=== PATIENT | female | born 1965 | race Caucasian/White ===

== ENCOUNTER 2020-05-18 07:40 | Outpatient (REF) | payer OTHER, SELFPAY ==
--- NOTE | 2020-05-18 | XR_ITS ---
EXAMINATION: XR LUMBOSACRAL SPINE CLINICAL INFORMATION: Dorsal spine pain COMPARISON: None TECHNIQUE: Three views of the lumbosacral spine. FINDINGS: There is normal lumbar lordosis. The vertebral heights, alignment and disc heights are normal. There is no visible acute fracture, dislocation or subluxation seen. The soft tissues are normal. XR/XR lumbar spine 2-3V IMPRESSION: Unremarkable lumbar spine exam.
== END 2020-05-18 07:41 | disposition home or self-care (01) ==
LOC: HO.XRAY 07:40
PROVIDERS: PCP Internal Medicine; Visit Provider Internal Medicine
DX: M54.9 Dorsalgia, unspecified (principal)
CPT/HCPCS: 72100

== ENCOUNTER 2020-06-23 08:00 | Outpatient (RCR) | payer OTHER, SELFPAY | END 2020-06-23 09:22 | disposition other institution (70) | LOC: HO.PT 08:00 | PROVIDERS: PCP Internal Medicine; Visit Provider Internal Medicine | DX: M54.9 Dorsalgia, unspecified (principal) | CPT/HCPCS: 97110; 97162; 97530 ==

== ENCOUNTER 2020-08-10 08:00 | Outpatient (RCR) | payer OTHER, SELFPAY ==
[2020-06-29 08:11] VITALS: BP 122/56; PULSE 91
== END 2020-08-10 11:21 | disposition other institution (70) ==
LOC: HO.PT 08:00
PROVIDERS: PCP Internal Medicine; Visit Provider Internal Medicine
DX: M54.2 Cervicalgia (principal)
CPT/HCPCS: 97110; 97140; 97161

== ENCOUNTER → 2021-04-19 16:28 | Outpatient (BNVA) | payer OTHER, SELFPAY | PROVIDERS: PCP Internal Medicine; Visit Provider Anesthesiology | DX: M50.30 Other cervical disc degeneration, unspecified cervical region (principal); M48.00 Spinal stenosis, site unspecified; M48.02 Spinal stenosis, cervical region | CPT/HCPCS: Q3014 ==

== ENCOUNTER → 2021-07-12 16:14 | Outpatient (BNVA) | payer OTHER, SELFPAY | PROVIDERS: PCP Internal Medicine; Visit Provider Anesthesiology ==

== ENCOUNTER 2022-01-16 03:51 | Emergency (ER) | payer OTHER, SELFPAY ==
--- NOTE | ~2022-01-16 | CT_ITS ---
EXAMINATION: CT ABDOMEN AND PELVIS WITHOUT CONTRAST CLINICAL INFORMATION: Diffuse abdominal pain and lower back pain COMPARISON: Renal ultrasound 10/08/2019 TECHNIQUE: Multidetector volumetric imaging was performed from the superior aspect of the liver through the pubic symphysis. Sagittal and coronal reformatted images were obtained on the technologist's workstation. This CT examination was performed using dose optimization techniques as appropriate, variously including the following: *Automated exposure control *Adjustment of mA and/or kV according to patient size (this includes techniques or standardized protocols for targeted exams where dose is matched to indication/reason for exam; i.e. extremities or head) *Use of iterative reconstruction technique DLP: 827 mGy-cm FINDINGS: LUNG BASES: There is dependent bibasilar atelectasis or atelectasis. There is a 6 mm pleural-based nodule left lower lobe. Previously it measured 5 mm The heart size is normal LIVER, GALLBLADDER, AND BILIARY TREE: The liver is normal in size, shape, and attenuation. No focal hepatic lesion or biliary ductal dilatation is present. The gallbladder is unremarkable with no evidence of radiopaque gallstones, gallbladder wall thickening, or obvious pericholecystic inflammatory changes. PANCREAS: Unremarkable. SPLEEN: Unremarkable. ADRENAL GLANDS: Unremarkable. KIDNEYS AND URETERS: The kidneys are normal in size, shape, and attenuation. There is a lobulated appearance of lower pole right kidney measuring up to 3.4 x 2.8 cm on axial image 41/3. It appears new since the previous exam of 2012 mass is suspected. No radiopaque renal calculi or hydronephrosis seen. No perinephric stranding. BLADDER: Unremarkable. GASTROINTESTINAL TRACT: Scattered stool and gas is seen throughout the colon without distention. The small bowel loops are normal caliber. ABDOMINAL WALL: No significant hernia is appreciated. LYMPH NODES: Normal. VASCULAR: Unremarkable. PELVIC VISCERA: The uterus is anteverted and appears unremarkable. There is no adnexal mass seen. OSSEOUS STRUCTURES: Unremarkable. CT/CT abdomen pelvis wo con IMPRESSION: No acute intra-abdominal process seen. Lobulated mass lobe pole right kidney new since 2015. Recommend further evaluation with MRI kidneys with and without contrast. 6 mm subpleural-based nodule left lower lobe, stable. Fleischner guidelines were followed.
[2022-01-16 04:29] VITALS: BP 168/100; PULSE 72; O2SAT 98
[2022-01-16 04:33] VITALS: BP 98/36; PULSE 68; RESP 18; TEMP 36.6; O2SAT 96; BMI 32.5
[2022-01-16 04:40] LABS: MANUAL DIFF FLAG NO
[2022-01-16 04:42] LABS: Basophils Absolute Auto 0.1 X10*3/uL (0.0-0.2); Basophils Percent Auto 0.4 % (0-2); Eosinophils Absolute Auto 0.3 X10*3/uL (0.0-0.4); Eosinophils Percent Auto 2.2 % (0-4); Hematocrit 42.6 % (37.0-47.0); Hemoglobin 14.3 g/dl (12.0-16.0); Imm Gran Abs Auto 0.08 X10*3/uL (0.00-0.03); Imm Gran Pct Auto 0.6 % (0.0-0.4); Lymphocytes Absolute Auto 3.8 X10*3/uL (1.2-4.9); Lymphocytes Percent Auto 27.8 % (20-40); Mean Corpuscular HGB Conc 33.6 g/dl (31.0-35.0); Mean Corpuscular Hemoglobin 28.9 pg (27.0-33.0); Mean Corpuscular Volume 86.1 fL (80.0-98.0); Mean Platelet Volume 10.4 fL (9.4-12.3); Monocytes Absolute Auto 1.1 X10*3/uL (0.1-1.2); Monocytes Percent Auto 7.7 % (2-11); Neutrophils Absolute Auto 8.3 x10*3/uL (2.0-8.3); Neutrophils Percent Auto 61.3 % (45-73); Platelet Count 349 X10*3/uL (160-400); Red Blood Count 4.95 X10*6/uL (4.20-5.50); Red Cell Distribution Width 12.6 % (11.0-16.0); White Blood Count 13.6 X10*3/uL (4.8-10.8)
[2022-01-16 04:57] LABS: Alanine Aminotransferase 18 U/L (0-31); Albumin Level 4.3 g/dL (3.5-5.0); Alkaline Phosphatase 98 U/L (39-117); Anion Gap 16 (12-20); Aspartate Amino Transferase 19 U/L (5-31); Bilirubin Direct < 0.2 mg/dL (0.0-0.5); Bilirubin Total 0.2 mg/dL (0.0-1.0); Blood Urea Nitrogen 12 mg/dL (9-16); Calcium 9.2 mg/dL (8.4-10.2); Carbon Dioxide 23 mmol/L (22-29); Chloride 104 mmol/L (96-108); Creatinine Clr Calc Pharmacy 106.5; Estimated Glomerular Filt Rate > 60; Glucose Random 147 mg/dL (60-115); Lipase 104 U/L (8-78); Potassium 4.4 mmol/L (3.3-5.1); Sodium 139 mmol/L (135-145); Total Protein 7.8 g/dL (6.5-8.0)
[2022-01-16 08:32] VITALS: BP 104/33; PULSE 57; RESP 16; TEMP 36.6; O2SAT 95
[2022-01-16 09:30] VITALS: BP 110/46; PULSE 58; RESP 17; TEMP 36.7; O2SAT 98
[2022-01-16] MEDS: 0.9 % Sodium Chloride 1,000 ML 999 ML IVCONT (09:40)
[2022-01-16] MEDS: Ketorolac Tromethamine 30 MG/ML VIAL IVPUSH (09:40)
[2022-01-16] MEDS: ondansetron HCL 4 MG/2 ML VIAL IVPUSH (09:40)
--- NOTE | 2022-01-16 10:22 | ED_ITS ---
HPI - Abdominal Pain General Chief Complaint: Abdominal Pain Stated Complaint: LOWER BACK & ABD PAIN Time Seen by Provider: 01/16/22 08:13 Source: patient Mode of arrival: ambulatory Limitations: no limitations History of Present Illness HPI narrative: 56-year-old female with a past medical history of hypertension, hypercholesterolemia, diabetes, kidney stones, endometriosis, herpes zoster, pancreatitis, asthma, degenerative disc disease of cervical spine, spinal stenosis and depression presenting to the ED with complaints of diffuse abdominal pain that radiates to her back/tailbone for the past few days worse today. Reports that she was given a stool softener and now she is having more loose stools although she does not feel like she has had a full bowel movement. She reports that she only dribbles when she urinates. She reports she is unsure if it is GERD or back pain that is giving her actual pain. She reports that she went to her primary care recently and she had an ultrasound of her kidneys and they were negative for any acute processes. She denies any fevers, chills, dizziness, headaches, neck pain/stiffness, trouble swallowing or breathing, chest pain or shortness of breath, dyspnea on exertion, orthopnea, rashes, recent falls or trauma, recent travel, recent bad food exposure, any antibiotic usage, black or bloody stools, diarrhea, constipation, dysuria, hematuria, abnormal vaginal discharge or any other symptoms complaints or concerns at this time. MD elicited complaint: abdominal pain and flank pain Pertinent past history: other (See above) Onset (ago): day(s) (The past few days worse today) Pain Consistency: constant Location: diffuse Severity: mild Quality: cramping, aching and fullness Radiation: bilateral flank and back Exacerbating factors: nothing Relieving factors: nothing Associated symptoms: denies other symptoms Related Data Home Medications Medication Instructions Recorded Confirmed lisinopril 5 mg tablet 5 mg PO DAILY 04/19/21 04/19/21 lorazepam 1 mg tablet 1 mg PO DAILY PRN panic attack 04/19/21 04/19/21 metformin 500 mg tablet,extended 500 mg PO QPM 04/19/21 04/19/21 release 24 hr simvastatin 20 mg tablet 20 mg PO BEDTIME 04/19/21 04/19/21 Previous Rx's Medication Instructions Recorded tizanidine 2 mg tablet 2 mg PO TID PRN muscle spasticity 04/24/21 30 days #90 tabs cyclobenzaprine 10 mg tablet 10 mg PO Q8H PRN Muscle spasm #14 01/16/22 tabs naproxen 500 mg tablet 500 mg PO BID PRN pain #14 tabs 01/16/22 Allergies Allergy/AdvReac Type Severity Reaction Status Date / Time ampicillin [AMPICILLIN] Allergy Unknown RASH Unverified 07/12/21 16:26 Ampicillin Allergy Unknown rash Uncoded 07/12/21 16:26 Review of Systems Review of Systems Constitutional : No trauma, No Weight loss, No Fever, No Chills, ENT/Mouth : No Hearing loss, No Ear Pain, No Nasal Congestion, No Sinus Pain, No Hoarseness, No sore throat, No Rhinorrhea, No Swallowing Difficulty Cardiovascular : No Chest Pain, No SOB Respiratory : No Cough, No Dyspnea Gastrointestinal : No Nausea, No Vomiting, No Diarrhea, + abdominal Pain, No Hematochezia, No Melena Genitourinary : + Flank pain, No Dysuria, No Urinary Frequency, No Hematuria, No Urinary or Bowel Incontinence/retention Musculoskeletal : + Back pain, No neck pain, No joint stiffness, No joint swelling Skin : No Skin Lesions, No rash or signs of infection Neuro : No Weakness, No radiation, No Numbness, No Paresthesias, No headache, no loss of bowel or bladder incontinence, no saddle anesthesia, Focal weakness, No radiation Denies history of IV drug usage. Yes all other systems are reviewed and are negative [facility] Past Medical History Attestation statement: The following information was validated with the patient. Source: old records reviewed and nursing notes reviewed Medical History Asthma Degeneration, intervertebral disc, cervical Depression Diabetes Dysuria Generalized anxiety disorder History of kidney stones HTN (hypertension) Hx of endometriosis Hx of herpes zoster Hx of pancreatitis Hypercholesterolemia Leukocytosis Spinal stenosis Spinal stenosis in cervical region Surgical History H/O dilation and curettage Hx of section Family History Family History Mother Diabetes Depression Father Suicide Social History Social History Alcohol intake: never Patient Tobacco Use Status: Current everyday Tobacco user Smoked in Last 30 Days: Yes Use of substances other than those prescribed or required for medical reasons: No Advance Directives: No Advance Directives Information Provided: Yes Physical Exam ED Vital Signs: Vital Signs - 24 hr 01/16/22 04:33 01/16/22 08:32 01/16/22 09:30 Temperature 97.9 F 97.8 F 98.0 F Pulse Rate 68 57 58 Respiratory Rate 18 16 17 Blood Pressure 98/36 L 104/33 L 110/46 L Pulse Oximetry 96 95 98 Oxygen Delivery Method Room Air Room Air Room Air BMI result Body Mass Index 32.5 vital signs have been reviewed as normal and appeared to be correct. Blood pressure 98/63. Heart rate normal. Respiration rate normal. Temperature normal. Oxygen saturation normal. Appearance: Alert. Oriented X3. No acute distress. Head: Normal external exam. Normocephalic. Atraumatic. Eyes: PERRLA. EOMI. Conjunctiva and sclera normal. Eyelids normal. ENT: Pharynx normal. Uvula midline. Moist mucous membranes. No lesions/ulcerations or masses noted on the tongue. Normal voice. No trismus noted. No drooling noted. No muffled voice noted. Neck: Normal inspection. Neck supple. FROM. No adenopathy. Thyroid Normal. No tracheal deviation noted. No crepitus is noted. No meningeal signs. No neck mass noted. CVS: Normal heart rate and rhythm. Heart sound normal. Pulses normal throughout. No murmurs/rales/gallops. Respiratory: No respiratory distress. Painless inspiration. Breath sounds normal. No wheezes/rales/rhonchi noted. Chest nontender. No accessory muscle usage noted or decreased air movement noted. Abdomen: Soft and mild tenderness diffusely although no point tenderness noted. Bowel sounds normal in all 4 quadrants. No distention noted. No organomegaly noted. No visible injury noted. Back: No CVA tenderness. Full range of motion noted. Mild tenderness palpation to bilateral para lumbar musculature. No mid lumbar tenderness step- offs or deformities noted. No signs of trauma. Patient neuro intact bilaterally and distally on all 4 extremities. Patient's reflexes intact bilaterally and distally on all 4 extremities. No rashes/lesion/induration/fluctuance or signs of infection noted. Skin: Skin warm and dry. Normal skin color. Normal skin turgor. No rashes/les ions/lacerations noted. Extremities: No lower extremity edema. No calf tenderness is noted. Extrem ities exhibit normal range of motion and nontender. Neuro: Oriented X 3. No motor deficit. No sensory deficit. Reflexes normal. Normal steady gait. No focal neuro deficits noted. CN's II-XII intact bilaterally? Vascular: + radial pulses/+ 2 distal pedal pulses/+2 dorsalis pedis b/l. Normal cap refill. No cyanosis noted to upper extremity nails and lower extremity toes nails. Course Course Course Narrative: 56-year-old female with a past medical history of hypertension, hypercholesterolemia, diabetes, kidney stones, endometriosis, herpes zoster, pancreatitis, asthma, degenerative disc disease of cervical spine, spinal stenosis and depression presenting to the ED with complaints of diffuse abdominal pain that radiates to her back/tailbone for the past few days worse today. Reports that she was given a stool softener and now she is having more loose stools although she does not feel like she has had a full bowel movement. She reports that she only dribbles when she urinates. She reports she is unsure if it is GERD or back pain that is giving her actual pain. Labs return patient with an elevated white blood cell count 88730. Random glucose 147. Lipase 104. Otherwise all other labs are within normal limits. UA revealed a trace of blood otherwise no evidence of UTI. CT scan abdomen pelvis without IV contrast revealed lobulated mass lobe pole right kidney new since 2014 recommend further evaluation with MRI kidneys with and without contrast. Along with a 6 mm subpleural based nodule left lower lobe that is stable. Otherwise no other intra abdominal processes. Therefore printed out the results and handed to the patient explained her that she will need to fol low-up with Dr. Syed for outpatient further evaluation treatment for her mass on the pole the right kidney. Due to Dr. Syed I consulted with him and he reported he can see are as an outpatient basis. Will DC home with symptomatic treatment instructions return if any new or worsening symptoms. Patient understands agrees with this plan. MDM - Abdominal Pain Medical Records Attestation: I reviewed the patient's medical records. Lab Data Attestation: I reviewed the patient's lab results. Result diagrams: 01/16/22 04:29 01/16/22 04:29 Labs: Lab Results 01/16/22 01/16/22 Range/Units 04:29 04:29 WBC 13.6 H (4.8-10.8) X10*3/uL RBC 4.95 (4.20-5.50) X10*6/uL Hgb 14.3 (12.0-16.0) g/dl Hct 42.6 (37.0-47.0) % MCV 86.1 (80.0-98.0) fL MCH 28.9 (27.0-33.0) pg MCHC 33.6 (31.0-35.0) g/dl RDW 12.6 (11.0-16.0) % Plt Count 349 (160-400) X10*3/uL MPV 10.4 (9.4-12.3) fL Immature Gran % (Auto) 0.6 H (0.0-0.4) % Neut % (Auto) 61.3 (45-73) % Lymph % (Auto) 27.8 (20-40) % [place] % (Auto) 7.7 (2-11) % Eos % (Auto) 2.2 (0-4) % Baso % (Auto) 0.4 (0-2) % Lymph # (Auto) 3.8 (1.2-4.9) X10*3/uL [place] # (Auto) 1.1 (0.1-1.2) X10*3/uL Eos # (Auto) 0.3 (0.0-0.4) X10*3/uL Baso # (Auto) 0.1 (0.0-0.2) X10*3/uL Abs Immat Gran (auto) 0.08 H (0.00-0.03) X10*3/uL Absolute Neuts (auto) 8.3 (2.0-8.3) x10*3/uL Absolute Nucleated RBC 0.000 (0.0-0.012) X10*3/uL Nucleated RBC % (auto) 0.0 (0.0-0.2) /100WBC Sodium 139 (135-145) mmol/L Potassium 4.4 (3.3-5.1) mmol/L Chloride 104 (96-108) mmol/L Carbon Dioxide 23 (22-29) mmol/L Anion Gap 16 (12-20) BUN 12 (9-16) mg/dL Creatinine 0.75 (0.5-1.4) mg/dL Estim Creat Clear Calc 106.5 Estimated GFR > 60 Random Glucose 147 H (60-115) mg/dL Calcium 9.2 (8.4-10.2) mg/dL Total Bilirubin 0.2 (0.0-1.0) mg/dL Direct Bilirubin < 0.2 (0.0-0.5) mg/dL AST 19 (5-31) U/L ALT 18 (0-31) U/L Alkaline Phosphatase 98 (39-117) U/L Total Protein 7.8 (6.5-8.0) g/dL Albumin 4.3 (3.5-5.0) g/dL Lipase 104 H (8-78) U/L Imaging Data CT scan abdomen pelvis without IV contrast: Attestation: I personally reviewed and interpreted this imaging study as follows: Radiologist's impression: FINDINGS: LUNG BASES: There is dependent bibasilar atelectasis or atelectasis. There is a 6 mm pleural-based nodule left lower lobe. Previously it measured 5 mm The heart size is normal? LIVER, GALLBLADDER, AND BILIARY TREE: The liver is normal in size, shape, and attenuation. No focal hepatic lesion or biliary ductal dilatation is present. The gallbladder is unremarkable with no evidence of radiopaque gallstones, gallbladder wall thickening, or obvious pericholecystic inflammatory changes.? PANCREAS: Unremarkable.? SPLEEN: Unremarkable.? ADRENAL GLANDS: Unremarkable.? KIDNEYS AND URETERS: The kidneys are normal in size, shape, and attenuation. There is a lobulated appearance of lower pole right kidney measuring up to 3.4 x 2.8 cm on axial image 41/3. It appears new since the previous exam of 2013 mass is suspected. No radiopaque renal calculi or hydronephrosis seen. No perinephric stranding.? BLADDER: Unremarkable.? GASTROINTESTINAL TRACT: Scattered stool and gas is seen throughout the colon without distention. The small bowel loops are normal caliber.? ABDOMINAL WALL: No significant hernia is appreciated.? LYMPH NODES: Normal. VASCULAR: Unremarkable. PELVIC VISCERA: The uterus is anteverted and appears unremarkable. There is no adnexal mass seen.? OSSEOUS STRUCTURES: Unremarkable.? CT/CT abdomen pelvis wo con IMPRESSION: No acute intra-abdominal process seen. ? Lobulated mass lobe pole right kidney new since 2015. Recommend further evaluation with MRI kidneys with and without contrast. ? 6 mm subpleural-based nodule left lower lobe, stable. ? Fleischner guidelines were followed. Discharge Plan Discharge Clinical Impression: Mass of right kidney, Left lower lobe pulmonary nodule, Back strain Patient Disposition: Home, Self-Care Instructions: Pulmonary Nodules (ED) Prescriptions: New naproxen 500 mg tablet 500 mg PO BID PRN (Reason: pain) Qty: 14 0RF cyclobenzaprine 10 mg tablet 10 mg PO Q8H PRN (Reason: Muscle spasm) Qty: 14 0RF No Action tizanidine 2 mg tablet 2 mg PO TID PRN (Reason: muscle spasticity) 30 Days Qty: 90 8RF simvastatin 20 mg tablet 20 mg PO BEDTIME lisinopril 5 mg tablet 5 mg PO DAILY metformin 500 mg tablet extended release 24 hr 500 mg PO QPM lorazepam 1 mg tablet 1 mg PO DAILY PRN (Reason: panic attack) Referrals: Eliel Stoddard MD [Primary Care Provider] - 1 week Miguel Syed MD [Physician] - 1 week Stand Alone Forms: Work/School Release
[2022-01-16 11:05] LABS: Appearance Urine CLEAR; Color Urine YELLOW; Glucose Urine UA NEG (NEG); Leukocyte Esterase Urine NEG (NEG); Nitrite Urine NEG (NEG); PH 5.5 (5.0-8.0); Specific Gravity - Urine 1.025 (1.005-1.025); UACC Culture Trigger NO; Urine Blood TRACE (NEG); Urine Ketones NEG (NEG); Urine Protein NEG (NEG-TRACE)
[2022-01-16 11:29] LABS: RBC Urine 0-2 /HPF (0); Squamous Epithelial Cell Urine 2+ /LPF; WBC Urine 0 /HPF (0-4)
== END 2022-01-16 11:27 | disposition home or self-care (01) ==
PROVIDERS: Physician Assistant Medical; Emergency Provider Emergency Medicine Emergency Medical Services; PCP Internal Medicine
DX: N28.89 Other specified disorders of kidney and ureter (principal); R91.1 Solitary pulmonary nodule; S39.012A Strain of muscle, fascia and tendon of lower back, initial encounter; X58.XXXA Exposure to other specified factors, initial encounter; E11.9 Type 2 diabetes mellitus without complications; I10 Essential (primary) hypertension; E78.00 Pure hypercholesterolemia, unspecified; F17.200 Nicotine dependence, unspecified, uncomplicated; Z87.442 Personal history of urinary calculi; Z79.899 Other long term (current) drug therapy; Z79.84 Long term (current) use of oral hypoglycemic drugs; Z79.02 Long term (current) use of antithrombotics/antiplatelets; Y93.9 Activity, unspecified; Y92.9 Unspecified place or not applicable; Y99.9 Unspecified external cause status
CPT/HCPCS: 36415; 74176; 80053; 81001; 82248; 83690; 85025; 96361; 96374; 96375; 99284; J1885; J2405

== ENCOUNTER → 2022-03-15 09:07 | Outpatient (BNVA) | payer OTHER, SELFPAY | PROVIDERS: PCP Internal Medicine; Visit Provider Anesthesiology | DX: M50.30 Other cervical disc degeneration, unspecified cervical region (principal); M48.02 Spinal stenosis, cervical region | CPT/HCPCS: 99212 ==

== ENCOUNTER 2023-01-04 19:08 | Outpatient (REF) | payer OTHER, SELFPAY ==
[2023-01-05 07:19] LABS: CT PCR NOT DETECTED (Not Detect.); NG PCR NOT DETECTED (Not Detect.)
[2023-01-05 11:50] LABS: BV Int Neg Control Negative (Negative); BV Int Pos Control Positive (Positive)
== END 2023-01-04 19:09 | disposition home or self-care (01) ==
LOC: HO.HHCLNP 19:08
PROVIDERS: Visit Provider Family Medicine
DX: R10.2 Pelvic and perineal pain (principal)
CPT/HCPCS: 0353U; 87480; 87510; 87660

== ENCOUNTER 2023-02-06 08:22 | Emergency (ER) | payer OTHER, SELFPAY ==
--- NOTE | ~2023-02-06 | CT_ITS ---
EXAMINATION: CT ABDOMEN AND PELVIS WITHOUT CONTRAST CLINICAL INFORMATION: Bilateral flank pain, kidney mass. COMPARISON: CT scan of the abdomen and pelvis dated 01/16/2022. Renal ultrasound dated 10/08/2019 TECHNIQUE: Multidetector volumetric imaging was performed from the superior aspect of the liver through the pubic symphysis. Sagittal and coronal reformatted images were obtained on the technologist's workstation. Lack of intravenous and oral contrast limits visceral evaluation. This CT examination was performed using dose optimization techniques as appropriate, variously including the following: *Automated exposure control *Adjustment of mA and/or kV according to patient size (this includes techniques or standardized protocols for targeted exams where dose is matched to indication/reason for exam; i.e. extremities or head) *Use of iterative reconstruction technique DLP: 710 mGy-cm FINDINGS: LUNG BASES: The visualized lung bases are unremarkable. LIVER, GALLBLADDER, AND BILIARY TREE: Hepatic right lobe dominant without significant change. No focal abnormality or change. No gallbladder/biliary abnormality. PANCREAS: Unremarkable. SPLEEN: Unremarkable. ADRENAL GLANDS: Unremarkable. KIDNEYS AND URETERS: Renal cortical lobulation bilaterally, right greater than left without significant change. Small fluid attenuation cyst medially in the left upper pole measuring 1.0 cm (image 70, series 6). No nephrolithiasis or hydroureteronephrosis. BLADDER: Unremarkable. GASTROINTESTINAL TRACT: The stomach, small bowel and appendix are unremarkable. The colon shows mild diverticulosis in the sigmoid colon without surrounding abnormality. The rectum is unremarkable. ABDOMINAL WALL: Small fat-containing umbilical hernia without associated abnormality. LYMPH NODES: No lymphadenopathy. VASCULAR: Unremarkable. PELVIC VISCERA: Unremarkable. OSSEOUS STRUCTURES: Unremarkable. CT/CT abdomen pelvis wo IV con IMPRESSION: 1. No acute intra-abdominal/pelvic abnormality. 2. Renal cortical lobulation, right greater than left without significant interval change. Small right renal cyst demonstrates benign features without cement change, not requiring follow-up. 3. Small fat-containing umbilical hernia without definite change or associated abnormality.
--- NOTE | 2023-02-06 08:34 | ED_ITS ---
HPI - Abdominal Pain General Chief Complaint: General Medical Stated Complaint: ?kidney stone, flank pain Time Seen by Provider: 02/06/23 08:30 Source: patient Mode of arrival: ambulatory Limitations: no limitations History of Present Illness HPI narrative: bilateral flank pain for weeks with abdominal pain. Patient states that she is having dysuria and thinks she has kidney stones. Denies fever or blood. Ana ent states that she saw her doctor and her urologist. MD elicited complaint: abdominal pain and flank pain Related Data Home Medications Medication Instructions Recorded Confirmed lisinopril 5 mg tablet 5 mg PO DAILY 04/19/21 04/19/21 lorazepam 1 mg tablet 1 mg PO DAILY PRN panic attack 04/19/21 04/19/21 metformin 500 mg tablet,extended 500 mg PO QPM 04/19/21 04/19/21 release 24 hr simvastatin 20 mg tablet 20 mg PO BEDTIME 04/19/21 04/19/21 Previous Rx's Medication Instructions Recorded tizanidine 2 mg tablet 2 mg PO TID PRN muscle spasticity 04/24/21 30 days #90 tabs cyclobenzaprine 10 mg tablet 10 mg PO Q8H PRN Muscle spasm #14 01/16/22 tabs naproxen 500 mg tablet 500 mg PO BID PRN pain #14 tabs 01/16/22 Allergies Allergy/AdvReac Type Severity Reaction Status Date / Time ampicillin [AMPICILLIN] Allergy Unknown RASH Unverified 02/06/23 08:44 Ampicillin Allergy Unknown rash Uncoded 02/06/23 08:44 Review of Systems Review of Systems Yes all other systems are reviewed and are negative PMFSH Past Medical History Medical History Asthma Degeneration, intervertebral disc, cervical Depression Diabetes Dysuria Generalized anxiety disorder History of kidney stones HTN (hypertension) Hx of endometriosis Hx of herpes zoster Hx of pancreatitis Hypercholesterolemia Leukocytosis Spinal stenosis Spinal stenosis in cervical region Surgical History H/O dilation and curettage Hx of section Family History Family History Mother Diabetes Depression Father Suicide Social History Social History Alcohol intake: never Patient Tobacco Use Status: Current everyday Tobacco user Smoked in Last 30 Days: Yes Use of substances other than those prescribed or required for medical reasons: No Advance Directives: No Advance Directives Information Provided: Yes Patient : No Physical Exam ED Vital Signs: Vital Signs - 24 hr 02/06/23 08:54 Temperature 97.4 F Pulse Rate 62 Respiratory Rate 16 Blood Pressure 116/56 L Pulse Oximetry 100 Oxygen Delivery Method Room Air BMI result Body Mass Index 32.2 Const Other: slightly anxious Nutritional Appearance: obese Orientation/consciousness: oriented to person and patient oriented x3 Limitations: no limitations HENMT Head: Yes normal to inspection Ears: external ears normal General nose exam: Normal external nose present Mouth: Normal oral and palatal mucosa present and oropharynx normal Throat: Yes posterior oropharynx normal Eyes General: appearance normal, both eyes and all related structures Neck Neck: Yes normal visual inspection Chest Chest palpation & inspection: normal inspection of the chest Resp Auscultation: clear to auscultation bilaterally Cardio Jugular venous distension: no JVD Rate: regular rate Rhythm: regular rhythm Heart sounds: S1 normal heart sound present and S2 normal heart sound present GI Other: slight diffuse tenderness no guarding or rebound Auscultation: normal bowel sounds General: Yes no CVA tenderness Back/Spine/Pelvis Back: no CVA tenderness Skin General skin exam: no rashes or lesions noted Neuro General: oriented to person and patient oriented x3 Cranial nerves: Yes CN's II-XII intact bilaterally Motor exam (neuro): 5/5 motor strength present throughout Extrem General: Yes normal to inspection Psych Appearance: grossly normal Medical Decision Making Differential Diagnosis Differential Diagnoses: The differential diagnosis associated with the presentation includes (pyelonephritis, renal colic, UTI, renal mass were all included) Admission/Observation Consideration of admission/observation: Escalation of care including admission/observation considered (upon arrival patient was considered for admission) Lab Data MDM Lab Attestation statement: I reviewed the patient's lab results. (WBC sligh tly elevated but UA negative for infection) 02/06/23 08:54 02/06/23 08:53 Labs: Lab Results 02/06/23 02/06/23 02/06/23 Range/Units 08:53 08:54 09:45 WBC 12.9 H (4.8-10.8) X10*3/uL RBC 4.98 (4.20-5.50) X10*6/uL Hgb 14.5 (12.0-16.0) g/dl Hct 43.4 (37.0-47.0) % MCV 87.1 (80.0-98.0) fL MCH 29.1 (27.0-33.0) pg MCHC 33.4 (31.0-35.0) g/dl RDW 12.7 (11.0-16.0) % Plt Count 350 (160-400) X10*3/uL MPV 10.2 (9.4-12.3) fL Immature Gran % (Auto) 0.7 H (0.0-0.4) % Neut % (Auto) 60.5 (45-73) % Lymph % (Auto) 27.3 (20-40) % [place] % (Auto) 9.2 (2-11) % Eos % (Auto) 1.8 (0-4) % Baso % (Auto) 0.5 (0-2) % Lymph # (Auto) 3.5 (1.2-4.9) X10*3/uL [place] # (Auto) 1.2 (0.1-1.2) X10*3/uL Eos # (Auto) 0.2 (0.0-0.4) X10*3/uL Baso # (Auto) 0.1 (0.0-0.2) X10*3/uL Abs Immat Gran (auto) 0.09 H (0.00-0.03) X10*3/uL Absolute Neuts (auto) 7.8 (2.0-8.3) x10*3/uL Absolute Nucleated RBC 0.000 (0.0-0.012) X10*3/uL Nucleated RBC % (auto) 0.0 (0.0-0.2) /100WBC Sodium 139 (135-145) mmol/L Potassium 4.4 (3.3-5.1) mmol/L Chloride 106 (96-108) mmol/L Carbon Dioxide 24 (22-29) mmol/L Anion Gap 13 (12-20) BUN 10 (9-16) mg/dL Creatinine 0.72 (0.5-1.4) mg/dL Estim Creat Clear Calc 112.6 Estimated GFR > 60 Random Glucose 138 H (60-115) mg/dL Calcium 9.6 (8.4-10.2) mg/dL Urine Color Yellow Urine Appearance Clear Urine pH 5.5 (5.0-9.0) Ur Specific [place] 1.015 (1.005-1.025) Urine Protein Negative (Neg-Trace) mg/dL Urine Glucose (UA) Negative (Negative) mg/dL Urine Ketones Negative (Negative) mg/dL Urine Blood Negative (Negative) Urine Nitrite Negative (Negative) Ur Leukocyte Esterase Negative (Negative) Independent Interpretation I performed an independent interpretation of an: CT Scan (no stones or hydro seen by me) Radiology Impression Discussion of test interpretation with radiology: I have reviewed the radiologist's reading. (no stones or mass) External Record Review External record reviewed: Outpatient record Prescription Management I considered prescription management with: Antibiotic (no evidence of infection) Chronic Conditions Patient?s care impacted by: Diabetes Discharge Plan Discharge Clinical Impression: Abdominal pain Patient Disposition: Home, Self-Care Instructions: Abdominal Pain (ED) Prescriptions: No Action tizanidine 2 mg tablet 2 mg PO TID PRN (Reason: muscle spasticity) 30 Days Qty: 90 8RF naproxen 500 mg tablet 500 mg PO BID PRN (Reason: pain) Qty: 14 0RF cyclobenzaprine 10 mg tablet 10 mg PO Q8H PRN (Reason: Muscle spasm) Qty: 14 0RF simvastatin 20 mg tablet 20 mg PO BEDTIME lisinopril 5 mg tablet 5 mg PO DAILY metformin 500 mg tablet extended release 24 hr 500 mg PO QPM lorazepam 1 mg tablet 1 mg PO DAILY PRN (Reason: panic attack) Referrals: Physician,Unknown J [Primary Care Provider] - 5 days
--- NOTE | 2023-02-06 08:46 | PC.NURSE ---
pt transferred to CT.
[2023-02-06 08:51] VITALS: BMI 32.2
[2023-02-06 08:54] VITALS: BP 116/56; PULSE 62; RESP 16; TEMP 36.3; O2SAT 100
--- NOTE | 2023-02-06 08:56 | PC.NURSE ---
pt a&ox3, vss, pt verbalizing 9/10 bilateral flank pain. pain has accompanying nausea but denies v/d. pt states that she has a hx of kidney stones and this pain feels similar to past episodes. call hopkins placed within reach.
[2023-02-06 08:58] LABS: MANUAL DIFF FLAG NO
[2023-02-06 09:09] LABS: Basophils Absolute Auto 0.1 X10*3/uL (0.0-0.2); Basophils Percent Auto 0.5 % (0-2); Eosinophils Absolute Auto 0.2 X10*3/uL (0.0-0.4); Eosinophils Percent Auto 1.8 % (0-4); Hematocrit 43.4 % (37.0-47.0); Hemoglobin 14.5 g/dl (12.0-16.0); Imm Gran Abs Auto 0.09 X10*3/uL (0.00-0.03); Imm Gran Pct Auto 0.7 % (0.0-0.4); Lymphocytes Absolute Auto 3.5 X10*3/uL (1.2-4.9); Lymphocytes Percent Auto 27.3 % (20-40); Mean Corpuscular HGB Conc 33.4 g/dl (31.0-35.0); Mean Corpuscular Hemoglobin 29.1 pg (27.0-33.0); Mean Corpuscular Volume 87.1 fL (80.0-98.0); Mean Platelet Volume 10.2 fL (9.4-12.3); Monocytes Absolute Auto 1.2 X10*3/uL (0.1-1.2); Monocytes Percent Auto 9.2 % (2-11); Neutrophils Absolute Auto 7.8 x10*3/uL (2.0-8.3); Neutrophils Percent Auto 60.5 % (45-73); Platelet Count 350 X10*3/uL (160-400); Red Blood Count 4.98 X10*6/uL (4.20-5.50); Red Cell Distribution Width 12.7 % (11.0-16.0); White Blood Count 12.9 X10*3/uL (4.8-10.8)
[2023-02-06 09:17] LABS: Anion Gap 13 (12-20); Blood Urea Nitrogen 10 mg/dL (9-16); Carbon Dioxide 24 mmol/L (22-29); Chloride 106 mmol/L (96-108); Creatinine Clr Calc Pharmacy 112.6; Estimated Glomerular Filt Rate > 60; Potassium 4.4 mmol/L (3.3-5.1); Sodium 139 mmol/L (135-145)
[2023-02-06 09:18] LABS: Calcium 9.6 mg/dL (8.4-10.2); Glucose Random 138 mg/dL (60-115)
[2023-02-06 09:58] LABS: Appearance Urine Clear; Color Urine Yellow; Glucose Urine UA Negative (Negative); Leukocyte Esterase Urine Negative (Negative); Nitrite Urine Negative (Negative); PH 5.5 (5.0-9.0); Specific Gravity - Urine 1.015 (1.005-1.025); Urine Blood Negative (Negative); Urine Ketones Negative (Negative); Urine Protein Negative (Neg-Trace)
[2023-02-06 10:30] VITALS: BP 106/55; PULSE 62; RESP 18; TEMP 36.7; O2SAT 97
--- NOTE | 2023-02-06 10:32 | PC.NURSE ---
vss. pt verbalizing pain increased to a 9/10 and that the pain is now radiating from bilateral flank area towards lower abdomen.
--- NOTE | 2023-02-06 10:36 | PC.NURSE ---
pt provided w/ discharge instructions.
== END 2023-02-06 10:38 | disposition home or self-care (01) ==
PROVIDERS: Emergency Provider Emergency Medicine
DX: R10.9 Unspecified abdominal pain (principal); R30.0 Dysuria; I10 Essential (primary) hypertension; E11.8 Type 2 diabetes mellitus with unspecified complications; Z79.84 Long term (current) use of oral hypoglycemic drugs; F17.210 Nicotine dependence, cigarettes, uncomplicated; Z79.899 Other long term (current) drug therapy
CPT/HCPCS: 36415; 74176; 80048; 81003; 85025; 99284

== ENCOUNTER 2023-07-08 09:06 | Outpatient (REF) | payer OTHER, SELFPAY ==
[2023-07-08 15:45] LABS: Vitamin D 25-OH Total 28.9 ng/mL (>30)
== END 2023-07-08 09:07 | disposition home or self-care (01) ==
LOC: HO.CHCLDS 09:06
PROVIDERS: Visit Provider Internal Medicine
DX: E55.9 Vitamin D deficiency, unspecified (principal)
CPT/HCPCS: 36415; 82306

== ENCOUNTER 2023-07-29 15:25 | Outpatient (REF) | payer OTHER, SELFPAY | END 2023-07-29 15:26 | disposition home or self-care (01) | LOC: HO.CHCLNP 15:25 | PROVIDERS: Visit Provider Family Medicine | DX: N30.00 Acute cystitis without hematuria (principal) | CPT/HCPCS: 87086 ==

== ENCOUNTER 2023-08-01 12:37 | Outpatient (AMB) | payer OTHER, SELFPAY ==
--- NOTE | 2023-08-01 13:29 | MHC.OFFVIS ---
Intake Intake Visit Reasons: cervical myelopathy Assessment & Plan Assessment & Plan (1) Neck pain: Code(s): M54.2 - Cervicalgia Plan Mrs Rodriguez her went an anterior cervical diskectomy and fusion at C5-[address] Eller about 2-3 years ago. She did very well with improvement in her arm pain after surgery. For the last year so, she has had progressive increase in neck pain with numbness on the back of her neck as well as pain going down her arms again. She came back to see us for evaluation. She has been using baclofen and ibuprofen without much help. 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 She will occasionally get numbness in her left hand and has been diagnosed with carpal tunnel. She has using a brace at night and that seems to help. On my exam she has full strength of bilateral upper and lower extremities, reflexes are normal, positive Tinel sign in the left hand. I reviewed her MRI done at [facility] and it shows postsurgical changes at C5-6 with good decompression, no evidence of residual nerve root impingement. Above the fusion at C4-5 there is a slight right-sided disc bulge with some foraminal stenosis but nothing severe. Other than that I do not see any significant findings other than some mild spondylosis. I am not sure what the source of her neck pain could be. I would like her to see Dr. Greco to see if there is anything he can offer in terms of injections to help her neck pain. This could just be an overuse syndrome from her job. I will defer to him if he thinks there is anything worthwhile to treat with intervention. Total amount of time spent in this visit was 20 minutes in discussion of symptoms, cervical MRI imaging results and subsequent plan of care Filippo Eller MD,PhD [facility] Orders: Referrals Physiatry Referral M54.2 - Cervicalgia Coding Level of Care Code Est Pt Level 3 (89533) Diagnoses Neck pain M54.2
== END 2023-08-01 14:22 | disposition home or self-care (01) ==
PROVIDERS: PCP Internal Medicine; Referring Provider Nurse Practitioner Family; Visit Provider Physician Assistant
DX: M54.2 Cervicalgia (principal)
CPT/HCPCS: 99213

== ENCOUNTER → 2023-08-01 12:37 | Outpatient (BNVA) | payer OTHER, SELFPAY | PROVIDERS: Visit Provider Physician Assistant | DX: M54.2 Cervicalgia (principal) | CPT/HCPCS: 99212 ==

== ENCOUNTER 2023-08-02 08:53 | Outpatient (REF) | payer OTHER, SELFPAY ==
--- NOTE | 2023-08-02 08:59 | EMG_ITS ---
Chief complaint: History of cervical fusion 2 years ago. Started having left arm tingling, around the elbow/forearm, affecting fingertips 4th and 5th digits, 1 month ago. Reason for referral: Evaluate for Carpal Tunnel Syndrome, ulnar neuropathy or cervical radiculopathy Referred by: Eva Garcia Procedure done: Left upper extremity NCS/EMG Precautions and/or limitations: History of cervical fusion, paraspinals deferred The limb temperature was monitored continuously and remained between 32-36 degrees C during the performance of the NCS. Nerve Conduction Studies Anti Sensory Summary Table ?Stim Site NR Onset (ms) Norm Onset (ms) Peak (ms) Norm Peak (ms) O-P Amp (?V) Norm O-P Amp Site1 Site2 Delta-0 (ms) Dist (cm) Jace (m/s) Norm Jace (m/s) Left Median Anti Sensory (2nd Digit) Wrist ? 2.4 3.4 <3.6 44.7 >10 Wrist 2nd Digit 2.4 14.0 58 Left Ulnar Anti Sensory (5th Digit) Wrist ? 2.6 3.2 <3.7 27.3 >15.0 Wrist 5th Digit 2.6 14.0 54 Motor Summary Table ?Stim Site NR Onset (ms) Norm Onset (ms) O-P Amp (mV) Norm O-P Amp iAmp (mV) Amp (1st) (%) Site1 Site2 Delta-0 (ms) Dist (cm) Jace (m/s) Norm Jace (m/s) Left Median Motor (Abd Poll Brev) Wrist ? 3.8 <3.9 8.3 >4.5 11.0 100.0 Elbow Wrist 4.2 23.5 56 >45 Elbow ? 8.0 7.7 10.0 92.8 Left Ulnar Motor (Abd Dig Minimi) Wrist ? 2.8 <3.0 11.5 >5 14.7 100.0 B Elbow Wrist 4.4 22.0 50 >45 B Elbow ? 7.2 9.9 13.1 86.1 A Elbow B Elbow 1.3 10.0 77 >45 A Elbow ? 8.5 10.2 14.0 88.7 Comparison Summary Table ?Stim Site NR Peak (ms) Norm Peak (ms) P-T Amp (?V) Site1 Site2 Delta-P (ms) Norm Delta (ms) Left Median/Radial Dig I Comparison (Digit 1 - 10cm) Median ? 2.6 <2.9 73.4 Median Radial -0.2 Radial ? 2.8 <2.8 85.0 EMG ?Side Muscle Nerve Root Ins Act Fibs Psw Amp Dur Poly Recrt Int Pat Comment Left 1stDorInt Ulnar C8-T1 Nml Nml Nml Nml Nml 0 Nml Complete Left FlexCarRad Median C6-7 Nml Nml Nml Nml Nml 0 Nml Complete Left Biceps Musculocut C5-6 Nml Nml Nml Nml Nml 0 Nml Complete Left Triceps Radial C6-7-8 Incr 1+ 1+ Nml Nml 0 Nml Complete Left Deltoid Axillary C5-6 Nml Nml Nml Nml Nml 0 Nml Complete Left BrachioRad Radial C5-6 Nml Nml Nml Nml Nml 0 Nml Complete Left ExtIndicis Radial (Post Int) C7-8 Nml Nml Nml Nml Nml 0 Nml Complete FINDINGS: All motor and sensory nerves tested showed normal latencies, amplitudes and conduction velocities. Concentric needle EMG was performed in selected muscles of the left upper extremity. Study revealed signs of electric abnormalities as shown in the table below. Left triceps showed increased insertional activity, PSWs and fibrillations. IMPRESSION: 1. This is an abnormal study. 2. There is no electrodiagnostic evidence for median neuropathy, ulnar neuropathy, or brachial plexopathy. 3. There are electrodiagnostic findings suggestive for a left C7 acute radiculopathy. CLINICAL COMMENT: Acute denervation seen on left triceps only, without any other denervation seen on other muscles innervated by C6/7/8. Correlate with cervical imaging. May consider repeat EMG in 3 months Thank you for your kind referral. Maddie Bryant MD, YAKELIN Board Certified, [place] Board [employer] Physical [employer] and Rehabilitation (ABPMR) Board Certified, [place] Board of Electrodiagnostic Medicine (ABEM) CODIN [id number] [facility]
== END 2023-08-02 08:54 | disposition home or self-care (01) ==
LOC: HO.NEURO 08:53
PROVIDERS: PCP Internal Medicine; Visit Provider Nurse Practitioner Family
DX: M79.642 Pain in left hand (principal); G56.02 Carpal tunnel syndrome, left upper limb; G56.22 Lesion of ulnar nerve, left upper limb; G95.9 Disease of spinal cord, unspecified
CPT/HCPCS: 95886; 95909

== ENCOUNTER → 2023-08-02 08:59 | Outpatient (BNV) | payer OTHER, SELFPAY | PROVIDERS: PCP Internal Medicine; Visit Provider Physical Medicine & Rehabilitation | DX: M79.602 Pain in left arm (principal); R20.2 Paresthesia of skin; M54.12 Radiculopathy, cervical region | CPT/HCPCS: 95886; 95909 ==

== ENCOUNTER 2023-11-01 08:54 | Outpatient (REF) | payer OTHER, SELFPAY ==
--- NOTE | ~2023-11-01 | XR_ITS ---
EXAMINATION: XR ABDOMEN KUB CLINICAL INDICATION: Abdominal pain, bloating, constipation COMPARISON: None available. TECHNIQUE: AP view of the abdomen. FINDINGS: The bowel gas pattern is normal with no evidence of ileus or obstruction. No unusual soft tissue calcifications are noted. The bones are unremarkable. XR/XR abdomen 1V IMPRESSION: Unremarkable examination.
== END 2023-11-01 08:55 | disposition home or self-care (01) ==
LOC: HO.HHCX 08:54
PROVIDERS: Visit Provider Internal Medicine
DX: R14.0 Abdominal distension (gaseous) (principal)
CPT/HCPCS: 74018

== ENCOUNTER 2023-12-02 11:27 | Outpatient (REF) | payer OTHER, SELFPAY ==
[2023-12-02 13:27] LABS: MANUAL DIFF FLAG NO
[2023-12-02 13:40] LABS: Basophils Absolute Auto 0.1 X10*3/uL (0.0-0.2); Basophils Percent Auto 0.6 % (0-2); Eosinophils Absolute Auto 0.1 X10*3/uL (0.0-0.4); Eosinophils Percent Auto 0.9 % (0-4); Hematocrit 42.3 % (37.0-47.0); Hemoglobin 13.9 g/dl (12.0-16.0); Imm Gran Abs Auto 0.06 X10*3/uL (0.00-0.03); Imm Gran Pct Auto 0.5 % (0.0-0.4); Lymphocytes Absolute Auto 3.2 X10*3/uL (1.2-4.9); Lymphocytes Percent Auto 24.1 % (20-40); Mean Corpuscular HGB Conc 32.9 g/dl (31.0-35.0); Mean Corpuscular Hemoglobin 28.9 pg (27.0-33.0); Mean Corpuscular Volume 87.9 fL (80.0-98.0); Mean Platelet Volume 11.8 fL (9.4-12.3); Monocytes Absolute Auto 1.1 X10*3/uL (0.1-1.2); Monocytes Percent Auto 8.4 % (2-11); Neutrophils Absolute Auto 8.6 x10*3/uL (2.0-8.3); Neutrophils Percent Auto 65.5 % (45-73); Platelet Count 292 X10*3/uL (160-400); Red Blood Count 4.81 X10*6/uL (4.20-5.50); Red Cell Distribution Width 12.8 % (11.0-16.0); White Blood Count 13.1 X10*3/uL (4.8-10.8)
[2023-12-02 14:15] LABS: Alanine Aminotransferase 18 U/L (0-31); Albumin Level 4.5 g/dL (3.5-5.0); Alkaline Phosphatase 61 U/L (39-117); Anion Gap 12 (12-20); Aspartate Amino Transferase 16 U/L (5-31); Bilirubin Direct 0.1 mg/dL (0.0-0.5); Bilirubin Total 0.3 mg/dL (0.0-1.0); Blood Urea Nitrogen 10 mg/dL (9-16); Calcium 9.9 mg/dL (8.4-10.2); Carbon Dioxide 30 mmol/L (22-29); Chloride 105 mmol/L (96-108); Cholesterol 124 mg/dL (<200); Estimated Glomerular Filt Rate > 60; Glucose Random 79 mg/dL (60-115); HDL Cholesterol 33 mg/dL (>40); LDL Cholesterol Calculated 61 mg/dL (<100); Potassium 4.1 mmol/L (3.3-5.1); Sodium 143 mmol/L (135-145); Total Protein 8.1 g/dL (6.5-8.0); Triglycerides 154 mg/dL (<150)
== END 2023-12-02 11:28 | disposition home or self-care (01) ==
LOC: HO.HHCL 11:27
PROVIDERS: Visit Provider Internal Medicine
DX: Z00.00 Encounter for general adult medical examination without abnormal findings (principal)
CPT/HCPCS: 36415; 80048; 80061; 80076; 85025

== ENCOUNTER 2023-12-02 11:29 | Outpatient (REF) | payer OTHER, SELFPAY ==
[2023-12-05 01:53] LABS: TS Negative Control Passed; TS Panel A 0; TS Panel B 2; TS Positive Control Passed; TSpotTB Negative (Negative)
== END 2023-12-02 11:30 | disposition home or self-care (01) ==
LOC: HO.HHCL 11:29
PROVIDERS: Visit Provider Internal Medicine
DX: Z11.1 Encounter for screening for respiratory tuberculosis (principal)
CPT/HCPCS: 36415; 86481

== ENCOUNTER 2023-12-09 09:07 | Outpatient (REF) | payer OTHER, SELFPAY | END 2023-12-09 09:08 | disposition home or self-care (01) | LOC: HO.CHCLDS 09:07 | PROVIDERS: Visit Provider Family Medicine | DX: N30.00 Acute cystitis without hematuria (principal) | CPT/HCPCS: 87086 ==

== ENCOUNTER 2023-12-16 08:37 | Outpatient (REF) | payer OTHER, SELFPAY | END 2023-12-16 08:38 | disposition home or self-care (01) | LOC: HO.MAMMO 08:37 | PROVIDERS: PCP Internal Medicine; Visit Provider Internal Medicine | DX: Z12.31 Encounter for screening mammogram for malignant neoplasm of breast (principal) | CPT/HCPCS: 77063; 77067 ==

== ENCOUNTER → 2023-12-16 09:00 | Outpatient (BNV) | payer OTHER, SELFPAY | PROVIDERS: PCP Internal Medicine; Visit Provider Radiology Diagnostic Radiology | DX: Z12.31 Encounter for screening mammogram for malignant neoplasm of breast (principal) | CPT/HCPCS: 77063; 77067 ==

== ENCOUNTER 2024-01-25 15:51 | Emergency (ER) | payer OTHER, SELFPAY ==
[2024-01-25 16:02] VITALS: BP 112/40; BP 142/90; PULSE 67; PULSE 78; RESP 14; TEMP 36.6; O2SAT 98; O2SAT 99; BMI 28.4
--- OUTSIDE RECORDS SUMMARY | 2024-01-25 16:12 | XMS_ITS | Continuity of Care Document ---
Author Organization [facility] ter Address [address] [place] [address]- Care Team Providers Care Block And Case Maker Name Role Phone Eliel Stoddard MD Primary Care Physician Encounter [facility] ACCT R [id number] Date(s): 03/08/21 - 03/08/[address] [address] Discharge Disposition: A-D/C Home Attending Physician: Emil Perdomo MD Admitting Physician: Emil Perdomo MD Referring Physician: Emil Perdomo MD Allergies, Adverse Reactions, Alerts Substance Reaction Severity Status ampicillin Rash Active Medications aspirin 81 mg oral tablet 1 tablet = 81 mg, By Mouth, Daily, 0 Refills, Maintenance, 10/04/17 9:17:15 EDT Start Date: 10/04/17 Status: Ordered Compression Stockings See Instructions, # 1 pair, Maintenance, rubber band surgical, thigh high length 20-30 mm Hg, 08/23/15 16:18:07, Compound Start Date: 08/23/15 Status: Ordered Compression Stockings See Instructions, # 1 pair, Refills 1, Tot. Refills 1, Maintenance, open toes rubber band surgical,thigh high length 20-30 mm Hg, 09/06/17 15:38:08, Compound Start Date: 09/06/17 Status: Ordered cyclobenzaprine 5 mg oral tablet 1 tablet = 5 mg, By Mouth, 3 times a day, 0 Refills, Maintenance, 10/04/17 9:20:35 EDT Start Date: 10/04/17 Status: Ordered Lisinopril = 5 mg, By Mouth, Daily in AM, 0 Refills, Maintenance, 02/28/21 9:01:00 EDT, Partial fill upon patient request if the prescription is for a schedule II opioid drug. Start Date: 02/28/21 Status: Ordered Lorazepam = 1 mg, By Mouth, Daily, PRN as needed for anxiety, 0 Refills, Maintenance, 02/28/21 9:04:00 EDT, Partial fill upon patient request if the prescription is for a schedule II opioid drug. Start Date: 02/28/21 Status: Ordered metformin 500 mg oral tablet 1 tablet = 500 mg, By Mouth, Daily, 0 Refills, Maintenance, 04/18/11 14:55:39 EDT Start Date: 04/18/11 Status: Ordered mirtazapine 7.5 mg oral tablet 1 tablet = 7.5 mg, By Mouth, Daily at bedtime, # 180 tablet, 0 Refills, Maintenance, 02/28/21 9:23:00 EDT, Tablet, Partial fill upon patient request if the prescription is for a schedule II opioid drug. Start Date: 02/28/21 Status: Ordered simvastatin 20 mg oral tablet 1 tablet = 20 mg, By Mouth, Daily in AM, 0 Refills, Maintenance, 08/23/15 15:48:25 EST Start Date: 08/23/15 Status: Ordered Vitamin B12 By Mouth, Daily, 0 Refills, Maintenance, 02/28/21 9:06:00 EDT, Partial fill upon patient request ifthe prescription is for a schedule II opioid drug. Start Date: 02/28/21 Status: Ordered Vittamin D3 Vittamin D3, 1000 ux, By Mouth, Daily in AM, Refills 0, Maintenance, 08/19/13 12:45:08 EST, Compound Start Date: 08/19/13 Status: Ordered Problem List Condition Effective Dates Status Health Status Inform ant Chronic hepatitis C(Confirmed) Active Type 2 diabetes mellitus(Confirmed) Active Vital Signs Most recent to oldest [Reference Range]: 1 2 3 Height 177.8 cm (03/08/21 3:27 PM) 177.8 cm (02/28/21 9:42 AM) Weight 116.3 kg (03/08/21 3:27 PM) 116.3 kg (02/28/21 9:42 AM) Oxygen Saturation [94-100 %] 96 % (03/08/21 6:30 PM) 95 % (03/08/21 6:15 PM) 94 % (03/08/21 6:00 PM) Pulse Rate [55-90 bpm] 82 bpm (03/08/21 3:27 PM) Body Mass Index [18.5-24.99] 36.79 *>HHI* (03/08/21 3:27 PM) 36.79 *>HHI* (02/28/21 9:42 AM) Blood Pressure [90-138/55-84 mm Hg] 151/60mm Hg *H* (03/08/21 6:30 PM) 137/66mm Hg (03/08/21 6:15 PM) 129/65mm Hg (03/08/21 6:00 PM) Respiratory Rate [16-30 br/min] 13 br/min *L* (03/08/21 6:30 PM) 21 br/min (03/08/21 6:15 PM) 20 br/min (03/08/21 6:00 PM) Temperature [96.8-100.4 DegF] 98.4 DegF (03/08/21 5:00 PM) 98.0 DegF (03/08/21 3:27 PM) Liters per Minute 6 L/min (03/08/21 5:00 PM) Mode of Delivery (Oxygen) Room air (03/08/21 5:45 PM) Simple face mask (03/08/21 5:00 PM) Room air (03/08/21 3:27 PM) Blood pressure sites Arm, right (03/08/21 5:00 PM) Arm, right (03/08/21 3:27 PM) Temperature Route Temporal (03/08/21 5:00 PM) Temporal (03/08/21 3:27 PM) Dry Weight 101 kg (03/08/21 3:27 PM) 116.3 kg (02/28/21 9:42 AM) Weight Obtained Via Patient/family state d (02/28/21 9:42 AM) Dry Weight Obtained Via Standing scale (03/08/21 3:27 PM) Patient/family stated (02/28/21 9:42 AM) Social History Social History Type Response Smoking Status Current every day sada auguste; Type: Cigarettes; Other: 1 pack q. 3-4 days; Number of years: 20; entered on: 02/03/15 Sex
--- OUTSIDE RECORDS SUMMARY | 2024-01-25 16:12 | XMS_ITS | Continuity of Care Document ---
Author Organization [facility] Address [address] [place] [address]- Care Team Providers Care Vp Patient Name Role Phone Eliel Stoddard MD Primary Care Physician [place] [facility] [place] [id number] Date(s): 06/08/21 - 07/08/21 [facility] [address] [place] [address] Attending Physician: AdmElly flores Admitting Physician: AdmtrElly Referring Physician: Admtr, Ar8 Allergies, Adverse Reactions, Alerts Substance Reaction Severity [...] C(Confirmed) Active Type 2 diabetes mellitus(Confirmed) Active Social History Social History Type Response Smoking Status Current every day sada auguste; Type: Cigarettes; Other: 1 pack q. 3-4 days; Number of years: 20; entered on: 02/03/15 Sex
--- OUTSIDE RECORDS SUMMARY | 2024-01-25 16:12 | XMS_ITS | Continuity of Care Document ---
Author Organization [facility] Address [address] [facility], [address]r d Floor, [address] [place] [address]- Care Team Providers Care Public Information Relations Manager Name Role Phone Richi KERR, Eliel Primary Care Phys[id number] Date(s): 07/17/19 - 07/27/19 [facility] [address], [address], [address] [place] [address]- [facility] Attending Physician: Elly Moyer Admitting Physician: Elly Moyer Referring Physician: Elly Moyer Allergies, Adverse Reactions, Alerts Substance Reaction Severity [...] 9:20:35 EDT Start Date: 10/04/17 Status: Ordered ibuprofen 800 mg oral tablet 800 mg, 1, tablet, By Mouth, 3 times a day, # 90 tablet, Refills 0, Maintenance, 10/04/17 9:17:00 EDT Start Date: 10/04/17 Status: Ordered lisinopril 30 mg oral tablet 1 tablet = 30 mg, By Mouth, Daily, 0 Refills, Maintenance, 04/13/14 10:34:53 Start Date: 04/13/14 Status: Ordered metformin 500 mg oral tablet 1 tablet = 500 mg, By Mouth, Every 24 hours, 0 Refills, Maintenance Start Date: 04/18/11 Status: Ordered simvastatin 20 mg oral tablet 1 tablet = 20 mg, By Mouth, Daily at bedtime, 0 Refills, Maintenance, 08/23/15 15:48:25 Start Date: 08/23/15 Status: Ordered Vittamin D3 Vittamin D3, 1000 ux, By Mouth, Daily, Refills 0, Maintenance, 08/19/13 12:45:08, Compound Start Date: 08/19/13 Status: Ordered Problem List Condition Effective Dates Status Health Status Inform ant Chronic hepatitis C(Confirmed) Active Type 2 diabetes mellitus(Confirmed) Active Social History Social History Type Response Smoking Status Current every day sada auguste; Type: Cigarettes; Other: 1 pack q. 3-4 days; Number of years: 20; entered on: 02/03/15 Sex
--- OUTSIDE RECORDS SUMMARY | 2024-01-25 16:12 | XMS_ITS | Continuity of Care Document ---
Author Organization [facility] Address [address] [place] [address]- Care Team Providers Care School Counsellor Name Role Phone Richi KERR, Eliel Primary Care Physician Encounter [facility] [place] Date(s): 01/08/22 - 03/07/22 [facility] [address] [place], [place] [address] Attending Physician: Christos Urias MD Admitting Physician: Christos Urias MD Referring Physician: Margarette Ghosh MD Allergies, Adverse Reactions, Alerts Substance Reaction Severity Status ampicillin Rash Active Medications aspirin 81 mg oral tablet, chewable 81 mg, 1, tablet, By Mouth, Daily, # 30 tablet, Refills 0, Tot. Refills 0, Maintenance, 11/22/21 15:35:00 EDT, Route to Pharmacy Electronically, [facility], Partial fill upon patient request if the prescription is for a schedule II opioi... Start Date: 11/22/21 Stop Date: 12/22/21 Status: Ordered Lisinopril = 5 mg, By [...] opioid drug. Start Date: 02/28/21 Status: Ordered Neurontin 300 mg oral capsule 300 mg, 1, capsule, By Mouth, 3 times a day, # 90 capsule, Refills 0, Tot. Refills 0, Maintenance, 11/22/21 15:35:00 EDT, Route to Pharmacy Electronically, [facility], Partial fill uponpatient request if the prescription is for a schedu... Start Date: 11/22/21 Stop Date: 12/22/21 Status: Ordered simvastatin 20 mg oral tablet [...] Type Response Smoking Status Current every day sm oker; Type: Cigarettes; Other: 1 pack q. 3-4 days; Number of years: 20; entered on: 02/03/15 Sex Care Team Personnel Name: Eliel Stoddard MD Address: [address] [place] [address]-
--- OUTSIDE RECORDS SUMMARY | 2024-01-25 16:12 | XMS_ITS | Continuity of Care Document ---
Author Organization [facility] Address [address] [place] [address]- Care Team Providers Care Portrait Studio Photographer Name Role Phone Richi KERR, Eliel Primary Care Physician [place] [facility] [place] [id number] Date(s): 02/05/22 - 03/07/22 [facility] [address] [place], [place] [address] Attending Physician: Elly Moyer Admitting Physician: AdmtrElly Referring Physician: AdmtrElly Allergies, Adverse Reactions, Alerts Substance Reaction Severity Status ampicillin Rash Active Medications aspirin 81 mg oral tablet, chewable 81 mg, 1, tablet, By Mouth, Daily, # 30 tablet, Refills 0, Tot. Refills 0, Maintenance, 11/22/21 15:35:00 EDT, Route to Pharmacy Electronically, [facility], Partial fill upon patient request [...] 11/22/21 15:35:00 EDT, Route to Pharmacy Electronically, [facility], Partial fill uponpatient request if [...] Team Personnel Name: Eliel Stoddard MD Address: [address] [place] [id number]
--- OUTSIDE RECORDS SUMMARY | 2024-01-25 16:12 | XMS_ITS | Continuity of Care Document ---
Author Organization [facility] Address [address] [facility], [address]r d Floor, [address] [place] [address]- Care Team Providers Care Sink Maker Name Role Phone Richi KERR, Eliel Primary Care Physician [phone] [place] [facility] [place] Date(s): 04/18/19 - 08/16/19 [facility] [address], [address], [address] [place] [address] [facility] Attending Physician: Haydee ROBERTS, Stephen Painter Referring Physician: Sherwin Armenta MD Allergies, Adverse Reactions, Alerts Substance Reaction [...]
--- OUTSIDE RECORDS SUMMARY | 2024-01-25 16:12 | XMS_ITS | Continuity of Care Document ---
Author Organization [facility] Address [address] [place] [address]- Care Team Providers Care Shear Operator Automatic Name Role Phone Richi KERR, Eliel Primary Care Physician [place] [facility] [place] [id number] Date(s): 12/01/21 - 02/07/22 [facility] [address] [place], [place] [address] Attending Physician: Christos Urias MD Admitting Physician: Christos Urias MD Referring Physician: Margarette Ghosh MD Allergies, Adverse Reactions, Alerts Substance Reaction Severity Status ampicillin Rash Active Medications aspirin 81 mg oral tablet, chewable 81 mg, 1, tablet, By Mouth, Daily, # 30 tablet, Refills 0, Tot. Refills 0, Maintenance, 11/22/21 15:35:00 EDT, Route to Pharmacy Electronically, [facility], Partial fill upon patient [...] 11/22/21 15:35:00 EDT, Route to Pharmacy Electronically, [facility], Partial fill uponpatient request [...]
--- OUTSIDE RECORDS SUMMARY | 2024-01-25 16:12 | XMS_ITS | Continuity of Care Document ---
Author Organization [facility] ter Address [address] [place] [address]- Care Team Providers Care Center Aisle Cashier Name Role Phone Eliel Stoddard MD Primary Care Physician En[place] [facility] [place] [id number] Date(s): 01/18/23 - 01/19/[address] [address]- Discharge Disposition: A-D/C Walkout Attending Physician: Not on Staff, Attending MD Admitting Physician: Not on Staff, Admitting MD Referring Physician: Not on Staff, Referring MD Allergies, Adverse Reactions, Alerts Substance Reaction Severity Status ampicillin Rash Active Medications aspirin 81 mg oral tablet, chewable 81 mg, 1, tablet, By Mouth, Daily, # 30 tablet, Refills 0, Tot. Refills 0, Maintenance, 11/22/21 15:35:00 EDT, Route to Pharmacy Electronically, [facility], Partial fill upon patient [...] 11/22/21 15:35:00 EDT, Route to Pharmacy Electronically, [facility], Partial fill uponpatient request [...] Date: 08/19/13 Status: Ordered Problem List Condition Confirmation Course Effective Dates Status Health St atus Informant Chronic hepatitis C Confirmed Active Type 2 diabetes mellitus Confirmed Active Vital Signs Most recent to oldest [Reference Range]: 1 Height 175 cm (01/18/23 10:10 PM) Oxygen Saturation [94-100 %] 98 % (01/18/23 10:10 PM) Pulse Rate [55-90 bpm] 62 bpm (01/18/23 10:10 PM) Blood Pressure [90-138/55-84 mm Hg] 146/ 66mm Hg *H* (01/18/23 10:10 PM) Respiratory Rate [16-30 br/min] 18 br/mi n (01/18/23 10:10 PM) Temperature [96.8-100.4 DegF] 98.2 DegF (01/18/23 10:10 PM) Mode of Delivery (Oxygen) Room air (01/18/23 10:10 PM) Blood pressure sites Arm, right (01/18/23 10:10 PM) Temperature Route Oral (01/18/23 10:10 PM) Dry Weight 114 kg (01/18/23 10:10 PM) Dry Weight Obtained Via Patient/family s tated (01/18/23 10:10 PM) Social History Social History Type Response Smoking Status Current every day sm oker; Type: Cigarettes; Other: 1 pack q. 3-4 days; Number of years: 20; entered on: 02/03/15 Sex Patient Care team information Care Team Personnel Name: Eliel Stoddard MD Position: [facility] Outreach Member Role: PCP Address: Address: [address] [place] [address]- Name: Ed Stephenson RN Position: S RN Member Role: Primary Care Nurse Name: Lee Ann Dhaliwal RN Position: [facility] RN Member Role: Primary Care Nurse Care Team Related Persons Name: RANDALL VALDES Address: home [address] [place] [address] [address] [place] [address] Name: GRACY KRISHNA Address: home [place], [place] Name: SITA OMALLEY Address: home [address] [place] [address] Name: SANDEEP OMALLEY Name: WAYLON RUSSELL
--- OUTSIDE RECORDS SUMMARY | 2024-01-25 16:12 | XMS_ITS | Continuity of Care Document ---
Author Organization [facility] ancer Care Address [address] [place] [address]- Care Team Providers Care Auto Parts Clerk Name Role Phone Eliel Stoddard MD Primary Care Physician [phone] [id number] Date(s): 06/08/21 - 02/28/22 [facility] [address] [place] [address]- Discharge Disposition: A-D/C Home Attending Physician: Isela Baca MD Admitting Physician: Isela Baca MD Referring Physician: Eliel Stoddard MD Allergies, Adverse Reactions, Alerts Substance Reaction Severity Status ampicillin Rash Active Medications aspirin 81 mg oral tablet, chewable 81 mg, 1, tablet, By Mouth, Daily, # 30 tablet, Refills 0, Tot. Refills 0, Maintenance, 11/22/21 15:35:00 EDT, Route to Pharmacy Electronically, [facility], Partial fill upon patient request if [...] mg, By Mouth, Daily, 0 Refills, Maintenance, 11/02/11 14:55:39 EDT Start Date: 04/18/11 Status: Ordered [...] 11/22/21 15:35:00 EDT, Route to Pharmacy Electronically, [facility], Partial fill uponpatient request if the [...] Team Personnel Name: Eliel Stoddard MD Address: [address] [place] [address]
--- OUTSIDE RECORDS SUMMARY | 2024-01-25 16:12 | XMS_ITS | Continuity of Care Document ---
Author Organization [facility] ter Address [address] [place] [id number]- Care Team Providers Care Plastics Scientist Name Role Phone Richi KERR, Eliel Primary Care Physician [phone] [place] [facility] [place]21 - 11/22/[address] [address]- Encounter Diagnosis Chest pain(Final) - 11/20/21 Discharge Disposition: A-D/C Home Attending Physician: Emerald KERR, Valeria Palacio Admitting Physician: Rommel Rueda MD Referring Physician: Not on Staff, Referring MD Allergies, Adverse Reactions, Alerts Substance Reaction Severity Status ampicillin Rash Active Medications aspirin 81 mg oral tablet, chewable 81 mg, 1, tablet, By Mouth, Daily, # 30 tablet, Refills 0, Tot. Refills 0, Maintenance, 11/22/21 15:35:00 EDT, Route to Pharmacy Electronically, [facility], Partial fill upon patient request if the prescription is for a schedule II opioi... Start Date: 11/22/21 Stop Date: 12/22/21 Status: Ordered Lisinopril = 5 mg, By Mouth, Daily in AM, 0 Refills, Maintenance, 02/28/21 9:01:00 EDT, Partial fill upon patient request if the prescription is for a schedule II opioid drug. Start Date: 02/28/21 Status: Ordered lisinopril 5 mg oral tablet 5 mg, Tablet, By Mouth, 11/22/21 9:00:00 EDT Start Date: 11/22/21 Stop Date: 11/22/21 Status: Completed Lorazepam = 1 mg, By Mouth, Daily, [...] 11/22/21 15:35:00 EDT, Route to Pharmacy Electronically, [facility], Partial fill uponpatient request if the prescription is for a schedu... Start Date: 11/22/21 Stop Date: 12/22/21 Status: Ordered Neurontin 300 mg oral capsule 300 mg, Capsule, By Mouth, 11/22/21 9:00:00 EDT Start Date: 11/22/21 Stop Date: 11/22/21 Status: Completed Neurontin 300 mg oral capsule 300 mg, Capsule, By Mouth, 11/22/21 15:00:00 EDT Start Date: 11/22/21 Stop Date: 11/22/21 Status: Completed nicotine 14 mg/24 hr transdermal film, extended release 1 patch, Topically, Daily, for 30 days, # 30 patch, 0 Refills, Acute 12/22/21 15:37:00 EDT, 11/22/21 15:37:00 EDT, Patch, [facility], Partial fill upon patient request if the prescription is for a schedule II opioid drug., 1 patch Topica... Start Date: 11/22/21 Stop Date: 12/22/21 Status: [...] C(Confirmed) Active Type 2 diabetes mellitus(Confirmed) Active Results Radiology Reports * Exam Date Time Procedure Performing Provider Status 11/20/21 10:36 PM Chest 2 Views Frontal and Lat Katina Staton; Auth (Verified) Notes: (Chest 2 Views Frontal and Lat) Reason For Exam: Chest Pain;Other: RESULT: Chest 2 Views Frontal and Lat Chest 2 Views Frontal and Lat INDICATION: Sudden onset chest pressure COMPARISON: 09/25/2015 FINDINGS: LINES AND TUBES: None. LUNGS AND PLEURA: Clear lungs. Normal pulmonary vascularity. No pleural effusion. No pneumothorax. HEART, MEDIASTINUM AND QUIQUE: Heart is normal in size. Normal upper mediastinal and hilar contour. BONES AND SOFT TISSUES: No acute abnormality. IMPRESSION: No acute abnormality. I have personally reviewed the images and I agree with this report. WSN: [id number] Ordering Physician: Tatyana Mai Dictated By: Jaime Dumont DO Dictated Date/Time: 11/20/21 10:43 p Reviewed By: Juan Pablo Erazo MD Signed By: Juan Pablo Erazo MD Signed Date/Time: 11/20/21 10:48 pm Transcribed By: DANYEL Transcribed Date/Time: 11/20/21 10:39 pm Vital Signs Most recent to oldest [Reference Range]: 1 2 3 Weight 93.1 kg (11/21/21 7:44 AM) Oxygen Saturation [94-100 %] 97 % (11/22/21 3:35 PM) 99 % (11/22/21 11:09 AM) 99 % (11/22/21 7:42 AM) Pulse Rate [55-90 bpm] 73 bpm (11/22/21 3:35 PM) 98 bpm *H* (11/22/21 11:09 AM) 56 bpm (11/22/21 7:42 AM) Blood Pressure [90-138/55-84 mm Hg] 123/53mm Hg (11/22/21 3:35 PM) 121/64mm Hg (11/22/21 12:24 PM) 121/64mm Hg (11/22/21 11:09 AM) Respiratory Rate [16-30 br/min] 18 br/min (11/22/21 4:39 PM) 18 br/min (11/22/21 3:35 PM) 18 br/min (11/22/21 1:25 PM) Temperature [96.8-100.4 DegF] 98.4 DegF (11/22/21 3:35 PM) 98.7 DegF (11/22/21 11:09 AM) 97.9 DegF (11/22/21 7:42 AM) Mode of Delivery (Oxygen) Room air (11/22/21 3:35 PM) Room air (11/22/21 11:09 AM) Room air (11/22/21 7:42 AM) Blood pressure sites Arm, left (11/22/21 11:09 AM) Arm, left (11/22/21 7:42 AM) Arm, right (11/22/21 5:23 AM) Temperature Route Oral (11/22/21 3:35 PM) Oral (11/22/21 11:09 AM) Oral (11/22/21 7:42 AM) Dry Weight 93.1 kg (11/21/21 7:44 AM) Social History Social History Type Response Smoking Status Current every day sada auguste; Type: Cigarettes; Other: 1 pack q. 3-4 days; Number of years: 20; entered on: 02/03/15 Sex
--- NOTE | 2024-01-25 16:24 | ECG_ITS ---
Test Reason : chest tightness Blood Pressure : / mmHG Vent. Rate : 064 BPM Atrial Rate : 064 BPM P-R Int : 150 ms QRS Dur : 074 ms QT Int : 404 ms P-R-T Axes : 036 -26 033 degrees QTc Int : 416 ms Normal sinus rhythm Minimal voltage criteria for LVH, may be normal variant ( R in aVL ) Septal infarct , age undetermined Abnormal ECG When compared to the previous EKG of No significant changes seen Referred By: Christina Jean-Baptiste Electronically Signed By:MONE JASSO MD
--- NOTE | 2024-01-25 16:29 | ED.GENADULT ---
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 Reports history of panic attacks in the past which have presented similarly. Admits to increasing stressors. Denies headache at present, SOB, focal weakness, nausea/vomiting, abdominal pain. States does not take anything for anxiety at present Related Data Home Medications ?Medication ?Instructions ?Recorded ?Confirmed lisinopril 5 mg tablet 5 mg PO DAILY 04/19/21 04/19/21 lorazepam 1 mg tablet 1 mg PO DAILY PRN panic attack 04/19/21 04/19/21 metformin 500 mg tablet,extended 500 mg PO QPM 04/19/21 04/19/21 release 24 hr simvastatin 20 mg tablet 20 mg PO BEDTIME 04/19/21 04/19/21 Previous Rx's ?Medication ?Instructions ?Recorded tizanidine 2 mg tablet 2 mg PO TID PRN muscle spasticity 04/24/21 30 days #90 tabs cyclobenzaprine 10 mg tablet 10 mg PO Q8H PRN Muscle spasm #14 01/16/22 tabs naproxen 500 mg tablet 500 mg PO BID PRN pain #14 tabs 01/16/22 Allergies Allergy/AdvReac Type Severity Reaction Status Date / Time ampicillin [AMPICILLIN] Allergy Unknown RASH Verified 01/25/24 16:08 Ampicillin Allergy Unknown rash Uncoded 01/25/24 16:08 Review of Systems Review of Systems: Constitutional: No Fever, No Chills ENT/Mouth: No Ear Pain, No Nasal Congestion, No sore throat, No Rhinorrhea, No Swallowing Difficulty Cardiovascular: + Chest tightness, No SOB Respiratory: No Cough, No Wheezing Gastrointestinal: No Nausea, No Vomiting, No Diarrhea, No Constipation, No Abdominal pain Genitourinary: No Dysuria, No Urinary Frequency, No Hematuria, No Urinary Incontinence/retention, No Flank Pain Musculoskeletal: No joint pain, No Myalgias, No Joint Swelling Skin: No Skin Lesions, No rash Neuro: No Weakness, + Numbness, + Paresthesias Psych: + anxiety, no SI/HI Yes all other systems are reviewed and are negative Constitutional: Constitutional: Reports as per HPI Neurologic: Denies Abnormal speech present [facility] Past Medical History Attestation statement: The following information was validated with the patient. Source: old records reviewed Medical History Spinal stenosis in cervical region Spinal stenosis Degeneration, intervertebral disc, cervical Leukocytosis History of kidney stones Hx of herpes zoster Hx of pancreatitis Hx of endometriosis Depression Generalized anxiety disorder Dysuria Hypercholesterolemia HTN (hypertension) Asthma Diabetes Surgical History Hx of section H/O dilation and curettage Family History Family History Mother Diabetes Depression Father Suicide Social History Social History Alcohol intake: never Patient Tobacco Use Status: Current everyday Tobacco user Smoked in Last 30 Days: Yes Use of substances other than those prescribed or required for medical reasons: No Advance Directives: No Advance Directives Information Provided: No Physical Exam ED Vital Signs: Vital Signs - 24 hr 01/25/24 16:02 01/25/24 19:07 Temperature 97.8 F 98.7 F Pulse Rate 67 66 Respiratory Rate 14 13 Blood Pressure 112/40 L 115/51 L Pulse Oximetry 99 96 Oxygen Delivery Method Room Air Room Air BMI result Body Mass Index 28.4 Const General: cooperative, healthy appearing and no acute distress Orientation/consciousness: patient oriented x3 Limitations: no limitations HENMT Head: Yes normal to inspection and Yes atraumatic Ears: hearing grossly normal bilaterally General nose exam: Normal external nose present Face and sinus: Yes normal facial exam Eyes General: appearance normal, both eyes and all related structures EOM: EOMs intact bilaterally Neck Neck: Yes normal visual inspection and Yes no meningeal signs Resp Effort & Inspection: normal respiratory effort and no respiratory distress Auscultation: clear to auscultation bilaterally Cardio Rate: regular rate Heart sounds: S1 normal heart sound present and S2 normal heart sound present GI Inspection: Yes normal to inspection Palpation (GI): Soft to palpation, nontender, no guarding and not rigid General: Yes no CVA tenderness Back/Spine/Pelvis Back: no CVA tenderness Skin Rashes: no rashes Wounds: no wounds Neuro General: patient oriented x3, tone normal, moves all extremities, no meningeal signs, no focal motor deficits and CN's II-XI intact bilaterally Cranial nerves: Yes CN's II-XII intact bilaterally Cognition (Neuro): normal cognition Speech: No Abnormal speech present Motor exam (neuro): 5/5 motor strength present throughout and no tremor noted Extrem General: Yes normal to inspection Psych Other: Anxious Course Course Course Narrative: -1934--mild leukocytosis 14.8. Troponin x2 negative Patient reports symptomatic improvement after medications given in the ED Results discussed with patient including worrisome signs and symptoms and strict return precautions, and when to return to the emergency department. They verbalized understanding and feel safe for discharge at this time. Medications Administered Discontinued Medications Generic Name Dose Route Start Last Admin Trade Name Mook PRN Reason Stop Dose Admin Acetaminophen 975 mg 01/25/24 16:24 01/25/24 17:11 Acetaminophen 325 Mg Tablet PO 01/25/24 16:25 975 mg ONCE ONE Administration Lorazepam 1 mg 01/25/24 16:24 01/25/24 17:12 Lorazepam 1 Mg Tablet PO 01/25/24 16:25 1 mg ONCE ONE Administration Medical Decision Making Medical Decision Making 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 On exam vital signs stable, NAD, nontoxic appearing, reports symptomatic improvement at present, anxious, no focal neuro deficits. Concern for anxiety/panic attack vs atypical. Rule out metabolic. Low suspicion for CVA/TIA or dissection. Unlikely CVT Plan: EKG, labs, anxiolytic, re-evaluate Please refer to course for remaining clinical decision making, interpretation of labs/imaging results, and discussions with consultants and/or family members. Differential Diagnosis Differential Diagnoses: The differential diagnosis associated with the presentation includes As above Admission/Observation Consideration of admission/observation: Escalation of care including admission/observation considered Lab Data MDM Lab Attestation statement: I reviewed the patient's lab results. 01/25/24 17:07 01/25/24 17:07 Labs: Lab Results 01/25/24 01/25/24 Range/Units 17:07 18:26 WBC 14.8 H (4.8-10.8) X10*3/uL RBC 4.37 (4.20-5.50) X10*6/uL Hgb 13.1 (12.0-16.0) g/dl Hct 38.5 (37.0-47.0) % MCV 88.1 (80.0-98.0) fL MCH 30.0 (27.0-33.0) pg MCHC 34.0 (31.0-35.0) g/dl RDW 13.2 (11.0-16.0) % Plt Count 319 (160-400) X10*3/uL MPV 10.1 (9.4-12.3) fL Immature Gran % (Auto) 0.5 H (0.0-0.4) % Neut % (Auto) 60.8 (45-73) % Lymph % (Auto) 28.9 (20-40) % [place] % (Auto) 7.7 (2-11) % Eos % (Auto) 1.6 (0-4) % Baso % (Auto) 0.5 (0-2) % Lymph # (Auto) 4.3 (1.2-4.9) X10*3/uL [place] # (Auto) 1.1 (0.1-1.2) X10*3/uL Eos # (Auto) 0.2 (0.0-0.4) X10*3/uL Baso # (Auto) 0.1 (0.0-0.2) X10*3/uL Abs Immat Gran (auto) 0.08 H (0.00-0.03) X10*3/uL Absolute Neuts (auto) 9.0 H (2.0-8.3) x10*3/uL Absolute Nucleated RBC 0.000 (0.0-0.012) X10*3/uL Nucleated RBC % (auto) 0.0 (0.0-0.2) /100WBC Smear Tech's Comments VERIFIED Sodium 141 (135-145) mmol/L Potassium 4.1 (3.3-5.1) mmol/L Chloride 107 (96-108) mmol/L Carbon Dioxide 25 (22-29) mmol/L Anion Gap 13 (12-20) BUN 11 (9-16) mg/dL Creatinine 0.67 (0.5-1.4) mg/dL Estim Creat Clear Calc 112.6 Estimated GFR > 60 Random Glucose 91 (60-115) mg/dL Calcium 9.5 (8.4-10.2) mg/dL Magnesium 1.9 (1.6-2.6) mg/dL Total Bilirubin 0.2 (0.0-1.0) mg/dL Direct Bilirubin < 0.2 (0.0-0.5) mg/dL AST 13 (5-31) U/L ALT 12 (0-31) U/L Alkaline Phosphatase 69 (39-117) U/L Troponin I High Sens < 2.7 < 2.7 (<3.5-17.0) ng/L Total Protein 7.8 (6.5-8.0) g/dL Albumin 4.3 (3.5-5.0) g/dL TSH 0.87 (0.32-4.0) uIU/mL Independent Interpretation I performed an independent interpretation of an: EKG (My interpretation EKG normal sinus rhythm rate of 62. AR interval 142. Inverted T-wave in V1. No STEMI.) Radiology Impression Discussion of test interpretation with radiology: I have reviewed the radiologist's reading. External Record Review External record reviewed: Inpatient record, Office record, Outpatient record, Prior outpatient labs, Prior outpatient radiology, Primary care record and Outside ED record Tests considered The following testing was considered but not selected: As above Prescription Management I considered prescription management with: Other Chronic Conditions Patient?s care impacted by: Hypertension Discharge Plan Discharge Clinical Impression: Anxiety, Chest tightness Patient Disposition: Home, Self-Care Instructions: Anxiety (ED) Additional Instructions: Your blood work is reassuring Please follow-up with her doctor You should also follow-up with psychiatry/therapist If her symptoms persist or worsening of constant worsening chest pain/shortness of breath or weakness return to the ED Prescriptions: No Action tizanidine 2 mg tablet 2 mg PO TID PRN (Reason: muscle spasticity) 30 Days Qty: 90 8RF naproxen 500 mg tablet 500 mg PO BID PRN (Reason: pain) Qty: 14 0RF cyclobenzaprine 10 mg tablet 10 mg PO Q8H PRN (Reason: Muscle spasm) Qty: 14 0RF simvastatin 20 mg tablet 20 mg PO BEDTIME lisinopril 5 mg tablet 5 mg PO DAILY metformin 500 mg tablet extended release 24 hr 500 mg PO QPM lorazepam 1 mg tablet 1 mg PO DAILY PRN (Reason: panic attack) Referrals: [facility] [Provider Group] Eliel Stoddard MD [Primary Care Provider] - Print Language: Tongan
[2024-01-25] MEDS: Acetaminophen 325 MG TABLET 975 MG PO (17:11)
[2024-01-25] MEDS: LORazepam 1 MG TABLET PO (17:12)
[2024-01-25 17:17] LABS: Basophils Absolute Auto 0.1 X10*3/uL (0.0-0.2); Basophils Percent Auto 0.5 % (0-2); Eosinophils Absolute Auto 0.2 X10*3/uL (0.0-0.4); Eosinophils Percent Auto 1.6 % (0-4); Hematocrit 38.5 % (37.0-47.0); Hemoglobin 13.1 g/dl (12.0-16.0); Imm Gran Abs Auto 0.08 X10*3/uL (0.00-0.03); Imm Gran Pct Auto 0.5 % (0.0-0.4); Lymphocytes Absolute Auto 4.3 X10*3/uL (1.2-4.9); Lymphocytes Percent Auto 28.9 % (20-40); MANUAL DIFF FLAG SCAN; Mean Corpuscular Volume 88.1 fL (80.0-98.0); Mean Platelet Volume 10.1 fL (9.4-12.3); Monocytes Absolute Auto 1.1 X10*3/uL (0.1-1.2); Monocytes Percent Auto 7.7 % (2-11); Neutrophils Percent Auto 60.8 % (45-73); Platelet Count 319 X10*3/uL (160-400); Red Blood Count 4.37 X10*6/uL (4.20-5.50); Red Cell Distribution Width 13.2 % (11.0-16.0); SCAN SMEAR FLAG 1; White Blood Count 14.8 X10*3/uL (4.8-10.8)
[2024-01-25 17:52] LABS: Troponin-I High Sensitivity < 2.7 ng/L (<3.5-17.0)
[2024-01-25 17:57] LABS: Alanine Aminotransferase 12 U/L (0-31); Albumin Level 4.3 g/dL (3.5-5.0); Alkaline Phosphatase 69 U/L (39-117); Anion Gap 13 (12-20); Aspartate Amino Transferase 13 U/L (5-31); Bilirubin Direct < 0.2 mg/dL (0.0-0.5); Bilirubin Total 0.2 mg/dL (0.0-1.0); Blood Urea Nitrogen 11 mg/dL (9-16); Calcium 9.5 mg/dL (8.4-10.2); Carbon Dioxide 25 mmol/L (22-29); Chloride 107 mmol/L (96-108); Creatinine Clr Calc Pharmacy 112.6; Estimated Glomerular Filt Rate > 60; Glucose Random 91 mg/dL (60-115); Magnesium 1.9 mg/dL (1.6-2.6); Potassium 4.1 mmol/L (3.3-5.1); Sodium 141 mmol/L (135-145); Total Protein 7.8 g/dL (6.5-8.0)
[2024-01-25 18:11] LABS: TSH reflex Free T4 0.87 uIU/mL (0.32-4.0)
[2024-01-25 18:45] LABS: SLIDE REVIEW VERIFIED
[2024-01-25 18:57] LABS: Troponin-I High Sensitivity < 2.7 ng/L (<3.5-17.0)
[2024-01-25 19:07] VITALS: BP 115/51; PULSE 66; RESP 13; TEMP 37.1; O2SAT 96
[2024-01-25 20:00] VITALS: BP 114/48; PULSE 62; RESP 16; TEMP 36.6; O2SAT 97
--- NOTE | 2024-01-25 20:07 | MHC.EDTECH ---
This tech took over care of patient at 1900,hourly rounds and vitals completed at this time,patient is waiting to be discharged at this time.
[2024-01-25 21:00] VITALS: BP 114/48; PULSE 62; RESP 16; TEMP 36.6; O2SAT 97
== END 2024-01-25 20:35 | disposition home or self-care (01) ==
PROVIDERS: Physician Assistant; Emergency Provider Emergency Medicine Emergency Medical Services; PCP Internal Medicine
DX: F41.9 Anxiety disorder, unspecified (principal); R07.89 Other chest pain; E11.9 Type 2 diabetes mellitus without complications; I10 Essential (primary) hypertension; E78.00 Pure hypercholesterolemia, unspecified; J45.909 Unspecified asthma, uncomplicated; F17.210 Nicotine dependence, cigarettes, uncomplicated; Z79.84 Long term (current) use of oral hypoglycemic drugs; Z79.02 Long term (current) use of antithrombotics/antiplatelets; Z79.899 Other long term (current) drug therapy
CPT/HCPCS: 36415; 80048; 80076; 83735; 84443; 84484; 85025; 93005; 99283; 99285

== ENCOUNTER → 2024-01-25 16:24 | Outpatient (BNV) | payer OTHER, SELFPAY | PROVIDERS: Emergency Provider Emergency Medicine Emergency Medical Services; PCP Internal Medicine; Visit Provider Internal Medicine Cardiovascular Disease | DX: R07.89 Other chest pain (principal); R94.31 Abnormal electrocardiogram [ECG] [EKG] | CPT/HCPCS: 93010 ==

== ENCOUNTER 2024-09-02 11:13 | Outpatient (AMB) | payer OTHER, SELFPAY ==
--- NOTE | 2024-09-02 11:16 | A.OFFVIS_ITS ---
Vital Signs 09/02/24 11:23 Height 5 ft 10 in Weight 202 lb 13.204 oz BMI 29.1 BP 104/69 Blood Pressure Location Lt brachial Position Sitting Pulse 78 Intake Visit Reasons: abdominal pain/possible gastroparesis Intake Note: Alma presents in the office as a new patient for abdominal pains. CC: She states that she has lots of diarrhea and pressure on her pelvis. She states that she may have gas paralysis Distention in her abdomen. States that she has up to 4 BM in a day. 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 Nausea, but no vomiting. With this has been having diarrhea almost 3-4 BMs per day. Watery stools without blood. Pain is intermittent. Comes and goes. Used to be severe initially when the pt was referred last year but since starting pantprazole now more of a dull soreness. Mainly in RUQ. Reports remote hx of pancreatitis episode - shes unsure what the cause was. 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 Reports last colo was 5-7 years ago and was given a 10 year recall. No fam hx of liver disease, colon ca, stomach ca. Smokes 0.5 PPD. No etOH. Prev IVDU, clean since 2002. PFSH Medical History Hepatitis C Spinal stenosis in cervical region Spinal stenosis Degeneration, intervertebral disc, cervical Leukocytosis History of kidney stones Hx of herpes zoster Hx of pancreatitis Hx of endometriosis Depression Generalized anxiety disorder Dysuria Hypercholesterolemia HTN (hypertension) Asthma Diabetes Surgical History H/O colonoscopy Hx of section H/O dilation and curettage Family History Mother Diabetes Depression Father Suicide Social History Alcohol intake: never Patient Tobacco Use Status: Current everyday Tobacco user Review of Systems Const All systems reviewed & are unremarkable except as noted in HPI and below Physical Exam Vital Signs: Last Vital Signs Pulse 78 09/02/24 11:23 BP 104/69 09/02/24 11:23 BMI result Body Mass Index 29.1 No apparent distress Nonicteric Abdomen soft, nondistended Alert and oriented x3, normal gait Assessment & Plan Assessment & Plan (1) Chronic diarrhea: Code(s): K52.9 - Noninfective gastroenteritis and colitis, unspecified Category: Medical (2) Chronic RUQ pain: Code(s): R10.11 - Right upper quadrant pain; G89.29 - Other chronic pain Category: Medical Plan 1. abd pain: DDx include symptomatic gallstones, PUD, celiac, malabsorption, SIBO - linda as also has diarrhea with this. Plan: - US RUQ - POC H Pylori testing - labs as below - Cont pantoprazole - EGD guided by results 2. Chronic diarrhea Ddx include IBD, SIBO, IBS, microscopic colitis, chronic panc Plan: - Labs and stool studies as below - Will likely need colo, to be reviewed at next visit once results available Follow up 4 weeks Orders: Orders US abdomen complete Today G89.29 - Other chronic pain, R10.11 - Right upper quadrant pain Immunoglobulin A Today K52.9 - Noninfective gastroenteritis and colitis, unspecified TSH reflex Free T4 Today K52.9 - Noninfective gastroenteritis and colitis, unspecified Transglutaminase IgA Today K52.9 - Noninfective gastroenteritis and colitis, unspecified Liver Panel Today G89.29 - Other chronic pain, R10.11 - Right upper quadrant pain Calprotectin, Fecal Today K52.9 - Noninfective gastroenteritis and colitis, unspecified Fecal Fat Qualitative Today K52.9 - Noninfective gastroenteritis and colitis, unspecified Pancreatic Elastase-1 Today K52.9 - Noninfective gastroenteritis and colitis, unspecified Coding Level of Care Code New Pt Level 4 (89284) Diagnoses Chronic diarrhea K52.9 Chronic RUQ pain R10.11; G89.29
[2024-09-02 11:23] VITALS: BP 104/69; PULSE 78; BMI 29.1
--- OUTSIDE RECORDS SUMMARY | 2024-09-02 13:40 | XMS_ITS | Encounter Summary ---
Author Organization [employer] Address [address] [place] [address] [address] [place] [address] Care Team Providers Care Calculus Tutor Name Role Phone lEiel Stoddard MD Primary Care Provider [phone] Encounter Details Date Type Department Care Team (Latest Contact Info) Description 08/14/2024 Travel Social History Tobacco Use Types Packs/Day Years Used Date Smoking Tobacco: Every Day Cigarettes Passive Smoke Exposure: Never Smokeless Tobacco: Never Alcohol Use Standard Drinks/Week Comments Never 0 (1 standard drink = 0.6 oz pur e alcohol) Depression Answer Date Recorded Patient Health Questionnaire-9 Score 9 12/02/2023 Patient Health Questionnaire-9 Score 9 12/02/2023 Last PHQ-9: Questionnaire Data Not on file 0 12/02/2023 Housing Stability Answer Date Recorded What is your housing situation today? I have xena martin 12/24/[address] you li ve. Do you have problems with any of the following? None of the above 12/24/2023 Food Insecurity Answer Date Recorded Within the past 12 months, y ou worried that your food would run out before you got money to buy more: Never True 12/24/2023 Within the past 12 months,th e food you bought just didn't last and you didn't have enough money to get more: Never True 02/2024 Transportation Answer Date Recorded In the past 12 months, has l ack of transportation kept you from medical appts, meetings, work or from getting things needed for daily living? No 12/24/2023 Utilities Answer Date Recorded In the past 12 months, has t he electric, gas, oil or water company threatened to shut off services in your home? No 12/24/2023 Depression Answer Date Recorded Patient Health Questionnaire-2 Score 3 12/02/2023 Internet Access Answer Date Recorded Internet Access Q1 Yes 02/16/2024 Internet Access Q2 Not on file 02/16/2024 Comments Unknown Sex and Gender Information Value Date Recorded Sex Assigned at Female 04/16/2022 10:16 AM EDT Legal Sex Female 10:16 AM EDT Gender Identity Female 04/16/2022 10:16 AM EDT Sexual Orientation Straight 04/16/2022 10 :16 AM EDT documented as of this encounter Plan of Treatment Upcoming Encounters Date Type Department Care Team (Late st Contact Info) Description 11/23/2024 9:00 AM EDT Office Visit [facility] [address] [place] [address] Eliel Stoddard MD [address] [place] [address] documented as of this encounter Visit Diagnoses Not on filedocumented in this encounter Additional Health Concerns Assessment Noted Time PHQ-9 Depression Total Score: 9 12/02/19 24 10:48 AM EDT documented as of this encounter Care Teams Calculus Tutor Relationship Specialty Start Date End Date Eliel Stoddard MD [address] [place] [address] PCP - General Internal Medicine 06/17/18 documented as of this encounter
--- OUTSIDE RECORDS SUMMARY | 2024-09-02 13:40 | XMS_ITS | Data Portability ---
Author Organization [employer] Address [address] [place] [phone] Care Team Providers Care Hammerer Name Role Phone [facility] Referring Provider HIM CCA OTHER Assessment Encounter Date Assessment Date Assessment LastModified by Organization Details LastModified Time 09/03/2022 09/03/2022 I have reviewed and agree with the assessment and plan as documented by the industrial retrofit designer. I provided real time medical direction for this encounter and was immediately available to provide additional phone based assistance as needed. History as noted by industrial retrofit designer. Pt with history of DM. She no longer menstruates, x5 years. Pt reports that for several months she has had intermittent lower abdominal cramping pain and occasional vaginal pain without abnormal vaginal rash, bleeding or discharge. Recently she has noted urinary frequency, particularly at nighttime, but she denies any dysuria, hematuria, flank pain, fevers or vomiting. Pt checks her blood sugars, recently in the 140's. Pt appears well, vitals normal. Abdomen soft, non tender. Urine dip: negative for glucose, hematuria or UTI Impression: Pt with recent urinary frequency at night but no other UTI symptoms. She also notes intermittent lower abdominal cramping pain and vaginal pain for several months. No vaginal bleeding, rash or discharge. Urine dip today is negative for glucose, blood or UTI. I suspect pt's symptoms may be related to atrophic vaginitis and this is discussed with her. Pt's primary care team should follow up with the pt to discuss her symptoms as well as possible treatment for atrophic vaginitis to see if this helps her symptoms. Pt instructed to seek medical attention right away with any worsening or new symptoms, which are reviewed with her. [email or web address] Not available 09/03/2022 17:04:08 01/19/2024 01/19/2024 As noted, we juana e called to see this patient regarding concerns of headache. Evaluation in the field was performed by my industrial retrofit designer colleague, as noted above, I provided real-time direction and supervision for this visit. Pt is a 58 F w hx of migraines, cervical spinal stenosis s/p cervical fusion, reporting headache and neck pain. Pt reports symptoms started last week after PT for her R shoulder. She saw her PCP after, got accupuncture which did not help. took 650 mg of tylenol which also did not help. Tightness in the neck reported with flexion. Pt reported intermittent photophobia to medic though none at present. Pt is hemodynamically stable, no fever or infectious symptoms to suggest meningitis. No acute neurologic change to suggest a pathology of the vertebral circulation. Seems most consistent with cervical radiculopathy (worse with movements of the neck and arm) vs cervicogenic migraine headache. Plan for migraine cocktail with toradol, reglan, benadryl and IVF but otherwise family service counselor on PCP follow up. Impression: migraine Plan: Migraine cocktail, pcp follow up Primary care, consider neurology referral vs migraine maintenance medication as needed Disposition: We discussed the diagnostic uncertainty of home visits and the risk associated with this. In this case, the patient and I felt this to be an acceptable and reasonable amount of risk given the benefit of avoiding an ED visit. We discussed the need to seek care urgently/emergentl y in the setting of any new or worsening serious symptoms, particularly new neurologic change, fever, or worsening headache. [email or web address] Not available 01/19/2024 19:27:55 Plan of Treatment Reminders Order Date Submit Date Provider Last Modified By Organization Details Last Modified Time Details Appointments None recorded. Lab culture, urine 2022 023 [facility] (Centralized Electronic Ordering - All Locations), Patient Can Go To The Location Of Their Choice, [id number] 12:54:26 urinalysis, dipstick 2022 023 [facility] Main - [facility], [address] [place] [address], [place], [phone], 16:56:33 Referral None recorded. Procedures None recorded. Surgeries None recorded. Imaging None recorded. Medication Orders metoclopram saturnino 5 mg/mL injection solution 2023 024 [email or web address] [facility] #45825, [address], [place], [id number], 4 19:26:55 ketorolac 30 mg/mL injection solution 2023 024 [email or web address] [facility] #65735, [address] [place] [address], [id number], 4 19:26:55 diphenhydra mine 50 mg/mL injection solution 2023 024 [email or web address] [facility] #60766, [address] [place] [address], [id number], 4 19:26:55 sodium chloride 0.9 % intravenous solution 2023 024 [email or web address] [facility] #08279, [address] [place] [address], [id number], 4 19:26:55 magnesium sulfate 2 gram/50 mL in 0.9 % sodium chloride IV piggyback 2023 024 [email or web address] [facility] #84361, [address] [place] [address], [id number], 4 19:26:55 tamsulosin 0.4 mg capsule [address] [facility] #57627, [address] [place] [address], [id number], 3 21:22:44 doxycycline hyclate 100 mg tablet [address] [facility] #30237, [address] [place] [address], [id number], 3 12:49:47 doxycycline hyclate 100 mg tablet 2022 023 [email or web address] Not available 12:49:39 Patient TargetsNo targets recorded. Patient InstructionsNo instructions recorded. Reason for Referral None Reported. Results Created Date Observation Date Name Description Value Unit Range Abnormal Flag Note LastModifiedBy Organization Detail LastModifiedTime 09/04/1909/03/2022 urina lysis , dipst ick Leukocytes negati ve Not Available Main - [facility] ed [address] [place] [address], [phone], 09/03/2022 16:55:11 09/04/19 23 09/03/2022 urina lysis , dipst ick Nitrite negati ve Not Available [facility] ed [address] [place] [address], [phone], 09/03/2022 16:55:11 09/04/19 23 09/03/2022 urina lysis , dipst ick Blood negati ve Not Available [facility] ed [address] [place] [address], [phone], 09/03/2022 16:55:11 09/04/19 23 09/03/2022 urina lysis , dipst ick Glucose negati ve Not Available [facility] ed [address] [place] [address], [phone], 09/03/2022 16:55:11 12/23/19 23 12/22/2022 URINE CULTU RE specimen description URINE Not Available [facility] (Centralized Electronic Ordering - All Locations) Patient Can Go To The Location Of Their Choice, 12/24/2022 12:54:25 12/23/1912/22/2022 URINE CULTU RE special requests NONE Not Available [facility] (Centralized Electronic Ordering - All Locations) Patient Can Go To The Location Of Their Choice, 12/24/2022 12:54:25 12/23/1912/24/2022 URINE CULTU RE culture NO GROWTH Not Available [facility] (Centralized Electronic Ordering - All Locations) Patient Can Go To The Location Of Their Choice, 12/24/2022 12:54:25 12/23/1912/24/2022 URINE CULTU RE report status FINAL 2022 Not Available [facility] (Centralized Electronic Ordering - All Locations) Patient Can Go To The Location Of Their Choice, [id number] 12/24/2022 12:54:25 Result Notes None recorded. Medical Equipment None Reported. Medications Name Sig Start Date Stop Date Status Note LastModified by Organization Details LastModified Time cyclobenzapr ine 10 mg tablet TAKE 1 TABLET BY MOUTH EVERY 8 HOURS NEEDED FOR MUSCLE SPASM active Not Available Not Available No t Available betamethason e valerate 0.1 % topical ointment APPLY TOPICALLY TO THE AFFECTED AREA IN THE MORNING AND AT BEDTIME NEEDED FOR DRYNESS active Not Available Not Available Not Available metocloprami de 5 mg/mL injection solution Take 10 mg by injection route. 2023 active Not Available Not Available Not Avai lable nicotine 14 mg/24 hr daily transdermal patch APPLY 1 PATCH TO THE SKIN ONCE DAILY. REMOVE OLD PATCH BEFORE APPLYING NEW ONE. active Not Available Not Available No t Available tizanidine 2 mg tablet TAKE 1 TABLET BY MOUTH THREE TIMES DAILY NEEDED FOR MUSCLE SPASMS active Not Available Not Available No t Available polyethylene glycol 3350 17 gram oral powder packet active Not Available Not Available Not Available azithromycin 250 mg tablet TAKE 2 TABLETS BY MOUTH FOR 1 DAY THEN TAKE 1 TABLET BY MOUTH DAILY active Not Available Not Available Not Available fluconazole 150 mg tablet TAKE 1 TABLET BY MOUTH 1 TIME A WEEK FOR 2 WEEKS active Not Available Not Available Not Available minocycline 100 mg capsule active Not Available Not Available Not Available meloxicam 15 mg tablet TAKE 1 TABLET BY MOUTH EVERY DAY active Not Available Not Available No t Available gabapentin 400 mg capsule TAKE 1 CAPSULE BY MOUTH THREE TIMES DAILY active Not Available Not Available Not Available amlodipine 5 mg tablet TAKE 1 TABLET BY MOUTH EVERY DAY active Not Available Not Available No t Available sulfamethoxa zole 800 mg-trimethop rim 160 mg tablet TAKE 1 TABLET TWICE DAILY active Not Available Not Available Not Available aspirin 81 mg tablet,delay ed release TAKE 1 TABLET BY MOUTH EVERY DAY active Not Available Not Available No t Available doxycycline monohydrate 100 mg tablet active Not Available Not Available Not Available acetaminophe n 500 mg tablet TAKE 1 TABLET BY MOUTH EVERY 6 HOURS NEEDED FOR MILD FOR PAIN FOR UP TO 10 DAYS active Not Available Not Available N ot Available ofloxacin 0.3 % ear drops active Not Available Not Available Not Available diphenhydram ine 50 mg/mL injection solution Take 25 mg by injection route. 2023 active Not Available Not Available Not Avai lable tamsulosin 0.4 mg capsule TAKE 1 CAPSULE BY MOUTH EVERY DAY active Not Available Not Available No t Available OneTouch Ultra Test strips USE ONE STRIP TO CHECK BLOOD SUGAR TWICE DAILY active Not Available Not Available No t Available simvastatin 20 mg tablet TAKE 1 TABLET BY MOUTH EVERY DAY active Not Available Not Available No t Available Banophen 25 mg tablet TAKE 2 TABLETS BY MOUTH AT BEDTIME NEEDED active Not Available Not Available No t Available lisinopril 10 mg tablet TAKE 1 TABLET BY MOUTH EVERY DAY active Not Available Not Available No t Available glucose 4 gram chewable tablet TAKE 1 TABLET BY MOUTH IF FS IS LESS THAN 70MG active Not Available Not Available No t Available docusate sodium 100 mg capsule TAKE 1 CAPSULE BY MOUTH TWICE DAILY active Not Available Not Available No t Available oxybutynin chloride ER 5 mg tablet,exten ded release 24 hr TAKE 1 TABLET BY MOUTH EVERY DAY active Not Available Not Available No t Available gabapentin 300 mg capsule TAKE 1 CAPSULE BY MOUTH THREE TIMES A DAY active Not Available Not Available Not Available aspirin 81 mg chewable tablet CHEW AND SWALLOW 1 TABLET BY MOUTH DAILY active Not Available Not Available Not Available codeine 10 mg-guaifenes in 100 mg/5 mL oral liquid TAKE 5 ML BY MOUTH EVERY 6 HOURS FOR UP TO 5 DAYS NEEDED FOR COUGH active Not Available Not Available No t Available lisinopril 5 mg tablet TAKE 1 TABLET BY MOUTH EVERY DAY active Not Available Not Available No t Available mirtazapine 15 mg tablet TAKE 1/2 TABLET BY MOUTH AT BEDTIME active Not Available Not Available No t Available sodium chloride 0.9 % intravenous solution Inject 1000 mL by intravenous route. 2023 active Not Available Not Available Not Avai lable lorazepam 1 mg tablet TAKE 1 TABLET BY MOUTH DAILY NEEDED FOR PANIC ATTACKS active Not Available Not Available No t Available ibuprofen 600 mg tablet TAKE 1 TABLET BY MOUTH THREE TIMES DAILY WITH FOOD active Not Available Not Available No t Available estradiol 0.01% (0.1 mg/gram) vaginal cream APPLY ONCE DAILY FOR 2 WEEKS THEN TWICE DAILY AT BEDTIME active Not Available Not Available N ot Available betamethason e dipropionate 0.05 % topical ointment APPLY TO THE AFFECTED AREA ON THE GROIN AND BREAST TWICE A DAY NEEDED . DO NOT USE FOR MORE THAN TWO WEEKS AT A TIME. active Not Available Not Available No t Available ondansetron 4 mg disintegrati ng tablet TAKE 1 TABLET BY MOUTH EVERY 6 HOURS NEEDED FOR NAUSEA active Not Available Not Available No t Available metformin ER 500 mg tablet,exten ded release 24 hr TAKE 2 TABLETS BY MOUTH TWICE DAILY WITH MEALS active Not Available Not Available No t Available doxycycline hyclate 100 mg tablet TAKE 1 TABLET BY MOUTH TWICE DAILY FOR 6 DAYS active Not Available Not Available No t Available naproxen 500 mg tablet TAKE 1 TABLET BY MOUTH TWICE DAILY NEEDED FOR PAIN active Not Available Not Available No t Available vitamin B complex capsule TAKE 1 CAPSULE BY MOUTH EVERY MORNING active Not Available Not Available No t Available nicotine 7 mg/24 hr daily transdermal patch APPLY 1 PATCH TOPICALLY TO THE SKIN EVERY DAY active Not Available Not Available No t Available Ventolin HFA 90 mcg/actuatio n aerosol inhaler INHALE 2 PUFFS BY MOUTH EVERY 4 HOURS NEEDED FOR WHEEZING active Not Available Not Available No t Available oxycodone 5 mg tablet active Not Available Not Available No t Available Vitamin D3 25 mcg (1,000 unit) capsule TAKE 1 CAPSULE BY MOUTH EVERY MORNING active Not Available Not Available No t Available magnesium sulfate 2 gram/50 mL in 0.9 % sodium chloride IV piggyback Infuse 25 mL every day by intravenous route. 2023 active Not Available Not Available Not Avai lable ketorolac 30 mg/mL injection solution Inject 0.5 mL by intravenous route. 2023 active Not Available Not Available Not Avai lable Vitals Date Recorded Body temperature Oxygen saturation Oxygen saturation in Arterial blood by Pulse oximetry Heart rate Respiratory rate Systolic blood pressure Diastolic blood pressure Provider Name and Address Organization Details Last Updated DateTime 3 97.8 [degF] 98 % 98 % 67 /min 16 /min 139 mm[Hg] 80 mm[Hg] Not Available [employer] 3 21:07:31 Date Recorded Respiratory rate Heart rate Oxygen saturation Oxygen saturation in Arterial blood by Pulse oximetry Body temperature Body height Body weight Systolic blood pressure Diastolic blood pressure Provider Name and Address Organization Details Last Updated DateTime 4 16 /min 69 /min 100 % 100 % 97.8 [degF] 175.26 cm 53146.9 52 g 119 mm[Hg] 70 mm[Hg] Not Available [facility] 4 11:59:12 Date Recorded Body weight Oxygen saturation Oxygen saturation in Arterial blood by Pulse oximetry Body height Body temperature Respiratory rate Heart rate Systolic blood pressure Diastolic blood pressure Provider Name and Address Organization Details Last Updated DateTime 4 65180.4 g 100 % 100 % 177.8 cm 98.8 [degF] 16 /min 76 /min 154 mm[Hg] 72 mm[Hg] Not Available [facility] 4 17:08:33 Date Recorded Oxygen saturation Oxygen saturation in Arterial blood by Pulse oximetry Respiratory rate Body weight Heart rate Body temperature Oxygen saturation Oxygen saturation in Arterial blood by Pulse oximetry Respiratory rate Body temperature Heart rate Body weight Systolic blood pressure Diastolic blood pressure Systolic blood pressure Diastolic blood pressure Provider Name and Address Organization Details Last Updated DateTime 3 99 % 99 % 18 /min 650427. 608 g 66 /min 97.5 [degF] 99 % 99 % 18 /min 97.5 [degF] 66 /min 674045. 608 g 110 mm[Hg] 54 mm[Hg] 110 mm[Hg] 54 mm[Hg] Not Available [facility] 3 17:07:05 Date Recorded Heart rate Body temperature Body weight Oxygen saturation Oxygen saturation in Arterial blood by Pulse oximetry Systolic blood pressure Diastolic blood pressure Provider Name and Address Organization Details Last Updated DateTime 3 80 /min 97.7 [degF] 290148. 976 g 97 % 97 % 145 mm[Hg] 81 mm[Hg] Not Available [facility] 3 12:45:38 Social History None recorded. Functional Status None recorded. Mental Status None recorded. Family History Nothing Reported. Medical History No medical history recorded. Gynecological HistoryNo gynecological history recorded. Obstetrics History GPAL:G 0 P 0 0 0 0 Past Encounters Encounter ID Performer Location Encounter Start Date Encounter Closed Date Diagnosis/Indication Diagnosis SNOMED-CT Code Diagnosis ICD10 Code Diagnosis Note [id number] Halima Orta MD Main - [facility] [address] [place] [address] 12/15/2021 12:34:04 02/14/2022 11:31:08 Acute pelvic pain 106590778 R10.2 several days of R>L pelvic pain w/ associated flank pain and white vaginal discharge. UA clean. H/o kidney stones s/p ultrasound ablation. No nausea/singh sis/fevers /rigors. Last had sexual intercours e with fiance in [place] ~1mo ago (her only sexual partner). vaginal pruritis earlier this week resolved. no associated diarrhea/m carolyn/shobha tochezia. ddx broad: vaginal yeast infection (pelvic/fl ank pain not common), obstructin g renal calculus (no blood on UA), PID (possible, including theoretica ly monkeypox but no systemic symptoms), ovarian torsion (less likely given mild-moder ate pain on exam), apendiciti s (also less likely) discussed options with patient: trial ~2d monistat for yeast infection and if sx don't improve, present to urgent care or ED vs go to PCP office for pelvic exam and basic testing vs ED now. All of the above seem reasonable given she is overall non-toxic appearing. Pt electing to go to PCP office given upcoming holiday weekend. [id number] James Platt MD Main - [facility] [address] [place] [phone] 09/03/2022 16:51:04 09/05/2022 09:22:46 Increased frequency of urination 647698000 R35.0 [id number] Du Mcneil MD Main - [facility] [address] [place] [phone] 10/12/2022 12:45:32 10/15/2022 09:47:49 Boils of multiple sites 427552356 L02.92 57yo woman with history of multiple skin soft tissue infections presents with a focal skin infection of the stomach similar to prior episosdes. Previously this has responded to doxy. The lesion is draining on industrial retrofit designer exam and my review of images.- Doxycyclin e [id number] Macey Corrales MD Main - [facility] [address] [place] [phone] 12/22/2022 20:58:54 12/24/2022 12:19:53 Flank pain 348857606 R10.9 Evaluation in the field was performed by my industrial retrofit designer colleague, as noted above, I provided real-time direction and supervisio n for this visit. 57yo F hx nephrolith iasis, recently treated UTI p/w ongoing b/l flank pain but no dysuria. UA notable for very high SG and microscopi c blood w/o leuks or nitrites. VS wnl. Presentati on most c/w nephrolith iasis. Pt instructed to increase fluid intake and start tamsulosin to facilitate stone passage. Will send urine for culture as NOE. Rec reach out to PCP Saturday to discuss ongoing mgmt nephrolith aisis including possible imaging. We discussed the diagnostic uncertaint y of home visits and the risk associated with this. In this case, the patient and I felt this to be an acceptable and reasonable amount of risk given the benefit of avoiding an ED visit. We discussed the need to seek care urgently/e mergently in the setting of any new or worsening serious symptoms, shortness of breath, cough, chest pain, fever. [id number] Tristin Segura MD Main - [facility] [address] [place] [phone] 11/13/2023 11:59:04 11/13/2023 15:12:52 Gastroparesis syndrome [id number] K31.84 This 58-year-ol d female was recently diagnosed with gastropare sis but the medication ordered hasn't been effective. I suggested that she contact her PCP to make arrangemen ts for a GI referral. The patient agreed with this plan. [id number] Anthony Santiago MD Main - [facility] [address] [place] [phone] 01/19/2024 17:08:29 01/19/2024 22:27:44 Migraine 08957003 G43.909 no alarm features or neurologic change. recommend symptomati c management w tylenol as needed, pcp follow up. Health Concerns Section Related Observation LastModified by Organization Detai ls LastModified Time None Recorded Concern Status LastModified by Organization Details LastModified Time None Recorded Advance Directives Directive None Recorded Payers Encounter Date Sequence Insurance Name Policy Number Policy Mondragon Covered Member ID Mondragon Member ID Guarantor Name 09/03/2022 1 [facility] - DOS PRIOR TO 2022 - DUAL ELIGIBLE (MEDICARE REPLACEMENT/AD VANTAGE - HMO) Alma Diego [id number] Alma Diego 10/12/2022 1 [facility] - DOS PRIOR TO 2022 - DUAL ELIGIBLE (MEDICARE REPLACEMENT/AD VANTAGE - HMO) Alma Diego [id number] Alma Painter Johnathon 12/22/2022 1 [facility] - DOS ON OR AFTER 2022 - DUAL ELIGIBLE - LONG-TERM OPTIONS AND ONE CARE (MEDICARE REPLACEMENT/AD VANTAGE - HMO) Alma Johnathon [id number] Alma Painter Johnathon 11/13/2023 1 [facility] - DOS ON OR AFTER 2022 - DUAL ELIGIBLE - LONG-TERM OPTIONS AND ONE CARE (MEDICARE REPLACEMENT/AD VANTAGE - HMO) Alma Johnathon [id number] Alma Painter Johnathon 01/19/2024 1 [facility] - DOS ON OR AFTER 2022 - DUAL ELIGIBLE - LONG-TERM OPTIONS AND ONE CARE (MEDICARE REPLACEMENT/AD VANTAGE - HMO) Alma Diego [id number] Alma Inocencio Johnathon Notes Date Note Type Note Provider Name and Address Organization Details Recorded Time 09/03/2022 text/html This was a super vised home visit with industrial retrofit designer Jet Grier. HPI: I? v e been urinating a lot, I? m a diabetic for the pass 3 weeks been urinating 3 times at night I checked my urine twice and it says positive for uti. It bothers me when my bladder full ..................... ..................... ..................... ..................... ..................... ..................... ............... CRC Nursing Assessment: Reason For Request: UTI Patient Reports: Painful urination Chief Complaints: UTI/Pyelonephritis PMH: Diabetes, Hypertension Allergies: Unknown Comments: Patient with HTN and Chronic Hep C per record. Patient reports painful urination and frequency over several days. Did home dipstick with positive findings. Patient at work at present. ..................... ..................... ..................... ..................... ..................... ..................... ............... Coffee Shop Aide Note From Jte Grier: Pt presents A@Ox4 pink warm and dry. Pt C/O abdominal cramping monthly, with mood swings and hot flashes for past 4 - 5 months and urinating more at night. Pt denies CP SOB F/N/V/D, urinary pain, lower back pain or flank pain, also denies foul smelling or cloudy urine. Baseline vitals assessed and recorded vitals stable. Urine dip unremarkable in all areas . Non febrile. [facility] contacted and pt advised to follow up with her PCP which she has APPT september 19 2022. Pt educated on signs that would indicate the ED ..................... ..................... ..................... ..................... ..................... ..................... ............... Disposition: Fulfilled James Platt MD [address] [facility],[address], [place], [phone], [email or web address] 09/03/2022 17:18:02 10/12/2022 text/html HPI: ALLERGIC TO : AMPICILLIN HX: Chronic Hep C, Hidradenitis. DM, HTN Patient with reported boil on stomach. Now large painful and intact. No fever. ..................... ..................... ..................... ..................... ..................... ..................... ............... CRC Nursing Assessment: Comments: CRC RN DID NOT NEED FURTHER INFO Du Mcneil MD [address] [place] [address],[address], [place], [phone], [email or web address] 10/12/2022 12:49:54 12/22/2022 text/html HPI: I? m having pain on both side of my lower back urinating more. No fever stabbing in my lower pelvis. I did a home urine test it came out pink and other on one purple. ..................... ..................... ..................... ..................... ..................... ..................... ............... CRC Nursing Assessment: Reason For Request: UTI Chief Complaints: UTI/Pyelonephritis PMH: Diabetes, Hypertension Comments: Member requested visit via portal, member was called back by this nurse. Member with symptoms greater than 1 week. Member with bilateral flank pain, pelvic discomfort and frequency and urgency. Denies pain or burning with urination, occasionally urine is dark and malodorous. Denies fever/chill. Member would like to be evaluated. ..................... ..................... ..................... ..................... ..................... ..................... ............... Coffee Shop Aide Note From Jorgito Schwartz: PER CCA: Member requested visit via portal, member was called back by this nurse. Member with symptoms greater than 1 week. Member with bilateral flank pain, pelvic discomfort and frequency and urgency. Denies pain or burning with urination, occasionally urine is dark and malodorous. Denies fever/chill. Member would like to be evaluated. S: Pt c/c of burning with urination x 1 week and bilat. flank pain. Denies CP, fever/chills, dizziness/lightheaded , headache O: Pt sitting in chair in NAD, Pt CAOx4, VSS Skin is WD non febrile LS clear in all [place] Heart tones normal, pulse strong and regular. SpO2 96% RA abd soft/non-tender, no grimace on palpation Moves all extremities, no edema A: Vitals and assessment preformed urine dip, pt has appointment with urology on December 31 for flank pain and reacess pts kidney stones, pt takes Tylenol for flank pain, member requesting to have urine tested for UTI. P: Initial VS and urine culture and dip preformed called to discuss reselts, Dr. Corrales to call prescription for flomax to help with kidney stones and sending urine culture to lab. Discussed red flags with pt, Pt to call back if symptoms persist. Patient/son agrees and understands. MIH Clear. ..................... ..................... ..................... ..................... ..................... ..................... ............... Disposition: Fulfilled Macey Corrales MD [address] [facility],[address] [facility], [place], [phone], [email or web address] 12/22/2022 21:50:36 11/13/2023 text/html HPI: I? v e been having abdominal pain. My urine stream has changed. Somethings pressing on my bladder constantly. I? m nauseous every day. I have pain in my stomach even if I? m drinking water I? m bloated always Gastroparesis. I don? t know if gallbladder ..................... ..................... ..................... ..................... ..................... ..................... ............... [facility] Nurse Triage Notes (Sanjana Alfaro): Chief Complaints: Pain PMH: Diabetes, Hypertension Comments: Patient reports feeling bloated for months and nausea for months. Member states last time she was this nausea she had a kidney stone. Slight dysuria x3 months. Urine clear. Reports urinary urgency and pressure with urination. Pain to upper abdomen sometimes radiating to left shoulder. PCP prescribed medication for gas with no relief. Saw PCP last week. Urine was not tested at PCP appt last week. Tristin Segura MD [address] [place] [address],[address], [place], [phone], [email or web address] 11/13/2023 12:02:46 01/19/2024 text/html [facility] Nurse Triage Notes (Delfin Villagran): Reason For Request: neck pain/headaches Chief Complaints: Headache, Pain PMH: Diabetes, Hypertension Allergies: Unknown Comments: Gi Technician verified the member's name//address and phone number. Mbr reports headache, facial pain, and neck pain. Mbr reports hx of cervical spinal stenosis. Mbr reports neck feels stiff and states she is having difficulty moving R shoulder. Mbr reports she has been undergoing treatment by PT. Mbr reports intermittent photophobia and blurred vision. Mbr is unsure if she may be having a migraine. Education provided on the response time and the member was advised to monitor reported s/s and seek emergency treatment if needed -Nicole Villagran RN ..................... ..................... ..................... ..................... ..................... ..................... ............... Coffee Shop Aide Note From Aguila Baez: Pt reports hx of migraine INTERIANO, spinal stenosis, fusion of C3-C4, currently using PT and acupuncture. Pt saw PT last Saturday and acupuncture last , developed neck stiffness, migraine INTERIANO, photophobia and nausea w/o vomting soon thereafter. Pt took acetaminophen 650 mg today with no relief. Pt denies bowel or bladder incontinence, paresthesia, blurred vision, f/c/v/d. Pt is alert, NAD. VSS. Afebrile. Non focal neuro exam. Normal gait. Pupils 4 mm +PERRLA. Lungs CTA. Benign ABD exam. No LE edema. Equal strength in all extremities. Pt treated with lactated ringers 1 L IV, ketorolac 15 mg IVP, diphenhydramine 25 mg IVP, metoclopramide 10 mg IVP and magnesium 1 g IV. Pt instructed to f/u with PCP tomorrow and to seek emergent medical care for new or worsening sx, which are reviewed with her. ..................... ..................... ..................... ..................... ..................... ..................... ............... Disposition: Fulfilled Anthony Santiago MD [address] [place] [address],[address] [facility], [place], [phone], [email or web address] 01/19/2024 19:28:08 OBGyn Episode No OBEpisode recorded.
--- OUTSIDE RECORDS SUMMARY | 2024-09-02 13:40 | XMS_ITS | Data Portability ---
Author Organization [place] - [facility], Allergy Address [address] [place] [address] Care Team Providers Care Fur Cutter Name Role Phone HOME MELENDEZ Primary Care Provider Assessment Encounter Date Assessment Date Assessment LastModified by Organization Details LastModified Time 07/22/2024 07/22/2024 Patient presents for evaluation of the ears, reporting several episodes of otorrhea since last examined. Physical exam reveals pinpoint perforation in the right tympanic membrane, clean and dry. On the left ear, there is cerumen spread across part of the tympanic membrane obscuring a full view. This could not be comfortably removed. There is a serous effusion in the middle ear space. Reviewed pathophysiolog y of Eustachian tube dysfunction on diagram and patient/parent understands. Recommend trial of intranasal steroid spray; risks, rationale, and crossed-hand application technique reviewed and all questions were answered. Recommend follow up in 8 weeks, sooner with concerns. Reviewed that ultimately it may be necessary to place a ventilation tube in the tympanic membrane. We discussed the need and rationale for avoiding water and Q-tips in the ears. [email or web address] Not available 07/22/2024 10:49:44 Plan of Treatment Reminders Order Date Submit Date Provider Last Modified By Organization Details Last Modified Time Details Appointments Establish ed 15 2024 09:30A M CARROLL MCCORD MD Not available Not available Not available Lab None recorded. Referral None recorded. Procedures None recorded. Surgeries None recorded. Imaging None recorded. Medication Orders fluticaso ne propionat e 50 mcg/actua tion nasal spray,ketan pension 2024 025 [email or web address] [id number], [address] [place], [place], [id number], 07/22/2024 10:46:49 Patient TargetsNo targets recorded. Patient InstructionsNo instructions recorded. Reason for Referral None Reported. Results Created Date Observation Date Name Description Value Unit Range Abnormal Flag Note LastModifiedBy Organization Detail LastModifiedTime 07/22/19 audio gram No observ ation record ed. BARCODE Not Available 2024 14:05:39 Result Notes None recorded. Problems Name Problem SNOMED Code Status Onset Date Resolution Date Notes Provider Name and Address Organization Details Recorded Time Sensorine ural hearing loss in right ear 29742660894 100 Active 2017 Sensorine ural hearing loss, unilatera l, right ear, with restricte d hearing on the contralat eral side; Note: Date Diagnosed : 02/13/2018 3:14 PM (H90.A21) Not Available [facility] 4 02:51:55 Disorder of right Eustachia n tube 57382316985 53409 Active 2015 Other specified disorders of Eustachia n tube, right ear; Note: Date Diagnosed : 05/17/2016 5:16 PM (H69.81) Not Available [facility] 4 02:51:59 Otalgia of left ear 5108959418 Active 2018 Otalgia, left ear; Note: Date Diagnosed : 07/22/2018 10:28 AM (H92.02) Not Available [facility] 4 02:51:59 Conductiv e hearing loss of right ear 0114103789 Active 2019 Conductiv e hearing loss, unilatera l, right ear with restricte d hearing on the contralat eral side; Note: Date Diagnosed : 09/30/2019 11:22 AM (H90.A11) Not Available [facility] 4 02:51:57 Bilateral tympanic membrane central perforati on 16322360468 32344 Active 2021 Central perforati on of tympanic membrane, bilateral ; Note: Date Diagnosed : 02/08/2022 5:24 PM (H72.03) Not Available [facility] 4 02:51:55 Benign paroxysma l positiona l vertigo 536470986 Active 2022 Benign paroxysma l vertigo, left ear; Note: Date Diagnosed : 3 3:25 PM (H81.12) Not Available [facility] 4 02:51:57 Snoring 12172020 Active 2013 Snoring; CMS Risk: low risk CMS Treatment : new problem (to examiner) : additiona l workup planned C ondition: controlle d Note: Date Diagnosed : 4 4:13 PM (786.09) Not Available [facility] 4 02:51:56 Otalgia of right ear 5017134906 Active 2016 Otalgia, right ear; Note: Date Diagnosed : 01/09/2017 5:09 PM (H92.01) Not Available [facility] 4 02:51:54 Chronic serous otitis media of right ear 609998815 Active 2016 Chronic serous otitis media, right ear; Note: Date Diagnosed : 03/14/2017 12:14 PM (H65.21) Not Available [facility] 4 02:51:58 Sensorine ural hearing loss in left ear 92747701043 109 Active 2019 Sensorine ural hearing loss, unilatera l, left ear, with restricte d hearing on the contralat eral side; Note: Date Diagnosed : 09/30/2019 11:22 AM (H90.A22) Not Available [facility] 4 02:51:57 Conductiv e hearing loss 01129305 Active 2018 Conductiv e hearing loss, unilatera l, right ear, with unrestric prasanna hearing on the contralat eral side; Note: Date Diagnosed : 03/14/2017 11:55 AM (H90.11) ; Start Date : 7 Conduct obed hearing loss, unilatera l, left ear, with unrestric prasanna hearing on the contralat eral side; Note: Date Diagnosed : 07/22/2018 10:33 AM (H90.12) Not Available [facility] 4 02:51:53 Otorrhea of right ear 35867151321 53452 Active 2017 Otorrhea, right ear; Note: Date Diagnosed : 8 9:44 AM (H92.11) Not Available [facility] 4 02:51:53 Follow-up visit Active 2016 Medical surveilla nce following completed treatment ; Note: Date Diagnosed : 7 10:46 AM (Z09) Not Available [facility] 4 02:51:57 Mixed conductiv e and 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 81328562655 107 Active 2020 Mixed conductiv e and sensorine ural hearing loss, unilatera l, left ear with restricte d hearing on the contralat eral side; Note: Date Diagnosed : 02/28/2021 2:24 PM (H90.A32) Not Available [facility] 4 02:51:55 Dizziness and giddiness 954045524 Active 2019 Dizziness and giddiness ; Note: Date Diagnosed : 09/28/2019 11:17 AM (R42) Not Available [facility] 4 02:51:58 Left conductiv e hearing loss 46503651114 07 Active 2017 Conductiv e hearing loss, unilatera l, left ear with restricte d hearing on the contralat eral side; Note: Date Diagnosed : 02/13/2018 3:14 PM (H90.A12) Not Available [facility] 4 02:51:59 Headache 89794849 Active 2018 Headache, unspecifi ed; Note: Changed from R51 to R51.9 ( 1 10:24 AM) , Date Diagnosed : 9 10:03 AM (R51) Not Available [facility] 4 02:51:54 Dysfuncti on of eustachia n tube 64482496 Active 2013 Eustachia n tube dysfuncti on; CMS Risk: low risk CMS Treatment : establish ed problem (to examiner) : stable or improved Condition : controlle d Note: Date Diagnosed : 4 3:42 PM (381.81) Not Available [facility] 4 02:51:53 Migraine without aura, not refractor y 379667413 Active 2018 Migraine without aura, not intractab le, without status migrainos us; Note: Date Diagnosed : 9 10:03 AM (G43.009) Not Available [facility] 4 02:51:56 Mixed conductiv e and sensorine ural hearing loss, bilateral 408136324 Active 2021 Mixed conductiv e and sensorine ural hearing loss, bilateral ; Note: Date Diagnosed : 02/08/2022 5:07 PM (H90.6) Not Available [facility] 4 02:51:56 Otorrhea of left ear 22778690766 10828 Active 2020 Otorrhea, left ear; Note: Date Diagnosed : 08/01/2020 1:32 PM (H92.12) Not Available [facility] 4 02:51:52 Acute serous otitis media of left ear 55657758807 04599 Active 2018 Acute serous otitis media, left ear; Note: Date Diagnosed : 07/22/2018 10:29 AM (H65.02) Acute serous otitis media, left ear; Note: Date Diagnosed : 03/18/2018 11:16 AM (H65.02) ; Start Date : 8 Not Available [facility] 4 02:51:55 Sensorine ural hearing loss of bilateral ears 381290234 Active 2013 [facility] Bilateral ly; Note: Date Diagnosed : 4 3:42 PM (389.18) Not Available [facility] 4 02:51:52 Bilateral tinnitus 39428034527 02 Active 2016 Tinnitus, bilateral ; Note: Date Diagnosed : 03/14/2017 12:12 PM (H93.13) Not Available [facility] 4 02:51:52 Acute serous otitis media of right ear 63497173359 88794 Active 2017 Acute serous otitis media, right ear; Note: Date Diagnosed : 8 9:44 AM (H65.01) Not Available [facility] 4 02:51:58 Bilateral disorder of Eustachia n tubes 03040648962 24518 Active 2016 Other specified disorders of Eustachia n tube, bilateral ; Note: Date Diagnosed : 01/09/2017 5:09 PM (H69.83) Not Available [facility] 4 02:51:54 Perforati on of right tympanic membrane 90052618025 55927 Active 2024 EVERETTE JUARES PA-C [address] [facility],[place] [address], [place], [address] , [facility] 5 10:45:00 Problem Notes None recorded. Procedures Surgical History Date Name Laterality Status Provider Name and Address Organization Details Recorded Time 07/22/2024 Comp Audio with Tymps (33842 & 22804) completed CLAYTON GABRIEL [address] [facility],[place] [address], [place], [address], [facility] 07/22/2024 10:25:50 Imaging Results Imaging Date Name Status LastModified by Organiz ation Details LastModified Time 07/22/2024 audiogram completed BARCODE Information no t available 07/22/2024 14:05:39 Procedure Notes None recorded. Medical Equipment None Reported. Allergies Allergen ID Allergen Name Allergen Category Reaction Reaction Severity Criticality Documentation Date Start Date Code Code System Note Provider Name and Address Organization Details Recorded Time 70377 amoxicill in medicatio n other Not available Not available 10/29/2023 723 RxNorm React ion: unkno wn, unspe cifie d;; Not Available [facility] 4 00:48:32 Medications Name Sig Start Date Stop Date Status Note LastModified by Organization Details LastModified Time cyclobenz aprine 10 mg tablet active Not Available Not Available No t Available estazolam 2 mg tablet 05/17 completed Medicati on ID: [id number] Dur ation Value: 30 Reason: () Brand Name: estazola m Send Method: E-Prescr ibed Sub s Allowed: subs OK Medic ationGen ericName : estazola m Not Available Not Available Not Available doxycycli ne hyclate 100 mg capsule 09/29 completed Medicati on ID: [id number] P rescribe d By Name: Sherwin manjarrez MD Brand Name: doxycycl ine hyclate Send Method: E-Prescr ibed Sub s Allowed: subs OK Speci al Instruct ion: Take 1 PO bid X 2 weeks Me dication GenericN soumya: doxycycl ine hyclate Not Available Not Available Not Available nicotine 14 mg/24 hr daily transderm al patch PLACE 1 PATCH ON THE SKIN ONE TIME A DAY AT THE SAME TIME active Not Available Not Available No t Available tizanidin e 2 mg tablet active Medicati on ID: [id number] B rand Name: tizanidi ne Send Method: E-Prescr ibed Sub s Allowed: subs OK Medic ationGen ericName : tizanidi ne Not Available Not Available Not Available clindamyc in HCl 300 mg capsule TAKE 1 CAPSULE BY MOUTH EVERY 6 HOURS active Not Available Not Available No t Available ofloxacin 0.3 % eye drops 3 drop 06/03 completed Medicati on ID: [id number] D uration Value: 7 Brand Name: ofloxaci n Send Method: E-Prescr ibed Sub s Allowed: subs OK Speci al Instruct ion: use until bottle gone Med icationG enericNa me: ofloxaci n Not Available Not Available Not Available fluconazo le 150 mg tablet active Not Available Not Available Not Available ondansetr on HCl 4 mg tablet active Not Available Not Available No t Available clonazepa m 0.5 mg tablet 05/17 completed Medicati on ID: [id number] Dur ation Value: 30 Reason: () Brand Name: clonazep am Send Method: E-Prescr ibed Sub s Allowed: subs OK Speci al Instruct ion: take 1 tablet by mouth every morning Medicati onGeneri cName: clonazep am Not Available Not Available Not Available gabapenti n 400 mg capsule active Not Available Not Available Not Available sumatript an 50 mg tablet 02/08 completed Medicati on ID: [id number] D uration Value: 30 Brand Name: sumatrip macedo succinat e Send Method: E-Prescr ibed Sub s Allowed: subs OK Medic ationGen ericName : sumatrip macedo succinat e Not Available Not Available Not Available topiramat e 25 mg tablet 02/08 completed Medicati on ID: [id number] D uration Value: 30 Brand Name: topirama te Send Method: E-Prescr ibed Sub s Allowed: subs OK Medic ationGen ericName : topirama te Not Available Not Available Not Available amlodipin e 5 mg tablet active Medicati on ID: [id number] B rand Name: amlodipi ne Send Method: E-Prescr ibed Sub s Allowed: subs OK Medic ationGen ericName : amlodipi ne Not Available Not Available Not Available aspirin 81 mg tablet,de layed release active Medicati on ID: [id number] B rand Name: aspirin Send Method: E-Prescr ibed Sub s Allowed: subs OK Medic ationGen ericName : aspirin Not Available Not Available Not Available acetamino phen 500 mg tablet TAKE 1 TABLET BY MOUTH EVERY 6 HOURS NEEDED FOR MILD PAIN active Not Available Not Available No t Available pantopraz ole 20 mg tablet,de layed release active Not Available Not Available Not Available ofloxacin 0.3 % ear drops 5 drop into both ears twice a day 2022 active Medicati on ID: [id number] D uration Value: 7 Brand Name: ofloxaci n Send Method: E-Prescr ibed Sub s Allowed: subs OK Speci al Instruct ion: use until bottle gone Med [facility] me: ofloxaci n Not Available Not Available Not Available amitripty line 25 mg tablet 05/17 completed Medicati on ID: [id number] Dur ation Value: 30 Reason: () Brand Name: amitript yline Se nd Method: E-Prescr ibed Sub s Allowed: subs OK Speci al Instruct ion: take 1 tablet by mouth at bedtime Medicati onGeneri cName: amitript yline Not Available Not Available Not Available OneTouch Ultra Test strips USE ONE STRIP TO CHECK BLOOD SUGAR TWICE DAILY active Not Available Not Available No t Available baclofen 10 mg tablet TAKE 1 TABLET BY MOUTH THREE TIMES DAILY NEEDED active Not Available Not Available No t Available gemfibroz il 600 mg tablet 05/17 completed Medicati on ID: [id number] Dur ation Value: 30 Reason: () Brand Name: gemfibro zil Send Method: E-Prescr ibed Sub s Allowed: subs OK Medic ationGen ericName : gemfibro zil Not Available Not Available Not Available simvastat in 20 mg tablet TAKE 1 TABLET BY MOUTH EVERY DAY active Not Available Not Available No t Available Banophen 25 mg tablet TAKE 2 TABLETS BY MOUTH AT BEDTIME NEEDED FOR ITCHING OR SLEEP OR INSOMNIA active Not Available Not Available No t Available lisinopri l 10 mg tablet TAKE 1 TABLET BY MOUTH EVERY DAY active Not Available Not Available No t Available gabapenti n 300 mg capsule 05/17 completed Medicati on ID: [id number] Dur ation Value: 30 Reason: () Brand Name: gabapent in Send Method: E-Prescr ibed Sub s Allowed: subs OK Speci al Instruct ion: take 1 capsule by mouth three times a day Medi cationGe nericNam e: gabapent in Not Available Not Available Not Available aspirin 81 mg chewable tablet active Not Available Not Available Not Available lisinopri l 5 mg tablet active Medicati on ID: [id number] B rand Name: lisinopr il Send Method: E-Prescr ibed Sub s Allowed: subs OK Medic ationGen ericName : lisinopr il Not Available Not Available Not Available lorazepam 1 mg tablet active Medicati on ID: [id number] B rand Name: lorazepa m Send Method: E-Prescr ibed Sub s Allowed: subs OK Medic ationGen ericName : lorazepa m Not Available Not Available Not Available ibuprofen 600 mg tablet active Medicati on ID: [id number] B rand Name: ibuprofe n Send Method: E-Prescr ibed Sub s Allowed: subs OK Medic ationGen ericName : ibuprofe n Not Available Not Available Not Available estradiol 0.01% (0.1 mg/gram) vaginal cream APPLY VAGINALL Y DAILY FOR 2 WEEKS THEN USE VAGINALL Y TWICE DAILY AT BEDTIME active Not Available Not Available No t Available albuterol sulfate HFA 90 mcg/actua tion aerosol inhaler INHALE 2 PUFFS BY MOUTH EVERY 4 HOURS NEEDED FOR WHEEZING active Not Available Not Available No t Available betametha sone dipropion ate 0.05 % topical ointment active Not Available Not Available Not Available fluticaso ne propionat e 50 mcg/actua tion nasal spray,ketan pension SHAKE LIQUID AND USE 2 SPRAYS IN EACH NOSTRIL EVERY DAY IN THE MORNING active Not Available Not Available No t Available metformin ER 500 mg tablet,ex tended release 24 hr TAKE 2 TABLETS BY MOUTH TWICE DAILY WITH MEALS active Not Available Not Available No t Available doxycycli ne hyclate 100 mg tablet TAKE 1 TABLET BY MOUTH DAILY WITH FOOD active Not Available Not Available No t Available naproxen 500 mg tablet active Medicati on ID: [id number] B rand Name: naproxen Send Method: E-Prescr ibed Sub s Allowed: subs OK Medic ationGen ericName : naproxen Not Available Not Available Not Available vitamin B complex capsule TAKE ONE CAPSULE BY MOUTH DAILY active Not Available Not Available No t Available simethico ne 80 mg chewable tablet CHEW AND SWALLOW 1 TABLET BY MOUTH EVERY 6 HOURS NEEDED FOR FLATULEN CE active Not Available Not Available No t Available hydroxyzi ne pamoate 25 mg capsule TAKE 1 CAPSULE BY MOUTH THREE TIMES DAILY NEEDED FOR ANXIETY active Not Available Not Available No t Available TobraDex 0.3 %-0.1 % eye drops,ketan pension 5 as directed 2017 active Medicati on ID: [id number] D uration Value: 30 Prescri bed By Name: Sherwin manjarrez MD Brand Name: TobraDex Send Method: E-Prescr ibed Sub s Allowed: subs OK Speci al Instruct ion: Instill 5 drops in the affected ear BID for 30 days Med icationG enericNa me: TobraDex Not Available Not Available Not Available mirtazapi ne 7.5 mg tablet TAKE 1 TABLET BY MOUTH EVERY NIGHT AT BEDTIME FOR SLEEP active Not Available Not Available No t Available nitrofura ntoin monohydra te/macroc rystals 100 mg capsule active Not Available Not Available Not Available cholecalc iferol (vitamin D3) 25 mcg (1,000 unit) tablet TAKE 1 TABLET BY MOUTH DAILY active Not Available Not Available No t Available diclofena c 1 % topical gel APPLY TOPICALL Y DIRECTED TWICE DAILY active Not Available Not Available No t Available Vitals Date Recorded Body height Body mass index (BMI) Body weight Provider Name and Address Organization Details Last Updated DateTime 07/22/2024 177.8 cm 30.1 kg/m2 78603.4 g Reshma Fry [place] - [facility] 07/22/2024 10:37:16 Social History None recorded. Functional Status None recorded. Mental Status None recorded. Family History Nothing Reported. Medical History Condition Response Hearing Loss Y Gynecological HistoryNo gynecological history recorded. Obstetrics History GPAL:G 0 P 0 0 0 0 Past Encounters Encounter ID Performer Location Encounter Start Date Encounter Closed Date Diagnosis/Indication Diagnosis SNOMED-CT Code Diagnosis ICD10 Code Diagnosis Note [id number] CARROLL MCCORD MD [facility] [place] [address] [place] [address] 07/22/2024 09:47:01 07/22/2024 10:50:07 Mixed conductive and sensorineural hearing loss, bilateral 693150654 H90.6 Audiologic al evaluation results: Right ear: {{Normal* Normal through 2 kHz Mild M oderate Mo derately-s evere [place] re Profoun d}} {{hearing hearing. s loping to a mild slopi ng to a moderate s loping to moderately severe* sl oping to severe slo ping to profound f lat high frequency low frequency mid frequency cookie bite hopkins curve}} {{with sen sorineural hearing loss with condu ctive hearing loss with mixed hearing loss with*}} {{excellen t* good fa ir poor no measurable }} word recognitio n. Left ear: {{Normal N ormal through 2 kHz Mild* Moderate M oderately- severe Sev ere Profou nd}} {{hearing hearing. s loping to a mild slopi ng to a moderate s loping to moderately severe slo ping to severe* sl oping to profound f lat high frequency low frequency mid frequency cookie bite hopkins curve}} {{with sen sorineural hearing loss with condu ctive hearing loss with mixed hearing loss with*}} {{excellen t* good fa ir poor no measurable }} word recognitio n. Tympanomet ry: Right Ear:{{Type A Type As Type Ad Type C Type C, shallow & rounded Ty pe B Type B with large volume* Co uld not maintain a hermetic seal}} Left Ear:{{Type A Type As Type Ad Type C Type C, shallow & rounded Ty pe B Type B with large volume* Co uld not maintain a hermetic seal}} Acute sero us otitis media of left ear 6210363243 870306 H65.02 Bilateral disorder of Eustachian tubes 8419797928 347971 H69.83 Bilateral tinnitus 81785 14644 102 H93.13 Perforatio n of right tympanic membrane 2449371929 906630 H72.91 Health Concerns Section Related Observation LastModified by Organization Detai ls LastModified Time None Recorded Concern Status LastModified by Organization Details LastModified Time None Recorded Advance Directives Directive None Recorded Payers Encounter Date Sequence Insurance Name Policy Number Policy Mondragon Covered Member ID Mondragon Member ID Guarantor Name 07/22/2024 1 [facility] - DOS ON OR AFTER 2022 - MEDICARE ADVANTAGE [place] (MEDICARE REPLACEMENT/AD VANTAGE - PPO) Alma Rodriguez [id number] Alma Rodriguez 07/22/2024 2 [facility] - DOS ON OR AFTER 2024 - [employer] () Alma Rodriguez [id number] Alma Rodriguez Notes Date Note Type Note Provider Name and Address Organization Details Recorded Time 07/22/2024 text/html 58 year old femaimee cruz presents for evaluation of the ears and the hearing. Feels like the hearing on the left is a little diminished in the past few months. Reports she had ringing in the left ear and humming in the right. States she has had several ear infections since last evaluated, one in each ear and then one bilateral. This presents with drainage from the ears. She has been given doxycycline for this. Most recently over the fall. CARROLL MCCORD MD [address] [place] [address], [place], [address], [place] - [facility] 07/22/2024 17:35:06 OBGyn Episode No OBEpisode recorded.
--- OUTSIDE RECORDS SUMMARY | 2024-09-02 13:40 | XMS_ITS | Encounter Summary ---
Author Organization [employer] Address [address] [place] [address] [address] [place] [address] Care Team Providers Care Student Union Consultant Name Role Phone Eliel Stoddard MD Primary Care Provider [phone] Encounter Details Date Type Department Care Team (Latest Contact Info) Description 08/20/2024 Travel Social History Tobacco Use Types Packs/Day Years Used Date Smoking Tobacco: Every Day Cigarettes Passive Smoke Exposure: Never Smokeless Tobacco: Never Alcohol Use Standard Drinks/Week Comments Never 0 (1 standard drink = 0.6 oz pur e alcohol) Depression Answer Date Recorded Patient Health Questionnaire-9 Score 18 08/20/2024 Patient Health Questionnaire-9 Score 18 08/20/2024 Last PHQ-9: Questionnaire Data Not on file 0 08/20/2024 Housing Stability Answer Date Recorded What is your housing situation today? I have xenalaly martin 08/20/[address] you li ve. Do you have problems with any of the following? Pests such as bugs, ants, or mice;Mold 08/20/2024 Food Insecurity Answer Date Recorded Within the past 12 months, y ou worried that your food would run out before you got money to buy more: Often true 2024 Within the past 12 months,th e food you bought just didn't last and you didn't have enough money to get more: Sometimes True 08/20/2024 Transportation Answer Date Recorded In the past [...] Answer Date Recorded Patient Health Questionnaire-2 Score 2 08/20/2024 Internet Access Answer Date Recorded Internet Access [...] Description 11/23/2024 9:00 AM EDT Office Visit [facility] [address] [place] [address] Eliel Stoddard MD [address] [place] [address] documented as of this encounter Visit Diagnoses Not on filedocumented in this encounter Additional Health Concerns Assessment Noted Time PHQ-9 Depression Total Score: 18 025 10:41 AM EST documented as of this encounter Care Teams Student Union Consultant Relationship Specialty Start Date End Date Eliel Stoddard MD [address] [place] [address] PCP - General Internal Medicine 06/17/18 documented as of this encounter
--- OUTSIDE RECORDS SUMMARY | 2024-09-02 13:40 | XMS_ITS | Encounter Summary ---
Author Organization [employer] Address [address] [place] [address] 7 [place] [address] Care Team Providers Care Nursing Program Coordinator Name Role Phone Eliel Stoddard MD Primary Care Provider [phone] Reason for Visit * Reason Onset Date Comments Med Refill 10/19/2022 Encounter Details Date Type Department Care Team ([facility] st Contact Info) Description 10/19/[address] [facility] MED & PEDS [address] [place], [place] [id number] Eliel Stoddard MD [address] [place] [address] Social History Tobacco Use Types Packs/Day Years Used Date Smoking Tobacco: Every Day Cigarettes Passive Smoke Exposure: Never Smokeless Tobacco: Never Alcohol Use Standard Drinks/Week Comments Never 0 (1 standard drink = 0.6 oz pur e alcohol) Comments Unknown Sex and Gender Information Value Date Recorded Sex Assigned at Female 04/16/2022 10:16 AM EDT Legal Sex Female 10:16 AM EDT Gender Identity Female 04/16/2022 10:16 AM EDT Sexual Orientation Straight 04/16/2022 10 :16 AM EDT COVID-19 Exposure Response Date Recorded In the last 10 days, have yo u been in contact with someone who was confirmed or suspected to have Coronavirus/COVID-19? Yes 10/04/2022 11:00 AM EDT documented as of this encounter Miscellaneous Notes * Telephone Encounter - Deepti Stover - 10/19/2022 10:58 AM EDT Tc from pt requesting med refill for medication metFORMIN XR (Glucophage-XR) 500 MG 24 hr tablet simvastatin (Zocor) 20 MG tablet lisinopril 10 MG tablet documented in this encounter Plan of Treatment Upcoming Encounters Date Type Department Care Team (Late st Contact Info) Description 11/23/2024 9:00 AM EDT Office Visit [facility] MED & PEDS [address] [place] [address] Eliel Stoddard MD [address] [place] [address] documented as of this encounter Visit Diagnoses Not on filedocumented in this encounter Care Teams Nursing Program Coordinator Relationship Specialty Start Date End Date Eliel Stoddard MD [address] [place] [address] PCP - General Internal Medicine 06/17/18 documented as of this encounter
--- OUTSIDE RECORDS SUMMARY | 2024-09-02 13:40 | XMS_ITS | Clinical Summary ---
Author Organization Patient Business [facility] Address [address] [place] [address] Care Team Providers Care Manager Spanish Name Role Phone Eliel Stoddard MD Primary Care Provider [phone] Surgical History Surgery Date Site/Laterality Comments OTHER SURGICAL HISTORY PROCEDURE: NM DILATION & CURETTAGE DX&/THER NONOBSTETRIC SECTION PROCEDURE: HISTORICAL DELIVERY Medical History Medical History Date Comments Mild intermittent asthma, uncomplicated DX:Mild intermittent asthma, uncomplicated Degeneration of cervical int ervertebral disc DX:Degeneration of cervical intervertebral disc Depression DX:Depression Mixed hyperlipidemia DX:Mixed hy perlipidemia Dysuria DX:Dysuria Generalized anxiety disorder DX: Generalized anxiety disorder History of kidney stones DX:Hist ory of kidney stones HTN (hypertension) DX:HTN (hyper tension) Endometriosis DX:Endometriosis History of herpes zoster DX:Hist ory of herpes zoster H/O acute pancreatitis DX:H/O ac stillaguamish pancreatitis Hypercholesterolemia DX:Hypercho lesterolemia Leukocytosis DX:Leukocytosis Spinal stenosis DX:Spinal stenos is Spinal stenosis in cervical region DX:Spinal stenosis in cervical region Type 2 diabetes mellitus wit hout complications (CMS/HCC) DX:Type 2 diabetes mellitus without complications (HCC) Family History Medical History Relation Name Comments Other: Other Father Depression Mother Diabetes Mother Relation Name Status Comments Father Mother Social History Tobacco Use Types Packs/Day Years Used Date Smoking Tobacco: Former Cigarettes Smokeless Tobacco: Never Alcohol Use Standard Drinks/Week Comments Never 0 (1 standard drink = 0.6 oz pur e alcohol) Comments Unknown Sex and Gender Information Value Date Recorded Sex Assigned at Not on file Legal Sex Female 4:55 AM EST Gender Identity Not on file Sexual Orientation Not on file Obstetrics History Last Filed Vital Signs Vital Sign Reading Time Taken Comments Blood Pressure 110/70 12/03/2022 8:07 AM EDT Pulse 67 12/03/2022 8:07 AM EDT Temperature - - Respiratory Rate - - Oxygen Saturation - - Inhaled Oxygen Concentration - - Weight 100 kg (221 lb) 08/09/2023 9:47 AM EST Height 177.8 cm (5' 10 ) 08/09/2023 9:47 AM EST Body Mass Index 31.71 08/09/2023 9:47 AM EST Plan of Treatment Health Maintenance Due Date Last Done Comments Breast Cancer Screening 1966 DTaP,Tdap,and Td Vaccines (1 - Tdap) 1985 Hepatitis B Vaccines (1 of 3 - 19+ 3-dose series) 1985 Cervical Cancer Screening: P ap Smear 09/22/1987 Pneumococcal Vaccine: 50+ Ye ars (1 of 1 - PCV) 2016 Zoster Vaccines (1 of 2) 2016 Colorectal Cancer Screening: Colonoscopy 05/20/2022 Depression Screening 05/20/2022 HIV Screening 05/20/2022 Hepatitis C Screening 05/20/2022 Social Influencers of Health Screening 05/20/2022 COVID-19 Vaccine (2023-2 5 season) 2024 Influenza Vaccine (#1) 2024 HIB Vaccines Aged Out No longer eligi ble based on patient's age to complete this topic HPV Vaccines Aged Out No longer eligi ble based on patient's age to complete this topic Hepatitis A Vaccines Aged Out No long er eligible based on patient's age to complete this topic IPV Vaccines Aged Out No longer eligi ble based on patient's age to complete this topic MMR Vaccines Aged Out No longer eligi ble based on patient's age to complete this topic Meningococcal ACWY Vaccine Aged Out N o longer eligible based on patient's age to complete this topic Meningococcal B Vacine Aged Out No lo nger eligible based on patient's age to complete this topic Pneumococcal Vaccine: Pediat rics (0 to 5 Years) and At-Risk Patients (6 to 64 Years) Aged Out No longer eligible b ased on patient's age to complete this topic RSV Immunization Patients Un pili 20 months Aged Out No longer eligible b ased on patient's age to complete this topic Varicella Vaccines Aged Out No longer eligible based on patient's age to complete this topic Advance Directives Documents on File Type Date Recorded Patient [employer] Service Technician Expl anation Health Care Decision (hx) 10/21/2018 AD LUI DIRECTIVE Health Care Decision (hx) 10/21/2018 AD LUI DIRECTIVE Health Care Decision (hx) 10/21/2018 AD LUI DIRECTIVE Health Care Decision (hx) 10/21/2018 AD LUI DIRECTIVE Health Care Decision (hx) 10/21/2018 AD LUI DIRECTIVE Health Care Decision (hx) 10/21/2018 AD LUI DIRECTIVE Health Care Decision (hx) 10/21/2018 AD LUI DIRECTIVE Health Care Decision (hx) 10/21/2018 AD LUI DIRECTIVE Health Care Decision (hx) 10/21/2018 AD LUI DIRECTIVE Health Care Decision (hx) 10/21/2018 AD LUI DIRECTIVE Health Care Decision (hx) 10/21/2018 AD LUI DIRECTIVE Health Care Decision (hx) 10/21/2018 AD LUI DIRECTIVE Health Care Decision (hx) 10/21/2018 AD LUI DIRECTIVE Health Care Decision (hx) 10/21/2018 AD LUI DIRECTIVE Health Care Decision (hx) 10/21/2018 AD LUI DIRECTIVE Health Care Decision (hx) 10/21/2018 AD LUI DIRECTIVE Health Care Decision (hx) 10/21/2018 AD LUI DIRECTIVE Health Care Decision (hx) 10/21/2018 AD LUI DIRECTIVE Health Care Decision (hx) 10/21/2018 AD LUI DIRECTIVE Health Care Decision (hx) 10/21/2018 AD LUI DIRECTIVE Health Care Decision (hx) 10/21/2018 AD LUI DIRECTIVE Health Care Decision (hx) 10/21/2018 AD LUI DIRECTIVE Health Care Decision (hx) 10/21/2018 AD LUI DIRECTIVE Health Care Decision (hx) 10/21/2018 AD ULI DIRECTIVE Health Care Decision (hx) 10/21/2018 AD LUI DIRECTIVE Health Care Decision (hx) 10/21/2018 AD LUI DIRECTIVE Health Care Decision (hx) 10/21/2018 AD LUI DIRECTIVE Health Care Decision (hx) 10/21/2018 AD LUI DIRECTIVE Health Care Decision (hx) 10/21/2018 AD LUI DIRECTIVE Health Care Decision (hx) 10/21/2018 AD LUI DIRECTIVE Health Care Decision (hx) 10/21/2018 AD LUI DIRECTIVE Health Care Decision (hx) 10/21/2018 AD LUI DIRECTIVE Health Care Decision (hx) 10/21/2018 AD LUI DIRECTIVE Health Care Decision (hx) 10/21/2018 AD LUI DIRECTIVE Health Care Decision (hx) 10/21/2018 AD LUI DIRECTIVE Care Teams Manager Spanish Relationship Specialty Start Date End Date Eliel Stoddard MD [address] [place] [address] PCP - General 01/04/13
--- OUTSIDE RECORDS SUMMARY | 2024-09-02 13:40 | XMS_ITS | Encounter Summary ---
Author Organization [employer] Address [address] [address] 7 [place] [address] Care Team Providers Care Staffing Coordinator Name Role Phone Eliel Stoddard MD Primary Care Provider [phone] Reason for Visit * Reason Comments Med Refill Encounter Details Date Type Department Care Team ([facility] Contact Info) Description 12/25/2023 Refill [facility] MED & PEDS [address] [place], [place] [id number] Eliel Stoddard MD [address] [place] [address] Social History Tobacco Use Types Packs/Day Years [...] Recorded Patient Health Questionnaire-2 Score 3 12/02/2023 Comments Unknown Sex and Gender Information Value Date Recorded Sex Assigned at Female 04/16/2022 10:16 AM EDT Legal Sex Female 10:16 AM EDT Gender Identity Female 04/16/2022 10:16 AM EDT Sexual Orientation Straight 04/16/2022 10 :16 AM EDT documented as of this encounter Plan of Treatment Upcoming Encounters Date Type Department Care Team ([facility] st Contact Info) Description 11/23/2024 9:00 AM EDT Office Visit [facility] MED & PEDS [address] [place] [address] Eliel Stoddard MD [address] [place] [address] documented as of this encounter Visit Diagnoses Not on filedocumented in this encounter Additional Health Concerns Assessment Noted Time PHQ-9 Depression Total Score: 9 12/02/19 24 10:48 AM EDT documented as of this encounter Care Teams Staffing Coordinator Relationship Specialty Start Date End Date Eliel Stoddard MD [address] [place] [address] PCP - General Internal Medicine 06/17/18 documented as of this encounter
--- OUTSIDE RECORDS SUMMARY | 2024-09-02 13:40 | XMS_ITS | Encounter Summary ---
Author Organization [employer] Address [address] [place] [address] 7 [place] [address] Care Team Providers Care Recovery Room Nurse Name Role Phone Eliel Stoddard MD Primary Care Provider [phone] Reason for Referral * Consultation (Routine) - Authorized Specialty Diagnoses / Procedures Referred By [employer]ist vega Referred To Contact Optometry Diagnoses Type 2 diabetes mellitus with hypoglycemia without coma, without long-term current use of insulin (CMS/HCC) Eliel Stoddard MD [address] [place] [address] Phone: tel: fax: [facility] [address] [place] [address] Phone: tel: fax: Referral ID Status Reason Start Date Expiration Date Visits Requested Visits Authorized [id number] Authorized Consult and Treat 08/20/2024 08/20/2025 1 1 Reason for Visit * Reason Comments Extended office visit Encounter Details Date Type Department Care Team ([facility] st Contact Info) Description 08/20/2024 10:45 AM EST Office Visit [facility] MED & PEDS [address] [place] [address] Eliel Stoddard MD [address] [place] [address] Primary hypertension (Primary Dx); Type 2 diabetes mellitus with hypoglycemia without coma, without long-term current use of insulin (CMS/HCC); Hot flashes due to menopause; Diabetic peripheral neuropathy associated with type 2 diabetes mellitus (CMS/HCC); Livedo reticularis; Dietary counseling; Exercise counseling; Overweight Social History Tobacco Use Types Packs/Day Years [...] housing situation today? I have xena martin 08/20/[address] you [...] AM EDT documented as of this encounter Last Filed Vital Signs Vital Sign Reading Time Taken Comments Blood Pressure 120/56 08/20/2024 10:34 AM EST Pulse 75 08/20/2024 10:34 AM EST Temperature 36.5 ??C (97.7 ??F) 08/20/2024 10:[address] Respiratory Rate 20 08/20/2024 10:34 AM EST Oxygen Saturation 98% 08/20/2024 10:34 AM EST Inhaled Oxygen Concentration - - Weight 93 kg (205 lb) 08/20/2024 10:34 AM EST Height 177.8 cm (5' 10 ) 08/20/2024 10:34 AM EST Body Mass Index 29.41 08/20/2024 10:34 AM EST documented in this encounter Progress Notes * Eliel Stoddard MD - 08/20/2024 10:45 AM EST Subjective Patient ID: Alma Rodriguez is a 58 y.o. female who presents for Extended office visit. HPI 1) history of diabetes. No reported episode of hypoglycemia since the last visit. Patient claims compliance to her medication but admits dietary indiscretions. She needs an eye exam. 2) sensation of ear fullness. Patient has her ENT. She is scheduled for an appointment in September forfollow-up 3) history of peripheral neuropathy. Patient is off medication. Described burning sensation of the feet bilaterally. Of gabapentin. 4) skin rash noted a few months back. Also has history of hidradenitis. Follows up with dermatology. 5) recently started on clindamycin because she needed treatment prior to her root canal. Patient reports abdominal pain since started on the clindamycin and has stopped taking the medication. Patient Active Problem List Diagnosis Cellulitis and abscess of trunk Chronic hepatitis C virus infection (CMS/HCC) Contact dermatitis Depressive disorder Hypertensive disorder Menopausal flushing Tobacco dependence syndrome Type 2 diabetes mellitus (CMS/HCC) Varicose veins of lower extremity Hidradenitis suppurativa Cellulitis Encounter for screening mammogram for malignant neoplasm of breast Chronic pain of both feet Encounter for preventive care Generalized abdominal pain Acute otitis media Cervical paraspinal muscle spasm Diabetic peripheral neuropathy associated with type 2 diabetes mellitus (CMS/HCC) Current Outpatient Medications on File Prior to Visit Medication Sig Dispense Refill albuterol 108 (90 Base) MCG/ACT inhaler INHALE 2 PUFFS BY MOUTH EVERY 4 HOURS NEEDED FOR WHEEZING 8.5 g 3 amLODIPine (Norvasc) 5 MG tablet Take 5 mg by mouth in the morning. aspirin 81 MG chewable tablet Chew 1 tablet (81 mg) Once per day. 30 tablet 11 B Complex Vitamins (Vitamin B Complex) capsule TAKE 1 CAPSULE BY MOUTH EVERY MORNING 90 each 3 Banophen 25 MG tablet TAKE 2 TABLETS BY MOUTH AT BEDTIME NEEDED FOR ITCHING OR SLEEP. TAKE 2 TABLETS AT BEDTIME FOR INSOMNIA 60 tablet 0 betamethasone dipropionate (Diprolene) 0.05 % ointment APPLY TO THE AFFECTED AREA ON THE GROIN AND BREAST TWICE A DAY NEEDED . DO NOT USE FOR MORE THAN TWO WEEKS AT A TIME. betamethasone valerate (Valisone) 0.1 % ointment Apply topically if needed in the morning and at bedtime (dryness). 45 g 2 cholecalciferol (Vitamin D-3) 25 MCG (1000 UT) tablet Take 1 tablet (25 mcg) by mouth Once per day.60 tablet 1 cyclobenzaprine (Flexeril) 10 MG tablet Take 1 tablet (10 mg) by mouth 3 times daily for 10 days. 30 tablet 0 Diclofenac Sodium (Voltaren) 1 % gel Use topical BID 100 g 3 estradiol (Estrace) 0.1 MG/GM vaginal cream APPLY ONCE DAILY FOR 2 WEEKS THEN TWICE DAILY AT BEDTIME 42.5 g 3 gabapentin (Neurontin) 400 MG capsule Take 1 capsule (400 mg) by mouth 3 times daily. 90 capsule 2 glucose blood (Switchcam Ultra) test strip USE ONE STRIP TO CHECK BLOOD SUGAR TWICE DAILY 100 strip 11 glucose-vitamin C 4-6 GM-MG oral gel 1 tab if FS< 70 mg/dl 50 tablet 2 ibuprofen 600 MG tablet TAKE 1 TABLET BY MOUTH THREE TIMES DAILY WITH FOOD 30 tablet 0 lisinopril 10 MG tablet TAKE 1 TABLET BY MOUTH EVERY DAY 90 tablet 1 LORazepam (Ativan) 1 MG tablet TAKE 1 TABLET BY MOUTH EVERY DAY NEEDED FOR PANIC ATTACKS LORazepam (Ativan) 1 MG tablet 1 mg to take 30 minutes prior to the procedure. Make an additional 1mg 30 minutes later if no effect. 30 tablet 0 metFORMIN XR (Glucophage-XR) 500 MG 24 hr tablet TAKE 2 TABLETS BY MOUTH TWICE DAILY WITH MEALS 360tablet 1 metoclopramide (Reglan) 5 MG tablet Take 1 tablet (5 mg) by mouth 4 times daily for 10 days. 40 tablet 0 nicotine (Nicoderm CQ) 14 MG/24HR patch Place 1 patch on the skin 1 (one) time each day at the sametime. 30 patch 0 OneTouch Ultra test strip USE ONE STRIP TO CHECK BLOOD SUGAR TWICE DAILY 100 strip 11 pantoprazole (Protonix) 20 MG EC tablet Take 1 tablet (20 mg) by mouth before breakfast. Do not crush, chew, or split. 30 tablet 11 polyethylene glycol, PEG, 3350 (Miralax) 17 g packet simethicone (Mylicon) 80 MG chewable tablet CHEW 1 TABLET EVERY 6 HOURS NEEDED FOR FLATULENCE 90tablet 0 simvastatin (Zocor) 20 MG tablet TAKE 1 TABLET BY MOUTH EVERY DAY 90 tablet 1 venlafaxine (Effexor) 37.5 MG tablet Take 1 tablet (37.5 mg) by mouth 2 times daily. 60 tablet 2 No current facility-administered medications on file prior to visit. Allergies Allergen Reactions Ampicillin Rash Review of Systems Constitutional: Negative for appetite change, chills, diaphoresis and fatigue. HENT: Negative. Negative for ear pain, facial swelling, sinus pressure and sneezing. Bilateral ear fullness Respiratory: Negative for cough, choking and chest tightness. Cardiovascular: Negative for leg swelling. Gastrointestinal: Negative for abdominal pain and anal bleeding. Endocrine: Hot flashes Musculoskeletal: Negative for back pain and gait problem. Neurological: Paresthesias of the lower limbs Objective BP 120/56 (BP Location: Left arm, Patient Position: Sitting, BP Cuff Size: Adult) Pulse 75 Temp97.7 ??F (36.5 ??C) (Oral) Resp 20 Ht 5' 10 (1.778 m) Wt 205 lb (93 kg) SpO2 98% BMI 29.41 kg/m?? Physical Exam Constitutional: General: She is not in acute distress. Appearance: Normal appearance. She is not ill-appearing, toxic-appearing or diaphoretic. Cardiovascular: Rate and Rhythm: Normal rate. Pulmonary: Effort: Pulmonary effort is normal. Skin: Comments: Upper and lower limbs with reticular (net-like) pattern of reddish- purple or bluish-purple discoloration. Neurological: Mental Status: She is alert. Assessment/Plan Diagnoses and all orders for this visit: Primary hypertension Comments: Stable No change in management. DASH diet Type 2 diabetes mellitus with hypoglycemia without coma, without long-term current use of insulin ([facility]) Comments: A1c is at goal. Patient advised to resume her low-carb diet and to start exercising regularly. Orders: - POCT Glucose - POCT HGB A1C - Blood Glucose Monitoring Suppl (Fibroblast Lite) w/Device kit; Use to test blood sugar 1 times daily - Referral to [facility]; Future Hot flashes due to menopause Comments: Risk and benefit of hormone replacement therapy discussed. Patient agrees for trial of gabapentin which will help with her peripheral neuropathy Diabetic peripheral neuropathy associated with type 2 diabetes mellitus ([facility]) Comments: Resume gabapentin To titrate the medication progressively Follow-up in 3 months Orders: - gabapentin (Neurontin) 100 MG capsule; Take 2 capsules (200 mg) by mouth every 8 (eight) hours. Livedo reticularis Comments: Dermatology evaluation recommended. Dietary counseling Exercise counseling Overweight Dietary Recommendations: Fruits, vegetables, whole grains, protein foods, and fat-free or low-fat dairy products are healthychoices. Eat different types of protein foods in your diet. This can include seafood, lean meats, poultry, beans, peas, lentils, nuts, seeds, soy products, and eggs. Limit foods and beverages higher in added sugars, saturated fat, and sodium. Exercise Recommendations: At least 150 minutes of moderate-intensity physical activity per week, or an equivalent combinationof moderate- and vigorous-intensity activity documented in this encounter Plan of Treatment Upcoming Encounters Date Type Department Care Team (Late st Contact Info) Description 11/23/2024 9:00 AM EDT Office Visit [facility] [address] [place] [address] Eliel Stoddard MD [address] [place] [address] Scheduled Referrals Name Type Priority Associated Diagnoses Orde r Schedule Referral to [facility] Outpatient Referral Routine Type 2 diabetes mellitus with hypoglycemia without coma, without long-term current use of insulin ([facility]) Expected: 08/20/2024 (Approximate), Expires: 08/20/2025 documented as of this encounter Procedures Procedure Name Priority Date/Time Associated Diagnosis Comments POCT GLYCATED HEMOGLOBIN, TOTAL Routine 08/20/2024 11:23 AM EST Type 2 diabetes mellitus with hypoglycemia without coma, without long-term current use of insulin ([facility]) POCT GLUCOSE Routine 08/20/2024 11:23 AM EST Type 2 diabetes mellitus with hypoglycemia without coma, without long-term current use of insulin ([facility]) documented in this encounter Results * (ABNORMAL) POCT HGB A1C (08/20/2024 11:23 AM EST) Hemoglobin A1C 6.3(A) 4.0 - 6.0 % QC Media Lot # [id number] Lot# Expiration Date , Blood 08/20/2024 11:2 3 AM EST Eliel Stoddard MD POINT OF CARE TEST ENTER/ED IT ORDERABLES Final Result * (ABNORMAL) POCT Glucose (08/20/2024 11:23 AM EST) Glucose Blood, POC 208(A) 60 - 200 mg/dL QC Media Lot # [id number] Lot# Expiration Date 732,025 Comment:RANDOM Blood Capillary blood specimen / Unknown 08/20/2024 11:23 AM EST Eliel Stoddard MD POINT OF CARE TEST ENTER/ED IT ORDERABLES Final Result documented in this encounter Visit Diagnoses Diagnosis Primary hypertension- Primary Unspecified essential hypertension Type 2 diabetes mellitus with hypoglycemia without coma, without long-term current use of insulin ([facility]) Hot flashes due to menopause Diabetic peripheral neuropathy associated with type 2 diabetes mellitus ([facility]) Livedo reticularis Pallor Dietary counseling Dietary surveillance and counseling Exercise counseling Overweight documented in this encounter Additional Health Concerns Assessment Noted Time PHQ-9 Depression Total Score: 18 025 10:41 AM EST documented as of this encounter Care Teams Recovery Room Nurse Relationship Specialty Start Date End Date Eliel Stoddard MD [address] [place] [address] PCP - General Internal Medicine 06/17/18 documented as of this encounter
--- OUTSIDE RECORDS SUMMARY | 2024-09-02 13:40 | XMS_ITS | Encounter Summary ---
Author Organization [employer] Address [address] [place] [address] [address] [place] [address] Care Team Providers Care Sheriffs Detective Name Role Phone Eliel Stoddard MD Primary Care Provider [phone] Encounter Details Date Type Department Care Team ([facility] st Contact Info) Description 04/12/2023 Orders Only [facility] [address], [place] [id number] Eliel Stoddard MD [address] [place] [address] Primary insomnia Social History Tobacco Use Types Packs/Day Years Used Date Smoking Tobacco: Every Day Cigarettes Passive Smoke Exposure: Never Smokeless Tobacco: Never Alcohol Use Standard Drinks/Week Comments Never 0 (1 standard drink = 0.6 oz pur e alcohol) Housing Stability Answer Date Recorded What is your housing situation today? I have xena martin 04/01/[address] you li ve. Do you have problems with any of the following? None of the above 04/01/2023 Food Insecurity Answer Date Recorded Within the past 12 months, y ou worried that your food would run out before you got money to buy more: Never True 04/01/2023 Within the past 12 months,th e food you bought just didn't last and you didn't have enough money to get more: Never True Transportation Answer Date Recorded In the past 12 months, has l ack of transportation kept you from medical appts, meetings, work or from getting things needed for daily living? No 04/01/2023 Utilities Answer Date Recorded In the past 12 months, has t he [employer] [place] oil or water company threatened to shut off services in your home? No 04/01/2023 Comments Unknown Sex and Gender Information Value [...] [facility] [address] [place] [address] Eliel Stoddard MD [address] [place] [address] documented as of this encounter Visit Diagnoses Diagnosis Primary insomnia Persistent disorder of initiating or maintaining sleep documented in this encounter Care Teams Sheriffs Detective Relationship Specialty Start Date End Date Eliel Stoddard MD [address] [place] [address] PCP - General Internal Medicine 06/17/18 documented as of this encounter
--- OUTSIDE RECORDS SUMMARY | 2024-09-02 13:40 | XMS_ITS | Clinical Summary ---
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 03/16/20 22 Active LORazepam (Ativan) 1 MG tablet TAKE 1 TABLET BY MOUTH EVERY DAY NEEDED FOR PANIC ATTACKS 05/17/20 22 Active polyethylene glycol, PEG, 3350 (Miralax) 17 g packet 01/13/20 22 Active glucose-vitamin C 4-6 GM-MG oral gelIndications:T ype 2 diabetes mellitus with hyperglycemia, without long-term current use of insulin ([facility]) 1 tab if FS< 70 mg/dl 50 tablet 2 06/21/19 23 Active betamethasone dipropionate (Diprolene) 0.05 % ointment APPLY TO THE AFFECTED AREA ON THE GROIN AND BREAST TWICE A DAY NEEDED . DO NOT USE FOR MORE THAN TWO WEEKS AT A TIME. Active betamethasone valerate (Valisone) 0.1 % ointmentIndicati ons:Venous stasis dermatitis of right lower extremity Apply topically if needed in the morning and at bedtime (dryness). 45 g 2 12/18/19 23 Active ibuprofen 600 MG tablet TAKE 1 TABLET BY MOUTH THREE TIMES DAILY WITH FOOD 30 tablet 01/05/20 23 Active metoclopramide (Reglan) 5 MG tablet Take 1 tablet (5 mg) by mouth 4 times daily for 10 days. 40 tablet 04/04/20 23 Active glucose blood (OneTouch Ultra) test stripIndications :Type 2 diabetes mellitus without complication, unspecified whether skilled nursing insulin use ([facility]) USE ONE STRIP TO CHECK BLOOD SUGAR TWICE DAILY 100 strip 11 07/03/19 24 Active venlafaxine (Effexor) 37.5 MG tabletIndication s:Menopausal symptoms Take 1 tablet (37.5 mg) by mouth 2 times daily. 60 tablet 2 07/08/19 24 Active LORazepam (Ativan) 1 MG tabletIndication s:Claustrophobia 1 mg to take 30 minutes prior to the procedure. Make an additional 1 mg 30 minutes later if no effect. 30 tablet 07/22/19 24 Active pantoprazole (Protonix) 20 MG EC tabletIndication s:Dyspepsia Take 1 tablet (20 mg) by mouth before breakfast. Do not crush, chew, or split. 30 tablet 11 11/14/19 24 025 Active cholecalciferol (Vitamin D-3) 25 MCG (1000 UT) tabletIndication s:Encounter for screening mammogram for malignant neoplasm of breast Take 1 tablet (25 mcg) by mouth Once per day. 60 tablet 1 12/02/19 24 Active aspirin 81 MG chewable tabletIndication s:Encounter for screening mammogram for malignant neoplasm of breast Chew 1 tablet (81 mg) Once per day. 30 tablet 11 12/02/19 24 025 Active nicotine (Nicoderm CQ) 14 MG/24HR patchIndications :Tobacco dependence syndrome Place 1 patch on the skin 1 (one) time each day at the same time. 30 patch 12/30/19 24 Active gabapentin (Neurontin) 400 MG capsuleIndicatio ns:History of night sweats,Tingling in extremities Take 1 capsule (400 mg) by mouth 3 times daily. 90 capsule 2 12/30/19 24 Active lisinopril 10 MG tabletIndication s:Primary hypertension TAKE 1 TABLET BY MOUTH EVERY DAY 90 tablet 1 12/30/19 24 Active albuterol 108 (90 Base) MCG/ACT inhalerIndicatio ns:Acute cough INHALE 2 PUFFS BY MOUTH EVERY 4 HOURS NEEDED FOR WHEEZING 8.5 g 3 01/20/20 24 Active Banophen 25 MG tabletIndication s:Primary insomnia TAKE 2 TABLETS BY MOUTH AT BEDTIME NEEDED FOR ITCHING OR SLEEP. TAKE 2 TABLETS AT BEDTIME FOR INSOMNIA 60 tablet 01/20/20 24 Active estradiol (Estrace) 0.1 MG/GM vaginal creamIndications :Menopause APPLY ONCE DAILY FOR 2 WEEKS THEN TWICE DAILY AT BEDTIME 42.5 g 3 01/22/20 24 Active simvastatin (Zocor) 20 MG tabletIndication s:Type 2 diabetes mellitus with hypoglycemia without coma, without long-term current use of insulin ([facility]) TAKE 1 TABLET BY MOUTH EVERY DAY 90 tablet 1 01/20/20 24 Active simethicone (Mylicon) 80 MG chewable tabletIndication s:Bloating symptom CHEW 1 TABLET EVERY 6 HOURS NEEDED FOR FLATULENCE 90 tablet 01/20/20 24 Active B Complex Vitamins (Vitamin B Complex) capsuleIndicatio ns:Encounter for screening mammogram for malignant neoplasm of breast,Tingling in extremities TAKE 1 CAPSULE BY MOUTH EVERY MORNING 90 each 3 01/20/20 24 Active cyclobenzaprine (Flexeril) 10 MG tablet Take 1 tablet (10 mg) by mouth 3 times daily for 10 days. 30 tablet 06/22/19 25 Active Diclofenac Sodium (Voltaren) 1 % gel Use topical BID 100 g 3 06/22/19 25 Active OneTouch Ultra test stripIndications :Type 2 diabetes mellitus without complication, unspecified whether skilled nursing insulin use ([facility]) USE ONE STRIP TO CHECK BLOOD SUGAR TWICE DAILY 100 strip 11 08/07/19 25 Active gabapentin (Neurontin) 100 MG capsuleIndicatio ns:Diabetic peripheral neuropathy associated with type 2 diabetes mellitus ([facility]) Take 2 capsules (200 mg) by mouth every 8 (eight) hours. 180 capsule 11 08/21/19 25 026 Active Blood Glucose Monitoring Suppl (FreeStyle [place] Lite) w/Device kitIndications:T ype 2 diabetes mellitus with hypoglycemia without coma, without long-term current use of insulin ([facility]) Use to test blood sugar 1 times daily 1 kit 08/21/19 25 Active Acetaminophen Extra Strength 500 MG tablet TAKE 1 TABLET BY MOUTH EVERY 6 HOURS NEEDED FOR MILD PAIN 120 tablet 09/01/19 25 Active metFORMIN XR (Glucophage-XR) 500 MG 24 hr tabletIndication s:Type 2 diabetes mellitus with hypoglycemia without coma, without long-term current use of insulin ([facility]) TAKE 2 TABLETS BY MOUTH TWICE DAILY WITH MEALS 360 tablet 1 09/02/19 25 Active glucose blood (OneTouch Ultra) test stripIndications :Type 2 diabetes mellitus without complication, unspecified whether skilled nursing insulin use ([facility]) USE ONE STRIP TO CHECK BLOOD SUGAR TWICE DAILY 100 strip 11 07/03/19 24 025 Discontinued acetaminophen (Tylenol Extra Strength) 500 MG tablet Take 1 tablet (500 mg) by mouth every 6 (six) hours if needed for mild pain. 120 tablet 06/22/19 25 025 Discontinued metFORMIN XR (Glucophage-XR) 500 MG 24 hr tabletIndication s:Type 2 diabetes mellitus with hypoglycemia without coma, without long-term current use of insulin ([facility]) TAKE 2 TABLETS BY MOUTH TWICE DAILY WITH MEALS 360 tablet 1 07/29/19 25 025 Discontinued Active Problems Problem Noted Date Diagnosed Date Diabetic peripheral neuropat hy associated with type 2 diabetes mellitus 08/20/2024 Cervical paraspinal muscle spasm 06/22/2024 Assessment & Plan (06/22/2024 12:18 PM EST): It may have been triggered by direct trauma 3d ago. Advised to apply dry heat to affected area and do some stretching exercises bid prn pain Use diclofenac gel bid prn pain Rx Tylenol tid prn mild pain + Flexeril at bedtime x 1w then prn, caution with somnolence, constipation, double vision. 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 Encounter for screening mamm ogram for malignant neoplasm of breast 12/02/2023 Chronic pain of both feet 12/02/2023 Encounter for preventive care 12/02/2023 Assessment & Plan (12/02/2023 3:20 PM EDT): See HPI Generalized abdominal pain 12/02/2023 Acute otitis media 12/02/2023 Chronic hepatitis C virus infection 06/21/2022 Menopausal flushing 06/21/2022 Type 2 diabetes mellitus 06/21/2022 Assessment & Plan (12/02/2023 3:19 PM EDT): Diabetes is: controlled - Lab Results Component Value Date HGBA1C 6.2 (A) 10/31/2023 HGBA1C 6.4 (A) 07/08/2023 HGBA1C 6.5 (A) 04/04/2023 - Lab Results Component Value Date MICROALBUR 0.7 04/13/2022 CREATININE 0.72 12/02/2023 -Changes: none - Diabetic eye exam:patient reports is up to date - Diabetic foot exam:referral today - Continue lifestyle modifications - Continue current medications Hidradenitis suppurativa 06/21/2022 Cellulitis 06/21/2022 Assessment & Plan (06/21/2022 5:15 PM EST): Likely due to hidradenitis suppurativa flare, will schedule with PCP. She may need prolonged use of antibiotics (12 weeks of doxycyline). At this moment will treat acutely. Hypertensive disorder 01/07/2020 Cellulitis and abscess of trunk 05/09/2011 Depressive disorder 05/09/2011 Tobacco dependence syndrome 04/09/2011 Varicose veins of lower extremity 12/11/2010 Contact dermatitis 07/25/2010 Encounters Date Type Department Care Team Description 09/01/2024 Refill [facility] [address] [place] [address] Lizbet Mares MD Type 2 diabetes mellitus with hypoglycemia without coma, without long-term current use of insulin (CMS/HCC) 08/31/2024 Refill [facility] [address] [place] [address] Kristin Nunez MD 08/20/2024 10:45 AM EST Office Visit [facility] [address] [place] [address] Eliel Stoddard MD Primary hypertension (Primary Dx); Type 2 diabetes mellitus with hypoglycemia without coma, without long-term current use of insulin (CMS/HCC); Hot flashes due to menopause; Diabetic peripheral neuropathy associated with type 2 diabetes mellitus (CMS/HCC); Livedo reticularis; Dietary counseling; Exercise counseling; Overweight 08/20/2024 Travel 08/14/2024 Travel 08/13/2024 Patient Outreach [facility] [address] [place] [address] Eliel Stoddard MD Pre-visit Planning (SDOH negative, Tobacco screening negative. ) 08/07/2024 Refill [facility] [address] [place] [address] Eliel Stoddard MD Type 2 diabetes mellitus without complication, unspecified whether skilled nursing insulin use ([facility]) 07/28/2024 Refill [facility] [address] [place] [address] Eliel Stoddard MD Type 2 diabetes mellitus with hypoglycemia without coma, without long-term current use of insulin ([facility]) 06/22/2024 9:40 AM EST Office Visit [facility] [address] [place] [address] Kristin Nunez MD Cervical paraspinal muscle spasm (Primary Dx) from Last 3 Months Immunizations Name Administration Dates Next Due Hep B, adult 07/10/2021,01/28/2020,05/26/2019 IPV 06/23/2019 Influenza Injectable Quadriv alant Preservative Free IIV4 MDCK 02/27/2023,04/03/2018 Influenza injectable quadriv alent preservative free 02/23/2022,03/23/2021,03/30/2020,03/20,03/01/2016 Influenza, IIV3, injectable 05/11/2014, 3 Influenza, Split (incl. lorna fied surface antigen) 03/03/2012 Influenza, seasonal, injecta ble, preservative free 04/01/2024,02/27/2017,04/24/2015 MMR 01/28/2020,05/26/2019 Meningococcal MCV4P ACYW-135 05/26/2019 Moderna Covid-19 Vaccine 12+ 05/04/2021,08/25/19 21 Moderna Covid-19 Vaccine 6+ Bivalent 05/03/2022 Pfizer Covid-19 Vaccine 12+ 04/01/2024 Pneumococcal Conjugate PCV 20 12/02/2023 Pneumococcal Polysaccharide PPSV23 07/19/2017 Tdap 03/01/2016 Zoster, Recombinant 01/28/2020,05/26/2019 Social History Tobacco Use Types Packs/Day Years Used Date Smoking Tobacco: Every Day Cigarettes Passive Smoke Exposure: Never Smokeless Tobacco: Never Tobacco Cessation:Ready to Q uit: Not Asked; Counseling Given: Not Answered Alcohol Use Standard Drinks/Week Comments Never 0 [...] Orientation Straight 04/16/2022 10 :16 AM EDT Last Filed Vital Signs Vital Sign Reading [...] Mass Index 29.41 08/20/2024 10:34 AM EST Plan of Treatment Upcoming Encounters Date Type Department Care Team (Late st Contact Info) Description 11/23/2024 9:00 AM EDT Office Visit [facility] [address] [place] [address] Eliel Stoddard MD [address] [place] [address] Health Maintenance Due Date Last Done Comments CT Colonography 1966 FIT DNA/Cologuard 1966 FIT 1966 FOBT 1966 Sigmoidoscopy 1966 Diabetes: Foot Exam 1976 Eye Exam 1976 Hepatitis A Vaccines (1 of 2 - Risk 2-dose series) 1985 IPV Vaccines (2 of 3 - Adult catch-up series) 07/21/2019 06/23/2019 Diabetes: Urine Protein Screening 08/02/2023 08/02/2022, 04/13/2022 Pap Smear 09/12/2024 09/12/2021 Lipid Panel 12/01/2024 12/02/2023, 03/23/2021 Mammogram 12/15/2024 12/16/2023, 12/25/2017 Depression Monitoring (PHQ-9) 02/20/2025 08/20/2024, 08/20/2024 Diabetes: Hemoglobin A1C 02/20/2025 025, 02/04/2024, 10/31/2023, Additional history exists Alcohol/Substance Use Screening 08/20/2025 08/20/2024 Depression Screening 08/20/2025 08/20/2024, 08/21/19 25 SDOH Screening 08/20/2025 08/20/2024 Tobacco Screening 08/20/2025 08/20/2024 DTaP/Tdap/Td Vaccines (2 - Td or Tdap) 03/01/2026 03/01/2016 Cervical Cancer Screening 09/12/2026 HPV/Cotest 09/12/2026 09/12/2021, 08/12/2018 Colonoscopy 02/06/2028 02/05/2018 Colorectal Cancer Screening 02/06/2028 RSV Patients and Patients Aged 60 years or older (1 - 1-dose 75+ series) 2041 Meningococcal Vaccine Aged Out 05/26/2019 No reji clement eligible based on patient's age to complete this topic Zoster Vaccines Completed 01/28/2020, 05/26/2019 Hepatitis B Vaccines Completed 07/10/2021, 01/28/2020, 05/26/2019 HIV Screening Completed 12/21/2021 Pneumococcal Vaccine: 50+ Years Completed 12/02/2023, 07/19/2017 COVID-19 Vaccine Completed 04/01/2024, , 05/04/2021, Additional history exists Influenza Vaccine Completed 04/01/2024, , 02/23/2022, Additional history exists HIB Vaccines Aged Out No longer eligi ble based on patient's age to complete this topic HPV Vaccines Aged Out No longer eligi ble based on patient's age to complete this topic RSV under 20 months Aged Out No longe r eligible based on patient's age to complete this topic Rotavirus Vaccines Aged Out No longer eligible based on patient's age to complete this topic Procedures Procedure Name Priority Date/Time Associated Diagnosis Comments POCT GLYCATED HEMOGLOBIN, TOTAL Routine 08/20/2024 11:23 AM EST Type 2 diabetes mellitus with hypoglycemia without coma, without long-term current use of insulin ([facility]) POCT GLUCOSE Routine 08/20/2024 11:23 AM EST Type 2 diabetes mellitus with hypoglycemia without coma, without long-term current use of insulin ([facility]) BI MAMMOGRAM SCREENING TOMOSYNTHESIS BILATERAL Routine 12/16/2023 9:17 AM EDT LIPID PANEL, STANDARD Routine 12/02/2023 11:30 AM EDT Encounter for preventive care ALBUMIN, RANDOM URINE W/CREATININE Routine 08/02/2022 8:41 AM EST HIV 1/2 ANTIGEN/ANTIBODY, FOURTH GENERATION W/RFL Routine 12/21/2021 12:00 AM EDT THINPREP IMAGING PAP AND HPV MRNA E6/E7, WITH CT/NG, TRICHOMONAS Routine 09/12/2021 8:57 AM EDT HM COLONOSCOPY Routine 02/05/2018 from Last 3 Months or Most Recently Relevant to Health Maintenance Results * (ABNORMAL) POCT HGB A1C (08/20/2024 11:23 AM EST) Hemoglobin A1C 6.3(A) 4.0 - 6.0 % QC Media Lot # [id number] Lot# Expiration Date Blood 08/20/2024 11:2 3 AM EST Eliel Stoddard MD POINT OF CARE TEST ENTER/ED IT ORDERABLES Final Result * (ABNORMAL) POCT Glucose (08/20/2024 11:23 AM EST) Glucose Blood, POC 208(A) 60 - 200 mg/dL QC Media Lot # [id number] Lot# Expiration Date [id number] Comment:RANDOM Blood Capillary blood specimen / Unknown 08/20/2024 11:23 AM EST Eliel Stoddard MD POINT OF CARE TEST ENTER/ED IT ORDERABLES Final Result * BI Mammogram Screening Tomosynthesis Bilateral (12/16/2023 9:17 AM EDT) Anatomical Region Laterality Modality Breast Bilateral Mammography 12/16/2023 9:17 AM EDT Narrative 01/15/2024 5:58 AM EDT ? [facility] ? [address] ?[place] [address] ? Mammography Report ? Signed ? Patient: Bruno Rodriguez,Alma ?MR#: ?? [id number] ? : 1965 ?Acct:[id number] ? Age/Sex: 58 / F ?ADM Date: 12/16/23 ? Loc: HO.MAMMO ? Attending Dr: Mahsa Valenzuela MD ? Ordering Physician: Mahsa Huffman MD ?Results: ?? 1Negative ? Date of Service: 12/16/23 ?Follow Up: 1 Year From Orig ?? inal Mammogram ? Procedure(s): MM tomosynthesis screening BI ?? Accession Number(s): [id number] ? cc: Mahsa Huffman MD ? EXAMINATION: ?? MM SCREENING DIGITAL BREAST TOMOSYNTHESIS, BILATERAL ? CLINICAL INFORMATION: ? Screening. Asymptomatic. ? COMPARISON: ?? Mammography: This study is compared with prior exams dating back to ?? 2017. ? TECHNIQUE: ?? Digital breast tomosynthesis is performed in both the craniocaudal and ?? mediolateral oblique views along with computer-aided detection (CAD). ?? Synthesized 2D images are generated from the tomosynthesis. ? FINDINGS: ?? There are scattered areas of fibroglandular density (ACR BI-RADS breast ?? composition Category b). ? There are no significant masses, abnormal calcifications, or other ?? abnormalities. ? MM/MM tomosynthesis screening BI ?? IMPRESSION: ?? No mammographic evidence of malignancy. ? ASSESSMENT: ? BI-RADS BI-RADS 1 - Negative ? RECOMMENDATION: ?? Routine annual mammography screening. ? 1 year F/U ? This examination should not preclude the clinical evaluation of a ?? suspicious palpable abnormality. ? This patient's information was entered into a reminder system with a ?? target due date for their next mammogram. ? Dictated By: ?Michelle De La Fuente MD ? Signed By: ?<Electronically signed by Michelle De La Fuente MD in OV> ? 01/15/24 0555 ? DD/ 0917 ? TD/TT: ? Fiscal Specialist: ? Procedure Note Donotuseinterpreter, Image - [facility]/15/[facility] [address] [place] [address] Mammography Report Signed Patient: Vikas Corley#: [id number] : 1965Acct:[id number] Age/Sex: 58 / FADM Date: 12/16/23 Loc: [facility] Attending Dr: Mahsa Valenzuela MD Ordering Physician: Mahsa Huffmna MDResults: 1Negative Date of Service: 12/16/23Follow Up: 1 Year From Orig inal Mammogram Procedure(s): MM tomosynthesis screening BI Accession Number(s): [id number] cc: Mahsa Huffman MD EXAMINATION: MM SCREENING DIGITAL BREAST TOMOSYNTHESIS, BILATERAL CLINICAL INFORMATION: Screening. Asymptomatic. COMPARISON: Mammography: This study is compared with prior exams dating back to 2017. TECHNIQUE: Digital breast tomosynthesis is performed in both the craniocaudal and mediolateral oblique views along with computer-aided detection (CAD). Synthesized 2D images are generated from the tomosynthesis. FINDINGS: There are scattered areas of fibroglandular density (ACR BI-RADS breast composition Category b). There are no significant masses, abnormal calcifications, or other abnormalities. MM/MM tomosynthesis screening BI IMPRESSION: No mammographic evidence of malignancy. ASSESSMENT: BI-RADS BI-RADS 1 - Negative RECOMMENDATION: Routine annual mammography screening. 1 year F/U This examination should not preclude the clinical evaluation of a suspicious palpable abnormality. This patient's information was entered into a reminder system with a target due date for their next mammogram. Dictated By: Michelle De La Fuente MD Signed By: <Electronically signed by Michelle De La Fuente MD in OV> 01/15/24 0555 DD/ 6 TD/TT: Fiscal Specialist: us Mahsa Valenzuela MD IMG BI PROCEDURES Fin al Result * (ABNORMAL) Lipid Panel, Standard (12/02/2023 11:30 AM EDT) Triglycerides 154(H) <150 mg/dL [facility] Comment:Desirable Triglyceri de: less than 150 mg/dLBorderline High Triglyceride 150-199 mg/dLHigh Triglyceride: 200-499 mg/dLVery High Triglyceride: greater than or equal to 5OO mg/dL Cholesterol 124 <200 mg/dL [facility] Comment:Desirable Cholestero l: less than 200 mg/dLBorderline High Cholesterol: 200-239 mg/dLHigh Cholesterol: greater than 239 mg/dL LDL Cholesterol Calculated 61 <100 mg/dL [facility] Comment:Desirable LDL: less than 100 mg/dLNear Optimal/Above Optimal LDL: 110- 129 mg/dLBorderline High LDL: 130-159 mg/dLHigh LDL: 160-189 mg/dLVery High LDL: greater than or equal to 190 mg/dL HDL Cholesterol 33(L) >40 mg/dL [facility] Comment:Desirable HDL: great er than 40 mg/dL Note: This HDL assay may give artificially low results in patients with liver disease. Blood Venous blood specimen / Unknown 12/02/2023 11:30 AM EDT 12/02/2023 1:26 PM EDT us Mahsa Valenzuela MD LAB BLOOD ORDERABLES Final Result [facility] [address] [place] [address] [phone] * Albumin, Random Urine W/Creatinine (08/02/2022 8:41 AM EST) Creatinine, Random Urine 121 20 - 275 mg/dL [facility] [place] [facility] Albumin, Urine 0.8 See Note: mg/dL [facility] [place] [facility] Comment: Reference Range: Reference Range Not established Albumin/Creatinin e Ratio, Random Urine 7 <30 mcg/mg creat [facility] [place] [facility] Comment: The ADA defines abnormalities in albumin excretion as follows: Albuminuria Category ?Result (mcg/mg creatinine) Normal to Mildly increased ?? <30 Moderately increased ? 30-299 Severely increased ? > OR = 300 The ADA recommends that at least two of three specimens collected within a 3-6 month period be abnormal before considering a patient to be within a diagnostic category. 08/02/2022 8:41 AM EST 08/02/2022 8:41 AM EST us Flor Guzman MD LAB URINE ORDERABLES Final Re sult Performing Organization Address [facility] Co de Phone Number [facility] [address], [place] [address] [facility] [place] [employer] [address], ([address]) [place] [address] * HIV 1/2 ANTIGEN/ANTIBODY,FOURTH GENERATION W/RFL (12/21/2021 12:00 AM EDT) HIV-1/2 ANTIGEN AND ANTIBODIES, 4TH GENERATION W/ REFLEX NON-REACT [facility] NON-REACT [facility] Comment: HIV-1 antigen and HIV-1/HIV-2 antibodies were not detected. There is no laboratory evidence of HIV infection. ?? PLEASE NOTE: This information has been disclosed to you from records whose confidentiality may be protected by state law. ??If your state requires such protection, then the state law prohibits you from making any further disclosure of the information without the specific written consent of the person to whom it pertains, or as otherwise permitted by law. A general authorization for the release of medical or other information is NOT sufficient for this purpose. ? For additional information please refer to http://[employer]/faq/AEF753 (This link is being provided for informational/ educational purposes only.) ? The performance of this assay has not been clinically validated in patients less than 2 years old. ?? 12/21/2021 us Eliel Stoddard MD LAB BLOOD ORDERABLES Final Result [facility] [address] [place] [address], * THINPREP TIS PAP AND HPV mRNA E6/E7, CT/NG, TRICH (09/12/2021 8:57 AM EDT) Chlamydia trachomatis RNA, TMA, Urogenital NOT DETECTED NOT DETECTED [facility] Clinical Information: None given [facility] COMMENT SEE COMMENT [facility] Comment: The analytical performance characteristics of this assay, when used to test SurePath(TM) specimens have been determined by [facility]. The modifications have not been cleared or approved by the FDA. This assay has been validated pursuant to the CLIA regulations and is used for clinical purposes. ?? For additional information, please refer to https://[employer]/faq/PRH224 (This link is being provided for information/ educational purposes only.) ?? COMMENT SEE COMMENT [facility] Comment: EXPLANATORY NOTE: ? The Pap is a screening test for cervical cancer. It is ?? not a diagnostic test and is subject to false negative ?? and false positive results. It is most reliable when a ?? satisfactory sample, regularly obtained, is submitted ?? with relevant clinical findings and history, and when ?? the Pap result is evaluated along with historic and ?? current clinical information. ?? COMMENT: This Pap test has been evaluated with computer assisted technology. [facility] [employer]: SEE COMMENT [facility] Comment: CMG, CT(ASCP) CT screening location: [facility] [address] ??[id number] HPV nRNA E6/E7 Not Detected Not Detected [facility] Comment: Methodology: Tow Picker-Mediated Amplification This assay detects E6/E7 viral messenger RNA (mRNA) from 14 high-risk HPV types (16,18,31,33,35,39,45,51,52,56,58,59,66,68). ? The analytical performance characteristics of this assay have been determined by [employer]. The modifications have not been cleared or approved by the FDA. This assay has been validated pursuant to the CLIA regulations and is used for clinical purposes. ?? For additional information, please refer to http://[employer]/faq/XRN798e0 (This link if provided for information/ educational purposes only.) Interpretation/Re sult: Negative for intraepithelial lesion or malignancy. [facility] LMP: NONE GIVEN [facility] Neisseria gonorrhoeae RNA, TMA, Urogenital NOT DETECTED NOT DETECTED [facility] Prev. BX: NONE GIVEN [facility] Prev. PAP: NONE GIVEN [facility] SOURCE: Cervix [facility] Statement Of Adequacy: SEE COMMENT [facility] Comment: Satisfactory for evaluation. Endocervical/transformation zone component absent. Age and/or menstrual status not provided Trichomonas vaginalis, QL, TMA, PAP Vial NOT DETECTED NOT DETECTED [facility] Comment: The analytical performance characteristics of this assay have been determined by [employer]. The modifications have not been cleared or approved by the FDA. This assay has been validated pursuant to the CLIA regulations and is used for clinical purposes. ?? For additional information, please refer to [email or web address]/ faq/Trichomonastma (This link is being provided for information/ educational purposes only.) ?? 09/12/2021 8:57 AM EDT Nini Perry CNM LAB PATHOLOGY ORDERABLES Final Result [facility] [address] [place] [address], * Colonoscopy (02/05/2018) Colonoscopy Normal Normal Narrative Karla Slaughter - 02/05/2018 Recommended 10 year follow up us Historical Provider HEALTH MAINTENANCE Final Result from Last 3 Months or Most Recently Relevant to Health Maintenance Insurance [facility] Care Teams Sanitation Worker Hosing Machinery Relationship Specialty Start Date End Date Eliel Stoddard MD [address] [place] [address] ELIZA Chin [address] PCP - General Internal Medicine 06/17/18
--- OUTSIDE RECORDS SUMMARY | 2024-09-02 13:40 | XMS_ITS | Encounter Summary ---
Author Organization [employer] Address [address] [place] [address] 7 [place] [address] Care Team Providers Care Dial Equipment Engineer Name Role Phone Eliel Stoddard MD Primary Care Provider [phone] Reason for Visit * Reason Comments Pre-visit Planning SDOH negative, Tobac co screening negative. Encounter Details Date Type Department Care Team ([facility] Contact Info) Description 08/13/2024 Patient Outreach [facility] MED & PEDS [address] [place], [place] [phone] Eliel Stoddard MD [address] [place] [address] Pre-visit Planning (SDOH negative, Tobacco screening negative. ) Social History Tobacco Use Types Packs/Day Years [...] AM EDT documented as of this encounter Progress Notes * Clary Lord - 08/13/2024 11:19 AM EST CC Clary Puente placed successful outbound call to patient for pre-visit planning. Patient name and confirmed. Patient confirms appt date and time, and has transportation arrangements. Biggest concern for appointment at this time is no concerns. Appropriate screenings completed in anticipation ofappointment. documented in this encounter Plan of Treatment Upcoming Encounters Date Type Department Care Team ([facility] st Contact Info) Description 11/23/2024 9:00 AM EDT Office Visit [facility] MED [facility] PEDS [address] [place] [address] Eliel Stoddard MD [address] [place] [address] documented as of this encounter Visit Diagnoses Not on filedocumented in this encounter Additional Health Concerns Assessment Noted Time PHQ-9 Depression Total Score: 9 12/02/19 24 10:48 AM EDT documented as of this encounter Care Teams Dial Equipment Engineer Relationship Specialty Start Date End Date Eliel Stoddard MD [address] [place] [address] PCP - General Internal Medicine 06/17/18 documented as of this encounter
--- OUTSIDE RECORDS SUMMARY | 2024-09-02 13:40 | XMS_ITS | Encounter Summary ---
Author Organization [employer] Address [address] [place] [address] 7t [place] [address] Care Team Providers Care Circular Gang Saw Operator Name Role Phone Eliel Stoddard MD Primary Care Provider [phone] Encounter Details Date Type Department Care Team (Late st Contact Info) Description 11/08/2023 Orders Only [facility] [address], [place] [phone] ProviderJahaira MD Social History Tobacco Use Types Packs/Day Years [...] Upcoming Encounters Date Type Department Care Team ([facility] st Contact Info) Description 11/23/2024 9:00 AM EDT Office Visit [facility] MED & PEDS [address] [place] [address] Eliel Stoddard MD [address] [place] [address] documented as of this encounter Procedures Procedure Name Priority Date/Time Associated Diagnosis Comments MR SHOULDER WO CONTRAST RIGHT Routine 11/08/2023 2:16 PM EDT documented in this encounter Results * MR Shoulder w/o Contrast Right (11/08/2023 2:16 PM EDT) Anatomical Region Laterality Modality Upper Extremities, Shoulder Right Magn etic Resonance Historical Provider MD ROD MRI PROCEDURES Final Result documented in this encounter Visit Diagnoses Not on filedocumented in this encounter Care Teams Circular Gang Saw Operator Relationship Specialty Start Date End Date Eliel Stoddard MD [address] [place] [address] PCP - General Internal Medicine 06/17/18 documented as of this encounter
--- OUTSIDE RECORDS SUMMARY | 2024-09-02 13:40 | XMS_ITS | Encounter Summary ---
Author Organization [employer] Address [address] [place] [address] Street 7t [place] [address] Care Team Providers Care Turf Farm Worker Name Role Phone Eliel Stoddard MD Primary Care Provider [phone] Encounter Details Date Type Department Care Team (Late st Contact Info) Description 04/17/2023 Abstract [facility] MEDICINE [address] [place], [place] [phone] Karla Slaughter Social History Tobacco Use Types Packs/Day Years [...] Description 11/23/2024 9:00 AM EDT Office Visit [facility] MED & PEDS [address] [place] [address] Eliel Stoddard MD [address] [place] [address] documented as of this encounter Procedures Procedure Name Priority Date/Time Associated Diagnosis Comments COLONOSCOPY Routine 02/05/2018 documented in this encounter Results * Hm Colonoscopy (02/05/2018) Colonoscopy Normal Normal Narrative Karla Slaughter - 02/05/2018 Recommended 10 year follow up us Historical Provider HEALTH MAINTENANCE Final Result documented in this encounter Visit Diagnoses Not on filedocumented in this encounter Care Teams Turf Farm Worker Relationship Specialty Start Date End Date Eliel Stoddard MD [address] [place] [address] PCP - General Internal Medicine 06/17/18 documented as of this encounter
--- OUTSIDE RECORDS SUMMARY | 2024-09-02 13:40 | XMS_ITS | Encounter Summary ---
Author Organization [employer] Address [address] [place] [address] 7t [place] [address] Care Team Providers Care Diversified Crops Farmer Name Role Phone Eliel Stoddard MD Primary Care Provider [phone] Reason for Visit * Reason Comments Med Refill Encounter Details Date Type Department Care Team ([facility] Contact Info) Description 09/01/2024 Refill [facility] CH[facility] MED & PEDS [address] [place], [place] [phone] Lizbet Mares MD [address] [place] [address] Type 2 diabetes mellitus with hypoglycemia without coma, without long-term current use of insulin ([facility]) Social History Tobacco Use Types Packs/Day Years [...] your housing situation today? I have xena veronica 08/20/[address] you li [...] Description 11/23/2024 9:00 AM EDT Office Visit [facility] MED & PEDS [address] [place] [address] Eliel Stoddard MD [address] [place] [address] documented as of this encounter Visit Diagnoses Diagnosis Type 2 diabetes mellitus with hypoglycemia without coma, without long-term current use of insulin ([facility]) documented in this encounter Additional Health Concerns Assessment Noted Time PHQ-9 Depression Total Score: 18 025 10:41 AM EST documented as of this encounter Care Teams Diversified Crops Farmer Relationship Specialty Start Date End Date Eliel Stoddard MD 505 [facility] [place] [address] PCP - General Internal Medicine 06/17/18 documented as of this encounter
--- OUTSIDE RECORDS SUMMARY | 2024-09-02 13:40 | XMS_ITS | Encounter Summary ---
Author Organization [employer] Address [address] [place] [address] 7 [place] [address] Care Team Providers Care Warp Trucker Name Role Phone Eliel Stoddard MD Primary Care Provider [phone] Reason for Visit * Reason Comments Med Refill Encounter Details Date Type Department Care Team ([facility] Contact Info) Description 06/28/2023 Refill [facility] MED & PEDS [address] [place], [place] [phone] Eliel Stoddard MD [address] [place] [address] Social History Tobacco Use Types Packs/Day Years [...] Description 11/23/2024 9:00 AM EDT Office Visit [facility] MED & PEDS [address] [place] [address] Eliel Stoddard MD [address] [place] [address] documented as of this encounter Visit Diagnoses Not on filedocumented in this encounter Care Teams Warp Trucker Relationship Specialty Start Date End Date Eliel Stoddard MD [address] [place] [address] PCP - General Internal Medicine 06/17/18 documented as of this encounter
--- OUTSIDE RECORDS SUMMARY | 2024-09-02 13:40 | XMS_ITS | Encounter Summary ---
Author Organization [employer] Address [address] [facility] 7t [place] [address] Care Team Providers Care Crop Scout Name Role Phone Eliel Stoddard MD Primary Care Provider [phone] Reason for Visit * Reason Comments Med Refill Encounter Details Date Type Department Care Team ([facility] st Contact Info) Description 08/07/2024 Refill [facility] MEDICINE [address] [place], [place] [phone] Eliel Stoddard MD [address] [facility] [address] Type 2 diabetes mellitus without complication, unspecified whether swaging machine adjuster insulin use ([facility]) Social History Tobacco Use Types Packs/Day [...] Description 11/23/2024 9:00 AM EDT Office Visit [facility] CHC MED & PEDS [address] [place] [address] Eliel Stoddard MD [address] [place] [address] documented as of this encounter Visit Diagnoses Diagnosis Type 2 diabetes mellitus without complication, unspecified whether fpc insulin use ([facility]) documented in this encounter Additional Health Concerns Assessment Noted Time PHQ-9 Depression Total Score: 9 12/02/19 24 10:48 AM EDT documented as of this encounter Care Teams Crop Scout Relationship Specialty Start Date End Date Eliel Stoddard MD [address] [place] [address] PCP - General Internal Medicine 06/17/18 documented as of this encounter
--- OUTSIDE RECORDS SUMMARY | 2024-09-02 13:40 | XMS_ITS | Encounter Summary ---
Author Organization [employer] Address [address] [facility] [address] [place] [address] Care Team Providers Care Surgical Specialist Name Role Phone Eliel Stoddard MD Primary Care Provider [phone] Reason for Visit * Reason Comments Med Refill Encounter Details Date Type Department Care Team ([facility] st Contact Info) Description 08/31/2024 Refill [facility] [address] [place], [place] [phone] Kristin Nunez MD [address] [place] [address] Social History Tobacco Use Types Packs/Day Years [...] Description 11/23/2024 9:00 AM EDT Office Visit [facility] MED & PEDS [address] [place] [address] Eliel Stoddard MD [address] [place] [address] documented as of this encounter Visit Diagnoses Not on filedocumented in this encounter Additional Health Concerns Assessment Noted Time PHQ-9 Depression Total Score: 18 025 10:41 AM EST documented as of this encounter Care Teams Surgical Specialist Relationship Specialty Start Date End Date Eliel Stoddard MD [address] [place] [address] PCP - General Internal Medicine 06/17/18 documented as of this encounter
== END 2024-09-02 12:39 | disposition home or self-care (01) ==
LOC: HO.HGI 11:13
PROVIDERS: PCP Internal Medicine; Visit Provider Internal Medicine
DX: K52.9 Noninfective gastroenteritis and colitis, unspecified (principal); R10.11 Right upper quadrant pain; G89.29 Other chronic pain
CPT/HCPCS: 99204

== ENCOUNTER 2024-09-02 11:13 | Outpatient (REF) | payer OTHER, SELFPAY ==
[2024-09-02 17:24] LABS: Alanine Aminotransferase 27 U/L (0-31); Albumin Level 4.3 g/dL (3.5-5.0); Alkaline Phosphatase 75 U/L (39-117); Aspartate Amino Transferase 17 U/L (5-31); Bilirubin Direct < 0.2 mg/dL (0.0-0.5); Bilirubin Total 0.2 mg/dL (0.0-1.0); Total Protein 8.3 g/dL (6.5-8.0)
[2024-09-02 17:41] LABS: TSH reflex Free T4 1.07 uIU/mL (0.32-4.0)
[2024-09-03 08:14] LABS: Immunoglobulin A 265 mg/dL (47-310)
[2024-09-03 11:45] LABS: H Pylori Breath Test Negative (Negative)
[2024-09-03 21:23] LABS: Transglutaminase IgA <1.0 U/mL
== END 2024-09-02 11:14 | disposition home or self-care (01) ==
LOC: HO.LAB 11:13
PROVIDERS: PCP Internal Medicine; Visit Provider Internal Medicine
DX: K52.9 Noninfective gastroenteritis and colitis, unspecified (principal); R10.11 Right upper quadrant pain; G89.29 Other chronic pain
CPT/HCPCS: 36415; 80076; 82784; 83013; 84443; 86364; 99202

== ENCOUNTER 2024-09-04 10:24 | Outpatient (REF) | payer OTHER, SELFPAY ==
[2024-09-08 11:18] LABS: Fecal Fat Qualitative Normal (Normal)
[2024-09-10 17:14] LABS: Pancreatic Elastase-1 125 mcg/g (>200)
[2024-09-12 21:34] LABS: Calprotectin, Fecal 77 mcg/g
== END 2024-09-04 10:25 | disposition home or self-care (01) ==
LOC: HO.LNP 10:24
PROVIDERS: Visit Provider Internal Medicine
DX: K52.9 Noninfective gastroenteritis and colitis, unspecified (principal)
CPT/HCPCS: 82656; 82705; 83993

== ENCOUNTER 2024-09-29 08:46 | Outpatient (REF) | payer OTHER, SELFPAY ==
--- NOTE | ~2024-09-29 | US_ITS ---
CLINICAL HISTORY: R10.11 - Right upper quadrant pain US abdomen complete Comparison: CT/REG/UT/SR - CT ABDOMEN PELVIS WO IV CON - 02/06/23 08:43 EDT Findings: The visualized pancreas is normal. The aorta and inferior vena cava are normal caliber. The liver is enlarged with increased echogenicity measuring 21.4 cm in length. There is no intrahepatic bile duct dilatation. The common duct is for mm in diameter. The gallbladder is normal. There is no sonographic Phipps sign. The main portal vein is antegrade. The right kidney is 11.9 cm in length. Irregular lower pole contour similar to the prior CT. The left kidney is 11.6 cm in length. The spleen is normal measuring 9 cm in length. No ascites. IMPRESSION: 1. Enlarged liver with mild increased echogenicity which can be seen with steatosis. 2. Unremarkable gallbladder. This document has been electronically signed by: Maryam Ayoub MD on 09/30/2024 09:11:58
--- OUTSIDE RECORDS SUMMARY | 2024-09-29 09:08 | XMS_ITS | Encounter Summary ---
Author Organization [employer] Address [address] [place] [address] 7 [place] [address] Care Team Providers Care Refrigerator Tester Name Role Phone Eliel Stoddard MD Primary Care Provider [phone] Reason for Visit * Reason Onset Date Comments Med Refill 10/19/2022 Encounter Details Date Type Department Care Team ([facility] st Contact Info) Description 10/19/2022 Refill [facility] MED & PEDS [address] [place], [place] [phone] Eliel Stoddard MD [address] [place] [address] Social History Tobacco Use Types Packs/Day Years [...] Description 11/23/2024 9:00 AM EDT Office Visit [facility] MED & PEDS [address] [place] [address] Eliel Stoddard MD [address] [place] [address] documented as of this encounter Visit Diagnoses Not on filedocumented in this encounter Care Teams Refrigerator Tester Relationship Specialty Start Date End Date Eliel Stoddard MD [address] [place] [address] PCP - General Internal Medicine 06/17/18 documented as of this encounter
--- OUTSIDE RECORDS SUMMARY | 2024-09-29 09:09 | XMS_ITS | Encounter Summary ---
Author Organization [employer] Address [address] [place] [address] 7t [place] [address] Care Team Providers Care Test Design Engineer Name Role Phone Eliel Stoddard MD Primary Care Provider [phone] Encounter Details Date Type Department Care Team (Late st Contact Info) Description 11/08/2023 Orders Only [facility] [address] [place], [place] [phone] ProviderJahaira MD Social History Tobacco Use Types [...] Upcoming Encounters Date Type Department Care Team ([facility] st Contact Info) Description 11/23/2024 9:00 AM EDT Office Visit [facility] MED & PEDS [address] [place] [address] Eliel Stoddard MD [address] [place] [address] documented as of this encounter Procedures Procedure [...] on filedocumented in this encounter Care Teams Test Design Engineer Relationship Specialty Start Date End Date Eliel Stoddard MD [address] [place] [address] PCP - General Internal Medicine 06/17/18 documented as of this encounter
--- OUTSIDE RECORDS SUMMARY | 2024-09-29 09:09 | XMS_ITS | Encounter Summary ---
Author Organization [employer] Address [address] [place] [address] 7t [place] [address] Care Team Providers Care Manager Cost Name Role Phone Eliel Stoddard MD Primary Care Provider [phone] Encounter Details Date Type Department Care Team ([facility] st Contact Info) Description 04/12/2023 Orders Only [facility] CHC MED & PEDS [address] [place], [place] [phone] Eliel Stoddard MD [address] [place] [address] Primary insomnia Social History Tobacco Use Types [...] the past 12 months, has t he [employer] 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
--- OUTSIDE RECORDS SUMMARY | 2024-09-29 09:09 | XMS_ITS | Encounter Summary ---
Author Organization [employer] Address [address] [place] [address] 7 [place] [address] Care Team Providers Care Line Mover Name Role Phone Eliel Stoddard MD Primary Care Provider [phone] Reason for Visit * Reason Comments Med Refill Encounter Details Date Type Department Care Team ([facility] Contact Info) Description 12/25/[address] [facility] CH[facility] MED & PEDS [address] [place], [place] [phone] Eliel Stoddard MD [address] [place] [address] Social History Tobacco Use Types Packs/Day Years [...] Upcoming Encounters Date Type Department Care Team ([facility] st Contact Info) Description 11/23/2024 9:00 AM EDT Office Visit [facility] MED & PEDS [address] [place] [address] Eliel Stoddard MD [address] [place] [address] documented as of this encounter Visit Diagnoses Not on filedocumented in this encounter Additional Health Concerns Assessment Noted Time PHQ-9 Depression Total Score: 9 12/02/19 24 10:48 AM EDT documented as of this encounter Care Teams Line Mover Relationship Specialty Start Date End Date Eliel Stoddard MD [address] [place] [address] PCP - General Internal Medicine 06/17/18 documented as of this encounter
--- OUTSIDE RECORDS SUMMARY | 2024-09-29 09:09 | XMS_ITS | Encounter Summary ---
Author Organization [employer] Address [address] [place] [address] 7 [place] [address] Care Team Providers Care Creative Services Producer Name Role Phone Eliel Stoddard MD Primary Care Provider [phone] Reason for Visit * Reason Comments Med Refill Encounter Details Date Type Department Care Team ([facility] Contact Info) Description 06/28/2023 Refill [facility] CHC MED & PEDS [address] [place], [place] [phone] Eliel Stoddard MD [address] [place] [address] Social History Tobacco Use Types Packs/Day Years Used Date Smoking Tobacco: Every Day Cigarettes Passive Smoke Exposure: Never Smokeless Tobacco: Never Alcohol Use Standard Drinks/Week Comments Never 0 (1 standard drink = 0.6 oz pur e alcohol) Housing Stability Answer Date Recorded What is your housing situation today? I have xean martin 04/01/[address] you [...] Description 11/23/2024 9:00 AM EDT Office Visit [facility] MED & PEDS [address] [place] [address] Eliel Stoddard MD [address] [place] [address] documented as of this encounter Visit Diagnoses Not on filedocumented in this encounter Care Teams Creative Services Producer Relationship Specialty Start Date End Date Eliel Stoddard MD [address] [place] [address] PCP - General Internal Medicine 06/17/18 documented as of this encounter
--- OUTSIDE RECORDS SUMMARY | 2024-09-29 09:09 | XMS_ITS | Data Portability ---
Author Organization [place] - [facility], Allergy Address [address] [place] [address] Care Team Providers Care Grinder And Plater Name Role Phone HOME MELENDEZ Primary Care Provider [phone] Assessment Encounter Date Assessment Date Assessment LastModified [...] tion nasal spray,ketan pension 2024 025 [email or web address] [employer] #[id number], [address] [place], [place], [id number], 07/22/2024 10:46:49 Patient TargetsNo targets recorded. Patient [...] Sensorine ural hearing loss in right ear 06642849780 100 Active 2017 Sensorine ural hearing loss, unilatera l, right ear, with restricte d hearing on the contralat eral side; Note: Date Diagnosed : 02/13/2018 3:14 PM (H90.A21) Not Available [facility] 4 02:51:55 Disorder of right Eustachia n tube 88758454344 37683 Active 2015 Other specified disorders of Eustachia n tube, right ear; Note: Date Diagnosed : 05/17/2016 5:16 PM (H69.81) Not Available [facility] 4 02:51:59 Otalgia of left ear 7521668802 Active 2018 Otalgia, left ear; Note: Date Diagnosed : 07/22/2018 10:28 AM (H92.02) Not Available [facility] 4 02:51:59 Conductiv e hearing loss of right ear 6098096401 Active 2019 Conductiv e hearing loss, unilatera l, right ear with restricte d hearing on the contralat eral side; Note: Date Diagnosed : 09/30/2019 11:22 AM (H90.A11) Not Available [facility] 4 02:51:57 Bilateral tympanic membrane central perforati on 82191073419 55855 Active 2021 Central perforati on of tympanic membrane, bilateral ; Note: Date Diagnosed : 02/08/2022 5:24 PM (H72.03) Not Available [facility] 4 02:51:55 Benign paroxysma l positiona l vertigo 115999439 Active 2022 Benign paroxysma l vertigo, left ear; Note: Date Diagnosed : 3 3:25 PM (H81.12) Not Available [facility] 4 02:51:57 Snoring 49293498 Active 2013 Snoring; CMS Risk: low risk CMS Treatment : new problem (to examiner) : additiona l workup planned C ondition: controlle d Note: Date Diagnosed : 4 4:13 PM (786.09) Not Available [facility] 4 02:51:56 Otalgia of right ear 1041629641 Active 2016 Otalgia, right ear; Note: Date Diagnosed : 01/09/2017 5:09 PM (H92.01) Not Available [facility] 4 02:51:54 Chronic serous otitis media of right ear 793498725 Active 2016 Chronic serous otitis media, right ear; Note: Date Diagnosed : 03/14/2017 12:14 PM (H65.21) Not Available [facility] 4 02:51:58 Sensorine ural hearing loss in left ear 30598297816 109 Active 2019 Sensorine ural hearing loss, unilatera l, left ear, with restricte d hearing on the contralat eral side; Note: Date Diagnosed : 09/30/2019 11:22 AM (H90.A22) Not Available [facility] 4 02:51:57 Conductiv e hearing loss 81004515 Active 2018 Conductiv e hearing loss, unilatera l, right ear, with unrestric prasanna hearing on the contralat eral side; Note: Date Diagnosed : 03/14/2017 11:55 AM (H90.11) ; Start Date : 7 Conduct obed hearing loss, unilatera l, left ear, with unrestric prasanna hearing on the contralat eral side; Note: Date Diagnosed : 07/22/2018 10:33 AM (H90.12) Not Available [facility] 4 02:51:53 Otorrhea of right ear 03828883474 93795 Active 2017 Otorrhea, right ear; Note: Date Diagnosed : 8 9:44 AM (H92.11) Not Available [facility] 4 02:51:53 Follow-up visit Active 2016 Medical surveilla nce following completed treatment ; Note: Date Diagnosed : 7 10:46 AM (Z09) Not Available [facility] 4 02:51:57 Mixed conductiv e and 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 11054657944 107 Active 2020 Mixed conductiv e and sensorine ural hearing loss, unilatera l, left ear with restricte d hearing on the contralat eral side; Note: Date Diagnosed : 02/28/2021 2:24 PM (H90.A32) Not Available [facility] 4 02:51:55 Dizziness and giddiness 389622671 Active 2019 Dizziness and giddiness ; Note: Date Diagnosed : 09/28/2019 11:17 AM (R42) Not Available [facility] 4 02:51:58 Left conductiv e hearing loss 46553058859 07 Active 2017 Conductiv e hearing loss, unilatera l, left ear with restricte d hearing on the contralat eral side; Note: Date Diagnosed : 02/13/2018 3:14 PM (H90.A12) Not Available [facility] 4 02:51:59 Headache 22987721 Active 2018 Headache, unspecifi ed; Note: Changed from R51 to R51.9 ( 1 10:24 AM) , Date Diagnosed : 9 10:03 AM (R51) Not Available [facility] 4 02:51:54 Dysfuncti on of eustachia n tube 59135911 Active 2013 Eustachia n tube dysfuncti on; CMS Risk: low risk CMS Treatment : establish ed problem (to examiner) : stable or improved Condition : controlle d Note: Date Diagnosed : 4 3:42 PM (381.81) Not Available [facility] 4 02:51:53 Migraine without aura, not refractor y 023974206 Active 2018 Migraine without aura, not intractab le, without status migrainos us; Note: Date Diagnosed : 9 10:03 AM (G43.009) Not Available [facility] 4 02:51:56 Mixed conductiv e and sensorine ural hearing loss, bilateral 479202078 Active 2021 Mixed conductiv e and sensorine ural hearing loss, bilateral ; Note: Date Diagnosed : 02/08/2022 5:07 PM (H90.6) Not Available [facility] 4 02:51:56 Otorrhea of left ear 23249819541 57887 Active 2020 Otorrhea, left ear; Note: Date Diagnosed : 08/01/2020 1:32 PM (H92.12) Not Available [facility] 4 02:51:52 Acute serous otitis media of left ear 20298843430 18312 Active 2018 Acute serous otitis media, left ear; Note: Date Diagnosed : 07/22/2018 10:29 AM (H65.02) Acute serous otitis media, left ear; Note: Date Diagnosed : 03/18/2018 11:16 AM (H65.02) ; Start Date : 8 Not Available [facility] 4 02:51:55 Sensorine ural hearing loss of bilateral ears 000093102 Active 2013 [facility] Bilateral ly; Note: Date Diagnosed : 4 3:42 PM (389.18) Not Available [facility] 4 02:51:52 Bilateral tinnitus 28221336039 02 Active 2016 Tinnitus, bilateral ; Note: Date Diagnosed : 03/14/2017 12:12 PM (H93.13) Not Available [facility] 4 02:51:52 Acute serous otitis media of right ear 91736283423 99021 Active 2017 Acute serous otitis media, right ear; Note: Date Diagnosed : 8 9:44 AM (H65.01) Not Available [facility] 4 02:51:58 Bilateral disorder of Eustachia n tubes 06350847549 70748 Active 2016 Other specified disorders of Eustachia n tube, bilateral ; Note: Date Diagnosed : 01/09/2017 5:09 PM (H69.83) Not Available [facility] 4 02:51:54 Perforati on of right tympanic membrane 33422974728 62897 Active 2024 EVERETTE JUARES PA-C [address] [facility],[place] [address], [place], [address] , [facility] 5 10:45:00 Problem Notes None recorded. Procedures Surgical History Date Name Laterality Status Provider Name and Address Organization Details Recorded Time 07/22/2024 Comp Audio with Tymps (45319 & 34994) completed CLAYTON GABRIEL [address] [facility],[place] [address], [place], [address], [facility] 07/22/2024 10:25:50 Imaging Results Imaging Date Name Status LastModified by Organiz ation Details LastModified Time 07/22/2024 audiogram completed [facility] Information no t available 07/22/2024 14:05:39 Procedure Notes None recorded. Medical Equipment None Reported. Allergies Allergen ID Allergen Name Allergen Category Reaction Reaction Severity Criticality Documentation Date Start Date Code Code System Note Provider Name and Address Organization Details Recorded Time 51357 amoxicill in medicatio n other Not available Not available 10/29/2023 723 RxNorm React ion: unkno wn, unspe cifie d;; Not Available [facility] 4 00:48:32 Medications Name Sig Start Date [...] mg capsule 09/29 completed Medicati on ID: 078582 P rescribe d By Name: Sherwin manjarrez [...] 2 mg tablet active Medicati on ID: 161772 B rand Name: tizanidi ne Send Method: E-Prescr ibed Sub s Allowed: subs OK Medic ationGen ericName : tizanidi ne Not Available Not Available Not Available clindamyc in HCl 300 mg capsule TAKE 1 CAPSULE BY MOUTH EVERY 6 HOURS active Not Available Not Available No t Available ofloxacin 0.3 % eye drops 3 drop 06/03 completed Medicati on ID: 561841 D uration Value: 7 Brand Name: ofloxaci [...] mg tablet 02/08 completed Medicati on ID: 901396 D uration Value: 30 Brand Name: sumatrip macedo succinat e Send Method: E-Prescr ibed Sub s Allowed: subs OK Medic ationGen ericName : sumatrip macedo succinat e Not Available Not Available Not Available topiramat e 25 mg tablet 02/08 completed Medicati on ID: 134460 D uration Value: 30 Brand Name: topirama te Send Method: E-Prescr ibed Sub s Allowed: subs OK Medic ationGen ericName : topirama te Not Available Not Available Not Available amlodipin e 5 mg tablet active Medicati on ID: 429970 B rand Name: amlodipi ne Send Method: E-Prescr ibed Sub s Allowed: subs OK Medic ationGen ericName : amlodipi ne Not Available Not Available Not Available aspirin 81 mg tablet,de layed release active Medicati on ID: 629936 B rand Name: aspirin Send Method: E-Prescr [...] a day 2022 active Medicati on ID: 716545 D uration Value: 7 Brand Name: ofloxaci n Send Method: E-Prescr ibed Sub s Allowed: subs OK Speci al Instruct ion: use until bottle gone Med [facility]: ofloxaci n Not Available [...] 5 mg tablet active Medicati on ID: 057579 B rand Name: lisinopr il Send Method: E-Prescr ibed Sub s Allowed: subs OK Medic ationGen ericName : lisinopr il Not Available Not Available Not Available lorazepam 1 mg tablet active Medicati on ID: 585035 B rand Name: lorazepa m Send Method: E-Prescr ibed Sub s Allowed: subs OK Medic ationGen ericName : lorazepa m Not Available Not Available Not Available ibuprofen 600 mg tablet active Medicati on ID: 573931 B rand Name: ibuprofe n Send Method: [...] 500 mg tablet active Medicati on ID: 838465 B rand Name: naproxen Send Method: E-Prescr [...] as directed 2017 active Medicati on ID: [id number] D uration Value: 30 Prescri bed By [...] Updated DateTime 07/22/2024 177.8 cm 30.1 kg/m2 13963.4 g Reshma Fry [place] - [facility] 07/22/2024 10:37:16 Social History None recorded. Functional Status None recorded. Mental Status None recorded. Family History Nothing Reported. Medical History Condition Response Hearing Loss Y Gynecological HistoryNo gynecological history recorded. Obstetrics History GPAL:G 0 P 0 0 0 0 Past Encounters Encounter ID Performer Location Encounter Start Date Encounter Closed Date Diagnosis/Indication Diagnosis SNOMED-CT Code Diagnosis ICD10 Code Diagnosis Note [id number] CARROLL MCCORD MD [facility] [address] [place] [address] 07/22/2024 09:47:01 07/22/2024 10:50:07 Mixed conductive and sensorineural hearing loss, bilateral 171788072 H90.6 Audiologic al evaluation results: Right ear: [...] sero us otitis media of left ear 2299724613 609689 H65.02 Bilateral disorder of Eustachian tubes 4285072515 421706 H69.83 Bilateral tinnitus 33516 45606 102 H93.13 Perforatio n of right tympanic membrane 2522699330 018337 H72.91 Health Concerns Section Related Observation LastModified by Organization Detai ls LastModified Time None Recorded Concern Status LastModified by Organization Details LastModified Time None Recorded Advance Directives Directive None Recorded Payers Encounter Date Sequence Insurance Name Policy Number Policy Mondragon Covered Member ID Mondragon Member ID Guarantor Name 07/22/2024 1 [facility] - DOS ON OR AFTER 2022 - MEDICARE [place]VANTAGE [place] (MEDICARE REPLACEMENT/AD VANTAGE - PPO) Alma Rodriguez [id number] Alma Rodriguez 07/22/2024 2 [facility] - DOS ON OR AFTER 24 - [employer] () Alma Rodriguez [id number] Alma Rodriguez Notes Date Note Type Note [...] over the fall. CARROLL MCCORD MD [address] [place] [address], [place], [address], [facility] - [facility] 07/22/2024 17:35:06 OBGyn Episode No OBEpisode recorded.
--- OUTSIDE RECORDS SUMMARY | 2024-09-29 09:09 | XMS_ITS | Data Portability ---
Author Organization [employer] Address [address] [place] [phone] Care Team Providers Care Relays Draftsperson Name Role Phone [facility] Referring Provider HIM [facility] OTHER Assessment Encounter Date Assessment Date Assessment LastModified by Organization Details LastModified Time 09/03/2022 09/03/2022 I have reviewed and agree with the assessment and plan as documented by the whale trainer. I provided real time medical direction for this encounter and was immediately available to provide additional phone based assistance as needed. History as noted by whale trainer. Pt with history of DM. She no [...] in the field was performed by my whale trainer colleague, as noted above, I provided real-time [...] toradol, reglan, benadryl and IVF but otherwise domestic violence counselor on PCP follow up. Impression: migraine [...] new neurologic change, fever, or worsening headache. [email or web address] Not available 01/19/2024 19:27:55 Plan of Treatment Reminders Order Date Submit Date Provider Last Modified By Organization Details Last Modified Time Details Appointments None recorded. Lab culture, urine 2022 023 [place] [facility] (Centralized Electronic Ordering - All Locations), Patient Can Go To The Location Of Their Choice, [id number] 12:54:26 urinalysis, dipstick 2022 023 [email or web address] - [address], [phone] 16:56:33 Referral None recorded. Procedures None recorded. Surgeries None recorded. Imaging None recorded. Medication Orders metoclopram saturnino 5 mg/mL injection solution 2023 024 [email or web address] [facility] #94158, [address] [place] [address], [id number], 4 19:26:55 ketorolac 30 mg/mL injection solution 2023 024 [email or web address] [facility] #70862, [address] [place] [address], [id number], 4 19:26:55 diphenhydra mine 50 mg/mL injection solution 2023 024 [email or web address] [facility] #16802, [address] [place] [address], [id number], 4 19:26:55 sodium chloride 0.9 % intravenous solution 2023 024 [id number] [facility] #20459, [address] [place] [address], [id number], 4 19:26:55 magnesium sulfate 2 gram/50 mL in 0.9 % sodium chloride IV piggyback 2023 024 [email or web address] [facility] #31841, [address] [place] [address], [id number], 4 19:26:55 tamsulosin 0.4 mg capsule 2022 023 [facility] #38415, [address] [place] [address], [id number], 3 21:22:44 doxycycline hyclate 100 mg tablet 2022 023 [facility] #18865, [address] [place] [address], [id number], 3 12:49:47 doxycycline hyclate 100 mg tablet 2022 023 [id number] Not available 12:49:39 Patient TargetsNo targets recorded. Patient InstructionsNo instructions recorded. Reason for Referral None Reported. Results Created Date Observation Date Name Description Value Unit Range Abnormal Flag Note LastModifiedBy Organization Detail LastModifiedTime 09/04/1909/03/2022 urina lysis , dipst ick Leukocytes negati ve Not Available [facility] ed [address] [place] [address], [address] [place] [address] 09/03/2022 16:55:11 09/04/19 23 09/03/2022 urina lysis , dipst ick Nitrite negati ve Not Available [facility] ed [address] [place] [address], [address] [place] [address] 09/03/2022 16:55:11 09/04/19 23 09/03/2022 urina lysis , dipst ick Blood negati ve Not Available [facility] ed [address] [place] [address], [address] [place] [address] 09/03/2022 16:55:11 09/04/19 23 09/03/2022 urina lysis , dipst ick Glucose negati ve Not Available [facility] ed [address] [place] [address], [address] [place] [address] 09/03/2022 16:55:11 12/23/19 23 12/22/2022 URINE CULTU [...] The Location Of Their Choice, 12/24/2022 12:54:25 Result Notes None recorded. Medical [...] /min 139 mm[Hg] 80 mm[Hg] Not Available [facility] 3 21:07:31 Date Recorded Respiratory rate Heart rate Oxygen saturation Oxygen saturation in Arterial blood by Pulse oximetry Body temperature Body height Body weight Systolic blood pressure Diastolic blood pressure Provider Name and Address Organization Details Last Updated DateTime 4 16 /min 69 /min 100 % 100 % 97.8 [degF] 175.26 cm 13887.9 52 g 119 mm[Hg] 70 mm[Hg] Not Available [facility] 4 11:59:12 Date Recorded Body weight Oxygen saturation Oxygen saturation in Arterial blood by Pulse oximetry Body height Body temperature Respiratory rate Heart rate Systolic blood pressure Diastolic blood pressure Provider Name and Address Organization Details Last Updated DateTime 4 58519.4 g 100 % 100 % 177.8 cm 98.8 [degF] 16 /min 76 /min 154 mm[Hg] 72 mm[Hg] Not Available [employer] 4 17:08:33 Date Recorded Oxygen saturation Oxygen [...] 3 99 % 99 % 18 /min 022219. 608 g 66 /min 97.5 [degF] 99 % 99 % 18 /min 97.5 [degF] 66 /min 778979. 608 g 110 mm[Hg] 54 mm[Hg] 110 mm[Hg] 54 mm[Hg] Not Available [employer] 3 17:07:05 Date Recorded Heart rate Body temperature Body weight Oxygen saturation Oxygen saturation in Arterial blood by Pulse oximetry Systolic blood pressure Diastolic blood pressure Provider Name and Address Organization Details Last Updated DateTime 3 80 /min 97.7 [degF] 741672. 976 g 97 % 97 % 145 mm[Hg] 81 mm[Hg] Not Available [employer] 3 12:45:38 Social History None recorded. Functional [...] [id number] Halima Orta MD Main - [facility] [address] [place] [phone] 12/15/2021 12:34:04 02/14/2022 11:31:08 Acute pelvic pain 822741395 R10.2 several days of R>L pelvic pain [...] [id number] James Platt MD Main - [facility] [address] [place] [phone] 09/03/2022 16:51:04 09/05/2022 09:22:46 Increased frequency of urination 800405245 R35.0 [id number] Du Mcneil MD Main - [facility] [address] [place] [phone] 10/12/2022 12:45:32 10/15/2022 09:47:49 Boils of multiple sites 430111773 L02.92 57yo woman with history of multiple skin soft tissue infections presents with a focal skin infection of the stomach similar to prior episosdes. Previously this has responded to doxy. The lesion is draining on whale trainer exam and my review of images.- Doxycyclin e [id number] Macey Corrales MD Main - [facility] [address] [place] [phone] 12/22/2022 20:58:54 12/24/2022 12:19:53 Flank pain 495937051 R10.9 Evaluation in the field was performed by my whale trainer colleague, as noted above, I provided real-time [...] shortness of breath, cough, chest pain, fever. [id number] Tristin Segura MD Main - [facility] [address] [place] [phone] 11/13/2023 11:59:04 11/13/2023 15:12:52 Gastroparesis syndrome 365749286 K31.84 This 58-year-ol d female was recently diagnosed with gastropare sis but the medication ordered hasn't been effective. I suggested that she contact her PCP to make arrangemen ts for a GI referral. The patient agreed with this plan. [id number] Anthony Santiago MD Main - [facility] [address] [place] [phone] 01/19/2024 17:08:29 01/19/2024 22:27:44 Migraine 00955134 G43.909 no alarm features or neurologic change. [...] Mondragon Member ID Guarantor Name 09/03/[address] [facility] - DOS PRIOR TO 2022 - DUAL ELIGIBLE (MEDICARE REPLACEMENT/AD VANTAGE - HMO) Alma Diego [id number] Alma Diego 10/12/[address] [facility] - DOS PRIOR TO 2022 - DUAL ELIGIBLE (MEDICARE REPLACEMENT/AD VANTAGE - HMO) Alma Diego [id number] Alma Diego 12/22/[address] [facility] - DOS ON OR AFTER 2022 - DUAL ELIGIBLE - SENIOR LIVING OPTIONS AND ONE CARE (MEDICARE REPLACEMENT/AD VANTAGE - HMO) Amla Johnathon [id number] Alma Painter Johnathon 11/13/[address] [facility] - DOS ON OR AFTER 2022 - DUAL ELIGIBLE - SENIOR LIVING OPTIONS AND ONE CARE (MEDICARE REPLACEMENT/AD VANTAGE - HMO) Alma Johnathon [id number] Alma Painter Johnathon 01/19/[address] [facility] - DOS ON OR AFTER 2022 - DUAL ELIGIBLE - SENIOR LIVING OPTIONS AND ONE CARE (MEDICARE REPLACEMENT/AD VANTAGE - HMO) Alma Johnathon [id number] Alma Painter Johnathon Notes Date Note Type Note Provider Name and Address Organization Details Recorded Time 09/03/2022 text/html This was a super vised home visit with whale trainer Jet Grier. HPI: I? v e been [...] ..................... ..................... ..................... ..................... ..................... ..................... ............... Courtesy Clerk Note From Jet Grier: Pt presents A@Ox4 pink warm and [...] unremarkable in all areas . Non febrile. C contacted and pt advised to follow up with her PCP which she has APPT september 19 2022. Pt educated on signs that would indicate the ED ..................... ..................... ..................... ..................... ..................... ..................... ............... Disposition: Fulfilled James Platt MD [address] [facility],[address], [place], [phone], [employer] 09/03/2022 17:18:02 10/12/2022 text/html HPI: ALLERGIC TO : AMPICILLIN HX: Chronic Hep C, Hidradenitis. DM, HTN Patient with reported boil on stomach. Now large painful and intact. No fever. ..................... ..................... ..................... ..................... ..................... ..................... ............... CRC Nursing Assessment: Comments: CRC RN DID NOT NEED FURTHER INFO Du Mcneil MD [address] [place] [address],[address], [place], [phone], [employer] 10/12/2022 12:49:54 12/22/2022 text/html HPI: I? m [...] ..................... ..................... ..................... ..................... ..................... ..................... ............... Courtesy Clerk Note From Jorgito Schwartz: PER CCA: Member [...] if symptoms persist. Patient/son agrees and understands. MI Clear. ..................... ..................... ..................... ..................... ..................... ..................... ............... Disposition: Fulfilled Macey Corrales MD [address] [facility],[address], [place], [address], [employer] 12/22/2022 21:50:36 11/13/2023 text/html HPI: I? v [...] not tested at PCP appt last week. Trisitn Segura MD [address] [facility],[address], [place], [address], [employer] 11/13/2023 12:02:46 01/19/2024 text/html CRC Nurse Triage Notes (Delfin Villagran): Reason For Request: neck pain/headaches Chief Complaints: Headache, Pain PMH: Diabetes, Hypertension Allergies: Unknown Comments: Glass Products Inspector verified the member's name//address and phone number. [...] ..................... ..................... ..................... ..................... ..................... ..................... ............... Courtesy Clerk Note From Aguila Baez: Pt reports hx [...] ..................... ............... Disposition: Fulfilled Anthony Santiago MD [address] [place] [address],[address], [place], [phone], [employer] 01/19/2024 19:28:08 OBGyn Episode No OBEpisode recorded.
--- OUTSIDE RECORDS SUMMARY | 2024-09-29 09:09 | XMS_ITS | Clinical Summary ---
Author Organization Patient Business [facility] Address [address] [place] [address] Care Team Providers Care Housekeeper Supervisor Name Role Phone Eliel Stoddard MD Primary Care Provider [phone] Surgical History Surgery Date Site/Laterality Comments OTHER SURGICAL HISTORY PROCEDURE: AR DILATION & CURETTAGE DX&/THER NONOBSTETRIC SECTION PROCEDURE: [...] herpes zoster H/O acute pancreatitis DX:H/O ac qagan tayagungin pancreatitis Hypercholesterolemia DX:Hypercho lesterolemia Leukocytosis DX:Leukocytosis Spinal stenosis DX:Spinal stenos is Spinal stenosis in cervical region DX:Spinal stenosis in cervical region Type 2 diabetes mellitus wit hout complications (CMS/HCC V24, CMS/HCC V28) DX:Type 2 hudson betes mellitus without complications (HCC) Family History Medical [...] Vaccine (2023-2 5 season) 2024 Influenza Vaccine (Season Ended) 2025 HIB Vaccines Aged Out No longer eligi [...] age to complete this topic Meningococcal B Vaccine Aged Out No l onger eligible based on patient's age to complete [...] Documents on File Type Date Recorded Patient Biomedical Equipment Support Specialist Expl anation Health Care Decision (hx) 10/21/2018 [...] (hx) 10/21/2018 AD LUI DIRECTIVE Care Teams Housekeeper Supervisor Relationship Specialty Start Date End Date Eliel Stoddard MD [address] [place] [address] PCP - General 01/04/13
--- OUTSIDE RECORDS SUMMARY | 2024-09-29 09:09 | XMS_ITS | Encounter Summary ---
Author Organization [employer] Address [address] [place] [address] Street [address] [place] [address] Care Team Providers Care Dairy Helper Name Role Phone Eliel Stoddard MD Primary Care Provider [phone] Encounter Details Date Type Department Care Team (Late st Contact Info) Description 04/17/2023 Abstract [facility] MED[facility] [address] [place], [place] [phone] Karla Slaughter Social History Tobacco Use Types [...] 11/23/2024 9:00 AM EDT Office Visit [facility] [address] [place] [address] Eliel Stoddard MD [address] [place] [address] documented as of this encounter Procedures Procedure Name Priority Date/Time Associated Diagnosis Comments COLONOSCOPY Routine 02/05/2018 documented in this encounter Results * Hm Colonoscopy (02/05/2018) Colonoscopy Normal Normal Narrative Karla Slaughter - 02/05/2018 Recommended 10 year follow up us Historical Provider HEALTH MAINTENANCE Final Result documented in this encounter Visit Diagnoses Not on filedocumented in this encounter Care Teams Dairy Helper Relationship Specialty Start Date End Date Eliel Stoddard MD [address] [place] [address] PCP - General Internal Medicine 06/17/18 documented as of this encounter
--- OUTSIDE RECORDS SUMMARY | 2024-09-29 09:09 | XMS_ITS | Clinical Summary ---
Author Organization [email or web address] Address [address] [place] [address] 7[address] [place] [address] Care Team Providers Care Sap Basis Architect Name Role Phone Eliel Stoddard MD Primary Care Provider [phone] Allergies Active Allergy Reactions Criticality Noted Date [...] hyperglycemia, without long-term current use of insulin ([facility]) 1 tab if FS< 70 mg/dl 50 [...] 2 diabetes mellitus without complication, unspecified whether assisted insulin use ([facility]) USE ONE STRIP TO CHECK BLOOD SUGAR [...] daily. 90 capsule 2 12/30/19 24 Active albuterol 108 (90 Base) [...] coma, without long-term current use of insulin ([facility]) TAKE 1 TABLET BY MOUTH EVERY DAY [...] 2 diabetes mellitus without complication, unspecified whether assisted insulin use ([facility]) USE ONE STRIP TO CHECK BLOOD SUGAR TWICE DAILY 100 strip 11 08/07/19 25 Active gabapentin (Neurontin) 100 MG capsuleIndicatio ns:Diabetic peripheral neuropathy associated with type 2 diabetes mellitus ([facility]) Take 2 capsules (200 mg) by mouth every 8 (eight) hours. 180 capsule 11 08/21/19 25 026 Active Blood Glucose Monitoring Suppl ([employer] [place] Lite) w/Device kitIndications:T ype 2 diabetes mellitus with hypoglycemia without coma, without long-term current use of insulin ([facility]) Use to test blood sugar 1 times daily 1 kit 08/21/19 25 Active Acetaminophen Extra Strength 500 MG tablet TAKE 1 TABLET BY MOUTH EVERY 6 HOURS NEEDED FOR MILD PAIN 120 tablet 09/01/19 25 Active metFORMIN XR (Glucophage-XR) 500 MG 24 hr tabletIndication s:Type 2 diabetes mellitus with hypoglycemia without coma, without long-term current use of insulin ([facility]) TAKE 2 TABLETS BY MOUTH TWICE DAILY WITH MEALS 360 tablet 1 09/02/19 25 Active lisinopril 10 MG tabletIndication s:Primary hypertension TAKE 1 TABLET BY MOUTH EVERY DAY 90 tablet 1 09/17/19 25 Active lisinopril 10 MG tabletIndication s:Primary hypertension TAKE 1 TABLET BY MOUTH EVERY DAY 90 tablet 1 12/30/19 24 025 Discontinued acetaminophen (Tylenol Extra Strength) 500 MG tablet Take 1 tablet (500 mg) by mouth every 6 (six) hours if needed for mild pain. 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, may need further evaluation [...] Encounters Date Type Department Care Team Description 09/16/2024 Refill [facility] [address] [place] [address] Eliel Stoddard MD Primary hypertension 09/02/2024 Orders Only GENERIC EXTERNAL DATA DEPARTMENT Provider, Generic External Data 09/01/2024 Refill [facility] [address] [place] [address] Lizbet Mares MD Type 2 diabetes mellitus with hypoglycemia without coma, without long-term current use of insulin ([facility]/HCC) 08/31/2024 Refill [facility] [address] [place] [address] Kristin Nunez MD 08/20/2024 10:45 AM EST Office Visit [facility] [address] [place], [place] [phone] Eliel Stoddard MD Primary hypertension (Primary Dx); Type 2 diabetes mellitus with hypoglycemia without coma, without long-term current use of insulin (CMS/HCC); Hot flashes due to menopause; Diabetic peripheral neuropathy associated with type 2 diabetes mellitus (CMS/HCC); Livedo reticularis; Dietary counseling; Exercise counseling; Overweight 08/20/2024 Travel 08/14/2024 Travel 08/13/2024 Patient Outreach [facility] [address] [place] [address] Eliel Stoddard MD Pre-visit Planning (SDOH negative, Tobacco screening negative. ) 08/07/2024 Refill [facility] [address] [place] [address] Eliel Stoddard MD Type 2 diabetes mellitus without complication, unspecified whether meterman insulin use ([facility]) 07/28/2024 Refill [facility] [address] [place] [address] Eliel Stoddard MD Type 2 diabetes mellitus with hypoglycemia without coma, without long-term current use of insulin ([facility]) from Last 3 Months Immunizations Name Administration [...] Description 11/23/2024 9:00 AM EDT Office Visit [facility] [address] [place] [address] Eliel Stoddard MD [address] [place] [address] Health Maintenance Due Date Last Done Comments [...] 03/23/2021 Mammogram 12/15/2024 12/16/2023, 12/25/2017 Depression Monitoring 02/20/2025 08/20/2024, 025 Diabetes: Hemoglobin A1C 02/20/2025 025, 02/04/2024, 10/31/2023, [...] Procedure Name Priority Date/Time Associated Diagnosis Comments TISSUE TRANSGLUTAMINASE AB, IGA Routine 09/02/2024 1:09 PM EDT IMMUNOGLOBULIN A Routine 09/02/2024 1:09 PM EDT TSH W/REFLEX TO FT4 Routine 09/02/2024 1 :09 PM EDT HEPATIC FUNCTION PANEL Routine 1:09 PM EDT HELICOBACTER PYLORI, UREA BREATH TEST Routine 09/02/2024 12:47 PM EDT POCT GLYCATED HEMOGLOBIN, TOTAL Routine 08/20/2024 11:23 AM EST Type 2 diabetes mellitus with hypoglycemia without coma, without long-term current use of insulin (CMS/HCC) POCT GLUCOSE Routine 08/20/2024 11:23 AM EST Type 2 diabetes mellitus with hypoglycemia without coma, without long-term current use of insulin (CMS/HCC) BI MAMMOGRAM SCREENING TOMOSYNTHESIS BILATERAL Routine 12/16/2023 [...] Recently Relevant to Health Maintenance Results * TSH with Reflex to Free T4 (09/02/2024 1:09 PM EDT) TSH reflex Free T4 1.07 0.32 - 4.0 uIU/mL [facility] 09/02/2024 1:09 PM EDT 09/02/2024 1:09 PM EDT us Generic External Data Provider LAB BLOOD ORDERAB LES Final Result [facility] [address] [place] [phone] * Tissue Transglutaminase Antibody, IgA (09/02/2024 1:09 PM EDT) Transglutaminase IgA <1.0 U/mL [facility] Comment:Value Interpretation ----- <15.0 Antibody not detected> or = 15.0 Antibody detectedTHIS TEST WAS PERFORMED AT:[employer] [place] [id number] ABRAHAM MD 09/02/2024 1:09 PM EDT 09/02/2024 1:09 PM EDT Generic External Data Provider LAB BLOOD ORDERAB LES Final Result Performing Organization Address [facility] Co de Phone Number [facility] [address] [place] [phone] * Immunoglobulin A (09/02/2024 1:09 PM EDT) [facility] Immunoglobulin A 265 47 - 310 mg/dL [facility] Comment:THIS TEST WAS PERFOR MED AT:[employer] [place] [phone] ABRAHAM MD 09/02/2024 1:09 PM EDT 09/02/2024 1:09 PM EDT [employer] External Data Provider LAB BLOOD ORDERAB LES Final Result Performing Organization Address [facility] Co de Phone Number [facility] [address] [place] [phone] * (ABNORMAL) Hepatic Function Panel (09/02/2024 1:09 PM EDT) Pathologist [facility] Bilirubin, Total 0.2 0.0 - 1.0 mg/dL [facility] Bilirubin, Direct <0.2 0.0 - 0.5 mg/dL [facility] Aspartate Amino Transferase 17 5 - 31 U/L [facility] Alanine Aminotransferase 27 0 - 31 U/L [facility] Total Protein 8.3(H) 6.5 - 8.0 g/dL [facility] Albumin Level 4.3 3.5 - 5.0 g/dL [facility] Alkaline Phosphatase 75 39 - 117 U/L [facility] 09/02/2024 1:09 PM EDT 09/02/2024 1:09 PM EDT us Generic External Data Provider LAB BLOOD ORDERAB LES Final Result Performing Organization Address [facility]/ZIP Co de Phone Number [facility] [address] [place] [phone] * Helicobacter pylori, Urea Breath Test (09/02/2024 12:47 PM EDT) H. pylori Breath Test Negative Negative [facility] Comment:Antimicrobials, prot on pump inhibitors and bismuthpreparations are known to suppress H. pylori. Ingestingthese medications within two weeks prior to performing thebreath test may produce negative test results. A positiveresult is still clinically valid. 09/02/2024 12:4 7 PM EDT 09/02/2024 2:57 PM EDT us [employer] External Data Provider LAB BLOOD ORDERAB LES Final Result Performing Organization Address [facility] Co de Phone Number [facility] [address] [place] [phone] * (ABNORMAL) POCT HGB A1C (08/20/2024 11:23 AM EST) Hemoglobin A1C 6.3(A) 4.0 - 6.0 % QC Media Lot # [id number] Lot# Expiration Date [id number] Blood 08/20/2024 11:2 3 AM EST Eliel Stoddard MD POINT OF CARE TEST ENTER/ED IT ORDERABLES Final Result * (ABNORMAL) POCT Glucose (08/20/2024 11:23 AM EST) Glucose Blood, POC 208(A) 60 - 200 mg/dL [employer] Lot # [id number] Lot# Expiration Date [id number] Comment:RANDOM Blood Capillary blood specimen / Unknown 08/20/2024 11:23 AM EST us Eliel Stoddard MD POINT OF CARE TEST ENTER/ED IT ORDERABLES Final Result * BI Mammogram Screening Tomosynthesis Bilateral (12/16/2023 9:17 AM EDT) Anatomical Region Laterality Modality Breast Bilateral Mammography 12/16/2023 9:17 AM EDT Narrative 01/15/2024 5:58 AM EDT ? [facility] [place] ? [address] ?[place], [place] [address] ? Mammography Report ? Signed ? Patient: Alma Corley ?MR#: ?? [id number] ? : 1965 ?Acct:[id number] ? Age/Sex: 58 / F ?ADM Date: 12/16/23 ? Loc: HO.MAMMO ? Attending Dr: Mahsa Valenzuela MD ? Ordering Physician: Mahsa Huffman MD ?Results: ?? 1Negative ? Date of Service: 12/16/23 ?Follow Up: 1 Year From Orig ?? inal Mammogram ? Procedure(s): MM tomosynthesis screening BI ?? Accession Number(s): [id number] ? cc: Mahsa Huffman MD ? EXAMINATION: [...] in OV> ? 01/15/24 0555 ? DD/ ? TD/TT: ? Hospitality Ambassador: ? Procedure Note Chani, Jesus - 01/15/2024 [facility] [address] [place] [address] [place] [address] Mammography Report Signed Patient: Vikas Corley#: [id number] : 1965Acct:[id number] Age/Sex: 58 / FADM Date: 12/16/23 Loc: HO.MAMMO Attending Dr: Mahsa Valenzuela MD Ordering Physician: Mahsa Huffmanesults: 1Negative Date of Service: 12/16/23Follow Up: 1 Year From Orig inal Mammogram Procedure(s): MM tomosynthesis screening BI Accession Number(s): [id number] cc: Mahsa Huffman MD EXAMINATION: MM SCREENING [...] Fuente MD in OV> 01/15/24 0555 DD/ 09 TD/TT: Hospitality Ambassador: Mahsa Valenzuela MD IMG BI PROCEDURES Fin al Result * (ABNORMAL) Lipid Panel, Standard (12/02/2023 11:30 AM EDT) Triglycerides 154(H) <150 mg/dL [facility] Comment:Desirable Triglyceri de: less than 150 mg/dLBorderline High Triglyceride 150-199 mg/dLHigh Triglyceride: 200-499 mg/dLVery High Triglyceride: greater than or equal to 5OO mg/dL Cholesterol 124 <200 mg/dL [facility] Comment:Desirable Cholestero l: less than 200 mg/dLBorderline High Cholesterol: 200-239 mg/dLHigh Cholesterol: greater than 239 mg/dL LDL Cholesterol Calculated 61 <100 mg/dL [facility] Comment:Desirable LDL: less than 100 mg/dLNear Optimal/Above Optimal LDL: 110- 129 mg/dLBorderline High LDL: 130-159 mg/dLHigh LDL: 160-189 mg/dLVery High LDL: greater than or equal to 190 mg/dL HDL Cholesterol 33(L) >40 mg/dL [facility] Comment:Desirable HDL: great er than 40 mg/dL Note: This HDL assay may give artificially low results in patients with liver disease. Blood Venous blood specimen / Unknown 12/02/2023 11:30 AM EDT 12/02/2023 1:26 PM EDT us Mahsa Valenzuela MD LAB BLOOD ORDERABLES Final Result Performing Organization Address [facility]/ZIP Co de Phone Number [facility] [address] [place] [phone] * Albumin, Random Urine W/Creatinine (08/02/2022 8:41 AM EST) Creatinine, Random Urine 121 20 - 275 mg/dL [facility] Albumin, Urine 0.8 See Note: mg/dL [facility] Comment: Reference Range: Reference Range Not established Albumin/Creatinin e Ratio, Random Urine 7 <30 mcg/mg creat [facility] Comment: The ADA defines abnormalities in albumin [...] ORDERABLES Final Re sult Performing Organization Address [facility]/ZIP Co de Phone Number [facility] [address] [facility] [place] [address] [employer] [address] [facility], ([address]) [place] [address] * HIV 1/2 ANTIGEN/ANTIBODY,FOURTH GENERATION W/RFL (12/21/2021 12:00 AM EDT) HIV-1/2 ANTIGEN AND ANTIBODIES, 4TH GENERATION W/ REFLEX NON-REACT ESAU NON-REACT ESAU [facility] Comment: HIV-1 antigen and HIV-1/HIV-2 [...] ? For additional information please refer to http://Citycelebrity.[employer]/faq/QJB824 (This link is being provided for informational/ educational purposes only.) ? The performance of this assay has not been clinically validated in patients less than 2 years old. ?? 12/21/2021 Eliel Stoddard MD LAB BLOOD ORDERABLES Final Result [facility] [address] * THINPREP TIS PAP AND HPV mRNA E6/E7, CT/NG, TRICH (09/12/2021 8:57 AM EDT) Pathologist [facility] Chlamydia trachomatis RNA, TMA, Urogenital NOT DETECTED NOT DETECTED [facility] Clinical Information: None given [facility] COMMENT SEE COMMENT [facility] Comment: The analytical performance characteristics of this assay, when used to test SurePath(TM) specimens have been determined by [employer]. The modifications have not been cleared or approved by the FDA. This assay has been validated pursuant to the CLIA regulations and is used for clinical purposes. ?? For additional information, please refer to https://Citycelebrity.[employer]/faq/JKV901 (This link is being provided for information/ [...] has been evaluated with computer assisted technology. [email or web address] Drier Take Off Tender: SEE COMMENT [facility] Comment: CMG, CT(ASCP) CT screening location: [address] ??[address] HPV nRNA E6/E7 Not Detected Not Detected [email or web address] Comment: Methodology: Hospital Intern-Mediated Amplification This assay detects E6/E7 viral messenger RNA (mRNA) from 14 high-risk HPV types (16,18,31,33,35,39,45,51,52,56,58,59,66,68). ? The analytical performance characteristics of this assay have been determined by [employer]. The modifications have not been cleared or approved by the FDA. This assay has been validated pursuant to the CLIA regulations and is used for clinical purposes. ?? For additional information, please refer to http://education.[employer]/faq/DFX409s8 (This link if provided for information/ educational purposes only.) Interpretation/Re sult: Negative for intraepithelial lesion or malignancy. [email or web address] LMP: NONE GIVEN [facility]OUND[facility] N [...] TMA, PAP Vial NOT DETECTED NOT DETECTED [email or web address] Comment: The analytical performance characteristics of this assay have been determined by [employer]. The modifications have not been cleared or approved by the FDA. This assay has been validated pursuant to the CLIA regulations and is used for clinical purposes. ?? For additional information, please refer to http://education.Promobucket.[employer]ix/ faq/Trichomonastma (This link is being provided for information/ educational purposes only.) ?? 09/12/2021 8:57 AM EDT Nini Perry CNM LAB PATHOLOGY ORDERABLES Final Result [facility] Count includes the [facility] [address] * Colonoscopy (02/05/2018) Colonoscopy Normal Normal Narrative Karla Slaughter - 02/05/2018 Recommended 10 year follow up Historical Provider MD HEALTH MAINTENANCE Final Result from Last 3 Months or Most Recently Relevant to Health Maintenance Insurance [facility] Care Teams Sap Basis Architect Relationship Specialty Start Date End Date Eliel Stoddard MD [address] [place] [address] [place] [address] PCP - General Internal Medicine 06/17/18
== END 2024-09-29 08:47 | disposition home or self-care (01) ==
LOC: HO.HMGCX 08:46
PROVIDERS: PCP Internal Medicine; Visit Provider Internal Medicine
DX: R10.11 Right upper quadrant pain (principal); G89.29 Other chronic pain
CPT/HCPCS: 76700

== ENCOUNTER → 2024-09-29 08:51 | Outpatient (BNV) | payer OTHER, SELFPAY | PROVIDERS: PCP Internal Medicine; Visit Provider Radiology Diagnostic Radiology | DX: R10.11 Right upper quadrant pain (principal) | CPT/HCPCS: 76700 ==

== ENCOUNTER 2024-10-22 13:11 | Outpatient (REF) | payer OTHER, SELFPAY ==
--- OUTSIDE RECORDS SUMMARY | 2024-10-22 14:16 | XMS_ITS | Encounter Summary ---
Author Organization [employer] Address [address] [place] [address] [address] [place] [address] Care Team Providers Care Truck Crane Operator Name Role Phone Eliel Stoddard MD Primary Care Provider [phone] Encounter Details Date Type Department Care Team (Latest Contact Info) Description 10/22/2024 Travel Social History Tobacco Use Types Packs/Day [...] Description 11/23/2024 9:00 AM EDT Office Visit [facility] [address] [place] [address] Eliel Stoddard MD [address] [place] [address] 11/27/2024 9:45 AM EDT Office Visit [facility] [address] [place] [address] Tarka, Ernestina, OD [address] [place] [address] documented as of this encounter Visit Diagnoses Not on filedocumented in this encounter Additional Health Concerns Assessment Noted Time PHQ-9 Depression Total Score: 18 025 10:41 AM EST documented as of this encounter Care Teams Truck Crane Operator Relationship Specialty Start Date End Date Eliel Stoddard MD [address] [place] [address] PCP - General Internal Medicine 06/17/18 documented as of this encounter
--- OUTSIDE RECORDS SUMMARY | 2024-10-22 14:16 | XMS_ITS | Clinical Summary ---
Author Organization Patient Business [facility] Address [address] [place] [address] Care Team Providers Care Product Support Analyst Name Role Phone Eliel Stoddard MD Primary Care Provider [phone] Surgical History Surgery Date Site/Laterality Comments OTHER SURGICAL HISTORY PROCEDURE: CT DILATION & CURETTAGE DX&/THER NONOBSTETRIC SECTION PROCEDURE: [...] herpes zoster H/O acute pancreatitis DX:H/O ac [place] pancreatitis Hypercholesterolemia DX:Hypercho lesterolemia Leukocytosis DX:Leukocytosis Spinal [...] Documents on File Type Date Recorded Patient Mortar Mixer Operator Expl anation Health Care Decision (hx) 10/21/2018 [...] (hx) 10/21/2018 AD LUI DIRECTIVE Care Teams Product Support Analyst Relationship Specialty Start Date End Date Eliel Stoddard MD [address] [place] [address] PCP - General 01/04/13
--- OUTSIDE RECORDS SUMMARY | 2024-10-22 14:16 | XMS_ITS | Encounter Summary ---
Author Organization [employer] Address [address] [place] [address] [address] [place] [address] Care Team Providers Care Bingo Clerk Name Role Phone Eliel Stoddard MD Primary Care Provider [phone] Encounter Details Date Type Department Care Team (Late st Contact Info) Description 11/08/2023 Orders Only [facility] [address] [place] [address] ProviderJahaira MD Social History Tobacco Use Types [...] Description 11/23/2024 9:00 AM EDT Office Visit [facility] MED & PEDS [address] [place] [address] Eliel Stoddard MD [address] [place] [address] 11/27/2024 9:45 AM EDT Office Visit [facility] OPTOMETRY [address] [place] [address] Tarka, Ernestina, OD [address] [place] [address] documented as of this encounter Procedures Procedure Name Priority Date/Time Associated Diagnosis Comments MR SHOULDER WO CONTRAST RIGHT Routine 11/08/2023 2:16 PM EDT documented in this encounter Results * MR Shoulder w/o Contrast Right (11/08/2023 2:16 PM EDT) Anatomical Region Laterality Modality Upper Extremities, Shoulder Right Magn etic Resonance us Historical Provider MD ROD MRI PROCEDURES Final Result documented in this encounter Visit Diagnoses Not on filedocumented in this encounter Care Teams Bingo Clerk Relationship Specialty Start Date End Date Eliel Stoddard MD [address] [place] [address] PCP - General Internal Medicine 06/17/18 documented as of this encounter
--- OUTSIDE RECORDS SUMMARY | 2024-10-22 14:16 | XMS_ITS | Encounter Summary ---
Author Organization [employer] Address [address] [place] [address] [address] [place] [address] Care Team Providers Care Safe Deposit Attendant Name Role Phone Eliel Stoddard MD Primary Care Provider [phone] Reason for Visit * Reason Onset Date Comments Med Refill 10/19/2022 Encounter Details Date Type Department Care Team ([facility] st Contact Info) Description 10/19/2022 Refill [facility] CHC MED & PEDS [address] [place] [address] Eliel Stoddard MD [address] [place] [address] Social History Tobacco Use Types Packs/Day Years [...] Description 11/23/2024 9:00 AM EDT Office Visit [facility] CHC MED & PEDS [address] [place], [place] [phone] Eliel Stoddard MD [address] [place], [place] [phone] 11/27/2024 9:45 AM EDT Office Visit [facility] OPTOMETRY [address] [place], [place] [phone] TarErnestina roche, OD [address] [place] [address] documented as of this encounter Visit Diagnoses Not on filedocumented in this encounter Care Teams Safe Deposit Attendant Relationship Specialty Start Date End Date Eliel Stoddard MD [address] [place], [place] [phone] PCP - General Internal Medicine 06/17/18 documented as of this encounter
--- OUTSIDE RECORDS SUMMARY | 2024-10-22 14:16 | XMS_ITS | Clinical Summary ---
Author Organization [employer] Address [address] [place] [address] [address] [place] [address] Care Team Providers Care Publication Designer Name Role Phone Eliel Stoddard MD Primary Care Provider [phone] Allergies Active Allergy Reactions Criticality Noted Date Comments Ampicillin Rash Low 06/21/2022 Allergy Medications amLODIPine (Norvasc) 5 MG tablet Take 5 mg by mouth in the morning. 2 Active LORazepam (Ativan) 1 MG tablet TAKE 1 TABLET BY MOUTH EVERY DAY NEEDED FOR PANIC ATTACKS 2 Active polyethylene glycol, PEG, 3350 (Miralax) 17 g packet 2 Active glucose-vitamin C 4-6 GM-MG oral gelIndications:Ty pe 2 diabetes mellitus with hyperglycemia, without long-term current use of insulin ([facility]) 1 tab if FS< 70 mg/dl 50 tablet 2 3 Active betamethasone dipropionate (Diprolene) 0.05 % ointment APPLY TO THE AFFECTED AREA ON THE GROIN AND BREAST TWICE A DAY NEEDED . DO NOT USE FOR MORE THAN TWO WEEKS AT A TIME. Active betamethasone valerate (Valisone) 0.1 % ointmentIndicatio ns:Venous stasis dermatitis of right lower extremity Apply topically if needed in the morning and at bedtime (dryness). 45 g 2 3 Active ibuprofen 600 MG tablet TAKE 1 TABLET BY MOUTH THREE TIMES DAILY WITH FOOD 30 tablet 3 Active metoclopramide (Reglan) 5 MG tablet Take 1 tablet (5 mg) by mouth 4 times daily for 10 days. 40 tablet 3 Active glucose blood (OneTouch Ultra) test stripIndications: Type 2 diabetes mellitus without complication, unspecified whether fpc insulin use ([facility]) USE ONE STRIP TO CHECK BLOOD SUGAR TWICE DAILY 100 strip 11 4 Active venlafaxine (Effexor) 37.5 MG tabletIndications :Menopausal symptoms Take 1 tablet (37.5 mg) by mouth 2 times daily. 60 tablet 2 4 Active LORazepam (Ativan) 1 MG tabletIndications :Claustrophobia 1 mg to take 30 minutes prior to the procedure. Make an additional 1 mg 30 minutes later if no effect. 30 tablet 4 Active pantoprazole (Protonix) 20 MG EC tabletIndications :Dyspepsia Take 1 tablet (20 mg) by mouth before breakfast. Do not crush, chew, or split. 30 tablet 11 4 11/14/19 25 Active cholecalciferol (Vitamin D-3) 25 MCG (1000 UT) tabletIndications :Encounter for screening mammogram for malignant neoplasm of breast Take 1 tablet (25 mcg) by mouth Once per day. 60 tablet 1 4 Active aspirin 81 MG chewable tabletIndications :Encounter for screening mammogram for malignant neoplasm of breast Chew 1 tablet (81 mg) Once per day. 30 tablet 11 4 12/02/19 25 Active nicotine (Nicoderm CQ) 14 MG/24HR patchIndications: Tobacco dependence syndrome Place 1 patch on the skin 1 (one) time each day at the same time. 30 patch 4 Active gabapentin (Neurontin) 400 MG capsuleIndication s:History of night sweats,Tingling in extremities Take 1 capsule (400 mg) by mouth 3 times daily. 90 capsule 2 4 Active albuterol 108 (90 Base) MCG/ACT inhalerIndication s:Acute cough INHALE 2 PUFFS BY MOUTH EVERY 4 HOURS NEEDED FOR WHEEZING 8.5 g 3 4 Active Banophen 25 MG tabletIndications :Primary insomnia TAKE 2 TABLETS BY MOUTH AT BEDTIME NEEDED FOR ITCHING OR SLEEP. TAKE 2 TABLETS AT BEDTIME FOR INSOMNIA 60 tablet 4 Active estradiol (Estrace) 0.1 MG/GM vaginal creamIndications: Menopause APPLY ONCE DAILY FOR 2 WEEKS THEN TWICE DAILY AT BEDTIME 42.5 g 3 4 Active simvastatin (Zocor) 20 MG tabletIndications :Type 2 diabetes mellitus with hypoglycemia without coma, without long-term current use of insulin ([facility]) TAKE 1 TABLET BY MOUTH EVERY DAY 90 tablet 1 4 Active simethicone (Mylicon) 80 MG chewable tabletIndications :Bloating symptom CHEW 1 TABLET EVERY 6 HOURS NEEDED FOR FLATULENCE 90 tablet 4 Active B Complex Vitamins (Vitamin B Complex) capsuleIndication s:Encounter for screening mammogram for malignant neoplasm of breast,Tingling in extremities TAKE 1 CAPSULE BY MOUTH EVERY MORNING 90 each 3 4 Active cyclobenzaprine (Flexeril) 10 MG tablet Take 1 tablet (10 mg) by mouth 3 times daily for 10 days. 30 tablet 5 Active Diclofenac Sodium (Voltaren) 1 % gel Use topical BID 100 g 3 5 Active OneTouch Ultra test stripIndications: Type 2 diabetes mellitus without complication, unspecified whether fpc insulin use ([facility]) USE ONE STRIP TO CHECK BLOOD SUGAR TWICE DAILY 100 strip 11 5 Active gabapentin (Neurontin) 100 MG capsuleIndication s:Diabetic peripheral neuropathy associated with type 2 diabetes mellitus ([facility]) Take 2 capsules (200 mg) by mouth every 8 (eight) hours. 180 capsule 11 5 08/21/19 26 Active Blood Glucose Monitoring Suppl (Novalact Colmar Lite) w/Device kitIndications:Ty pe 2 diabetes mellitus with hypoglycemia without coma, without long-term current use of insulin ([facility]) Use to test blood sugar 1 times daily 1 kit 5 Active Acetaminophen Extra Strength 500 MG tablet TAKE 1 TABLET BY MOUTH EVERY 6 HOURS NEEDED FOR MILD PAIN 120 tablet 5 Active metFORMIN XR (Glucophage-XR) 500 MG 24 hr tabletIndications :Type 2 diabetes mellitus with hypoglycemia without coma, without long-term current use of insulin ([facility]) TAKE 2 TABLETS BY MOUTH TWICE DAILY WITH MEALS 360 tablet 1 5 Active lisinopril 10 MG tabletIndications :Primary hypertension TAKE 1 TABLET BY MOUTH EVERY DAY 90 tablet 1 5 Active sulfamethoxazole- trimethoprim (Bactrim DS) 800-160 MG tablet Take 1 tablet by mouth 2 times daily for 3 days. 6 tablet 5 10/26/19 25 Active fluconazole (Diflucan) 150 MG tablet Take 1 tablet (150 mg) by mouth Once per day for 1 day. 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, may need further evaluation [...] Encounters Date Type Department Care Team Description 10/22/2024 8:40 AM EDT Office Visit [facility] [address] [place] [phone] Cleo Mandel DO Acute UTI (Primary Dx); Vaginal itching 10/22/2024 Travel 09/16/2024 Refill [facility] [address] [place] [address] Eliel Stoddard MD Primary hypertension 09/02/2024 Orders Only GENERIC EXTERNAL DATA DEPARTMENT Provider, Generic External Data 09/01/2024 Refill [facility] [address] [place] [address] Lizbet Mares MD Type 2 diabetes mellitus with hypoglycemia without coma, without long-term current use of insulin ([facility]) 08/31/2024 Refill [facility] [address] [place] [phone] Kristin Nunez MD 08/20/2024 10:45 AM EST Office Visit [facility] [address] [place] [address] Eliel Stoddard MD Primary hypertension (Primary Dx); Type 2 diabetes mellitus with hypoglycemia without coma, without long-term current use of insulin (CMS/HCC); Hot flashes due to menopause; Diabetic peripheral neuropathy associated with type 2 diabetes mellitus (CMS/HCC); Livedo reticularis; Dietary counseling; Exercise counseling; Overweight 08/20/2024 Travel 08/14/2024 Travel 08/13/2024 Patient Outreach [facility] [address] [place] [address] Eliel Stoddard MD Pre-visit Planning (SDOH negative, Tobacco screening negative. ) 08/07/2024 Refill [facility] [address] [place] [address] Eliel Stoddard MD Type 2 diabetes mellitus without complication, unspecified whether fpc insulin use ([facility]) 07/28/2024 Refill [facility] [address] [place] [address] Eliel Stoddard MD Type 2 diabetes mellitus with hypoglycemia without coma, without long-term current use of insulin ([facility]) from Last 3 Months Immunizations Name Administration [...] Sign Reading Time Taken Comments Blood Pressure 130/72 10/22/2024 8:41 AM EDT Pulse 78 10/22/2024 8:41 AM EDT Temperature 36.7 ??C (98.1 ??F) 10/22/2024 8:41 AM ED T Respiratory Rate 18 10/22/2024 8:41 AM EDT Oxygen Saturation 98% 10/22/2024 8:41 AM EDT Inhaled Oxygen Concentration - - Weight 92.8 kg (204 lb 9.6 oz) 10/22/2024 8:41 A M EDT Height 177.8 cm (5' 10 ) 08/20/2024 10:34 AM EST Body Mass Index 29.36 08/20/2024 10:34 AM EST Plan of Treatment Upcoming Encounters Date Type Department Care Team (Late st Contact Info) Description 11/23/2024 9:00 AM EDT Office Visit [facility] [address] [place], [place] [phone] Eliel Stoddard MD [address] [place], [place] [phone] 11/27/2024 9:45 AM EDT Office Visit [facility] [address] [place] [address] Ernestina Qiu, OD [address] [place] [address] Health Maintenance Due Date Last Done Comments [...] 12/01/2024 12/02/2023, 03/23/2021 Mammogram 12/15/2024 12/16/2023, 12/25/2017 Diabetes: Hemoglobin A1C 02/20/2025 03 025, 02/04/2024, 10/31/2023, Additional history exists Alcohol/Substance Use Screening 08/20/2025 08/20/2024 Depression Screening 08/20/2025 08/20/2024, 08/21/19 25 SDOH Screening 08/20/2025 08/20/2024 Tobacco Screening 10/22/2025 10/22/2024 DTaP/Tdap/Td Vaccines (2 - Td or Tdap) [...] Name Priority Date/Time Associated Diagnosis Comments POCT URINALYSIS DIPSTICK Routine 025 8:47 AM EDT Acute UTI US ABDOMEN COMPLETE Routine 09/30/2024 9 :11 AM EDT TISSUE TRANSGLUTAMINASE AB, IGA Routine 09/02/2024 1:09 [...] to Health Maintenance Results * (ABNORMAL) POCT urinalysis dipstick manually resulted (10/22/2024 8:47 AM EDT) Color, UA Yellow Clarity, UA Clear Glucose, UA Negative Bilirubin, UA Negative Ketones, UA Negative Spec Grav, UA 1.015 Blood, UA Positive(A) Negative, None Detected Comment:Large pH, UA 5.5 Protein, UA Few 15 Comment:30 mg/dL Urobilinogen, UA 0.2 Leukocytes, UA Few 15(A) Negative, Rare, Trace Comment:small Nitrite, UA Negative Negative, None Detected Urine 10/22/2024 8:47 AM EDT us Cleo Mandel DO POINT OF CARE TEST ENTER/PERLA T ORDERABLES Final Result * US Abdomen Complete (09/30/2024 9:11 AM EDT) Anatomical Region Laterality Modality Abdomen Ultrasound 09/30/2024 9:11 AM EDT Narrative 09/30/2024 9:13 AM EDT ? [facility] ?[address] ? [place] [address] ? Ultrasound Report ? Signed ? Patient: Cynthia Rodrigueztzamiee Painter ?MR#: [id number] ?? [id number] ? : 1965 ?Acct:[id number] ? Age/Sex: 59 / F ?ADM Date: 09/29/24 ? Loc: HO.[facility]GCX ? Attending Dr: Debby Keenan MD ? Ordering Physician: Debby Keenan MD ?? Date of Service: 09/29/24 ?? Procedure(s): US abdomen complete ?? Accession Number(s): [id number] ? cc: Eliel Stoddard MD; Debby Keenan MD ? CLINICAL HISTORY: R10.11 - Right upper quadrant pain ? US abdomen complete ? Comparison: CT/REG/NJ/SR - CT ABDOMEN PELVIS WO IV CON - 02/06/23 08:43 EDT ? Findings: ?? The visualized pancreas is normal. ?? The aorta and inferior vena cava are normal caliber. ? The liver is enlarged with increased echogenicity measuring 21.4 cm in ?? length. ?? There is no intrahepatic bile duct dilatation. ?? The common duct is for mm in diameter. ?? The gallbladder is normal. There is no sonographic Phipps sign. ?? The main portal vein is antegrade. ? The right kidney is 11.9 cm in length. Irregular lower pole contour ?? similar to the prior CT. ?? The left kidney is 11.6 cm in length. ?? The spleen is normal measuring 9 cm in length. ?? No ascites. ? IMPRESSION: ?? 1. Enlarged liver with mild increased echogenicity which can be seen with ?? steatosis. ?? 2. Unremarkable gallbladder. ? This document has been electronically signed by: Maryam Ayoub MD on ?? 09/30/2024 09:11:58 ? Dictated By: ?Maryam Ayoub MD ? Signed By: ?<Electronically signed by Maryam Ayoub MD in OV> ?09/30/24911 ? DD/ 0911 ? TD/TT: 09/30/24 0911 ? Organic Preparation Technician: ? Procedure Note Donotmaliainterpreter, Image - 09/30/2024 [facility] [address] [place] [address] [place] [address] Ultrasound Report Signed Patient: Alma Rodriguez [facility]#: [id number] : 1965Acct:[id number] Age/Sex: 59 / FADM Date: 09/29/24 [facility] Dr: Debby Keenan MD Ordering Physician: Debby Keenan MD Date of Service: 09/29/24 Procedure(s): US abdomen complete Accession Number(s): [id number] cc: Eliel Stoddard MD; Debby Keenan MD CLINICAL HISTORY: R10.11 - Right upper quadrant pain US abdomen complete Comparison: CT/REG/[place]/SR - CT ABDOMEN PELVIS WO IV CON - 02/06/23 08:43 EDT Findings: The visualized pancreas is normal. The aorta and inferior vena cava are normal caliber. The liver is enlarged with increased echogenicity measuring 21.4 cm in length. There is no intrahepatic bile duct dilatation. The common duct is for mm in diameter. The gallbladder is normal. There is no sonographic Phipps sign. The main portal vein is antegrade. The right kidney is 11.9 cm in length. Irregular lower pole contour similar to the prior CT. The left kidney is 11.6 cm in length. The spleen is normal measuring 9 cm in length. No ascites. IMPRESSION: 1. Enlarged liver with mild increased echogenicity which can be seen with steatosis. 2. Unremarkable gallbladder. This document has been electronically signed by: Maryam Ayoub MD on 09/30/2024 09:11:58 Dictated By: Maryam Ayoub MD Signed By: <Electronically signed by Maryam Ayoub MD in OV> 09/30/24911 DD/ 0 TD/TT: 09/30/24910 Organic Preparation Technician: [facility] External Provider IMG US PROCEDURES Final Result * TSH with Reflex to Free T4 (09/02/2024 1:09 PM EDT) TSH reflex Free T4 1.07 0.32 - 4.0 uIU/mL [facility] 09/02/2024 1:09 PM EDT 09/02/2024 1:09 PM EDT Generic External Data Provider LAB BLOOD ORDERAB LES Final Result Performing Organization Address [facility] de Phone Number [facility] [address] [place] [address] [phone] * Tissue Transglutaminase Antibody, IgA (09/02/2024 1:09 PM EDT) Pathologist [facility] Transglutaminase IgA <1.0 U/mL [facility] Comment:Value Interpretation ----- <15.0 Antibody not detected> or = 15.0 Antibody detectedTHIS TEST WAS PERFORMED AT:[employer] [place] [phone] ABRAHAM MD 09/02/2024 1:09 PM EDT 09/02/2024 1:09 PM EDT Generic External Data Provider LAB BLOOD ORDERAB LES Final Result Performing Organization Address [facility] Co de Phone Number [facility] [address] [place] [phone] * Immunoglobulin A (09/02/2024 1:09 PM EDT) Pathologist [facility] Immunoglobulin A 265 47 - 310 mg/dL [facility] Comment:THIS TEST WAS PERFOR MED AT:[employer] [place] [phone] ABRAHAM MD 09/02/2024 1:09 PM EDT 09/02/2024 1:09 PM EDT Generic External Data Provider LAB BLOOD ORDERAB LES Final Result Performing Organization Address [facility]/ZIP Co de Phone Number [facility] [address] [place] [phone] * (ABNORMAL) Hepatic Function Panel (09/02/2024 1:09 PM EDT) Bilirubin, Total 0.2 0.0 - 1.0 mg/dL [facility] Bilirubin, Direct <0.2 0.0 - 0.5 mg/dL [facility] Aspartate Amino Transferase 17 5 - 31 U/L [facility] Alanine Aminotransferase 27 0 - 31 U/L [facility] Total Protein 8.3(H) 6.5 - 8.0 g/dL [facility] Albumin Level 4.3 3.5 - 5.0 g/dL [facility] Alkaline Phosphatase 75 39 - 117 U/L [facility] 09/02/2024 1:09 PM EDT 09/02/2024 1:09 PM EDT Generic External Data Provider LAB BLOOD ORDERAB LES Final Result Performing Organization Address [facility] Co de Phone Number [facility] [address] [place] [phone] * Helicobacter pylori, Urea Breath Test (09/02/2024 12:47 PM EDT) H. pylori Breath Test Negative Negative [facility] Comment:Antimicrobials, prot on pump inhibitors and bismuthpreparations are known to suppress H. pylori. Ingestingthese medications within two weeks prior to performing thebreath test may produce negative test results. A positiveresult is still clinically valid. 09/02/2024 12:4 7 PM EDT 09/02/2024 2:57 PM EDT us Generic External Data Provider LAB BLOOD ORDERAB LES Final Result [facility] [address] [place] [address] [phone] * (ABNORMAL) POCT HGB A1C (08/20/2024 11:23 AM EST) Hemoglobin A1C 6.3(A) 4.0 - 6.0 % [employer] Media Lot # [id number] Lot# Expiration Date ,026 Blood 08/20/2024 11:2 3 AM EST us Eliel Stoddard MD POINT OF CARE TEST ENTER/ED IT ORDERABLES Final Result * (ABNORMAL) POCT Glucose (08/20/2024 11:23 AM EST) Glucose Blood, POC 208(A) 60 - 200 mg/dL [employer] Lot # [id number] Lot# Expiration Date 972,025 Comment:RANDOM Blood Capillary blood specimen / Unknown 08/20/2024 11:23 AM EST us Eliel Stoddard MD POINT OF CARE TEST ENTER/ED IT ORDERABLES Final Result * BI Mammogram Screening Tomosynthesis Bilateral (12/16/2023 9:17 AM EDT) Anatomical Region Laterality Modality Breast Bilateral Mammography 12/16/2023 9:17 AM EDT Narrative 01/15/2024 5:58 AM EDT ? [facility] ? [address] ?[place] [address] ? Mammography Report ? Signed ? Patient: Carr Jennifer,Alma ?MR#: ?? [id number] ? : 1965 ?Acct:[id number] ? Age/Sex: 58 / F ?ADM Date: 07//24 ? Loc: HO.MAMMO ? Attending Dr: Mahsa Valenzuela MD ? Ordering Physician: Mahsa Huffman MD ?Results: ?? 1Negative ? Date of Service: 12/16/23 ?Follow Up: 1 Year From Orig ?? inal Mammogram ? Procedure(s): MM tomosynthesis screening BI ?? Accession Number(s): [id number] ? cc: Mahsa Huffman MD ? EXAMINATION: [...] in OV> ? 01/15/24 0555 ? DD/ 6 ? TD/TT: ? Organic Preparation Technician: ? Procedure Note Chani, Image - 01/15/2024 [place] [facility] [address] [place], [place] [address] Mammography Report Signed Patient: Vikas Corley#: [id number] : 1965Acct:[id number] Age/Sex: 58 / FADM Date: 12/16/23 Loc: [facility] Attending Dr: Mahsa Valenzuela MD Ordering Physician: Mahsa Huffman MDResults: 1Negative Date of Service: 12/16/23Follow Up: 1 Year From Orig inal Mammogram Procedure(s): MM tomosynthesis screening BI Accession Number(s): [id number] cc: Mahsa Huffman MD EXAMINATION: MM SCREENING [...] Michelle De La Fuente MD in OV> 01/15/2455 DD/ 6 TD/TT: Organic Preparation Technician: us Mahsa Valenzuela MD IMG BI PROCEDURES Fin al Result * (ABNORMAL) Lipid Panel, Standard (12/02/2023 11:30 AM EDT) Triglycerides 154(H) <150 mg/dL [facility] Comment:Desirable Triglyceri de: less than 150 mg/dLBorderline High Triglyceride 150-199 mg/dLHigh Triglyceride: 200-499 mg/dLVery High Triglyceride: greater than or equal to 5OO mg/dL Cholesterol 124 <200 mg/dL [facility] Comment:Desirable Cholestero l: less than 200 mg/dLBorderline High Cholesterol: 200-239 mg/dLHigh Cholesterol: greater than 239 mg/dL LDL Cholesterol Calculated 61 <100 mg/dL [facility] Comment:Desirable LDL: less than 100 mg/dLNear Optimal/Above Optimal LDL: 110- 129 mg/dLBorderline High LDL: 130-159 mg/dLHigh LDL: 160-189 mg/dLVery High LDL: greater than or equal to 190 mg/dL HDL Cholesterol 33(L) >40 mg/dL [facility] Comment:Desirable HDL: great er than 40 mg/dL Note: This HDL assay may give artificially low results in patients with liver disease. Blood Venous blood specimen / Unknown 12/02/2023 11:30 AM EDT 12/02/2023 1:26 PM EDT us Mahsa Valenzuela MD LAB BLOOD ORDERABLES Final Result [facility] [address] [place] [address] [phone] * Albumin, Random Urine W/Creatinine (08/02/2022 8:41 AM EST) Creatinine, Random Urine 121 20 - 275 mg/dL [facility] Albumin, Urine 0.8 See Note: mg/dL [facility] Comment: Reference Range: Reference Range Not established Albumin/Creatinin e Ratio, Random Urine 7 <30 mcg/mg creat [facility] Comment: The ADA defines abnormalities in albumin [...] MD LAB URINE ORDERABLES Final Re sult [facility] [address] [facility] [place] [phone] [facility] [address] [facility], [address] [place] [phone] * HIV 1/2 ANTIGEN/ANTIBODY,FOURTH GENERATION W/RFL (12/21/2021 12:00 AM EDT) HIV-1/2 ANTIGEN AND ANTIBODIES, 4TH GENERATION W/ REFLEX NON-REACT ESAU NON-REACT ESAU [facility] Comment: HIV-1 antigen and HIV-1/HIV-2 [...] ? For additional information please refer to http://education.ADENTS HTI/faq/VZB273 (This link is being provided for informational/ educational purposes only.) ? The performance of this assay has not been clinically validated in patients less than 2 years old. ?? 12/21/2021 Eliel Stoddard MD LAB BLOOD ORDERABLES Final Result [facility] [address] [place] [address], * THINPREP TIS PAP AND HPV mRNA E6/E7, CT/NG, TRICH (09/12/2021 8:57 AM EDT) Chlamydia trachomatis RNA, TMA, Urogenital NOT DETECTED NOT DETECTED [facility] Clinical Information: None given [facility] COMMENT SEE COMMENT [facility] Comment: The analytical performance characteristics of this assay, when used to test SurePath(TM) specimens have been determined by [facility]. The modifications have not been cleared or approved by the FDA. This assay has been validated pursuant to the CLIA regulations and is used for clinical purposes. ?? For additional information, please refer to https://education.ADENTS HTI/faq/ZIA999 (This link is being provided for information/ [...] has been evaluated with computer assisted technology. [facility] T[employer] Bagger: SEE COMMENT [facility] Comment: CMG, CT(ASCP) CT screening location: [address] ??[id number] HPV nRNA E6/E7 Not Detected Not Detected [facility] Comment: Methodology: Top Collar Maker-Mediated Amplification This assay detects E6/E7 viral messenger RNA (mRNA) from 14 high-risk HPV types (16,18,31,33,35,39,45,51,52,56,58,59,66,68). ? The analytical performance characteristics of this assay have been determined by [facility]. The modifications have not been cleared or approved by the FDA. This assay has been validated pursuant to the CLIA regulations and is used for clinical purposes. ?? For additional information, please refer to http://Braing[employer].ADENTS HTI/faq/WLJ975t3 (This link if provided for information/ educational [...] of this assay have been determined by [facility]. The modifications have not been cleared or approved by the FDA. This assay has been validated pursuant to the CLIA regulations and is used for clinical purposes. ?? For additional information, please refer to [email or web address] HTI/ faq/Trichomonastma (This link is being provided for information/ educational purposes only.) ?? 09/12/2021 8:57 AM EDT Nini Perry CNM LAB PATHOLOGY ORDERABLES Final Result [facility] [address] * Colonoscopy (02/05/2018) Colonoscopy Normal Normal Narrative Karla Slaughter - 02/05/2018 Recommended 10 year follow up Historical Provider MD HEALTH MAINTENANCE Final Result from Last 3 Months or Most Recently Relevant to Health Maintenance Insurance [facility] ONE CARE < 65 [employer] [phone] [place] Care Teams Publication Designer Relationship Specialty Start Date End Date Eliel Stoddard MD [address] [place] [address] ELIZA Chin [address] PCP - General Internal Medicine 06/17/18
--- OUTSIDE RECORDS SUMMARY | 2024-10-22 14:16 | XMS_ITS | Encounter Summary ---
Author Organization [employer] Address [address] [place] [address] [address] [place] [address] Care Team Providers Care Intelligence Officer Basic Name Role Phone Eliel Stoddard MD Primary Care Provider [phone] Encounter Details Date Type Department Care Team (Late st Contact Info) Description 04/17/[address] [facility] MEDICINE [address] [place], [place] [phone] Karla Slaughter Social History Tobacco Use Types [...] Description 11/23/2024 9:00 AM EDT Office Visit [facility] CHC MED & PEDS [address] [place], [place] [phone] Eliel Stoddard MD [address] [place] [address] 11/27/2024 9:45 AM EDT Office Visit [facility] OPTOMETRY [address] [place], [place] [phone] TarkaErnestina, OD [address] [place] [address] documented as of this encounter Procedures Procedure Name Priority Date/Time Associated Diagnosis Comments COLONOSCOPY Routine 02/05/2018 documented in this encounter Results * Colonoscopy (02/05/2018) Colonoscopy Normal Normal Narrative Karla Slaughter - 02/05/2018 Recommended 10 year follow up Historical Provider HEALTH MAINTENANCE Final Result documented in this encounter Visit Diagnoses Not on filedocumented in this encounter Care Teams Intelligence Officer Basic Relationship Specialty Start Date End Date Eliel Stoddard MD [address] [place] [address] PCP - General Internal Medicine 06/17/18 documented as of this encounter
--- OUTSIDE RECORDS SUMMARY | 2024-10-22 14:16 | XMS_ITS | Data Portability ---
Author Organization [employer] Address [address] [place] [phone] Care Team Providers Care Collection Teller Name Role Phone [facility] Referring Provider HIM CCA OTHER Assessment Encounter Date Assessment Date Assessment LastModified by Organization Details LastModified Time 09/03/2022 09/03/2022 I have reviewed and agree with the assessment and plan as documented by the health information clerk. I provided real time medical direction for this encounter and was immediately available to provide additional phone based assistance as needed. History as noted by health information clerk. Pt with history of DM. She no [...] in the field was performed by my health information clerk colleague, as noted above, I provided real-time [...] toradol, reglan, benadryl and IVF but otherwise chromosomal disorders counselor on PCP follow up. Impression: migraine [...] new neurologic change, fever, or worsening headache. [email or web address] Not available 01/19/2024 19:27:55 Plan of Treatment Reminders Order Date Submit Date Provider Last Modified By Organization Details Last Modified Time Details Appointments None recorded. Lab culture, urine 2022 023 [facility] (Centralized Electronic Ordering - All Locations), Patient Can Go To The Location Of Their Choice, [id number] 12:54:26 urinalysis, dipstick 2022 023 [facility] Main - [address], [phone] 16:56:33 Referral None recorded. Procedures None recorded. Surgeries None recorded. Imaging None recorded. Medication Orders metoclopram saturnino 5 mg/mL injection solution 2023 024 [facility] #38058, [address] [place] [address], [id number], 4 19:26:55 ketorolac 30 mg/mL injection solution 2023 024 [email or web address] [facility] #29456, [address] [place] [address], [id number], 4 19:26:55 diphenhydra mine 50 mg/mL injection solution 2023 024 [email or web address] [facility] #43060, [address] [place] [address], [id number], 4 19:26:55 sodium chloride 0.9 % intravenous solution 2023 024 [facility] #23841, [address] [place] [address], [id number], 4 19:26:55 magnesium sulfate 2 gram/50 mL in 0.9 % sodium chloride IV piggyback 2023 024 [email or web address] [facility] #28028, [address] [place] [address], [id number], 4 19:26:55 tamsulosin 0.4 mg capsule 2022 023 [facility] #95970, [address] [place] [address], [id number], 3 21:22:44 doxycycline hyclate 100 mg tablet 2022 023 [facility] #35497, [address] [place] [address], [id number], 3 12:49:47 doxycycline hyclate 100 mg tablet 2022 023 [email or web address] [id number] Not available 12:49:39 Patient TargetsNo targets recorded. Patient InstructionsNo instructions recorded. Reason for Referral None Reported. Results Created Date Observation Date Name Description Value Unit Range Abnormal Flag Note LastModifiedBy Organization Detail LastModifiedTime 09/04/1909/03/2022 urina lysis , dipst ick Leukocytes negati ve Not Available [facility] ed [address] [place] [address], [address] [place] [address] 09/03/2022 16:55:11 09/04/19 23 09/03/2022 urina lysis , dipst ick Nitrite negati ve Not Available [facility] ed [address] [place] [address], [address] [place] [address] 09/03/2022 16:55:11 09/04/19 23 09/03/2022 urina lysis , dipst ick Blood negati ve Not Available [facility] ed [address] [place] [address], [address] [place] [address] 09/03/2022 16:55:11 09/04/19 23 09/03/2022 urina lysis , dipst ick Glucose negati ve Not Available [facility] ed [address] [place] [address], [address] [place] [address] 09/03/2022 16:55:11 12/23/19 23 12/22/2022 URINE CULTU [...] /min 139 mm[Hg] 80 mm[Hg] Not Available [facility] 3 21:07:31 Date Recorded Respiratory rate Heart rate Oxygen saturation Oxygen saturation in Arterial blood by Pulse oximetry Body temperature Body height Body weight Systolic blood pressure Diastolic blood pressure Provider Name and Address Organization Details Last Updated DateTime 4 16 /min 69 /min 100 % 100 % 97.8 [degF] 175.26 cm 86131.9 52 g 119 mm[Hg] 70 mm[Hg] Not Available [facility] - [facility] 4 11:59:12 Date Recorded Body weight Oxygen saturation Oxygen saturation in Arterial blood by Pulse oximetry Body height Body temperature Respiratory rate Heart rate Systolic blood pressure Diastolic blood pressure Provider Name and Address Organization Details Last Updated DateTime 4 79587.4 g 100 % 100 % 177.8 cm 98.8 [degF] 16 /min 76 /min 154 mm[Hg] 72 mm[Hg] Not Available [facility] 4 17:08:33 Date Recorded Oxygen saturation Oxygen [...] 3 99 % 99 % 18 /min 311694. 608 g 66 /min 97.5 [degF] 99 % 99 % 18 /min 97.5 [degF] 66 /min 623608. 608 g 110 mm[Hg] 54 mm[Hg] 110 mm[Hg] 54 mm[Hg] Not Available [facility] 3 17:07:05 Date Recorded Heart rate Body temperature Body weight Oxygen saturation Oxygen saturation in Arterial blood by Pulse oximetry Systolic blood pressure Diastolic blood pressure Provider Name and Address Organization Details Last Updated DateTime 3 80 /min 97.7 [degF] 308098. 976 g 97 % 97 % 145 mm[Hg] 81 mm[Hg] Not Available [facility] 3 12:45:38 Social History None recorded. Functional [...] 2458 Halima Orta MD Main - [facility] [address] [place] [phone] 12/15/2021 12:34:04 02/14/2022 11:31:08 Acute pelvic pain 446911396 R10.2 several days of R>L pelvic pain [...] 8680 James Platt MD Main - [facility] [address] [place] [phone] 09/03/2022 16:51:04 09/05/2022 09:22:46 Increased frequency of urination 693093941 R35.0 9885 Du Mcneil MD Main - [facility] [address] [place] [phone] 10/12/2022 12:45:32 10/15/2022 09:47:49 Boils of multiple sites 582945160 L02.92 57yo woman with history of multiple skin soft tissue infections presents with a focal skin infection of the stomach similar to prior episosdes. Previously this has responded to doxy. The lesion is draining on health information clerk exam and my review of images.- [place]oxycyclin e [address] Macey Corrales MD Main - [facility] [address] [place] [phone] 12/22/2022 20:58:54 12/24/2022 12:19:53 Flank pain 875476767 R10.9 Evaluation in the field was performed by my health information clerk colleague, as noted above, I provided real-time [...] shortness of breath, cough, chest pain, fever. 04114 Tristin Segura MD Main - [facility] [address] [place] [phone] 11/13/2023 11:59:04 11/13/2023 15:12:52 Gastroparesis syndrome 048588274 K31.84 This 58-year-ol d female was recently diagnosed with gastropare sis but the medication ordered hasn't been effective. I suggested that she contact her PCP to make arrangemen ts for a GI referral. The patient agreed with this plan. [address] Anthony Santiago MD Main - [facility] [address] [place] [phone] 01/19/2024 17:08:29 01/19/2024 22:27:44 Migraine 51683174 G43.909 no alarm features or neurologic change. recommend symptomati c management w tylenol as needed, pcp follow up. Health Concerns Section Related Observation LastModified by Organization Detai ls LastModified Time None Recorded Concern Status LastModified by Organization Details LastModified Time None Recorded Advance Directives Directive None Recorded Payers Insurance Date Sequence Insurance Name Policy Number Policy Mondragon Covered Member ID Mondragon Member ID Guarantor Name 12/22/2022 1 [facility] - DOS PRIOR TO 2022 - DUAL ELIGIBLE (MEDICARE REPLACEMENT/AD VANTAGE - HMO) Alma Diego [id number] Alma Diego 01/19/2024 1 [facility] - DOS ON OR AFTER 2022 - DUAL ELIGIBLE - [employer] OPTIONS AND ONE CARE (MEDICARE REPLACEMENT/AD VANTAGE - HMO) Alma Diego [id number] Alma Diego Notes Date Note Type Note Provider Name and Address Organization Details Recorded Time 09/03/2022 text/html This was a super vised home visit with health information clerk Jet Grier. HPI: I? v e been [...] ..................... ..................... ..................... ..................... ..................... ..................... ............... Computerized Table Cutter Note From Jet Grier: Pt presents A@Ox4 [...] ..................... ............... Disposition: Fulfilled James Platt MD [address] [place] [address],[address] [facility], [place], [phone], [employer] 09/03/2022 17:18:02 10/12/2022 text/html HPI: ALLERGIC TO : AMPICILLIN HX: Chronic Hep C, Hidradenitis. DM, HTN Patient with reported boil on stomach. Now large painful and intact. No fever. ..................... ..................... ..................... ..................... ..................... ..................... ............... CRC Nursing Assessment: Comments: CRC RN DID NOT NEED FURTHER INFO Du Mcneil MD [address] [place] [address],[address], [place], [phone], [employer] 10/12/2022 12:49:54 12/22/2022 text/html HPI: I? m [...] ..................... ..................... ..................... ..................... ..................... ..................... ............... Computerized Table Cutter Note From Jorgito Schwartz: PER CCA: Member [...] ............... Disposition: Fulfilled Macey Corrales MD [address] [facility],[address], [place], [address], [employer] 12/22/2022 21:50:36 11/13/2023 text/html HPI: I? v [...] PCP appt last week. Tristin Segura MD [address] [place] [address],[address] [facility], [place], [phone], [employer] 11/13/2023 12:02:46 01/19/2024 text/html CRC Nurse Triage Notes (Delfin Villagran): Reason For Request: neck pain/headaches Chief Complaints: Headache, Pain PMH: Diabetes, Hypertension Allergies: Unknown Comments: Case Maker verified the member's name//address and phone number. [...] ..................... ..................... ..................... ..................... ..................... ..................... ............... Computerized Table Cutter Note From Aguila Baez: Pt reports hx [...] ..................... ............... Disposition: Fulfilled Anthony Santiago MD [address] [facility],[address], [place], [address], [employer] 01/19/2024 19:28:08 OBGyn Episode No OBEpisode recorded.
--- OUTSIDE RECORDS SUMMARY | 2024-10-22 14:16 | XMS_ITS | Data Portability ---
Author Organization [place] - [facility], Allergy Address [address] [place] [address] Care Team Providers Care Director Of Blood Name Role Phone HOME MELENDEZ Primary Care Provider [phone] Assessment Encounter Date Assessment Date Assessment LastModified [...] the ears. [email or web address] Not available 07/22/2024 10:49:44 10/13/2024 10/13/2024 Exam confirms persistent left middle ear effusion that has been present for at least 3 months. Fiberoptic nasopharynx examination was benign with no obstructive tissue. Offered treatment with placement of left myringotomy tube in the office. She recalls previous tube placement with Dr. Armenta and Dr. Hernandez were complicated by nausea. Secondary symptom of imbalance when turning quickly was evaluated in the office with no obvious peripheral vestibular disturbance. Possibly related to fluid in the left middle ear. In the past she has experienced positional vertigo [email or web address] Not available 10/13/2024 09:38:53 Plan of Treatment Reminders Order Date Submit Date Provider Last Modified By Organization Details Last Modified Time Details Appointments Test Results 15 2024 11:30A M CARROLL MCCORD MD Not available Not available Not available Lab None recorded. Referral None recorded. Procedures None recorded. Surgeries None recorded. Imaging None recorded. Medication Orders fluticaso ne propionat e 50 mcg/actua tion nasal spray,ketan pension 2024 025 [email or web address] [id number], [address], [place], [phone], 07/22/2024 10:46:49 Patient TargetsNo targets recorded. Patient InstructionsNo instructions recorded. Reason for Referral None Reported. Results Created Date Observation Date Name Description Value Unit Range Abnormal Flag Note LastModifiedBy Organization Detail LastModifiedTime 07/22/19 25 audio gram No observ ation record ed. BARCODE Not Available 2024 14:05:39 Result Notes None recorded. Problems Name Problem SNOMED Code Status Onset Date Resolution Date Notes Provider Name and Address Organization Details Recorded Time Sensorine ural hearing loss in right ear 52914874014 100 Active 2017 Sensorine ural hearing loss, unilatera l, right ear, with restricte d hearing on the contralat eral side; Note: Date Diagnosed : 02/13/2018 3:14 PM (H90.A21) Not Available [facility], [facility] 4 02:51:55 Disorder of right Eustachia n tube 44348842685 34747 Active 2015 Other specified disorders of Eustachia n tube, right ear; Note: Date Diagnosed : 05/17/2016 5:16 PM (H69.81) Not Available [facility] 4 02:51:59 Otalgia of left ear 7879559969 Active 2018 Otalgia, left ear; Note: Date Diagnosed : 07/22/2018 10:28 AM (H92.02) Not Available [facility] 4 02:51:59 Conductiv e hearing loss of right ear 7277869101 Active 2019 Conductiv e hearing loss, unilatera l, right ear with restricte d hearing on the contralat eral side; Note: Date Diagnosed : 09/30/2019 11:22 AM (H90.A11) Not Available [facility] 4 02:51:57 Bilateral tympanic membrane central perforati on 00825088373 58640 Active 2021 Central perforati on of tympanic membrane, bilateral ; Note: Date Diagnosed : 02/08/2022 5:24 PM (H72.03) Not Available [facility] 4 02:51:55 Benign paroxysma l positiona l vertigo 197456294 Active 2022 Benign paroxysma l vertigo, left ear; Note: Date Diagnosed : 3 3:25 PM (H81.12) Not Available [facility] 4 02:51:57 Snoring 24260948 Active 2013 Snoring; CMS Risk: low risk CMS Treatment : new problem (to examiner) : additiona l workup planned C ondition: controlle d Note: Date Diagnosed : 4 4:13 PM (786.09) Not Available [facility] 4 02:51:56 Otalgia of right ear 0888855745 Active 2016 Otalgia, right ear; Note: Date Diagnosed : 01/09/2017 5:09 PM (H92.01) Not Available [facility] 4 02:51:54 Chronic serous otitis media of right ear 361834138 Active 2016 Chronic serous otitis media, right ear; Note: Date Diagnosed : 03/14/2017 12:14 PM (H65.21) Not Available [facility] 4 02:51:58 Sensorine ural hearing loss in left ear 69296693559 109 Active 2019 Sensorine ural hearing loss, unilatera l, left ear, with restricte d hearing on the contralat eral side; Note: Date Diagnosed : 09/30/2019 11:22 AM (H90.A22) Not Available [facility] 4 02:51:57 Conductiv e hearing loss 88706867 Active 2018 Conductiv e hearing loss, unilatera l, right ear, with unrestric prasanna hearing on the contralat eral side; Note: Date Diagnosed : 03/14/2017 11:55 AM (H90.11) ; Start Date : 7 Conduct obed hearing loss, unilatera l, left ear, with unrestric prasanna hearing on the contralat eral side; Note: Date Diagnosed : 07/22/2018 10:33 AM (H90.12) Not Available [facility] 4 02:51:53 Otorrhea of right ear 07129334540 12912 Active 2017 Otorrhea, right ear; Note: Date Diagnosed : 8 9:44 AM (H92.11) Not Available [facility] 4 02:51:53 Follow-up visit Active 2016 Medical surveilla nce following completed treatment ; Note: Date Diagnosed : 7 10:46 AM (Z09) Not Available [facility] 4 02:51:57 Mixed conductiv e and 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 63105369709 107 Active 2020 Mixed conductiv e and sensorine ural hearing loss, unilatera l, left ear with restricte d hearing on the contralat eral side; Note: Date Diagnosed : 02/28/2021 2:24 PM (H90.A32) Not Available [facility] 4 02:51:55 Dizziness and giddiness 522518349 Active 2019 Dizziness and giddiness ; Note: Date Diagnosed : 09/28/2019 11:17 AM (R42) Not Available [facility] 4 02:51:58 Left conductiv e hearing loss 15110237733 07 Active 2017 Conductiv e hearing loss, unilatera l, left ear with restricte d hearing on the contralat eral side; Note: Date Diagnosed : 02/13/2018 3:14 PM (H90.A12) Not Available [facility] 4 02:51:59 Headache 77132302 Active 2018 Headache, unspecifi ed; Note: Changed from R51 to R51.9 ( 1 10:24 AM) , Date Diagnosed : 9 10:03 AM (R51) Not Available [facility] 4 02:51:54 Dysfuncti on of eustachia n tube 64681093 Active 2013 Eustachia n tube dysfuncti on; CMS Risk: low risk CMS Treatment : establish ed problem (to examiner) : stable or improved Condition : controlle d Note: Date Diagnosed : 4 3:42 PM (381.81) Not Available [facility] 4 02:51:53 Migraine without aura, not refractor y 998780667 Active 2018 Migraine without aura, not intractab le, without status migrainos us; Note: Date Diagnosed : 9 10:03 AM (G43.009) Not Available [facility] 4 02:51:56 Mixed conductiv e and sensorine ural hearing loss, bilateral 444542894 Active 2021 Mixed conductiv e and sensorine ural hearing loss, bilateral ; Note: Date Diagnosed : 02/08/2022 5:07 PM (H90.6) Not Available [facility] 4 02:51:56 Otorrhea of left ear 89256940601 28607 Active 2020 Otorrhea, left ear; Note: Date Diagnosed : 08/01/2020 1:32 PM (H92.12) Not Available [facility] 4 02:51:52 Acute serous otitis media of left ear 07179870948 47770 Active 2018 Acute serous otitis media, left ear; Note: Date Diagnosed : 07/22/2018 10:29 AM (H65.02) Acute serous otitis media, left ear; Note: Date Diagnosed : 03/18/2018 11:16 AM (H65.02) ; Start Date : 8 Not Available [facility] 4 02:51:55 Sensorine ural hearing loss of bilateral ears 396532305 Active 2013 [facility] Bilateral ly; Note: Date Diagnosed : 4 3:42 PM (389.18) Not Available [facility] 4 02:51:52 Bilateral tinnitus 45607588278 02 Active 2016 Tinnitus, bilateral ; Note: Date Diagnosed : 03/14/2017 12:12 PM (H93.13) Not Available [facility] 4 02:51:52 Acute serous otitis media of right ear 21786015482 72788 Active 2017 Acute serous otitis media, right ear; Note: Date Diagnosed : 8 9:44 AM (H65.01) Not Available [facility] 4 02:51:58 Bilateral disorder of Eustachia n tubes 17239674484 28644 Active 2016 Other specified disorders of Eustachia n tube, bilateral ; Note: Date Diagnosed : 01/09/2017 5:09 PM (H69.83) Not Available [facility] 4 02:51:54 Perforati on of right tympanic membrane 45839712131 36463 Active 2024 GABI JUARES PA-C [address] [address], [place], [address] , [facility] - [facility] 5 10:45:00 Disorder of left Eustachia n tube 36036742366 13444 Active 2024 CARROLL MCCORD MD [address] [place] [address], [place], [address] , [facility] 5 09:39:06 Problem Notes None recorded. Procedures Surgical History Date Name Laterality Status Provider Name and Address Organization Details Recorded Time 10/13/2024 Nasopharyng oscopy_DP completed CARROLL MCCORD MD [address] [place] [address], [place], [address], [facility] - [facility] 10/13/2024 09:36:46 07/22/2024 Comp Audio with Tymps - 96904 & 36130 completed CLAYTON GABRIEL [address] [place] [address],[address] [address], [place], [address], [facility] - [facility] 07/22/2024 10:25:50 Imaging Results Imaging Date Name Status LastModified by Organiz ation Details LastModified Time 07/22/2024 audiogram completed BAR[facility] Information no t available 07/22/2024 14:05:39 Procedure Notes None recorded. Medical Equipment None Reported. Allergies Allergen ID Allergen Name Allergen Category Reaction Reaction Severity Criticality Documentation Date Start Date Code Code System Note Provider Name and Address Organization Details Recorded Time 55344 amoxicill in medicatio n other Not available Not available 10/29/2023 723 RxNorm React ion: unkno wn, unspe cifie d;; Not Available [facility] 4 00:48:32 Medications Name Sig Start Date [...] mg capsule 09/29 completed Medicati on ID: [id number] P rescribe d By Name: Sherwin manjarrez [...] 2 mg tablet active Medicati on ID: [id number] B rand Name: tizanidi ne Send Method: E-Prescr ibed Sub s Allowed: subs OK Medic ationGen ericName : tizanidi ne Not Available Not Available Not Available clindamyc in HCl 300 mg capsule TAKE 1 CAPSULE BY MOUTH EVERY 6 HOURS active Not Available Not Available No t Available azithromy israel 250 mg tablet active Not Available Not Available No t Available ofloxacin 0.3 % eye drops 3 drop 06/03 completed Medicati on ID: 750326 D uration Value: 7 Brand Name: ofloxaci n Send Method: E-Prescr ibed Sub s Allowed: subs OK Speci al Instruct ion: use until bottle gone [facility]: ofloxaci n Not Available Not Available [...] mg tablet 02/08 completed Medicati on ID: 426255 D uration Value: 30 Brand Name: sumatrip macedo succinat e Send Method: E-Prescr ibed Sub s Allowed: subs OK Medic ationGen ericName : sumatrip macedo succinat e Not Available Not Available Not Available topiramat e 25 mg tablet 02/08 completed Medicati on ID: [id number] D uration Value: 30 Brand Name: topirama te Send Method: E-Prescr ibed Sub s Allowed: subs OK Medic ationGen ericName : topirama te Not Available Not Available Not Available amlodipin e 5 mg tablet active Medicati on ID: 754322 B rand Name: amlodipi ne Send Method: E-Prescr ibed Sub s Allowed: subs OK Medic ationGen ericName : amlodipi ne Not Available Not Available Not Available aspirin 81 mg tablet,de layed release 10/13 completed Medicati on ID: 588753 B rand Name: aspirin Send Method: E-Prescr [...] a day 2022 active Medicati on ID: [id number] D uration Value: 7 Brand Name: ofloxaci [...] yline Not Available Not Available Not Available lorazepam 0.5 mg tablet TAKE 1 TO 2 TABLETS BY MOUTH EVERY DAY NEEDED FOR MEDICAL OR DENTAL PROCEDUR ES active Not Available Not Available No t Available [employer] Mobile Ultra Test strips USE ONE STRIP TO [...] active Not Available Not Available Not Available hydroxyzi ne HCl 25 mg tablet TAKE 1 TABLET BY MOUTH THREE TIMES DAILY NEEDED FOR ANXIETY active Not Available Not Available No t Available lisinopri l 5 mg tablet active Medicati on ID: 777972 B rand Name: lisinopr il Send Method: E-Prescr ibed Sub s Allowed: subs OK Medic ationGen ericName : lisinopr il Not Available Not Available Not Available gabapenti n 100 mg capsule active Not Available Not Available Not Available lorazepam 1 mg tablet active Medicati on ID: 174214 B rand Name: lorazepa m Send Method: E-Prescr ibed Sub s Allowed: subs OK Medic ationGen ericName : lorazepa m Not Available Not Available Not Available ibuprofen 600 mg tablet active Medicati on ID: [id number] B rand Name: ibuprofe n Send Method: [...] 500 mg tablet active Medicati on ID: [id number] B rand Name: naproxen Send Method: E-Prescr [...] as directed 2017 active Medicati on ID: [id number] D uration Value: 30 Prescri bed By Name: Sherwin manjarrez MD Brand Name: TobraDex Send Method: E-Prescr ibed Sub s Allowed: subs OK Speci al Instruct ion: Instill 5 drops in the affected ear BID for 30 days Med icationG enericNa me: TobraDex Not Available Not Available Not Available aripipraz ole 5 mg tablet TAKE 1 TABLET BY MOUTH DAILY active Not Available Not Available No t Available mirtazapi ne 7.5 mg tablet TAKE 1 TABLET BY MOUTH EVERY NIGHT AT BEDTIME FOR SLEEP active Not Available Not Available No t Available nitrofura ntoin monohydra te/macroc rystals 100 mg capsule active Not Available Not Available Not Available cholecalc iferol (vitamin D3) 25 mcg (1,000 unit) tablet TAKE 1 TABLET BY MOUTH DAILY active Not Available Not Available No t Available FreeStyle Lite Meter kit USE DIRECTED TO TEST BLOOD GLUCOSE active Not Available Not Available No t Available diclofena c 1 % topical gel APPLY TOPICALL Y DIRECTED TWICE DAILY active Not Available Not Available No t Available Creon 12,000-38 ,000-60,0 00 unit capsule,d elayed release TAKE 2 CAPSULES BY MOUTH WITH MEALS AND 1 CAPSULE WITH SNACKS active Not Available Not Available No t Available Vitals Date Recorded Body height Provider Name an d Address Organization Details Last Updated DateTime 10/13/2024 177.8 cm EVA ROQUE [place] - [facility] 10/13/2024 09:16:13 Date Recorded Body height Body mass index (BMI) Body weight Provider Name and Address Organization Details Last Updated DateTime 07/22/2024 177.8 cm 30.1 kg/m2 10642.4 g Reshma Fry [place] - [facility] 07/22/2024 10:37:16 Social History None recorded. Functional Status None recorded. Mental Status None recorded. Family History Nothing Reported. Medical History Condition Response Allergies/Hayfever Y Heart Problems N Anxiety Y Tonsil Infections N Emphysema N Migraines Y Thyroid Problems N Glaucoma N Depression Y COPD N Developmental Delay N Nasal or Sinus Problems Y Anemia N Immune System Disorder N Anesthesia Complications N Heart Attack ([place]) N Other Skin Condition Y Diabetes Y Rhinitis Y Bleeding Disorder N Food Allergy Y Arthritis Y Hearing Loss Y Hyperlipidemia N Cancer N Stroke N Dementia N Nasal polyps N Asthma N High Cholesterol Y Sleep Disorder Y GERD/Reflux Y Liver Disease N Headaches Y Fibromyalgia N Hypertension Y Speech Delay N Kidney Disease N Gynecological HistoryNo gynecological history recorded. Obstetrics History GPAL:G 0 P 0 0 0 0 Past Encounters Encounter ID Performer Location Encounter Start Date Encounter Closed Date Diagnosis/Indication Diagnosis SNOMED-CT Code Diagnosis ICD10 Code Diagnosis Note [id number] GABI JUARES PA-C [facility] [address] [address] 07/22/2024 09:47:01 07/22/2024 10:50:07 Mixed conductive and sensorineural hearing loss, bilateral 872662298 H90.6 Audiologic al evaluation results: Right ear: [...] sero us otitis media of left ear 2975058725 505484 H65.02 Bilateral disorder of Eustachian tubes 8511874169 298174 H69.83 Bilateral tinnitus 04148 64106 102 H93.13 Perforatio n of right tympanic membrane 7943471148 719200 H72.91 [id number] CARROLL MCCORD MD [facility] [address] [address] 10/13/2024 08:59:49 10/13/2024 09:38:03 Dizziness and giddiness 919812862 R42 Disorder o f left Eustachian tube 1684735773 053107 H69.92 Health Concerns Section Related Observation LastModified by Organization Detai ls LastModified Time None Recorded Concern Status LastModified by Organization Details LastModified Time None Recorded Advance Directives Directive None Recorded Payers Insurance Date Sequence Insurance Name Policy Number Policy Mondragon Covered Member ID Mondrgaon Member ID Guarantor Name 10/10/2024 1 [facility] - DOS ON OR AFTER 2022 - MEDICARE ADVANTAGE [place] (MEDICARE REPLACEMENT/AD VANTAGE - PPO) Alma Rodriguez [id number] Alma Rodriguez 10/13/2024 2 [facility] () Alma Rodriguez [id number] Alma Rodriguez Notes Date Note Type Note Provider Name and Address Organization Details Recorded Time 07/22/2024 text/html 58 year old ludin cruz presents for evaluation of the ears [...] recently over the fall. CARROLL MCCORD MD [address] [facility], [place], [address], [place] - [facility] [place] 07/22/2024 17:35:06 10/13/2024 text/html left side decrea sed hearingdescribes some imbalance when turningthe use of flonase daily with no improvementtobacco - 1/2ppd 05/02/17 [facility], [place], Right myringotomy with tube PV 07/22/24 Gabi - right pinpoint TM perf, left serous effusion. rx flonaseAudio:Right ear: Normal sloping to moderately severe mixed hearing loss with excellent word recognition.Left ear: Mild sloping to severe mixed hearing loss with excellent word recognition. CARROLL MCCORD MD [address] [facility], [place], [address], [facility] - [facility] 10/13/2024 09:39:43 OBGyn Episode No OBEpisode recorded.
--- OUTSIDE RECORDS SUMMARY | 2024-10-22 14:16 | XMS_ITS | Encounter Summary ---
Author Organization [employer] Address [address] [place] [address] [address] [place] [address] Care Team Providers Care Aquatics Specialist Name Role Phone Eliel Stoddard MD Primary Care Provider [phone] Encounter Details Date Type Department Care Team ([facility] st Contact Info) Description 04/12/2023 Orders Only [facility] [address], [place] [phone] Eliel Stoddard MD [address] [place], [place] [phone] Primary insomnia Social History Tobacco Use Types [...] Description 11/23/2024 9:00 AM EDT Office Visit [facility] [address] [place] [address] Eliel Stoddard MD [address] [place], [place] [phone] 11/27/2024 9:45 AM EDT Office Visit [facility] OPTOM[facility] [address] [place] [address] Ernestina Qiu, OD [address] [place] [address] documented as of this encounter Visit Diagnoses Diagnosis Primary insomnia Persistent disorder of initiating or maintaining sleep documented in this encounter Care Teams Aquatics Specialist Relationship Specialty Start Date End Date Eliel Stoddard MD [address] [place] [address] PCP - General Internal Medicine 06/17/18 documented as of this encounter
--- OUTSIDE RECORDS SUMMARY | 2024-10-22 14:16 | XMS_ITS | Encounter Summary ---
Author Organization [employer] Address [address] [place] [address] [address] [place] [address] Care Team Providers Care Electrical Experimental Mechanic Name Role Phone Eliel Stoddard MD Primary Care Provider [phone] Reason for Visit * Reason Comments Med Refill Encounter Details Date Type Department Care Team ([facility] Contact Info) Description 06/28/2023 Refill [facility] [address] [place], [place] [phone] Eliel Stoddard MD [address] [place] [address] Social History Tobacco Use Types Packs/Day Years [...] Description 11/23/2024 9:00 AM EDT Office Visit [facility] [address] [place] [address] Eliel Stoddard MD [address] [place], [place] [phone] 11/27/2024 9:45 AM EDT Office Visit [facility] OPT[facility] [address] [place], [place] [phone] Ernestina Qiu, OD [address] [place] [address] documented as of this encounter Visit Diagnoses Not on filedocumented in this encounter Care Teams Electrical Experimental Mechanic Relationship Specialty Start Date End Date Eliel Stoddard MD [address] [place] [address] PCP - General Internal Medicine 06/17/18 documented as of this encounter
--- OUTSIDE RECORDS SUMMARY | 2024-10-22 14:16 | XMS_ITS | Encounter Summary ---
Author Organization [employer] Address [address] [place] [address] 7[address] [place] [address] Care Team Providers Care Director School Of Nursing Name Role Phone Eliel Stoddard MD Primary Care Provider [phone] Reason for Visit * Reason Comments Blood in Urine Back Pain Encounter Details Date Type Department Care Team ([facility] st Contact Info) Description 10/22/2024 8:40 AM EDT Office Visit [facility] [address] [place], [place] [phone] Cleo Mandel DO [address] [place], [place] [phone] Acute UTI (Primary Dx); Vaginal itching Social History Tobacco Use Types Packs/Day Years [...] your housing situation today? I have xena sing 08/20/[address] you li [...] oz) 10/22/2024 8:41 A M EDT Height - - Body Mass Index 29.36 08/20/2024 10:34 AM EST documented in this encounter Progress Notes * Cleo Mandel, - 10/22/2024 8:40 AM EDT SUBJECTIVE Alma Rodriguez is a 59 y.o. female who presents for Sick Visit. She presents to [place] today c/o LBP with hematuria. She says she has been noticing vaginal itching and dysuria while urinating for the past 2-3 days. She denies any odor or discharge. She says she is urinating more than nml. No odor. She says that the itching is just on the outside. No vaginal discharge. She says she just finished a course of doxycycline for her skin and always gets yeast infections. She says she used an OTC antifungal vaginal cream, but it did not help her sx at all. [place] is not currently [place] active [place] LMP 10 years ago. She says she started with LBP ~ 1 mos ago that radiated to her sides but now having suprapubic pain. She has h/o kidney stones. She says that she had US this year and has f/u with urology in a few mos. No fevers. No N/V. History provided by: Patient stone layout marker used: No UTI Severity: Moderate Duration: 3 days Timing: Constant Progression: Unchanged Chronicity: New Associated symptoms: no abdominal pain, no cough, no diarrhea, no fever, no nausea, no shortness ofbreath and no vomiting Review of Systems Constitutional: Negative for fever. Respiratory: Negative for cough and shortness of breath. Gastrointestinal: Negative for abdominal pain, diarrhea, nausea and vomiting. Genitourinary: Positive for dysuria, frequency, hematuria and urgency. Negative for flank pain and vaginal discharge. Patient Active Problem List Diagnosis Cellulitis and [...] associated with type 2 diabetes mellitus (CMS/HCC) Allergies Allergen Reactions Ampicillin Rash OBJECTIVE Visit Vitals BP 130/72 (BP Location: Left arm, Patient Position: Sitting, BP Cuff Size: Adult) Pulse 78 Temp 98.1 ??F (36.7 ??C) (Oral) Resp 18 Wt 204 lb 9.6 oz (92.8 kg) SpO2 98% BMI 29.36 kg/m?? Smoking Status Every Day BSA 2.14 m?? Physical Exam Constitutional: General: She is not in acute distress. Appearance: Normal appearance. Cardiovascular: Rate and Rhythm: Regular rhythm. Heart sounds: Normal heart sounds. No murmur heard. Pulmonary: Effort: Pulmonary effort is normal. Breath sounds: Normal breath sounds. No wheezing or rhonchi. Abdominal: General: Bowel sounds are normal. Palpations: Abdomen is soft. There is no mass. Tenderness: There is abdominal tenderness in the suprapubic area. There is no right CVA tenderness or left CVA tenderness. Neurological: General: No focal deficit present. Mental Status: She is alert and oriented to person, place, and time. Cranial Nerves: No cranial nerve deficit. Motor: No weakness. Gait: Gait normal. Psychiatric: Mood and Affect: Mood normal. Office Visit on 10/22/2024 Component Date Value Ref Range Status Color, UA 10/22/2024 Yellow Final Clarity, UA 10/22/2024 Clear Final Glucose, UA 10/22/2024 Negative Final Bilirubin, UA 10/22/2024 Negative Final Ketones, UA 10/22/2024 Negative Final Spec Grav, UA 10/22/2024 1.015 Final Blood, UA 10/22/2024 Positive (A) Negative, None Detected Final Large pH, UA 10/22/2024 5.5 Final Protein, UA 10/22/2024 Few 15 Final 30 mg/dL Urobilinogen, UA 10/22/2024 0.2 Final Leukocytes, UA 10/22/2024 Few 15 (A) Negative, Rare, Trace Final small Nitrite, UA 10/22/2024 Negative Negative, None Detected Final Assessment/Plan Diagnoses and all orders for this visit: Acute UTI -treat empirically with bactrim -send Ucx for sensitivities -advised contact [facility]HC if sx do not resolve Vaginal itching Likely candidal in setting of recent abx use -treat empirically with diflucan -send BV panel and GC/CT -advised contact HHC if no improvement, she agrees with plans --Follow-up with PCP as scheduled or sooner prn-- Current Outpatient Medications: Acetaminophen Extra Strength 500 MG tablet, TAKE 1 TABLET BY MOUTH EVERY 6 HOURS NEEDED FOR MILDPAIN, Disp: 120 tablet, Rfl: 0 albuterol 108 (90 Base) MCG/ACT inhaler, INHALE 2 PUFFS BY MOUTH EVERY 4 HOURS NEEDED FOR WHEEZING, Disp: 8.5 g, Rfl: 3 amLODIPine (Norvasc) 5 MG tablet, Take 5 mg by mouth in the morning., Disp: , Rfl: aspirin 81 MG chewable tablet, Chew 1 tablet (81 mg) Once per day., Disp: 30 tablet, Rfl: 11 B Complex Vitamins (Vitamin B Complex) capsule, TAKE 1 CAPSULE BY MOUTH EVERY MORNING, Disp: 90 each, Rfl: 3 Banophen 25 MG tablet, TAKE 2 TABLETS BY MOUTH AT BEDTIME NEEDED FOR ITCHING OR SLEEP. TAKE 2 TABLETS AT BEDTIME FOR INSOMNIA, Disp: 60 tablet, Rfl: 0 betamethasone dipropionate (Diprolene) 0.05 % ointment, APPLY TO THE AFFECTED AREA ON THE GROIN ANDBREAST TWICE A DAY NEEDED . DO NOT USE FOR MORE THAN TWO WEEKS AT A TIME., Disp: , Rfl: betamethasone valerate (Valisone) 0.1 % ointment, Apply topically if needed in the morning and at bedtime (dryness)., Disp: 45 g, Rfl: 2 Blood Glucose Monitoring Suppl (Tablelist Inc Lite) w/Device kit, Use to test blood sugar 1 times daily, Disp: 1 kit, Rfl: 0 cholecalciferol (Vitamin D-3) 25 MCG (1000 UT) tablet, Take 1 tablet (25 mcg) by mouth Once per day., Disp: 60 tablet, Rfl: 1 cyclobenzaprine (Flexeril) 10 MG tablet, Take 1 tablet (10 mg) by mouth 3 times daily for 10 days.,Disp: 30 tablet, Rfl: 0 Diclofenac Sodium (Voltaren) 1 % gel, Use topical BID, Disp: 100 g, Rfl: 3 estradiol (Estrace) 0.1 MG/GM vaginal cream, APPLY ONCE DAILY FOR 2 WEEKS THEN TWICE DAILY AT BEDTIME, Disp: 42.5 g, Rfl: 3 fluconazole (Diflucan) 150 MG tablet, Take 1 tablet (150 mg) by mouth Once per day for 1 day. Repeat in 3 days, Disp: 2 tablet, Rfl: 0 gabapentin (Neurontin) 100 MG capsule, Take 2 capsules (200 mg) by mouth every 8 (eight) hours., Disp: 180 capsule, Rfl: 11 gabapentin (Neurontin) 400 MG capsule, Take 1 capsule (400 mg) by mouth 3 times daily., Disp: 90 capsule, Rfl: 2 glucose blood (Sendmail Ultra) test strip, USE ONE STRIP TO CHECK BLOOD SUGAR TWICE DAILY, Disp: 100 strip, Rfl: 11 glucose-vitamin C 4-6 GM-MG oral gel, 1 tab if FS< 70 mg/dl, Disp: 50 tablet, Rfl: 2 ibuprofen 600 MG tablet, TAKE 1 TABLET BY MOUTH THREE TIMES DAILY WITH FOOD, Disp: 30 tablet, Rfl: 0 lisinopril 10 MG tablet, TAKE 1 TABLET BY MOUTH EVERY DAY, Disp: 90 tablet, Rfl: 1 LORazepam (Ativan) 1 MG tablet, TAKE 1 TABLET BY MOUTH EVERY DAY NEEDED FOR PANIC ATTACKS, Disp:, Rfl: LORazepam (Ativan) 1 MG tablet, 1 mg to take 30 minutes prior to the procedure. Make an additional 1 mg 30 minutes later if no effect., Disp: 30 tablet, Rfl: 0 metFORMIN XR (Glucophage-XR) 500 MG 24 hr tablet, TAKE 2 TABLETS BY MOUTH TWICE DAILY WITH MEALS, Disp: 360 tablet, Rfl: 1 metoclopramide (Reglan) 5 MG tablet, Take 1 tablet (5 mg) by mouth 4 times daily for 10 days., Disp: 40 tablet, Rfl: 0 nicotine (Nicoderm CQ) 14 MG/24HR patch, Place 1 patch on the skin 1 (one) time each day at the same time., Disp: 30 patch, Rfl: 0 OneTouch Ultra test strip, USE ONE STRIP TO CHECK BLOOD SUGAR TWICE DAILY, Disp: 100 strip, Rfl: 11 pantoprazole (Protonix) 20 MG EC tablet, Take 1 tablet (20 mg) by mouth before breakfast. Do not crush, chew, or split., Disp: 30 tablet, Rfl: 11 polyethylene glycol, PEG, 3350 (Miralax) 17 g packet, , Disp: , Rfl: simethicone (Mylicon) 80 MG chewable tablet, CHEW 1 TABLET EVERY 6 HOURS NEEDED FOR FLATULENCE, Disp: 90 tablet, Rfl: 0 simvastatin (Zocor) 20 MG tablet, TAKE 1 TABLET BY MOUTH EVERY DAY, Disp: 90 tablet, Rfl: 1 sulfamethoxazole-trimethoprim (Bactrim DS) 800-160 MG tablet, Take 1 tablet by mouth 2 times daily for 3 days., Disp: 6 tablet, Rfl: 0 venlafaxine (Effexor) 37.5 MG tablet, Take 1 tablet (37.5 mg) by mouth 2 times daily., Disp: 60 tablet, Rfl: 2 Scribe Attestation: Shreyas, Emil Cid, am serving as a scribe to document services personally performed by Cleo JurcsakDO, based on the patient's response to questions by provider and provider's statements to me. 10/22/24 9:16 AM Physicians Attestation: I, Cleo Mandel DO, have reviewed the information by the scribe, Emil Cid, for accuracy and agree with its content. documented in this encounter Plan of Treatment Upcoming Encounters Date Type Department Care Team (Late st Contact Info) Description 11/23/2024 9:00 AM EDT Office Visit [facility] CHC MED & PEDS [address] [place], [place] [phone] Eliel Stoddard MD [address] [place], [place] [phone] 11/27/2024 9:45 AM EDT Office Visit [facility] OPTOMETRY [address] [place], [place] [phone] Ernestina Qiu, OD [address] [place] [address] Scheduled Orders Name Type Priority Associated Diagnoses Orde r Schedule Culture, Urine, Routine Microbiology Routine Vaginal itching Ordered: 10/22/2024 Bacterial Vaginosis Panel Microbiology Routine Vaginal itching Ordered: 10/22/2024 Chlamydia/N. Gonorrhoeae RNA, TMA, Urogenitial Microbiology Routine Vaginal itching Ordered: 10/22/2024 documented as of this encounter Procedures Procedure Name Priority Date/Time Associated Diagnosis Comments POCT URINALYSIS DIPSTICK Routine 10/22/2024 8:47 AM EDT Acute UTI documented in this encounter Results * (ABNORMAL) POCT urinalysis dipstick manually [...] None Detected Urine 10/22/2024 8:47 AM EDT Cleo Mandel DO POINT OF CARE TEST ENTER/PERLA T ORDERABLES Final Result documented in this encounter Visit Diagnoses Diagnosis Acute UTI- Primary Urinary tract infection, site not specified Vaginal itching Pruritus of genital organs documented in this encounter Additional Health Concerns Assessment Noted Time PHQ-9 Depression Total Score: 18 025 10:41 AM EST documented as of this encounter Care Teams Director School Of Nursing Relationship Specialty Start Date End Date Eliel Stoddard MD [address] [place] [id number] PCP - General Internal Medicine 06/17/18 documented as of this encounter
--- OUTSIDE RECORDS SUMMARY | 2024-10-22 14:16 | XMS_ITS | Continuity of Care Document ---
Author Organization [facility] Address [address] [place] [address] Phone Care Team Providers Care Wildlife Refuge Manager Name Role Phone Luigi KERR, Letha Unavailable Unavailab le Procedures Procedure Date ADM SARSCOV2 100MCG/0.5ML2ND SARSCOV2 VAC 100MCG/0.5ML IM Advance Directives Directive Yes / No Effective Date File Name No Information Encounters Encounter Description Practice Location Reason(s) For Visit Diagnoses Date Provider Providers Copied on Encounter [facility], [address] [place] [address], [facility], tel:[phone] [facility] Encounter for immunization 1 Luigi Letha. [address] [place] [address], [facility], . tel:[phone] Family History Family Member Type Diagnosis Age [...] Authoriza tion(s) COVID19 [employer] Uninsured [employer] CI [id number] Social History Type Description Quantity Date Captured [...]
--- OUTSIDE RECORDS SUMMARY | 2024-10-22 14:17 | XMS_ITS | Encounter Summary ---
Author Organization [employer] Address [address] [place] [address] 7 [place] [address] Care Team Providers Care Automotive Engineering Teacher Name Role Phone Eliel Stoddard MD Primary Care Provider [phone] Reason for Visit * Reason Comments Med Refill Encounter Details Date Type Department Care Team ([facility] Contact Info) Description 12/25/2023 Refill [facility] CHC MED & PEDS [address] [place], [place] [phone] Eliel Stoddard MD [address] [place] [address] Social History Tobacco Use Types Packs/Day Years [...] 9:00 AM EDT Office Visit [facility] CHC MED & PEDS [address] [place] [address] Eliel Stoddard MD [address] [place] [address] 11/27/2024 9:45 AM EDT Office Visit [facility] OPTOMETRY [address] [place], [place] [phone] TarkaErnestina, OD [address] [place] [address] documented as of this encounter Visit Diagnoses Not on filedocumented in this encounter Additional Health Concerns Assessment Noted Time PHQ-9 Depression Total Score: 9 12/02/19 24 10:48 AM EDT documented as of this encounter Care Teams Automotive Engineering Teacher Relationship Specialty Start Date End Date Eliel Stoddard MD [address] [place] [address] PCP - General Internal Medicine 06/17/18 documented as of this encounter
[2024-10-23 11:24] LABS: Bacterial Vaginosis PCR NEGATIVE (Negative); Candida Group PCR NOT DETECTED (Not Detect); Candida glab krusei PCR NOT DETECTED (Not Detect); Trichomonas vaginalis PCR NOT DETECTED (Not Detect)
[2024-10-23 13:29] LABS: CT PCR NOT DETECTED (Not Detect.); NG PCR NOT DETECTED (Not Detect.)
== END 2024-10-22 13:12 | disposition home or self-care (01) ==
LOC: HO.LNP 13:11
PROVIDERS: Visit Provider Family Medicine
DX: N89.8 Other specified noninflammatory disorders of vagina (principal); R82.90 Unspecified abnormal findings in urine
CPT/HCPCS: 81515; 87086; 87491; 87591

== ENCOUNTER 2024-11-13 08:29 | Outpatient (REF) | payer OTHER, SELFPAY ==
--- OUTSIDE RECORDS SUMMARY | 2024-11-13 08:32 | XMS_ITS | Encounter Summary ---
Author Organization [employer] Address [address] [place] [address] 7 [place] [address] Care Team Providers Care Station Mechanic Apprentice Name Role Phone Eliel Stoddard MD Primary Care Provider [phone] Reason for Visit * Reason Onset Date Comments Med Refill 10/19/2022 Encounter Details Date Type Department Care Team ([facility] st Contact Info) Description 10/19/2022 Refill [facility] CHC MED & PEDS [address] [place] [address] Eliel Stoddard MD [address] [place] [address] Social History Tobacco Use Types Packs/Day Years [...] Description 11/23/2024 9:00 AM EDT Office Visit [facility] CHC MED & PEDS [address] [place], [place] [phone] Eliel Stoddard MD [address] [place], [place] [phone] 11/27/2024 9:45 AM EDT Office Visit [facility] OPTOMETRY [address] [place], [place] [phone] TarErnestina roche, OD [address] [place] [address] documented as of this encounter Visit Diagnoses Not on filedocumented in this encounter Care Teams Station Mechanic Apprentice Relationship Specialty Start Date End Date Eliel Stoddard MD [address] [place], [place] [phone] PCP - General Internal Medicine 06/17/18 documented as of this encounter
[2024-11-13 09:37] LABS: Anion Gap 13 (12-20); Blood Urea Nitrogen 19 mg/dL (9-16); Calcium 9.2 mg/dL (8.4-10.2); Carbon Dioxide 23 mmol/L (22-29); Chloride 109 mmol/L (96-108); Estimated Glomerular Filt Rate > 60; Glucose Random 127 mg/dL (60-115); Sodium 141 mmol/L (135-145)
== END 2024-11-13 08:30 | disposition home or self-care (01) ==
LOC: HO.LAB 08:29
PROVIDERS: PCP Internal Medicine; Visit Provider Internal Medicine
DX: K52.9 Noninfective gastroenteritis and colitis, unspecified (principal)
CPT/HCPCS: 36415; 80048

== ENCOUNTER 2024-11-23 09:16 | Outpatient (REF) | payer OTHER, SELFPAY ==
--- OUTSIDE RECORDS SUMMARY | 2024-11-23 09:39 | XMS_ITS | Encounter Summary ---
Author Organization [employer] Address [address] [place] [address] 7 [place] [address] Care Team Providers Care Furniture Assembler And Installer Name Role Phone lEiel Stoddard MD Primary Care Provider [phone] Reason for Visit * Reason Onset Date Comments Med Refill 10/19/2022 Encounter Details Date Type Department Care Team ([facility] st Contact Info) Description 10/19/2022 Refill [facility] CHC MED & PEDS [address] [place] [address] Eliel Stoddard MD [address] [place] [address] Social History Tobacco Use Types Packs/Day Years [...] Care Team (Late st Contact Info) Description 11/27/2024 9:45 AM EDT Office Visit [facility] OPTOMETRY [address] [place], [place] [phone] Ernestina Qiu, OD [address] [place] [address] documented as of this encounter Visit Diagnoses Not on filedocumented in this encounter Care Teams Furniture Assembler And Installer Relationship Specialty Start Date End Date Eliel Stoddard MD [address] [place] [id number] PCP - General Internal Medicine 06/17/18 documented as of this encounter
[2024-11-23 15:11] LABS: Creatinine Urine 200.15 mg/dL; Microalbum/Creatinine Ratio Ur 10.4 ug/mg cr (<30)
== END 2024-11-23 09:17 | disposition home or self-care (01) ==
LOC: HO.CHCLDS 09:16
PROVIDERS: Visit Provider Internal Medicine
DX: E11.649 Type 2 diabetes mellitus with hypoglycemia without coma (principal)
CPT/HCPCS: 82043; 82570

== ENCOUNTER 2024-12-03 15:25 | Outpatient (REF) | payer OTHER, SELFPAY ==
--- NOTE | ~2024-12-03 | CT_ITS ---
EXAMINATION: CT ABDOMEN AND PELVIS WITH CONTRAST CLINICAL INFORMATION: Noninfective gastroenteritis and colitis COMPARISON: February 06, 2023 TECHNIQUE: Multidetector volumetric images were obtained from the superior aspect of the liver through the pubic symphysis following administration 85 mL of Omnipaque 350 intravenous contrast. Sagittal and coronal reformatted images were obtained on the technologist's workstation. Oral contrast: No This CT examination was performed using dose optimization techniques as appropriate, variously including the following: *Automated exposure control *Adjustment of mA and/or kV according to patient size (this includes techniques or standardized protocols for targeted exams where dose is matched to indication/reason for exam; i.e. extremities or head) *Use of iterative reconstruction technique DLP: 85 mGY*cm FINDINGS: LUNG BASES: There is minimal dependent atelectasis. In the lateral base of the left lower lobe there is a 5 mm solid pulmonary nodule that previously measured 6 mm. LIVER, GALLBLADDER, AND BILIARY TREE: The liver is normal in size, shape, and attenuation. No focal hepatic lesion or biliary ductal dilatation is present. The gallbladder is unremarkable with no evidence of radiopaque gallstones, gallbladder wall thickening, or obvious pericholecystic inflammatory changes. PANCREAS: Unremarkable. SPLEEN: Unremarkable. ADRENAL GLANDS: Unremarkable. KIDNEYS AND URETERS: Small simple renal cysts are present. Cortical scarring is present in the lower right kidney. BLADDER: Empty and not well demonstrated. GASTROINTESTINAL TRACT: The small and large bowel are unremarkable. The appendix is unremarkable. ABDOMINAL WALL: Small umbilical hernia contains fat. LYMPH NODES: Normal. VASCULAR: Multifocal vascular calcifications are present. PELVIC VISCERA: Uterus and ovaries are within normal limits. OSSEOUS STRUCTURES: Unremarkable. CT/CT abdomen pelvis w IV con IMPRESSION: Solid 5 mm pulmonary nodule in the left lower lobe is unchanged since the prior study nearly 2 years ago favoring a benign etiology. Fleischner guidelines were followed. Electronically signed by: Fausto Garay MD 12/03/2024 06:12 PM EDT
--- OUTSIDE RECORDS SUMMARY | 2024-12-03 16:38 | XMS_ITS | Encounter Summary ---
Author Organization [employer] Address [address] [place] [address] Care Team Providers Care State Assessed Properties Director Name Role Phone Eliel Stoddard MD Primary Care Provider [phone] Reason for Visit * Reason Onset Date Comments Med Refill 10/19/2022 Encounter Details Date Type Department Care Team ([facility] st Contact Info) Description 10/19/2022 Refill [facility] CHC MED & PEDS [address] [place], [place] [phone] Eliel Stoddard MD [address] [place] [address] Social History Tobacco Use Types Packs/Day Years [...] Care Team (Late st Contact Info) Description 02/23/2025 9:00 AM EDT Office Visit [facility] MED & PEDS [address] [place] [address] Eliel Stoddard MD [address] [place] [address] documented as of this encounter Visit Diagnoses Not on filedocumented in this encounter Care Teams State Assessed Properties Director Relationship Specialty Start Date End Date Eliel Stoddard MD [address] [place] [address] PCP - General Internal Medicine 06/17/18 documented as of this encounter
[2024-12-03] MEDS: iohexoL 350 MG/ML 100 ML INFUS..BTL IV (17:21)
== END 2024-12-03 15:26 | disposition home or self-care (01) ==
LOC: HO.CT 15:25
PROVIDERS: PCP Internal Medicine; Visit Provider Internal Medicine
DX: K52.9 Noninfective gastroenteritis and colitis, unspecified (principal); K86.89 Other specified diseases of pancreas
CPT/HCPCS: 74177; Q9967

== ENCOUNTER → 2024-12-03 15:27 | Outpatient (BNV) | payer OTHER, SELFPAY | PROVIDERS: PCP Internal Medicine; Visit Provider Radiology Diagnostic Radiology | DX: R91.1 Solitary pulmonary nodule (principal) | CPT/HCPCS: 74177 ==

== ENCOUNTER 2024-12-21 09:13 | Outpatient (REF) | payer OTHER, SELFPAY ==
--- OUTSIDE RECORDS SUMMARY | 2020-10-12 14:15 | XMS_ITS | Continuity of Care Document ---
Author Organization [facility] Address [address] [place] [address] Phone Care Team Providers Care B2B Sales Professional Name Role Phone Luigi KERR, Letha Unavailable Unavailab le Procedures Procedure Date ADM SARSCOV2 100MCG/0.5ML2ND SARSCOV2 VAC 100MCG/0.5ML IM Advance Directives Directive Yes / No Effective Date File Name No Information Encounters Encounter Description Practice Location Reason(s) For Visit Diagnoses Date Provider Providers Copied on Encounter [facility], [address] [place] [address], [facility], tel:[phone] [facility] [[email or web address] Encounter for immunization 1 Luigi Letha. [address] [place] [address], [facility], . tel:[phone] Family History Family Member Type Diagnosis Age [...] Record Payers Payer name Insurance type Covered constitution party ID Authoriza tion(s) COVID19 HRSA Uninsured Fund CI [id number] Social History Type Description Quantity Date Captured Comments Sex Female Smoking Status No Information Chief Complaint And Reason For Visit No Information Reason For Referral Reason For Referral No Information History Of Present Illness Encounter Date Complaint History Of Prese nt Illness No Information Functional Status Date Functional Assessmen t No Information Instructions Date Instruction Additional Infor mation No Information Assessments Type Assessment Date No Information Patient Care Teams Name Effective Dates (start - stop) Status Members No Information
--- NOTE | ~2024-12-21 | MM_ITS ---
EXAMINATION: MM SCREENING DIGITAL BREAST TOMOSYNTHESIS, BILATERAL CLINICAL INFORMATION: Screening. Asymptomatic. COMPARISON: Mammography: Comparison is made with available priors TECHNIQUE: Digital breast mammography with tomosynthesis is performed in both the craniocaudal and mediolateral oblique views along with computer-aided detection (CAD). FINDINGS: There are scattered areas of fibroglandular density (ACR BI-RADS breast composition Category b). There are no significant masses, abnormal calcifications, or other abnormalities. MM/MM tomosynthesis screening BI IMPRESSION: No mammographic evidence of malignancy. ASSESSMENT: BI-RADS BI-RADS 1 - Negative RECOMMENDATION: Routine annual mammography screening. 1 year F/U This examination should not preclude the clinical evaluation of a suspicious palpable abnormality. This patient's information was entered into a reminder system with a target due date for their next mammogram. Electronically signed by: Suzi Nguyen DO 12/30/2024 09:11 PM EDT
--- OUTSIDE RECORDS SUMMARY | 2024-12-21 09:41 | XMS_ITS | Clinical Summary ---
Author Organization [facility] Address [address] [place] [address] Care Team Providers Care Novelty Twister Tender Name Role Phone Eliel Stoddard MD Primary Care Provider [phone] Surgical History Surgery Date Site/Laterality Comments OTHER SURGICAL HISTORY PROCEDURE: CO DILATION & CURETTAGE DX&/THER NONOBSTETRIC SECTION PROCEDURE: [...] herpes zoster H/O acute pancreatitis DX:H/O ac [place] pancreatitis Hypercholesterolemia DX:Hypercho lesterolemia Leukocytosis DX:Leukocytosis Spinal [...] (2023-2 5 season) 2024 Influenza Vaccine (#1) 2025 HIB Vaccines Aged Out No longer [...] Documents on File Type Date Recorded Patient Tools Programmer Expl anation Health Care Decision (hx) 10/21/2018 [...] (hx) 10/21/2018 AD LUI DIRECTIVE Care Teams Novelty Twister Tender Relationship Specialty Start Date End Date Eliel Stoddard MD [address] [place] [address] PCP - General 01/04/13
--- OUTSIDE RECORDS SUMMARY | 2024-12-21 09:41 | XMS_ITS | Data Portability ---
Author Organization [employer], [facility] Hospital[facility] Social Network Analysis [facility] Address [address] [place] [address] Care Team Providers Care Content Management Consultant Name Role Phone [facility] Referring Provider HIM CCA OTHER Assessment Encounter Date Assessment Date Assessment LastModified by Organization Details LastModified Time 09/03/2022 09/03/2022 I have reviewed and agree with the assessment and plan as documented by the manager massage department. I provided real time medical direction for this encounter and was immediately available to provide additional phone based assistance as needed. History as noted by manager massage department. Pt with history of DM. She no [...] 09/03/2022 17:04:08 01/19/2024 01/19/2024 As noted, we wer e called to see this patient regarding concerns of headache. Evaluation in the field was performed by my manager massage department colleague, as noted above, I provided real-time [...] toradol, reglan, benadryl and IVF but otherwise estate planning counselor on PCP follow up. Impression: migraine [...] new neurologic change, fever, or worsening headache. [email or web address] Not available 01/19/2024 19:27:55 Plan of Treatment Reminders Order Date Submit Date Provider Last Modified By Organization Details Last Modified Time Details Appointments None recorded. Lab culture, urine 2022 023 QUE [facility] (Centralized Electronic Ordering - All Locations), Patient Can Go To The Location Of Their Choice, [id number] 12:54:26 urinalysis, dipstick 2022 023 [email or web address], [address] [place] [address], [place], [address] 16:56:33 Referral None recorded. Procedures None recorded. Surgeries None recorded. Imaging None recorded. Medication Orders metoclopram saturnino 5 mg/mL injection solution 2023 024 [email or web address] [facility]64837, [address], [place], [id number], 4 19:26:55 ketorolac 30 mg/mL injection solution 2023 024 [email or web address] [facility] #92004, [address] [place] [address], [id number], 4 19:26:55 diphenhydra mine 50 mg/mL injection solution 2023 024 [email or web address] [facility] #37385, [address] [place] [address], [id number], 4 19:26:55 sodium chloride 0.9 % intravenous solution 2023 024 [email or web address] [facility] #53882, [address] [place] [address], [id number], 4 19:26:55 magnesium sulfate 2 gram/50 mL in 0.9 % sodium chloride IV piggyback 2023 024 [email or web address] [facility] #62051, [address] [place] [address], [id number], 4 19:26:55 tamsulosin 0.4 mg capsule 2022 023 [facility] #40966, [address] [place] [address], [id number], 3 21:22:44 doxycycline hyclate 100 mg tablet 2022 023 [facility] #89371, [address] [place] [address], [id number], 3 12:49:47 doxycycline hyclate 100 mg tablet 2022 023 [email or web address] Not available 12:49:39 Patient TargetsNo targets recorded. Patient InstructionsNo instructions recorded. Reason for Referral None Reported. Results Created Date Observation Date Name Description Value Unit Range Abnormal Flag Note LastModifiedBy Organization Detail LastModifiedTime 09/04/1909/03/2022 urina lysis , dipst ick Leukocytes negati ve Not Available Main - [facility] ed [address] [place] [address], [address] [place] [address] 09/03/2022 16:55:11 09/04/19 23 09/03/2022 urina lysis , dipst ick Nitrite negati ve Not Available [facility] ed [address] [place] [address], [address] [place] [address] 09/03/2022 16:55:11 09/04/1909/03/2022 urina lysis , dipst ick Blood negati ve Not Available [facility] ed [address] [place] [address], [address] [place] [address] 09/03/2022 16:55:11 09/04/19 23 09/03/2022 urina lysis , dipst ick Glucose negati ve Not Available Main - [facility] ed [address] [place] [address], [address] [place] [address] 09/03/2022 16:55:11 12/23/19 23 12/22/2022 URINE CULTU [...] The Location Of Their Choice, 12/24/2022 12:54:25 12/23/19 23 12/24/2022 URINE CULTU RE report status FINAL 2022 [...] Available Not Avai lable Vitals Date Recorded Oxygen saturation Oxygen saturation in Arterial blood by Pulse oximetry Respiratory rate Body weight Heart rate Body temperature Oxygen saturation Oxygen saturation in Arterial blood by Pulse oximetry Respiratory rate Body temperature Heart rate Body weight Provider Name and Address Organization Details Last Updated DateTime 3 99 % 99 % 18 /min 559616. 608 g 66 /min 97.5 [degF] 99 % 99 % 18 /min 97.5 [degF] 66 /min 796265. 608 g Not Available [employer] - production 3 17:07:05 Date Recorded Systolic And Diastolic Systolic And Diastolic Provider Name and Address Organization Details Last Updated DateTime 09/03/2022 110/54 mm[Hg] 110/54 mm[Hg] Not Available [employer] [facility] 09/03/2022 17:07:05 Date Recorded Heart rate Body temperature Body weight Oxygen saturation Oxygen saturation in Arterial blood by Pulse oximetry Systolic And Diastolic Provider Name and Address Organization Details Last Updated DateTime 3 80 /min 97.7 [degF] 654671. 976 g 97 % 97 % 145/81 mm[Hg] Not Available [employer] 3 12:45:38 Date Recorded Respiratory rate Heart rate Oxygen saturation Oxygen saturation in Arterial blood by Pulse oximetry Body temperature Body height Body weight Systolic And Diastolic Provider Name and Address Organization Details Last Updated DateTime 4 16 /min 69 /min 100 % 100 % 97.8 [degF] 175.26 cm 93358.9 52 g 119/70 mm[Hg] Not Available [employer] 4 11:59:12 Date Recorded Body temperature Oxygen saturation Oxygen saturation in Arterial blood by Pulse oximetry Heart rate Respiratory rate Systolic And Diastolic Provider Name and Address Organization Details Last Updated DateTime 3 97.8 [degF] 98 % 98 % 67 /min 16 /min 139/80 mm[Hg] Not Available [employer] 3 21:07:31 Date Recorded Body weight Oxygen saturation Oxygen saturation in Arterial blood by Pulse oximetry Body height Body temperature Respiratory rate Heart rate Systolic And Diastolic Provider Name and Address Organization Details Last Updated DateTime 4 26328.4 g 100 % 100 % 177.8 cm 98.8 [degF] 16 /min 76 /min 154/72 mm[Hg] Not Available [employer] 4 17:08:33 Social History None recorded. Functional Status None [...] 2458 Halima Orta MD Main - [facility] [address] [place] [phone] 12/15/2021 12:34:04 02/14/2022 11:31:08 Acute pelvic pain 800953338 R10.2 several days of R>L pelvic pain [...] 8680 James Platt MD Main - [facility] [address] [place] [phone] 09/03/2022 16:51:04 09/05/2022 09:22:46 Increased frequency of urination 131430547 R35.0 9885 Du Mcneil MD Main - [facility] [address] [place] [address] [phone] 0 10/12/2022 12:45:32 10/15/2022 09:47:49 Boils of multiple sites 524922595 L02.92 57yo woman with history of multiple skin soft tissue infections presents with a focal skin infection of the stomach similar to prior episosdes. Previously this has responded to doxy. The lesion is draining on manager massage department exam and my review of images.- Doxycyclin e 65715 Macey Corrales MD Main - [facility] [address] [place] [phone] 0 12/22/2022 20:58:54 12/24/2022 12:19:53 Flank pain 512612198 R10.9 Evaluation in the field was performed by my manager massage department colleague, as noted above, I provided real-time [...] shortness of breath, cough, chest pain, fever. 10922 Tristin Segura MD Main - [facility] [address] [place] [address] [phone] 0 11/13/2023 11:59:04 11/13/2023 15:12:52 Gastroparesis syndrome 098210413 K31.84 This 58-year-ol d female was recently diagnosed with gastropare sis but the medication ordered hasn't been effective. I suggested that she contact her PCP to make arrangemen ts for a GI referral. The patient agreed with this plan. 24930 Anthony Santiago MD Main - [facility] [address] [place] [phone] 0 01/19/2024 17:08:29 01/19/2024 22:27:44 Migraine 58033588 G43.909 no alarm features or neurologic change. [...] Mondragon Member ID Guarantor Name 12/22/[address] [facility] - DOS PRIOR TO 2022 - DUAL ELIGIBLE (MEDICARE REPLACEMENT/AD VANTAGE - HMO) Alma Diego [id number] Alma Diego 01/19/[address] [facility] - DOS ON OR AFTER 2022 - DUAL ELIGIBLE - RETIREMENT OPTIONS AND ONE CARE (MEDICARE REPLACEMENT/AD VANTAGE - HMO) Alma Diego [id number] Alma Diego Notes Date Note Type Note Provider Name and Address Organization Details Recorded Time 09/03/2022 text/html This was a super vised home visit with manager massage department Jet Grier. HPI: I ve been urinating a lot, I m a diabetic for the pass 3 [...] ..................... ..................... ..................... ..................... ..................... ..................... ............... Winch Derrick Operator Note From Jet Grier: Pt presents A@Ox4 [...] ..................... ............... Disposition: Fulfilled James Platt MD [address] [place] [address],[facility], [place], [address], [employer] 09/03/2022 17:18:02 10/12/2022 text/html HPI: ALLERGIC TO : AMPICILLIN HX: Chronic Hep C, Hidradenitis. DM, HTN Patient with reported boil on stomach. Now large painful and intact. No fever. ..................... ..................... ..................... ..................... ..................... ..................... ............... CRC Nursing Assessment: Comments: CRC RN DID NOT NEED FURTHER INFO Du Mcneil MD [address] [place] [address],[address], [place], [address], [employer] 10/12/2022 12:49:54 12/22/2022 text/html HPI: I m having pain on both side of [...] ..................... ..................... ..................... ..................... ..................... ..................... ............... Winch Derrick Operator Note From Jorgito Schwartz: PER CCA: Member [...] ..................... ............... Disposition: Fulfilled Macey Corrales MD [address] [place] [address],[address], [place], [address], [employer] 12/22/2022 21:50:36 11/13/2023 text/html HPI: I ve been having abdominal pain. My urine stream has changed. Somethings pressing on my bladder constantly. I m nauseous every day. I have pain in my stomach even if I m drinking water I m bloated always Gastroparesis. I don t know if gallbladder ..................... ..................... ..................... [...] PCP appt last week. Tristin Segura MD [address] [place] [address],[address], [place], [address] [employer] 11/13/2023 12:02:46 01/19/2024 text/html CRC Nurse Triage Notes (Delfin Villagran): Reason For Request: neck pain/headaches Chief Complaints: Headache, Pain PMH: Diabetes, Hypertension Allergies: Unknown Comments: Nurse Extern verified the member's name//address and phone number. [...] ..................... ..................... ..................... ..................... ..................... ..................... ............... Winch Derrick Operator Note From Aguila Baez: Pt reports hx [...] ............... Disposition: Fulfilled Anthony Santiago MD [address] [facility],[address], [place], [address], [employer] 01/19/2024 19:28:08 OBGyn Episode No OBEpisode recorded.
--- OUTSIDE RECORDS SUMMARY | 2024-12-21 09:41 | XMS_ITS | Encounter Summary ---
Author Organization [employer] Address [address] [place] [address] [place] [address] Care Team Providers Care Store Coordinator Name Role Phone Eliel Stoddard MD Primary Care Provider [phone] Reason for Visit * Reason Onset Date Comments Med Refill 10/19/2022 Encounter Details Date Type Department Care Team ([facility] st Contact Info) Description 10/19/2022 Refill [facility] MED & PEDS [address] [place], [place] [phone] Eliel Stoddard MD [address] [place] [address] Social History Tobacco Use Types Packs/Day Years [...] Description 02/23/2025 9:00 AM EDT Office Visit [facility] MED & PEDS [address] [place] [address] Eliel Stoddard MD [address] [place] [address] documented as of this encounter Visit Diagnoses Not on filedocumented in this encounter Care Teams Store Coordinator Relationship Specialty Start Date End Date Eliel Stoddard MD [address] [place] [address] PCP - General Internal Medicine 06/17/18 documented as of this encounter
== END 2024-12-21 09:14 | disposition home or self-care (01) ==
LOC: HO.MAMMO 09:13
PROVIDERS: PCP Internal Medicine; Visit Provider Internal Medicine
DX: Z12.31 Encounter for screening mammogram for malignant neoplasm of breast (principal)
CPT/HCPCS: 77063; 77067

== ENCOUNTER → 2024-12-21 09:30 | Outpatient (BNV) | payer OTHER, SELFPAY | PROVIDERS: PCP Internal Medicine; Visit Provider Internal Medicine | DX: Z12.31 Encounter for screening mammogram for malignant neoplasm of breast (principal) | CPT/HCPCS: 77063; 77067 ==

== ENCOUNTER 2025-02-04 11:17 | Outpatient (REF) | payer OTHER, SELFPAY ==
--- NOTE | ~2025-02-04 | XR_ITS ---
EXAMINATION: XR CERVICAL SPINE CLINICAL INFORMATION: M48.02 - Spinal stenosis, cervical region COMPARISON: April 29, 2013. TECHNIQUE: Lateral views in neutral, flexion and extension position. AP view. FINDINGS: Status post anterior intervertebral disc spacer and arthrodesis, C5-6. Grade 1 retrolisthesis C4-5 in neutral position which persists during flexion and extension. Marginal osteophyte formation C3 C3-4 C4-5 and C6-7 levels. Craniocervical junction is intact. No acute cortical disruption. No lytic or blastic lesions. Upper airways patent. XR/XR cervical spine 4V IMPRESSION: Multilevel cervical spondylosis C2-3 to C6-7 with grade 1 retrolisthesis C4-5 without instability. Status post anterior intervertebral disc spacer placement and arthrodesis C5-6 without malalignment. Electronically signed by: Óscar Alexander MD 02/04/2025 01:48 PM EDT
== END 2025-02-04 11:18 | disposition home or self-care (01) ==
LOC: HO.HOSX 11:17
PROVIDERS: PCP Internal Medicine; Visit Provider Physician Assistant
DX: M48.02 Spinal stenosis, cervical region (principal)
CPT/HCPCS: 72050; 99212

== ENCOUNTER 2025-02-04 11:17 | Outpatient (AMB) | payer OTHER, SELFPAY ==
--- NOTE | 2025-02-04 11:48 | A.SPINEOV_ITS ---
Intake Visit Reasons: Recurrent neck pain. Intake Note: Ms. Rodriguez is here today c/o recurrent neck and back pain. Community Health Director Required: No Allergies ampicillin (AMPICILLIN) Allergy (Unknown, Verified 02/04/25 11:48) RASH Ampicillin Allergy (Unknown, Uncoded 01/25/24 16:08) rash Assessment & Plan Assessment & Plan (1) Spinal stenosis in cervical region: Code(s): M48.02 - Spinal stenosis, cervical region Category: Medical Plan Mrs Rodriguez is here in follow-up. We did an anterior cervical fusion on her at [facility] number of years ago with good resolution of her symptoms. She presents today with progression of posterior neck pain radiating down primarily her right arm going into her hand. She feels as though the fingers are numb on the right hand. She can not localize exactly which fingers hurt the most but she just describes that the whole hand is painful and it shoots down from her neck into her whole arm. She has tried things like Tylenol and ibuprofen. She was seen at [facility] for possible carpal tunnel. They also did a injection in her right shoulder last year which did seem to help a little bit but did not take away the symptoms. On exam she is uncomfortable, has limited strength in her right hand but otherwise strength is normal, reflexes are normal. I am going to order an x-ray. I anticipate ultimately though we will need an MRI to see if there is adjacent segment disease. She has not yet participated in any physical therapy, she did that last year but it was not all that helpful. I am not sure if her insurance company will make her repeat that before getting the MRI. Either way I will see her back once the imaging is completed. Total amount of time spent in this visit was 20 minutes in discussion of symptoms, ordering imaging and subsequent plan of care Filippo Eller MD,PhD [facility] Orders: Orders MR cervical spine wo con Today M48.02 - Spinal stenosis, cervical region XR cervical spine 4V Today M48.02 - Spinal stenosis, cervical region Coding Level of Care Code Est Pt Level 3 (88212) Diagnoses Spinal stenosis in cervical region M48.02
--- OUTSIDE RECORDS SUMMARY | 2025-02-04 13:01 | XMS_ITS | Encounter Summary ---
Author Organization [employer] Address [address] [place] [address] Care Team Providers Care Coffee Sampler Name Role Phone Eliel Stoddard MD Primary Care Provider [phone] Reason for Visit * Reason Onset Date Comments Med Refill 10/19/2022 Encounter Details Date Type Department Care Team ([facility] st Contact Info) Description 10/19/2022 Refill [facility] MED & PEDS [address] [place], [place] [phone] Eliel Stoddard MD [address] [place] [address] Social History Tobacco Use Types Packs/Day Years [...] Description 02/23/2025 9:00 AM EDT Office Visit [facility] MED & PEDS [address] [place] [address] Eliel Stoddard MD [address] [place] [address] documented as of this encounter Visit Diagnoses Not on filedocumented in this encounter Care Teams Coffee Sampler Relationship Specialty Start Date End Date Eliel Stoddard MD [address] [place] [address] PCP - General Internal Medicine 06/17/18 documented as of this encounter
--- OUTSIDE RECORDS SUMMARY | 2025-02-04 13:01 | XMS_ITS | Clinical Summary ---
Author Organization [facility] Business [facility] Address [address] [place] [address] Care Team Providers Care Database Marketing Analyst Name Role Phone Eliel Stoddard MD Primary Care Provider [phone] Surgical History Surgery Date Site/Laterality Comments OTHER SURGICAL HISTORY PROCEDURE: [place] DILATION & CURETTAGE DX&/THER NONOBSTETRIC SECTION PROCEDURE: [...] herpes zoster H/O acute pancreatitis DX:H/O ac violeta pancreatitis Hypercholesterolemia DX:Hypercho lesterolemia Leukocytosis DX:Leukocytosis Spinal [...] 2) 2016 Colorectal Cancer Screening: Colonoscopy 05/20/2022 HIV Screening 05/20/2022 Hepatitis C Screening 05/20/2022 Social Influencers of Health Screening 05/20/2022 COVID-19 Vaccine (1 - 2023-2 5 season) 2024 Depression Screening 06/17/2024 Influenza Vaccine (#1) 2025 HIB Vaccines Aged [...] Documents on File Type Date Recorded Patient Manager Functional Expl anation Health Care Decision (hx) 10/21/2018 [...] (hx) 10/21/2018 AD LUI DIRECTIVE Care Teams Database Marketing Analyst Relationship Specialty Start Date End Date Eliel Stoddard MD [address] [place] [address] PCP - General 01/04/13
== END 2025-02-04 13:06 | disposition home or self-care (01) ==
LOC: HO.HNS 11:18
PROVIDERS: PCP Internal Medicine; Visit Provider Physician Assistant
DX: M48.02 Spinal stenosis, cervical region (principal)
CPT/HCPCS: 99213

== ENCOUNTER → 2025-02-04 12:05 | Outpatient (BNV) | payer OTHER, SELFPAY | PROVIDERS: PCP Internal Medicine; Visit Provider Radiology Diagnostic Radiology | DX: M48.02 Spinal stenosis, cervical region (principal) | CPT/HCPCS: 72050 ==

== ENCOUNTER → 2025-02-20 10:18 | Outpatient (BNV) | payer OTHER, SELFPAY | PROVIDERS: PCP Internal Medicine; Visit Provider Radiology Vascular & Interventional Radiology | DX: M48.02 Spinal stenosis, cervical region (principal) | CPT/HCPCS: 72141 ==

== ENCOUNTER 2025-02-20 10:20 | Outpatient (REF) | payer OTHER, SELFPAY ==
--- OUTSIDE RECORDS SUMMARY | 2020-10-12 14:15 | XMS_ITS | Continuity of Care Document ---
Author Organization [facility] Address [address] [place] [address] Phone Care Team Providers Care Cost Specialist Name Role Phone Luigi KERR, Letha Unavailable Unavailab le Procedures Procedure Date ADM SARSCOV2 100MCG/0.5ML2ND SARSCOV2 VAC 100MCG/0.5ML IM Advance Directives Directive Yes / No Effective Date File Name No Information Encounters Encounter Description Practice Location Reason(s) For Visit Diagnoses Date Provider [facility], [address] [place] [address], [facility], tel:[phone] [facility] Encounter for immunization Luigi Monae. [address] [place] [address], [address] [place] [address], [facility], . tel:[phone] Family History Family Member Type Diagnosis [...] Record Payers Payer name Insurance type Covered green party ID Authoriza tion(s) COVID19 HRSA Uninsured Fund CI [id number] Social History Type Description Quantity Date Captured Comments Sex Female Smoking Status No Information Chief Complaint And Reason For Visit No Information History Of Present Illness Encounter Date Complaint History Of Prese nt Illness No Information Instructions Date Instruction Additional Infor mation No Information Assessments Type Assessment Date No Information
--- NOTE | ~2025-02-20 | MR_ITS ---
CLINICAL HISTORY: M48.02 - Spinal stenosis, cervical region --- Additional Notes or Special Instructions: History of previous ACDF C5-6 MR cervical spine without gadolinium Comparison: None provided Findings: Status post anterior fusion at C5-C6 with no evidence of hardware failure by MRI. The spinal cord is normal in signal and caliber. There is straightening of the normal cervical lordosis. The visualized portion of the posterior fossa are unremarkable. Paravertebral and prevertebral soft tissues are within expected limits. Mild multilevel disc desiccation and disc space narrowing. Individual levels: C2-C3: No central canal stenosis or neural foraminal narrowing. C3-C4: Small posterior and left eccentric disc protrusion with mild left neural foraminal narrowing. No central canal stenosis. C4-C5: Posterior and right eccentric disc protrusion with moderate right neural foraminal narrowing, axial 12. Minimal central canal narrowing. C5-C6: No significant central canal stenosis. Minimal left neural foraminal narrowing. C6-C7: Small posterior and left eccentric disc protrusion. No significant central canal stenosis. Mild left neural foraminal narrowing. C7-T1: Unremarkable. Impression: Postsurgical and degenerative changes as detailed. This document has been electronically signed by: Bear Vásquez MD on 02/23/2025 10:29:15
--- OUTSIDE RECORDS SUMMARY | 2025-02-20 10:24 | XMS_ITS | Encounter Summary ---
Author Organization [employer] Address [address] [place] [address] 7 [place] [address] Care Team Providers Care Excel Analyst Name Role Phone Eliel Stoddard MD Primary Care Provider [phone] Reason for Visit * Reason Comments Med Refill Encounter Details Date Type Department Care Team ([facility] st Contact Info) Description 06/28/2023 Refill [facility] MED & PEDS [address] [place], [place] [phone] Eliel Stoddard MD [address] [place], [place] [phone] Social History Tobacco Use Types Packs/Day Years [...] Description 02/23/2025 9:00 AM EDT Office Visit [facility] MED & PEDS [address] [place] [address] Eliel Stoddard MD [address] [place] [address] documented as of this encounter Visit Diagnoses Not on filedocumented in this encounter Care Teams Excel Analyst Relationship Specialty Start Date End Date Eliel Stoddard MD [address] [place] [address] PCP - General Internal Medicine 06/17/18 documented as of this encounter
--- OUTSIDE RECORDS SUMMARY | 2025-02-20 10:24 | XMS_ITS | Encounter Summary ---
Author Organization [employer] Address [address] [place] [address] [address] [place] [address] Care Team Providers Care Resource Specialist Name Role Phone Eliel Stoddard MD Primary Care Provider [phone] Encounter Details Date Type Department Care Team (Late st Contact Info) Description 11/08/2023 Orders Only [facility] [address] [place], [place] [phone] ProviderJahaira MD Social History Tobacco Use Types [...] [facility] MED & PEDS [address] [place] [address] Eliel Stoddard MD [address] [place] [address] documented as of this encounter Procedures Procedure [...] on filedocumented in this encounter Care Teams Resource Specialist Relationship Specialty Start Date End Date Eliel Stoddard MD [address] [place] [address] PCP - General Internal Medicine 06/17/18 documented as of this encounter
--- OUTSIDE RECORDS SUMMARY | 2025-02-20 10:24 | XMS_ITS | Clinical Summary ---
Author Organization Patient Business [facility] Address [address] [place] [address] Care Team Providers Care Art Professor Name Role Phone Eliel Stoddard MD Primary Care Provider [phone] Surgical History Surgery Date Site/Laterality Comments OTHER SURGICAL HISTORY PROCEDURE: [place] DILATION & CURETTAGE DX&/THER NONOBSTETRIC SECTION PROCEDURE: [...] herpes zoster H/O acute pancreatitis DX:H/O ac iliamna pancreatitis Hypercholesterolemia DX:Hypercho lesterolemia Leukocytosis DX:Leukocytosis Spinal [...] 05/20/2022 Social Influencers of Health Screening 05/20/2022 Depression Screening 06/17/2024 COVID-19 Vaccine ( - 2023-2 5 season) 2025 Influenza Vaccine (#1) 2025 HIB Vaccines Aged [...] Documents on File Type Date Recorded Patient Human Service Specialist Expl anation Health Care Decision (hx) [...] (hx) 10/21/2018 AD LUI DIRECTIVE Care Teams Art Professor Relationship Specialty Start Date End Date Eliel Stoddard MD [address] [place] [address] PCP - General 01/04/13
--- OUTSIDE RECORDS SUMMARY | 2025-02-20 10:24 | XMS_ITS | Encounter Summary ---
Author Organization [employer] Address [address] [place] [address] [address] [place] [address] Care Team Providers Care Personal Lines Sales Rep Name Role Phone Eliel Stoddard MD Primary Care Provider [phone] Encounter Details Date Type Department Care Team ([facility] Contact Info) Description 04/12/2023 Orders Only [facility] MED & PEDS [address] [place], [place] [phone] Eliel Stoddard MD [address] [place], [place] [phone] Primary insomnia Social History Tobacco Use Types [...] Upcoming Encounters Date Type Department Care Team ([facility] st Contact Info) Description 02/23/2025 9:00 AM EDT Office Visit [facility] MED & PEDS [address] [place] [address] Eliel Stoddard MD [address] [place] [address] documented as of this encounter Visit Diagnoses Diagnosis Primary insomnia Persistent disorder of initiating or maintaining sleep documented in this encounter Care Teams Personal Lines Sales Rep Relationship Specialty Start Date End Date Eliel Stoddard MD [address] [place] [address] PCP - General Internal Medicine 06/17/18 documented as of this encounter
--- OUTSIDE RECORDS SUMMARY | 2025-02-20 10:24 | XMS_ITS | Encounter Summary ---
Author Organization [employer] Address [address] [place] [address] Care Team Providers Care Rewriter Name Role Phone Eliel Stoddard MD Primary Care Provider [phone] Reason for Visit * Reason Onset Date Comments Med Refill 10/19/2022 Encounter Details Date Type Department Care Team ([facility] st Contact Info) Description 10/19/2022 Refill [facility] [address] [place], [place] [phone] Eliel Stoddard MD [address] [place] [address] Social History Tobacco Use Types Packs/Day Years [...] 9:00 AM EDT Office Visit [facility] [address] [place] [address] Eliel Stoddard MD [address] [place] [address] documented as of this encounter Visit Diagnoses Not on filedocumented in this encounter Care Teams Rewriter Relationship Specialty Start Date End Date Eliel Stoddard MD [address] [place] [address] PCP - General Internal Medicine 06/17/18 documented as of this encounter
--- OUTSIDE RECORDS SUMMARY | 2025-02-20 10:24 | XMS_ITS | Encounter Summary ---
Author Organization [email or web address] Address [address] [place] [address] [address] [place] [address] Care Team Providers Care International Trade Manager Name Role Phone Eliel Stoddard MD Primary Care Provider [phone] Reason for Visit * Reason Comments Med Refill Encounter Details Date Type Department Care Team ([facility] Contact Info) Description 12/25/2023 Refill [facility] [address] [place], [place] [phone] Eliel Stoddard MD [address] [place], [place] [phone] Social History Tobacco Use Types Packs/Day Years [...] Description 02/23/2025 9:00 AM EDT Office Visit [facility] [address] [place] [address] Eliel Stoddard MD [address] [place] [address] documented as of this encounter Visit Diagnoses Not on filedocumented in this encounter Additional Health Concerns Assessment Noted Time PHQ-9 Depression Total Score: 9 12/02/19 24 10:48 AM EDT documented as of this encounter Care Teams International Trade Manager Relationship Specialty Start Date End Date Eliel Stoddard MD [address] [place] [address] PCP - General Internal Medicine 06/17/18 documented as of this encounter
--- OUTSIDE RECORDS SUMMARY | 2025-02-20 10:24 | XMS_ITS | Clinical Summary ---
Author Organization [employer] Address [address] [place] [address] [address] [place] [address] Care Team Providers Care Flight Superintendent Name Role Phone Eliel Stoddard MD Primary Care Provider [phone] Allergies Active Allergy Reactions Criticality Noted Date [...] hyperglycemia, without long-term current use of insulin ([facility]) 1 tab if FS< 70 mg/dl 50 [...] days. 40 tablet 3 Active glucose blood (The SocietyTouch Ultra) test stripIndications: Type 2 diabetes mellitus without complication, unspecified whether half-way insulin use ([facility]) USE ONE STRIP TO CHECK BLOOD SUGAR [...] chew, or split. 30 tablet 11 4 Active cholecalciferol (Vitamin D-3) 25 MCG (1000 UT) tabletIndications :Encounter for screening mammogram for malignant neoplasm of breast Take 1 tablet (25 mcg) by mouth Once per day. 60 tablet 1 4 Active nicotine (Nicoderm CQ) 14 MG/24HR patchIndications: [...] AT BEDTIME 42.5 g 3 4 Active simethicone (Mylicon) 80 MG chewable tabletIndications :Bloating symptom CHEW 1 TABLET EVERY 6 HOURS NEEDED FOR FLATULENCE 90 tablet 4 Active cyclobenzaprine (Flexeril) 10 MG tablet Take 1 tablet (10 mg) by mouth 3 times daily for 10 days. 30 tablet 5 Active Diclofenac Sodium (Voltaren) 1 % gel Use topical BID 100 g 3 5 Active OneTouch Ultra test stripIndications: Type 2 diabetes mellitus without complication, unspecified whether manager intermediate insulin use ([facility]) USE ONE STRIP TO CHECK BLOOD SUGAR TWICE DAILY 100 strip 11 5 Active gabapentin (Neurontin) 100 MG capsuleIndication s:Diabetic peripheral neuropathy associated with type 2 diabetes mellitus ([facility]) Take 2 capsules (200 mg) by mouth every 8 (eight) hours. 180 capsule 11 5 08/21/19 26 Active Blood Glucose Monitoring Suppl (Salesconx Lite) w/Device kitIndications:Ty pe 2 diabetes mellitus with hypoglycemia without coma, without long-term current use of insulin ([facility]) Use to test blood sugar 1 times daily 1 kit 5 Active Acetaminophen Extra Strength 500 MG tablet TAKE 1 TABLET BY MOUTH EVERY 6 HOURS NEEDED FOR MILD PAIN 120 tablet 5 Active metFORMIN XR (Glucophage-XR) 500 MG 24 hr tabletIndications :Type 2 diabetes mellitus with hypoglycemia without coma, without long-term current use of insulin ([facility]) TAKE 2 TABLETS BY MOUTH TWICE DAILY WITH MEALS 360 tablet 1 5 Active lisinopril 10 MG tabletIndications :Primary hypertension TAKE 1 TABLET BY MOUTH EVERY DAY 90 tablet 1 5 Active Diclofenac Sodium 1 % gelIndications:Mu scle spasm To apply to the affected area 3 times a day 100 g 5 Active simvastatin (Zocor) 20 MG tabletIndications :Type 2 diabetes mellitus with hypoglycemia without coma, without long-term current use of insulin ([facility]) TAKE 1 TABLET BY MOUTH EVERY DAY 90 tablet 1 5 Active B Complex Vitamins (Vitamin B Complex) capsuleIndication s:Encounter for screening mammogram for malignant neoplasm of breast,Tingling in extremities TAKE ONE CAPSULE BY MOUTH DAILY 90 each 5 Active Active Problems Problem Noted Date Diagnosed [...] x 2d, advised to fu 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 [address] [place] [address] Mahsa Huffman MD 12/18/[address] [facility] [address] [place] [address] Mahsa Huffman MD Encounter for screening mammogram for malignant neoplasm of breast; Tingling in extremities 12/15/2024 Refill [facility] [address] [place] [address] Margarette Ghosh MD Type 2 diabetes mellitus with hypoglycemia without coma, without long-term current use of insulin ([facility]) 11/27/2024 9:45 AM EDT Office Visit [facility] [address] [place] [address] Ernestina Qiu, OD Type 2 diabetes mellitus without ophthalmic manifestations (CMS/HCC) (Primary Dx); Hypertensive retinopathy of both eyes; Nuclear sclerotic cataract of both eyes; Presbyopia 11/27/2024 Travel 11/24/2024 Results Follow-Up [facility] [address] [place] [address] Eliel Stoddard MD Albumin, Random Urine W/Creatinine, POCT Glucose, POCT HGB A1C 11/23/2024 9:00 AM EDT Office Visit [facility] [address] [place] [address] Eliel Stoddard MD Acute UTI (Primary Dx); Vaginal itching; Primary hypertension; Type 2 diabetes mellitus with hypoglycemia without coma, without long-term current use of insulin ([facility]); Muscle spasm; Hypercholesterolemia 11/23/2024 Travel 11/21/2024 Travel from Last 3 Months Immunizations Immunization Administration Dates Next Due Hep B, adult [...] PPSV23 07/19/2017 Tdap 03/01/2016 Zoster, Recombinant 01/28/2020,05/26/2019 Family History Medical History Relation Name Comments Diabetes Brother Diabetes Mother Diabetes Sister Relation Name Status Comments Brother Mother Sister Social History Tobacco Use Types Packs/Day Years [...] Sign Reading Time Taken Comments Blood Pressure 106/63 11/23/2024 8:59 AM EDT Pulse 71 11/23/2024 8:59 AM EDT Temperature 36.7 C (98 F) 11/23/2024 8:59 AM EDT Respiratory Rate 20 11/23/2024 8:59 AM EDT Oxygen Saturation 97% 11/23/2024 8:59 AM EDT Inhaled Oxygen Concentration - - Weight 91.2 kg (201 lb) 11/23/2024 8:59 AM EDT Height 177.8 cm (5' 10 ) 11/23/2024 8:59 AM EDT Body Mass Index 28.84 11/23/2024 8:59 AM EDT Plan of Treatment Upcoming Encounters Date Type Department Care Team (Late st Contact Info) Description 02/23/2025 9:00 AM EDT Office Visit [facility] [address] [place], [place] [phone] Eliel Stoddard MD [address] [place] [address] Health Maintenance Due Date Last Done Comments CT Colonography 1966 FIT DNA/Cologuard 1965 FIT 1965 FOBT 1965 Sigmoidoscopy 1966 Hepatitis A Vaccines (1 of 2 - Risk 2-dose series) 1985 IPV Vaccines (2 of 3 - Adult catch-up series) 07/21/2019 06/23/2019 Pap Smear 09/12/2024 09/12/2021 Lipid Panel 12/01/2024 12/02/2023, 03/23/2021 Influenza Vaccine (#1) 2025 , 02/27/2023, 02/23/2022, Additional history exists Depression Monitoring 02/20/2025 08/20/2024, 025 Diabetes: Hemoglobin A1C 05/25/2025 025, 08/20/2024, 02/04/2024, Additional history exists Disability Screening 08/14/2025 08/14/2024 Alcohol/Substance Use Screening 08/20/2025 08/20/2024 SDOH Screening 08/20/2025 08/20/2024 Diabetes: Foot Exam 11/23/2025 11/23/2024 Diabetes: Urine Protein Screening 11/23/2025 11/23/2024, 08/02/2022, 04/13/2022 Tobacco Screening 11/27/2025 11/27/2024 Mammogram 12/21/2025 12/21/2024, 07/0 06/2023, 12/25/2017 DTaP/Tdap/Td Vaccines (2 - Td or Tdap) 03/01/2026 03/01/2016 Cervical Cancer Screening 09/12/2026 HPV/Cotest 09/12/2026 09/12/2021, 08/12/2018 Eye Exam 11/27/2026 11/27/2024, 11/15, 11/27/2024, Additional history exists Colonoscopy 02/06/2028 02/05/2018 Colorectal Cancer Screening 02/06/2028 [...] Completed 04/01/2024, , 05/04/2021, Additional history exists HIB Vaccines Aged Out [...] Procedure Name Priority Date/Time Associated Diagnosis Comments XR CERVICAL SPINE 4V Routine 02/04/2025 12:50 PM EDT BI MAMMOGRAM SCREENING TOMOSYNTHESIS BILATERAL Routine 12/21/2024 9:[address] ABDOMEN PELVIS W CONTRAST Routine 12/03/2024 3:43 PM EDT ALBUMIN, RANDOM URINE W/CREATININE Routine 11/23/2024 9:20 AM EDT Type 2 diabetes mellitus with hypoglycemia without coma, without long-term current use of insulin ([facility]) POCT GLYCATED HEMOGLOBIN, TOTAL Routine 11/23/2024 9:06 AM EDT Type 2 diabetes mellitus with hypoglycemia without coma, without long-term current use of insulin (CMS/HCC) POCT GLUCOSE Routine 11/23/2024 9:06 AM EDT Type 2 diabetes mellitus with hypoglycemia without coma, without long-term current use of insulin (CMS/[facility]) LIPID PANEL, STANDARD Routine 12/02/2023 11:30 AM EDT Encounter for preventive care HIV 1/2 ANTIGEN/ANTIBODY, FOURTH GENERATION W/RFL Routine 12/21/2021 12:00 AM EDT THINPREP IMAGING PAP AND HPV MRNA E6/E7, WITH CT/NG, TRICHOMONAS Routine 09/12/2021 8:57 AM EDT HM COLONOSCOPY Routine 02/05/2018 from Last 3 Months or Most Recently Relevant to Health Maintenance Results * XR CERVICAL SPINE 4V (02/04/2025 12:50 PM EDT) Anatomical Region Laterality Modality Abdomen Radiographic Vickie ging 02/04/2025 12:5 0 PM EDT Narrative 02/04/2025 1:50 PM EDT [facility] [address] [place] [address] [address] [place] [address] XRay Report Signed Patient: Alma Rodriguez MR#: [id number] : 1965 Acct:[id number] Age/Sex: 59 / F ADM Date: 02/04/25 Loc: [facility] Attending Dr: Filippo FONG Ordering Physician: Filippo Fortune Date of Service: 02/04/25 Procedure(s): XR cervical spine 4V Accession Number(s): [id number] cc: Eliel Stoddard MD; Filippo Fortune EXAMINATION: XR CERVICAL SPINE CLINICAL INFORMATION: M48.02 - Spinal stenosis, cervical region COMPARISON: April 29, 2013. TECHNIQUE: Lateral views in neutral, flexion and extension position. AP view. FINDINGS: Status post anterior intervertebral disc spacer and arthrodesis, C5-6. Grade 1 retrolisthesis C4-5 in neutral position which persists during flexion and extension. Marginal osteophyte formation C3 C3-4 C4-5 and C6-7 levels. Craniocervical junction is intact. No acute cortical disruption. No lytic or blastic lesions. Upper airways patent. XR/XR cervical spine 4V IMPRESSION: Multilevel cervical spondylosis C2-3 to C6-7 with grade 1 retrolisthesis C4-5 without instability. Status post anterior intervertebral disc spacer placement and arthrodesis C5-6 without malalignment. Electronically signed by: Óscar Alexander MD 02/04/2025 01:48 PM EDT RP Dictated By: Óscar Root MD Signed By: <Electronically signed by Óscar Molina MD in OV> 02/04/25 1348 DD/ 1250 TD/TT: 02/04/25 1255 Engineering Analyst: Procedure Note Donotuseinterpreter, Image - 02/04/2025 [facility] [address] [place] [address] Drive [address] [place] [address] XRay Report Signed Patient: Alma Rodriguez AMR#: [id number] : 1965Acct:[id number] Age/Sex: 59 / FADM Date: 02/04/25 Loc: [facility] Attending Dr: Filippo FONG Ordering Physician: Filippo Fortune Date of Service: 02/04/25 Procedure(s): XR cervical spine 4V Accession Number(s): [id number] cc: Eliel Stoddard MD; Filippo Fortune EXAMINATION: XR CERVICAL SPINE CLINICAL INFORMATION: M48.02 - Spinal stenosis, cervical region COMPARISON: April 29, 2013. TECHNIQUE: Lateral views in neutral, flexion and extension position. AP view. FINDINGS: Status post anterior intervertebral disc spacer and arthrodesis, C5-6. Grade 1 retrolisthesis C4-5 in neutral position which persists during flexion and extension. Marginal osteophyte formation C3 C3-4 C4-5 and C6-7 levels. Craniocervical junction is intact. No acute cortical disruption. No lytic or blastic lesions. Upper airways patent. XR/XR cervical spine 4V IMPRESSION: Multilevel cervical spondylosis C2-3 to C6-7 with grade 1 retrolisthesis C4-5 without instability. Status post anterior intervertebral disc spacer placement and arthrodesis C5-6 without malalignment. Electronically signed by: Óscar Alexander MD 02/04/2025 01:48 PM EDT RP Dictated By: Óscar Root MD Signed By: <Electronically signed by Óscar Molina MDin OV> 02/04/25 1348 DD/ 1250 TD/TT: 02/04/25 1255 Engineering Analyst: [facility] External Provider IMG XR PROCEDURES Final Result * BI Mammogram Screening Tomosynthesis Bilateral (12/21/2024 9:20 AM EDT) Anatomical Region Laterality Modality Breast Bilateral Mammography 12/21/2024 9:20 AM EDT Narrative 12/30/2024 9:14 PM EDT [address] [place], [place] [address] Mammography Report Signed Patient: Alma Rodriguez MR#: [id number] : 1965 Acct:[id number] Age/Sex: 59 / F ADM Date: 12/21/24 Loc: HO.MAMMO Attending Dr: Mahsa Valenzuela MD Ordering Physician: Mahsa Huffman MD Results: 1Negative Date of Service: 12/21/24 Follow Up: 1 Year From Orig inal Mammogram Procedure(s): MM tomosynthesis screening BI Accession Number(s): [id number] cc: Mahsa Huffman MD; Eliel Stoddard MD EXAMINATION: MM SCREENING DIGITAL BREAST TOMOSYNTHESIS, BILATERAL CLINICAL INFORMATION: Screening. Asymptomatic. COMPARISON: Mammography: Comparison is made with available priors TECHNIQUE: Digital breast mammography with tomosynthesis is performed in both the craniocaudal and mediolateral oblique views along with computer-aided detection (CAD). FINDINGS: There are scattered areas of fibroglandular [...] target due date for their next mammogram. Electronically signed by: Suzi Nguyen DO 12/30/2024 09:11 PM EDT RP Dictated By: Suzi Nguyen DO Signed By: <Electronically signed by Suzi Nguyen DO in OV> 12/30/242110 DD/ 9 TD/TT: 12/21/24929 Engineering Analyst: Procedure Note Donotuseinterpreter, Image - 12/30/2024 [facility] [address] [place] [address] Mammography Report Signed Patient: Alma Rodriguez AMR#: [id number] : 1965Acct:[id number] Age/Sex: 59 / FADM Date: 12/21/24 Loc: HO.MAMMO Attending Dr: Mahsa Valenzuela MD Ordering Physician: Mahsa Huffman MDResults: 1Negative Date of Service: 12/21/24Follow Up: 1 Year From Orig inal Mammogram Procedure(s): MM tomosynthesis screening BI Accession Number(s): [id number] cc: Mahsa Huffman MD; Eliel Stoddard MD EXAMINATION: MM SCREENING DIGITAL BREAST TOMOSYNTHESIS, BILATERAL CLINICAL INFORMATION: Screening. Asymptomatic. COMPARISON: Mammography: Comparison is made with available priors TECHNIQUE: Digital breast mammography with tomosynthesis is performed in both the craniocaudal and mediolateral oblique views along with computer-aided detection (CAD). FINDINGS: There are scattered areas of fibroglandular [...] target due date for their next mammogram. Electronically signed by: Suzi Nguyen DO 12/30/2024 09:11 PM EDT RP Dictated By: Suzi Nguyen DO Signed By: <Electronically signed by Suzi Nguyen DO in OV> 12/30/242110 DD/ 9 TD/TT: 12/21/24929 Engineering Analyst: us Mahsa Valenzuela MD IMG BI PROCEDURES Asim prasanna Result - Final * CT Abdomen Pelvis w/ Contrast (12/03/2024 3:43 PM EDT) Anatomical Region Laterality Modality Body, Pelvis, Abdomen Computed T omography 12/03/2024 3:43 PM EDT Narrative 12/03/2024 6:15 PM EDT [place] [address] CT Scan Report Signed Patient: Alma Rodriguez MR#: [id number] : 1965 Acct:[id number] Age/Sex: 59 / F ADM Date: 12/03/24 Loc: HO.CT Attending Dr: Debby Keenan MD Ordering Physician: Debby Keenan MD Date of Service: 12/03/24 Procedure(s): CT abdomen pelvis w IV con Accession Number(s): [id number] cc: Mahsa Huffman MD; Debby Keenan MD Report Number: [id number]: Total DLP = 594.00 mGy-cm EXAMINATION: CT ABDOMEN AND PELVIS WITH CONTRAST CLINICAL INFORMATION: Noninfective gastroenteritis and colitis COMPARISON: February 06, 2023 TECHNIQUE: Multidetector volumetric images were obtained from the superior aspect of the liver through the pubic symphysis following administration 85 mL of Omnipaque 350 intravenous contrast. Sagittal and coronal reformatted images were obtained on the technologist's workstation. Oral contrast: No This CT examination was performed using dose optimization techniques as appropriate, variously including the following: *Automated exposure control *Adjustment of mA and/or kV according to patient size (this includes techniques or standardized protocols for targeted exams where dose is matched to indication/reason for exam; i.e. extremities or head) *Use of iterative reconstruction technique DLP: 85 mGY*cm FINDINGS: LUNG BASES: There is minimal dependent atelectasis. In the lateral base of the left lower lobe there is a 5 mm solid pulmonary nodule that previously measured 6 mm. LIVER, GALLBLADDER, AND BILIARY TREE: The liver is normal in size, shape, and attenuation. No focal hepatic lesion or biliary ductal dilatation is present. The gallbladder is unremarkable with no evidence of radiopaque gallstones, gallbladder wall thickening, or obvious pericholecystic inflammatory changes. PANCREAS: Unremarkable. SPLEEN: Unremarkable. ADRENAL GLANDS: Unremarkable. KIDNEYS AND URETERS: Small simple renal cysts are present. Cortical scarring is present in the lower right kidney. BLADDER: Empty and not well demonstrated. GASTROINTESTINAL TRACT: The small and large bowel are unremarkable. The appendix is unremarkable. ABDOMINAL WALL: Small umbilical hernia contains fat. LYMPH NODES: Normal. VASCULAR: Multifocal vascular calcifications are present. PELVIC VISCERA: Uterus and ovaries are within normal limits. OSSEOUS STRUCTURES: Unremarkable. CT/CT abdomen pelvis w IV con IMPRESSION: Solid 5 mm pulmonary nodule in the left lower lobe is unchanged since the prior study nearly 2 years ago favoring a benign etiology. Fleischner guidelines were followed. Electronically signed by: Fausto Garay MD 12/03/2024 06:12 PM EDT RP Dictated By: Fausto Garay MD Signed By: <Electronically signed by Fausto Garay MD in OV> 12/03/24 1812 DD/ 1543 TD/TT: 12/03/24 1720 Engineering Analyst: Procedure Note Donotuseinterpreter, Image - 12/03/[address] [address] [address] Scan Report Signed Patient: Alma Rodriguez AMR#: [id number] : 1965Acct:[id number] Age/Sex: 59 / FADM Date: 12/03/24 Loc: .CT Attending Dr: Debby Keenan MD Ordering Physician: Debby Keenan MD Date of Service: 12/03/24 Procedure(s): CT abdomen pelvis w IV con Accession Number(s): [id number] cc: Mahsa Huffman MD; Debby Keenan MD Report Number: [id number]: Total DLP = 594.00 mGy-cm EXAMINATION: CT ABDOMEN AND PELVIS WITH CONTRAST CLINICAL INFORMATION: Noninfective gastroenteritis and colitis COMPARISON: February 06, 2023 TECHNIQUE: Multidetector volumetric images were obtained from the superior aspect of the liver through the pubic symphysis following administration 85 mL of Omnipaque 350 intravenous contrast. Sagittal and coronal reformatted images were obtained on the technologist's workstation. Oral contrast: No This CT examination was performed using dose optimization techniques as appropriate, variously including the following: *Automated exposure control *Adjustment of mA and/or kV according to patient size (this includes techniques or standardized protocols for targeted exams where dose is matched to indication/reason for exam; i.e. extremities or head) *Use of iterative reconstruction technique DLP: 85 mGY*cm FINDINGS: LUNG BASES: There is minimal dependent atelectasis. In the lateral base of the left lower lobe there is a 5 mm solid pulmonary nodule that previously measured 6 mm. LIVER, GALLBLADDER, AND BILIARY TREE: The liver is normal in size, shape, and attenuation. No focal hepatic lesion or biliary ductal dilatation is present. The gallbladder is unremarkable with no evidence of radiopaque gallstones, gallbladder wall thickening, or obvious pericholecystic inflammatory changes. PANCREAS: Unremarkable. SPLEEN: Unremarkable. ADRENAL GLANDS: Unremarkable. KIDNEYS AND URETERS: Small simple renal cysts are present. Cortical scarring is present in the lower right kidney. BLADDER: Empty and not well demonstrated. GASTROINTESTINAL TRACT: The small and large bowel are unremarkable. The appendix is unremarkable. ABDOMINAL WALL: Small umbilical hernia contains fat. LYMPH NODES: Normal. VASCULAR: Multifocal vascular calcifications are present. PELVIC VISCERA: Uterus and ovaries are within normal limits. OSSEOUS STRUCTURES: Unremarkable. CT/CT abdomen pelvis w IV con IMPRESSION: Solid 5 mm pulmonary nodule in the left lower lobe is unchanged since the prior study nearly 2 years ago favoring a benign etiology. Fleischner guidelines were followed. Electronically signed by: Fausto Garay MD 12/03/2024 06:12 PM EDT Dictated By: Fausto Garay MD Signed By: <Electronically signed by Fausto Garay MD in OV> 12/03/24 1812 DD/ 1543 TD/TT: 12/03/24 1720 Engineering Analyst: [facility] External Provider IMG CT PROCEDURES Final Result * Albumin, Random Urine W/Creatinine (11/23/2024 9:20 AM EDT) Creatinine, Urine 200.15 mg/dL [facility] Microalbumin Urine 21.0 mg/L [facility] Microalbum Creatinine Ratio Ur 10.4 <30 ug/mg cr [facility] Comment:Albumin/Creatinine R atio Reference Ranges: Normal: < 30 ug/mg creatinine Microalbuminuria: 30 - 300 ug/mg creatinineClinical Albuminuria: > 300 ug/mg creatinine Urine (Urine, Random) 11/23/2024 9:20 AM EDT 11/23/2024 2:06 PM EDT Eliel Stoddard MD LAB URINE ORDERABLES Final Result [facility] [address] [place] [phone] * POCT HGB A1C (11/23/2024 9:06 AM EDT) Hemoglobin A1C 6.0 4.0 - 6.0 % QC Media Lot # [id number] Lot# Expiration Date Comment:random Blood 11/23/2024 9:06 AM EDT Eliel Stoddard MD POINT OF CARE TEST ENTER/ED IT ORDERABLES Final Result * POCT Glucose (11/23/2024 9:06 AM EDT) Glucose Blood, POC 126 60 - 200 mg/dL QC Media Lot # [id number] Lot# Expiration Date Comment:random Blood Capillary blood specimen / Unknown 11/23/2024 9:06 AM EDT us Eliel Stoddard MD POINT OF CARE TEST ENTER/ED IT ORDERABLES Final Result * (ABNORMAL) Lipid Panel, Standard (12/02/2023 11:30 AM EDT) Triglycerides 154(H) <150 mg/dL [facility] Comment:Desirable Triglyceri de: less than 150 mg/dLBorderline High Triglyceride 150-199 mg/dLHigh Triglyceride: 200-499 mg/dLVery High Triglyceride: greater than or equal to 5OO mg/dL Cholesterol 124 <200 mg/dL [facility] Comment:Desirable Cholestero l: less than 200 mg/dLBorderline High Cholesterol: 200-239 mg/dLHigh Cholesterol: greater than 239 mg/dL LDL Cholesterol Calculated 61 <100 mg/dL [facility] Comment:Desirable LDL: less than 100 mg/dLNear Optimal/Above Optimal LDL: 110- 129 mg/dLBorderline High LDL: 130-159 mg/dLHigh LDL: 160-189 mg/dLVery High LDL: greater than or equal to 190 mg/dL HDL Cholesterol 33(L) >40 mg/dL [facility] Comment:Desirable HDL: great er than 40 mg/dL Note: This HDL assay may give artificially low results in patients with liver disease. Blood Venous blood specimen / Unknown 12/02/2023 11:30 AM EDT 12/02/2023 1:26 PM EDT us Mahsa Valenzuela MD LAB BLOOD ORDERABLES Final Result [facility] [address] [place] [phone] * HIV 1/2 ANTIGEN/ANTIBODY,FOURTH GENERATION W/RFL (12/21/2021 12:00 AM EDT) HIV-1/2 ANTIGEN AND ANTIBODIES, 4TH GENERATION W/ REFLEX NON-REACT ESAU NON-REACT ESAU [facility] Comment: HIV-1 antigen and HIV-1/HIV-2 antibodies were not detected. There is no laboratory evidence of HIV infection. PLEASE NOTE: This information has been disclosed to you from records whose confidentiality may be protected by state law. If your state requires such protection, then the state law prohibits you from making any further disclosure of the information without the specific written consent of the person to whom it pertains, or as otherwise permitted by law. A general authorization for the release of medical or other information is NOT sufficient for this purpose. For additional information please refer to http://AMENDIA.Zoutons/faq/JEA082 (This link is being provided for informational/ educational purposes only.) The performance of this assay has not been clinically validated in patients less than 2 years old. 12/21/2021 us Eliel Stoddard MD LAB BLOOD ORDERABLES Final Result [email or web address] [address] [place] [address], * THINPREP TIS PAP AND HPV mRNA E6/E7, CT/NG, TRICH (09/12/2021 8:57 AM EDT) Chlamydia trachomatis RNA, TMA, Urogenital NOT DETECTED NOT DETECTED [email or web address] Clinical Information: None given [facility] COMMENT SEE COMMENT [facility] Comment: The analytical performance characteristics of this assay, when used to test SurePath(TM) specimens have been determined by [employer]. The modifications have not been cleared or approved by the FDA. This assay has been validated pursuant to the CLIA regulations and is used for clinical purposes. For additional information, please refer to https://education.Zoutons/faq/JGP379 (This link is being provided for information/ educational purposes only.) COMMENT SEE COMMENT [facility] Comment: EXPLANATORY NOTE: The Pap is a screening test for cervical cancer. It is not a diagnostic test and is subject to false negative and false positive results. It is most reliable when a satisfactory sample, regularly obtained, is submitted with relevant clinical findings and history, and when the Pap result is evaluated along with historic and current clinical information. COMMENT: This Pap test has been evaluated with computer assisted technology. Insight Guru Missile Technician: SEE COMMENT [facility] Comment: CMG, CT(ASCP) CT screening location: [address] [address] HPV nRNA E6/E7 Not Detected Not Detected [facility] Comment: Methodology: Igniter Assembler-Mediated Amplification This assay detects E6/E7 viral messenger RNA (mRNA) from 14 high-risk HPV types (16,18,31,33,35,39,45,51,52,56,58,59,66,68). The analytical performance characteristics of this assay have been determined by [employer]. The modifications have not been cleared or approved by the FDA. This assay has been validated pursuant to the CLIA regulations and is used for clinical purposes. For additional information, please refer to http://AMENDIA.Zoutons/faq/UZT829u0 (This link if provided for information/ educational [...] of this assay have been determined by [employer]. The modifications have not been cleared or approved by the FDA. This assay has been validated pursuant to the CLIA regulations and is used for clinical purposes. For additional information, please refer to http://education.Zoutons/ faq/Trichomonastma (This link is being provided for information/ educational purposes only.) 09/12/2021 8:57 AM EDT Nini Perry CNM LAB PATHOLOGY ORDERABLES Final Result [facility] [address] [place] [address], * Colonoscopy (02/05/2018) Colonoscopy Normal Normal Narrative Karla Slaughter - 02/05/2018 Recommended 10 year follow up us Historical Provider HEALTH MAINTENANCE Final Result from Last 3 Months or Most Recently Relevant to Health Maintenance Insurance [facility] < 65 Care Teams Flight Superintendent Relationship Specialty Start Date End Date Eliel Stoddard MD [address] [place] [address] ELIZA Chin [address] PCP - General Internal Medicine 06/17/18
--- OUTSIDE RECORDS SUMMARY | 2025-02-20 10:24 | XMS_ITS | Encounter Summary ---
Author Organization [employer] Address [address] [facility] 7t [place] [address] Care Team Providers Care Menswear Salesperson Name Role Phone Eliel Stoddard MD Primary Care Provider [phone] Encounter Details Date Type Department Care Team (Late st Contact Info) Description 04/17/[address] [facility] [address] [place], [place] [id number] Karla Slaughter Social History Tobacco Use Types [...] Upcoming Encounters Date Type Department Care Team ([facility] st Contact Info) Description 02/23/2025 9:00 AM EDT Office Visit [facility] [address] [place] [address] Eliel Stoddard MD [address] [place] [address] documented as of this encounter Procedures Procedure Name Priority Date/Time Associated Diagnosis Comments COLONOSCOPY Routine 02/05/2018 documented in this encounter Results * Colonoscopy (02/05/2018) Colonoscopy Normal Normal Narrative Karla Slaughter - 02/05/2018 Recommended 10 year follow up Historical Provider HEALTH MAINTENANCE Final Result documented in this encounter Visit Diagnoses Not on filedocumented in this encounter Care Teams Menswear Salesperson Relationship Specialty Start Date End Date Eliel Stoddard MD [address] [place] [address] PCP - General Internal Medicine 06/17/18 documented as of this encounter
--- OUTSIDE RECORDS SUMMARY | 2025-02-20 10:24 | XMS_ITS | Encounter Summary ---
Author Organization [employer] Address [address] [place] [address] 7[address] [place] [address] Care Team Providers Care Radio Adjuster Name Role Phone Eliel Stoddard MD Primary Care Provider [phone] Encounter Details Date Type Department Care Team (Latest Contact Info) Description 02/16/2025 Travel Social History Tobacco Use Types Packs/Day [...] Description 02/23/2025 9:00 AM EDT Office Visit [facility] [address] [place] [address] Eliel Stoddard MD [address] [place] [address] documented as of this encounter Visit Diagnoses Not on filedocumented in this encounter Additional Health Concerns Assessment Noted Time PHQ-9 Depression Total Score: 18 025 10:41 AM EST documented as of this encounter Care Teams Radio Adjuster Relationship Specialty Start Date End Date Eliel Stoddard MD [address] [place] [address] PCP - General Internal Medicine 06/17/18 documented as of this encounter
== END 2025-02-20 10:21 | disposition home or self-care (01) ==
LOC: HO.MRI 10:20
PROVIDERS: PCP Internal Medicine; Visit Provider Physician Assistant
DX: M48.02 Spinal stenosis, cervical region (principal)
CPT/HCPCS: 72141

== ENCOUNTER 2025-03-08 13:05 | Outpatient (AMB) | payer OTHER, SELFPAY ==
--- NOTE | 2025-03-08 13:23 | HO.SPINEOV ---
Intake Visit Reasons: MRI f/u Intake Note: Ms. Rodriguez is here today to F/u on the results to her MRI. Author Required: No Allergies ampicillin (AMPICILLIN) Allergy (Unknown, Verified 03/08/25 13:29) RASH Ampicillin Allergy (Unknown, Uncoded 01/25/24 16:08) rash Assessment & Plan Assessment & Plan (1) Degeneration, intervertebral disc, cervical: Code(s): M50.30 - Other cervical disc degeneration, unspecified cervical region Category: Medical Plan Mrs Rodriguez is here in follow-up. Please refer to my last note for the specifics of her problem. Her MRI done here at [facility] shows that she has severe compression of the right C5 nerve in the right C4-5 disc space foramen. I believe this would fit with her right arm pain. I am going to speak with Dr. Eller but I think she would be a good candidate for an ACDF C4-5. There remains the question of whether she needs to undergo physical therapy, and I had a lengthy discussion with the patient and she has never had any improvement with physical therapy in the past, even before her previous ACDF. She would like to avoid the delay if possible and I think this is reasonable. Once I have a chance to review everything with Dr. Eller I will get back to her with the plan but we did briefly discuss going ahead with an ACDF. She is familiar with all risks, benefits etc. as she previously has had this done before. Her A1c at the [facility] 6.4. Her medication list is up-to-date in the [facility] system here with the exception of aspirin, vitamin-D and gabapentin which she no longer takes. Total amount of time spent in this visit was 20 minutes in discussion of symptoms, MRI imaging results and subsequent plan of care Filippo Eller MD,PhD [facility] Coding Level of Care Code Est Pt Level 3 (51385) Diagnoses Degeneration, intervertebral disc, cervical M50.30
--- OUTSIDE RECORDS SUMMARY | 2025-03-08 15:28 | XMS_ITS | Encounter Summary ---
Author Organization [employer] Address [address] [place] [address] 7t [place] [address]
== END 2025-03-08 14:19 | disposition home or self-care (01) ==
LOC: HO.HNS 13:06
PROVIDERS: PCP Internal Medicine; Visit Provider Physician Assistant
DX: M50.30 Other cervical disc degeneration, unspecified cervical region (principal)
CPT/HCPCS: 99213

== ENCOUNTER → 2025-03-08 13:05 | Outpatient (BNVA) | payer OTHER, SELFPAY | PROVIDERS: PCP Internal Medicine; Visit Provider Physician Assistant | DX: Z71.2 Person consulting for explanation of examination or test findings (principal); M79.601 Pain in right arm; M50.30 Other cervical disc degeneration, unspecified cervical region | CPT/HCPCS: 99212 ==

== ENCOUNTER 2025-03-10 14:19 | Outpatient (AMB) | payer OTHER, SELFPAY ==
--- OUTSIDE RECORDS SUMMARY | 2020-10-12 14:15 | XMS_ITS | Continuity of Care Document ---
Author Organization [facility] Address [address] [place] [address] Phone Care Team Providers Care Lump Maker Name Role Phone Luigi KERR, Letha Unavailable Unavailab le Procedures Procedure Date ADM SARSCOV2 100MCG/0.5ML2ND SARSCOV2 VAC 100MCG/0.5ML IM Advance Directives Directive Yes / No Effective Date File Name No Information Encounters Encounter Description Practice Location Reason(s) For Visit Diagnoses Date Provider [facility], [address] [place] [address], [facility], tel:[phone] [facility] Encounter for immunization Luigi Monae. [address] [place] [address], [address] [place] [address], [facility], . tel:[phone] Family History Family Member Type Diagnosis [...] Record Payers Payer name Insurance type Covered democrat ID Authoriza tion(s) COVID19 HRSA Uninsured Fund CI [id number] Social History Type Description Quantity Date Captured Comments Sex Female Smoking Status No Information Chief Complaint And Reason For Visit No Information History Of Present Illness Encounter Date Complaint History Of Prese nt Illness No Information Instructions Date Instruction Additional Infor mation No Information Assessments Type Assessment Date No Information
--- NOTE | 2025-03-10 14:33 | MHC.OFFVIS ---
Vital Signs 03/10/25 14:35 Height 5 ft 10 in Weight 205 lb 0.478 oz BMI 29.4 BP 102/54 L Blood Pressure Location Lt brachial Position Sitting Pulse 67 Intake Visit Reasons: f/u fatty liver PT R/S from 01/13/25 Intake Note: Alma presents in the office as a follow up for fatty liver. CC: Watery stools and pains in the stomach. She states she constantly has to have a BM and always diarrhea. Transportation Technician Required: No Allergies ampicillin (AMPICILLIN) Allergy (Unknown, Verified 03/10/25 14:35) RASH Ampicillin Allergy (Unknown, Uncoded 03/10/25 14:35) rash HPI Comments Details: 58 y.o F with PMH of remote IVDU, DM, HTN, who is here for multiple GI issues as below: Reports abd pain and bloating assoc with eating that started last year. Nausea, but no vomiting. With this has been having diarrhea almost 3-4 BMs per day. Watery stools without blood. Pain is intermittent. Comes and goes. Used to be severe initially when the pt was referred last year but since starting pantprazole now more of a dull soreness. Mainly in RUQ. Reports remote hx of pancreatitis episode - shes unsure what the cause was. 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 Reports last colo was 5-7 years ago and was given a 10 year recall. No fam hx of liver disease, colon ca, stomach ca. Smokes 0.5 PPD. No etOH. Prev IVDU, clean since 2002. US Abd 09/2024: The liver is enlarged with increased echogenicity measuring 21.4 cm in length. There is no intrahepatic bile duct dilatation. The common duct is for mm in diameter. The gallbladder is normal. There is no sonographic Phipps sign. The main portal vein is antegrade. CT abd/pel with contrast LUNG BASES: There is minimal dependent atelectasis. In the lateral base of the left lower lobe there is a 5 mm solid pulmonary nodule that previously measured 6 mm. LIVER, GALLBLADDER, AND BILIARY TREE: The liver is normal in size, shape, and attenuation. No focal hepatic lesion or biliary ductal dilatation is present. The gallbladder is unremarkable with no evidence of radiopaque gallstones, gallbladder wall thickening, or obvious pericholecystic inflammatory changes. Laboratory Tests 01/25/24 09/02/24 09/04/24 17:07 13:09 01:13 WBC 14.8 H Hgb 13.1 Hct 38.5 Plt Count 319 Immature Gran % (Auto) 0.5 H Creatinine Total Protein 8.3 H Stool Fat, Qual Normal Stool Calprotectin 77 Stool Pancreat Elastase 125 L Tiss Transglutamin IgA <1.0 11/13/24 08:50 WBC Hgb Hct Plt Count Immature Gran % (Auto) Creatinine 0.60 Total Protein Stool Fat, Qual Stool Calprotectin Stool Pancreat Elastase Tiss Transglutamin IgA 03/10/25: Results reviewed. Was given a trial of creon, which she said helped from BM frequency 5 to 3 per day. No blood in stool. Cont to smoke 10-12 cigarettes a day. No alcohol. PFSH Medical History Hepatitis C Spinal stenosis in cervical region Spinal stenosis Degeneration, intervertebral disc, cervical Leukocytosis History of kidney stones Hx of herpes zoster Hx of pancreatitis Hx of endometriosis Depression Generalized anxiety disorder Dysuria Hypercholesterolemia HTN (hypertension) Asthma Diabetes Surgical History H/O colonoscopy Hx of section H/O dilation and curettage Family History Mother Diabetes Depression Father Suicide Social History Alcohol intake: never Patient Tobacco Use Status: Current everyday Tobacco user Review of Systems Const All systems reviewed & are unremarkable except as noted in HPI and below Physical Exam Exam Exam: No apparent distress Nonicteric Abdomen soft, nondistended Alert and oriented x3, normal gait Vital Signs: Last Vital Signs Pulse 67 03/10/25 14:35 BP 102/54 L 03/10/25 14:35 BMI result Body Mass Index 29.4 Assessment & Plan Assessment & Plan (1) Chronic diarrhea: Code(s): K52.9 - Noninfective gastroenteritis and colitis, unspecified Category: Medical (2) Chronic RUQ pain: Code(s): R10.11 - Right upper quadrant pain; G89.29 - Other chronic pain Category: Medical (3) Smoking addiction: Code(s): F17.200 - Nicotine dependence, unspecified, uncomplicated Category: Social Hx Plan DDx include panc insufficiency, though suboptimal response to PERT, microscopic colitis, enteropathy, nicotine related diarrhea. Plan: - bidirectional endoscopy for evaluation - PEG prep Rxed and instructions reviewed - Can take imodium BID in the meantime - pt advised to HOLD x 3 days before colo - Smoking cessation advised Follow up after procedures Orders: Referrals GI Procedure Notification K52.9 - Noninfective gastroenteritis and colitis, unspecified Medications: New loperamide (Imodium A-D) 2 mg PO BID PRN 180 caps 0RF loose stool 90 days peg 3350-electrolytes 236-22.74-6.74 -5.86 gram (Golytely) as per split prep instructions, until fecal effluent is clear 240 mL PO Q10M 4,000 mL 0RF colonoscopy Coding Level of Care Code Est Pt Level 4 (04386) Diagnoses Chronic diarrhea K52.9 Chronic RUQ pain R10.11; G89.29 Smoking addiction F17.200
[2025-03-10 14:35] VITALS: BP 102/54; PULSE 67; BMI 29.4
--- OUTSIDE RECORDS SUMMARY | 2025-03-10 17:03 | XMS_ITS | Clinical Summary ---
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
--- OUTSIDE RECORDS SUMMARY | 2025-03-10 17:03 | XMS_ITS | Encounter Summary ---
Author Organization [employer] Address [address] [place] [address] [address]t [place] [address] Care Team Providers Care Fur Polisher Name Role Phone Eliel Stoddard MD Primary Care Provider [phone] Encounter Details Date Type Department Care Team (Late st Contact Info) Description 11/08/2023 Orders Only [facility] [address] [place], [place] [phone] Provider, MD Jahaira Social History Tobacco Use Types Packs/Day Years [...] as of this encounter Plan of Treatment Not on file documented as of this encounter Procedures Procedure [...] on filedocumented in this encounter Care Teams Fur Polisher Relationship Specialty Start Date End Date Eliel Stoddard MD [address] [place] [address] PCP - General Internal Medicine 06/17/18 documented as of this encounter
--- OUTSIDE RECORDS SUMMARY | 2025-03-10 17:03 | XMS_ITS | Encounter Summary ---
Author Organization [employer] Address [address] [place] [address] [address] [place] [address] Care Team Providers Care Laundry Superintendent Name Role Phone Eliel Stoddard MD Primary Care Provider [phone] Reason for Visit * Reason Comments Med Refill Encounter Details Date Type Department Care Team ([facility] Contact Info) Description 12/25/2023 Refill [facility] [address] [place], [place] [phone] Eliel Stoddard MD [address] [place] [address] Social History Tobacco Use Types Packs/Day Years [...] on file documented as of this encounter Visit Diagnoses Not on filedocumented in this encounter Additional Health Concerns Assessment Noted Time PHQ-9 Depression Total Score: 9 12/02/19 24 10:48 AM EDT documented as of this encounter Care Teams Laundry Superintendent Relationship Specialty Start Date End Date Eliel Stoddard MD [address] [place] [address] PCP - General Internal Medicine 06/17/18 documented as of this encounter
--- OUTSIDE RECORDS SUMMARY | 2025-03-10 17:03 | XMS_ITS | Encounter Summary ---
Author Organization [employer] Address [address] [place] [address] [address] [place] [address] Care Team Providers Care Beef Lugger Name Role Phone Eliel Stoddard MD Primary Care Provider [phone] Reason for Visit * Reason Comments Med Refill Encounter Details Date Type Department Care Team ([facility] Contact Info) Description 06/28/2023 Refill [facility] [address] [place], [place] [phone] Eliel Stoddard MD [address] [place] [address] Social History Tobacco Use Types Packs/Day Years [...] on filedocumented in this encounter Care Teams Beef Lugger Relationship Specialty Start Date End Date Eliel Stoddard MD [address] [place] [address] PCP - General Internal Medicine 06/17/18 documented as of this encounter
--- OUTSIDE RECORDS SUMMARY | 2025-03-10 17:03 | XMS_ITS | Encounter Summary ---
Author Organization [employer] Address [address] [place] [address] [address] [place] [address] Care Team Providers Care Driver/Refuse Collector Name Role Phone Eliel Stoddard MD Primary Care Provider [phone] Reason for Visit * Reason Onset Date Comments Med Refill 10/19/2022 Encounter Details Date Type Department Care Team ([facility] st Contact Info) Description 10/19/2022 Refill [facility] [address] [place], [place] [phone] Eliel Stoddard MD [address] [place] [address] Social History Tobacco Use Types Packs/Day Years [...] documented in this encounter Plan of Treatment Not on file documented as of this encounter Visit Diagnoses Not on filedocumented in this encounter Care Teams Driver/Refuse Collector Relationship Specialty Start Date End Date Eliel Stoddard MD [address] [place] [address] PCP - General Internal Medicine 06/17/18 documented as of this encounter
--- OUTSIDE RECORDS SUMMARY | 2025-03-10 17:03 | XMS_ITS | Clinical Summary ---
Author Organization [employer] Address [address] [place] [address] [address] [place] [address] Care Team Providers Care Program Director/Air Personality Name Role Phone Eliel Stoddard MD Primary Care Provider [phone] Allergies Active Allergy Reactions Criticality Noted Date [...] 22 Active glucose-vitamin C 4-6 GM-MG oral gelIndications: Type 2 diabetes mellitus with hyperglycemia, without long-term current use of insulin ([facility]) 1 tab if FS< 70 mg/dl 50 tablet 2 06/21/19 23 Active betamethasone dipropionate (Diprolene) 0.05 % ointment APPLY TO THE AFFECTED AREA ON THE GROIN AND BREAST TWICE A DAY NEEDED . DO NOT USE FOR MORE THAN TWO WEEKS AT A TIME. Active betamethasone valerate (Valisone) 0.1 % ointmentIndicat ions:Venous stasis dermatitis of right lower extremity Apply [...] 23 Active glucose blood (OneTouch Ultra) test stripIndication s:Type 2 diabetes mellitus without complication, unspecified whether assistant terminal manager insulin use ([facility]) USE ONE STRIP TO CHECK BLOOD SUGAR TWICE DAILY 100 strip 11 07/03/19 24 Active venlafaxine (Effexor) 37.5 MG tabletIndicatio ns:Menopausal symptoms Take 1 tablet (37.5 mg) by mouth 2 times daily. 60 tablet 2 07/08/19 24 Active pantoprazole (Protonix) 20 MG EC tabletIndicatio ns:Dyspepsia Take 1 tablet (20 mg) by mouth before breakfast. Do not crush, chew, or split. 30 tablet 11 11/14/19 24 Active cholecalciferol (Vitamin D-3) 25 MCG (1000 UT) tabletIndicatio ns:Encounter for screening mammogram for malignant neoplasm of breast Take 1 tablet (25 mcg) by mouth Once per day. 60 tablet 1 12/02/19 24 Active nicotine (Nicoderm CQ) 14 MG/24HR patchIndication s:Tobacco dependence syndrome Place 1 patch on the skin 1 (one) time each day at the same time. 30 patch 12/30/19 24 Active gabapentin (Neurontin) 400 MG capsuleIndicati ons:History of night sweats,Tingling in extremities Take 1 capsule (400 mg) by mouth 3 times daily. 90 capsule 2 12/30/19 24 Active albuterol 108 (90 Base) MCG/ACT inhalerIndicati ons:Acute cough INHALE 2 PUFFS BY MOUTH EVERY 4 HOURS NEEDED FOR WHEEZING 8.5 g 3 01/20/20 24 Active Banophen 25 MG tabletIndicatio ns:Primary insomnia TAKE 2 TABLETS BY MOUTH AT BEDTIME NEEDED FOR ITCHING OR SLEEP. TAKE 2 TABLETS AT BEDTIME FOR INSOMNIA 60 tablet 01/20/20 24 Active estradiol (Estrace) 0.1 MG/GM vaginal creamIndication s:Menopause APPLY ONCE DAILY FOR 2 WEEKS THEN TWICE DAILY AT BEDTIME 42.5 g 3 01/22/20 24 Active simethicone (Mylicon) 80 MG chewable tabletIndicatio ns:Bloating symptom CHEW 1 TABLET EVERY 6 HOURS NEEDED FOR FLATULENCE 90 tablet 01/20/20 24 Active cyclobenzaprine (Flexeril) 10 MG tablet Take 1 tablet (10 mg) by mouth 3 times daily for 10 days. 30 tablet 06/22/19 25 Active Diclofenac Sodium (Voltaren) 1 % gel Use topical BID 100 g 3 06/22/19 25 Active OneTouch Ultra test stripIndication s:Type 2 diabetes mellitus without complication, unspecified whether fpc insulin use ([facility]) USE ONE STRIP TO CHECK BLOOD SUGAR TWICE DAILY 100 strip 11 08/07/19 25 Active gabapentin (Neurontin) 100 MG capsuleIndicati ons:Diabetic peripheral neuropathy associated with type 2 diabetes mellitus ([facility]) Take 2 capsules (200 mg) by mouth every 8 (eight) hours. 180 capsule 11 08/21/19 25 026 Active Blood Glucose Monitoring Suppl (CorasWorks Lite) w/Device kitIndications: Type 2 diabetes mellitus with hypoglycemia without coma, without long-term current use of insulin ([facility]) Use to test blood sugar 1 times daily 1 kit 08/21/19 25 Active Acetaminophen Extra Strength 500 MG tablet TAKE 1 TABLET BY MOUTH EVERY 6 HOURS NEEDED FOR MILD PAIN 120 tablet 09/01/19 25 Active metFORMIN XR (Glucophage-XR) 500 MG 24 hr tabletIndicatio ns:Type 2 diabetes mellitus with hypoglycemia without coma, without long-term current use of insulin ([facility]) TAKE 2 TABLETS BY MOUTH TWICE DAILY WITH MEALS 360 tablet 1 09/02/19 25 Active lisinopril 10 MG tabletIndicatio ns:Primary hypertension TAKE 1 TABLET BY MOUTH EVERY DAY 90 tablet 1 09/17/19 25 Active Diclofenac Sodium 1 % gelIndications: Muscle spasm To apply to the affected area 3 times a day 100 g 11/24/19 25 Active simvastatin (Zocor) 20 MG tabletIndicatio ns:Type 2 diabetes mellitus with hypoglycemia without coma, without long-term current use of insulin ([facility]) TAKE 1 TABLET BY MOUTH EVERY DAY 90 tablet 1 12/16/19 25 Active B Complex Vitamins (Vitamin B Complex) capsuleIndicati ons:Encounter for screening mammogram for malignant neoplasm of breast,Tingling in extremities TAKE ONE CAPSULE BY MOUTH DAILY 90 each 12/22/19 25 Active LORazepam (Ativan) 1 MG tabletIndicatio ns:Claustrophob ia 1 mg to take 30 minutes prior to the procedure. Make an additional 1 mg 30 minutes later if no effect. 10 tablet 02/24/20 25 Active LORazepam (Ativan) 1 MG tabletIndicatio ns:Claustrophob ia 1 mg to take 30 minutes prior to the procedure. Make an additional 1 mg 30 minutes later if no effect. 30 tablet 07/22/19 24 025 Discontinued(R eorder (will not trigger notification to Pharmacy)) Active Problems Problem Noted Date Diagnosed Date [...] x 2d, advised to fu with supervisor files if pain persists, may need further evaluation [...] Encounters Date Type Department Care Team Description 02/23/2025 9:00 AM EDT Office Visit [facility] [address] [place] [address] Eliel Stoddard MD Type 2 diabetes mellitus with hypoglycemia without coma, without long-term current use of insulin (CMS/HCC) (Primary Dx); Primary hypertension; Claustrophobia; Hypercholesterolemia 02/23/2025 Travel 02/22/2025 Telephone [facility] [address] [place] [address] Eliel Stoddard MD Chart Prep 02/16/2025 Travel 02/04/2025 Orders Only [facility] External Provider, [facility] 12/21/2024 Orders Only [facility] [address] [place] [address] Mahsa Huffman MD 12/18/2024 Refill [facility] [address] [place] [address] Mahsa Huffman MD Encounter for screening mammogram for malignant neoplasm of breast; Tingling in extremities 12/15/2024 Refill [facility] [address] [place] [address] Margarette Ghosh MD Type 2 diabetes mellitus with hypoglycemia without coma, without long-term current use of insulin (CMS/HCC) from Last 3 Months Immunizations Immunization Administration [...] Family History Medical History Relation Name Comments Brain cancer Brother Diabetes Brother Heart attack Brother Diabetes Mother Diabetes Sister Relation Name [...] Answer Date Recorded Patient Health Questionnaire-9 Score 8 02/23/2025 Patient Health Questionnaire-9 Score 8 02/23/2025 Last PHQ-9: Questionnaire Data Not on file 0 02/23/2025 Housing Stability Answer Date Recorded What is [...] Date Recorded Patient Health Questionnaire-2 Score 2 02/23/2025 Internet Access Answer Date Recorded Internet Access [...] Sign Reading Time Taken Comments Blood Pressure 128/66 02/23/2025 9:11 AM EDT Pulse 79 02/23/2025 9:11 AM EDT Temperature 36.8 C (98.2 F) 02/23/2025 9:11 AM EDT Respiratory Rate 20 02/23/2025 9:11 AM EDT Oxygen Saturation 97% 02/23/2025 9:11 AM EDT Inhaled Oxygen Concentration - - Weight 93 kg (205 lb) 02/23/2025 9:11 AM EDT Height 177.8 cm (5' 10 ) 02/23/2025 9:11 AM EDT Body Mass Index 29.41 02/23/2025 9:11 AM EDT Plan of Treatment Health Maintenance Due Date Last Done Comments CT Colonography 1966 FIT DNA/Cologuard 1966 FIT 1965 FOBT 1965 Sigmoidoscopy 1965 Hepatitis A Vaccines (1 of 2 - Risk 2-dose series) 1985 IPV Vaccines (2 of 3 - Adult catch-up series) 07/21/2019 06/23/2019 Pap Smear 09/12/2024 09/12/2021 Lipid Panel 12/01/2024 12/02/2023, 03/23/2021 Influenza Vaccine (#1) 2025 , 02/27/2023, 02/23/2022, Additional history exists Disability Screening 08/14/2025 08/14/2024 Alcohol/Substance Use Screening 08/20/2025 08/20/2024 SDOH Screening 08/20/2025 08/20/2024 Diabetes: Hemoglobin A1C 08/23/2025 025, 11/23/2024, 08/20/2024, Additional history exists Diabetes: Foot Exam 11/23/2025 11/23/2024 Diabetes: Urine Protein Screening 11/23/2025 11/23/2024, 08/02/2022, 04/13/2022 Tobacco Screening 11/27/2025 11/27/2024 Mammogram 12/21/2025 12/21/2024, 07/0 06/2023, 12/25/2017 Depression Screening 02/23/2026 02/23/2025, 02/24/20 25 DTaP/Tdap/Td Vaccines (2 - Td or Tdap) [...] Name Priority Date/Time Associated Diagnosis Comments MR CERVICAL SPINE WO CONTRAST Routine 02/23/2025 10:29 AM EDT POCT GLYCATED HEMOGLOBIN, TOTAL Routine 02/23/2025 9:29 AM EDT Type 2 diabetes mellitus with hypoglycemia without coma, without long-term current use of insulin ([facility]) POCT GLUCOSE Routine 02/23/2025 9:29 AM EDT Type 2 diabetes mellitus with hypoglycemia without coma, without long-term current use of insulin ([facility]) XR CERVICAL SPINE 4V Routine 02/04/2025 12:50 PM EDT BI MAMMOGRAM SCREENING TOMOSYNTHESIS BILATERAL Routine 12/21/2024 9:20 AM EDT ALBUMIN, RANDOM URINE W/CREATININE Routine 11/23/2024 9:20 AM EDT Type 2 diabetes mellitus with hypoglycemia without coma, without long-term current use of insulin ([facility]) LIPID PANEL, STANDARD Routine 12/02/2023 11:30 AM EDT Encounter for preventive care HIV 1/2 ANTIGEN/ANTIBODY, FOURTH GENERATION W/RFL Routine 12/21/2021 12:00 AM EDT THINPREP IMAGING PAP AND HPV MRNA E6/E7, WITH CT/NG, TRICHOMONAS Routine 09/12/2021 8:57 AM EDT HM COLONOSCOPY Routine 02/05/2018 from Last 3 Months or Most Recently Relevant to Health Maintenance Results * MR Cervical Spine w/o Contrast (02/23/2025 10:29 AM EDT) Anatomical Region Laterality Modality Spine, C-spine Magnetic Resonan ce 02/23/2025 10:2 9 AM EDT Narrative 02/23/2025 10:30 AM EDT [place] [address] Magnetic Resonance Report Signed Patient: Alma Rodriguez MR#: [id number] : 1965 Acct:[id number] Age/Sex: 59 / F ADM Date: 02/20/25 Loc: HO.MRI Attending Dr: Filippo FONG Ordering Physician: Filippo Fortune Date of Service: 02/20/25 Procedure(s): MR cervical spine wo con Accession Number(s): [id number] cc: Eliel Stoddard MD; Filippo Fortune Reason for Exam: M48.02 - Spinal stenosis, cervical region CLINICAL HISTORY: M48.02 - Spinal stenosis, cervical region --- Additional Notes or Special Instructions: History of previous ACDF C5-6 MR cervical spine without gadolinium Comparison: None provided Findings: Status post anterior fusion at C5-C6 with no evidence of hardware failure by MRI. The spinal cord is normal in signal and caliber. There is straightening of the normal cervical lordosis. The visualized portion of the posterior fossa are unremarkable. Paravertebral and prevertebral soft tissues are within expected limits. Mild multilevel disc desiccation and disc space narrowing. Individual levels: C2-C3: No central canal stenosis or neural foraminal narrowing. C3-C4: Small posterior and left eccentric disc protrusion with mild left neural foraminal narrowing. No central canal stenosis. C4-C5: Posterior and right eccentric disc protrusion with moderate right neural foraminal narrowing, axial 12. Minimal central canal narrowing. C5-C6: No significant central canal stenosis. Minimal left neural foraminal narrowing. C6-C7: Small posterior and left eccentric disc protrusion. No significant central canal stenosis. Mild left neural foraminal narrowing. C7-T1: Unremarkable. Impression: Postsurgical and degenerative changes as detailed. This document has been electronically signed by: Bear Vásquez MD on 02/23/2025 10:29:15 Dictated By: Bear Vásquez MD Signed By: <Electronically signed by Bear Vásquez MD in OV> 02/23/25 1029 DD/ 1029 TD/TT: 02/23/25 1029 Air Defense Specialist: Procedure Note Donotuseinterpreter, Image - 02/23/2025 [place] [address] Magnetic Resonance Report Signed Patient: Alma Rodriguez AMR#: [id number] : 1965Acct:[id number] Age/Sex: 59 / FADM Date: 02/20/25 Loc: HO.MRI Attending Dr: Filippo FONG Ordering Physician: Filippo Fortune Date of Service: 02/20/25 Procedure(s): MR cervical spine wo con Accession Number(s): [id number] cc: Eliel Stoddard MD; Filippo Fortune Reason for Exam: M48.02 - Spinal stenosis, cervical region CLINICAL HISTORY: M48.02 - Spinal stenosis, cervical region --- AdditionalNotes or Special Instructions: History of previous ACDF C5-6 MR cervical spine without gadolinium Comparison: None provided Findings: Status post anterior fusion at C5-C6 with no evidence of hardware failure by MRI. The spinal cord is normal in signal and caliber. There is straightening of the normal cervical lordosis. The visualized portion of the posterior fossa are unremarkable. Paravertebral and prevertebral soft tissues are within expected limits. Mild multilevel disc desiccation and disc space narrowing. Individual levels: C2-C3: No central canal stenosis or neural foraminal narrowing. C3-C4: Small posterior and left eccentric disc protrusion with mild left neural foraminal narrowing. No central canal stenosis. C4-C5: Posterior and right eccentric disc protrusion with moderate right neural foraminal narrowing, axial 12. Minimal central canal narrowing. C5-C6: No significant central canal stenosis. Minimal left neural foraminal narrowing. C6-C7: Small posterior and left eccentric disc protrusion. No significant central canal stenosis. Mild left neural foraminal narrowing. C7-T1: Unremarkable. Impression: Postsurgical and degenerative changes as detailed. This document has been electronically signed by: Bear Vásquez MD on 02/23/2025 10:29:15 Dictated By: Bear Vásquez MD Signed By: <Electronically signed by Bear Vásquez MD in OV> 02/23/25 1029 DD/ 1029 TD/TT: 02/23/25 1029 Air Defense Specialist: [facility] External Provider IMG MRI PROCEDURES Edited Result - Final * (ABNORMAL) POCT Hgb A1c (02/23/2025 9:29 AM EDT) Hemoglobin A1C 6.4(A) 4.0 - 5.7 % QC Media Lot # [id number] Lot# Expiration Date Blood 02/23/2025 9:29 AM EDT Eliel Stoddard MD POINT OF CARE TEST ENTER/ED IT ORDERABLES Final Result * POCT Glucose (02/23/2025 9:29 AM EDT) Glucose Blood, POC 161 60 - 200 mg/dL QC Media Lot # [id number] Lot# Expiration Date 499 Comment:random Blood Capillary blood specimen / Unknown 02/23/2025 9:29 AM EDT Eliel Stoddard MD POINT OF CARE TEST ENTER/ED IT ORDERABLES Final Result * XR CERVICAL SPINE 4V (02/04/2025 12:50 PM EDT) Anatomical Region Laterality Modality Abdomen Radiographic Vickie ging 02/04/2025 12:5 0 PM EDT Narrative 02/04/2025 1:50 PM EDT [facility] [address] [place] [address] XRay Report Signed Patient: Alma Rodriguez MR#: [id number] : 1965 Acct:[id number] Age/Sex: 59 / F ADM Date: 02/04/25 Loc: MANA Attending Dr: Filippo FONG Ordering Physician: Filippo Fortune Date of Service: 02/04/25 Procedure(s): XR cervical spine 4V Accession Number(s): [id number] cc: Eliel Stoddard MD; Filippo Fortune EXAMINATION: [...] Óscar Alexander MD 02/04/2025 01:48 PM EDT Dictated By: Óscar Root MD Signed By: <Electronically signed by Óscar Molina MD in OV> 02/04/25 1348 DD/ 1250 TD/TT: 02/04/25 1255 Air Defense Specialist: Procedure Note Donotuseinterpreter, Image - 02/04/2025 [facility] [address] [place] [address] XRay Report Signed Patient: Alma Rodriguez AMR#: [id number] : 1965Acct:[id number] Age/Sex: 59 / FADM Date: 02/04/25 Loc: MANA Attending Dr: Filippo FONG Ordering Physician: Filippo Fortune Date of Service: 02/04/25 Procedure(s): XR cervical spine 4V Accession Number(s): [id number] cc: Eliel Stoddard MD; Filippo Fortune EXAMINATION: [...] Óscar Alexander MD 02/04/2025 01:48 PM EDT Dictated By: Óscar Root MD Signed By: <Electronically signed by Óscar Molina MDin OV> 02/04/25 1348 DD/ 1250 TD/TT: 02/04/25 1255 Air Defense Specialist: [facility] External Provider IMG XR PROCEDURES Final Result * BI Mammogram Screening Tomosynthesis Bilateral (12/21/2024 9:20 AM EDT) Anatomical Region Laterality Modality Breast Bilateral Mammography 12/21/2024 9:20 AM EDT Narrative 12/30/2024 9:14 PM EDT [facility] [address] [place] [address] Mammography Report Signed Patient: Alma Rodriguez MR#: [id number] : 1965 Acct:[id number] Age/Sex: 59 / F ADM Date: 12/21/24 Loc: JACKIEO Attending Dr: Mahsa Valenzuela MD Ordering Physician: Mahsa Huffman MD Results: 1Negative Date of Service: 12/21/24 Follow Up: 1 Year From Orig inal Mammogram Procedure(s): MM tomosynthesis screening BI Accession Number(s): [id number] cc: Mahsa Huffman MD; Eliel Stoddard MD [...] Suzi Nguyen DO 12/30/2024 09:11 PM EDT Dictated By: Suzi Nguyen DO Signed By: <Electronically signed by Suzi Nguyen DO in OV> 12/30/241 DD/ 0920 TD/TT: 12/21/24 0930 Air Defense Specialist: Procedure Note Donotuseinterpreter, Image - 12/30/2024 [place] [facility] [address] [place] [id number] Mammography Report Signed Patient: Alma Rodriguez AMR#: [id number] : 1965Acct:[id number] Age/Sex: 59 / FADM Date: 12/21/24 Loc: HO.MAMMO Attending Dr: Mahsa Valenzuela MD Ordering Physician: Mahsa Huffman MDResults: 1Negative Date of Service: 12/21/24Follow Up: 1 Year From [facility] Mammogram Procedure(s): MM tomosynthesis screening BI Accession Number(s): [id number] cc: Mahsa Huffman MD; Eliel Stoddard MD [...] in OV> 12/30/242110 DD/ 9 TD/TT: 12/21/24929 Air Defense Specialist: Mahsa Valenzuela MD IMG BI PROCEDURES Asim prasanna Result - Final * Albumin, Random Urine W/Creatinine (11/23/2024 9:20 AM EDT) Creatinine, Urine 200.15 mg/dL [facility] Microalbumin Urine 21.0 mg/L [facility] Microalbum Creatinine Ratio Ur 10.4 <30 ug/mg cr [facility] Comment:Albumin/Creatinine R atio Reference Ranges: Normal: < 30 ug/mg creatinine Microalbuminuria: 30 - 300 ug/mg creatinineClinical Albuminuria: > 300 ug/mg creatinine Urine (Urine, Random) 11/23/2024 9:20 AM EDT 11/23/2024 2:06 PM EDT us Eliel Stoddard MD LAB URINE ORDERABLES Final Result Performing Organization Address [facility] Co de Phone Number [facility] [address] [place] [address] [phone] * (ABNORMAL) Lipid Panel, Standard (12/02/2023 11:30 AM EDT) Triglycerides 154(H) <150 mg/dL [facility] Comment:Desirable Triglyceri de: less than 150 mg/dLBorderline High Triglyceride 150-199 mg/dLHigh Triglyceride: 200-499 mg/dLVery High Triglyceride: greater than or equal to 5OO mg/dL Cholesterol 124 <200 mg/dL [facility] Comment:Desirable Cholestero l: less than 200 mg/dLBorderline High Cholesterol: 200-239 mg/dLHigh Cholesterol: greater than 239 mg/dL LDL Cholesterol Calculated 61 <100 mg/dL [facility] Comment:Desirable LDL: less than 100 mg/dLNear Optimal/Above Optimal LDL: 110- 129 mg/dLBorderline High LDL: 130-159 mg/dLHigh LDL: 160-189 mg/dLVery High LDL: greater than or equal to 190 mg/dL HDL Cholesterol 33(L) >40 mg/dL [facility] Comment:Desirable HDL: great er than 40 mg/dL Note: This HDL assay may give artificially low results in patients with liver disease. Blood Venous blood specimen / Unknown 12/02/2023 11:30 AM EDT 12/02/2023 1:26 PM EDT us Mahsa Valenzuela MD LAB BLOOD ORDERABLES Final Result Performing Organization Address [facility]/ZIP Co de Phone Number [facility] [address] [place] [address] [phone] * HIV 1/2 ANTIGEN/ANTIBODY,FOURTH GENERATION W/RFL (12/21/2021 12:00 AM EDT) HIV-1/2 ANTIGEN AND ANTIBODIES, 4TH GENERATION W/ REFLEX NON-REACT ESAU NON-REACT ESAU [facility] Comment: HIV-1 antigen and HIV-1/HIV-2 [...] purpose. For additional information please refer to http://ElectroCore.Reclog/faq/RBZ374 (This link is being provided for informational/ educational purposes only.) The performance of this assay has not been clinically validated in patients less than 2 years old. 12/21/2021 Eliel Stoddard MD LAB BLOOD ORDERABLES Final Result [facility] [address] * THINPREP TIS PAP AND HPV mRNA E6/E7, CT/NG, TRICH (09/12/2021 8:57 AM EDT) Chlamydia trachomatis RNA, TMA, Urogenital NOT DETECTED NOT DETECTED [facility] Clinical Information: None given [facility] COMMENT SEE COMMENT [facility] Comment: The analytical performance characteristics of this assay, when used to test SurePath(TM) specimens have been determined by [facility]. The modifications have not been cleared or approved by the FDA. This assay has been validated pursuant to the CLIA regulations and is used for clinical purposes. For additional information, please refer to https://ElectroCore.Reclog/faq/QMG294 (This link is being provided for information/ [...] has been evaluated with computer assisted technology. [facility] Warehouse Shipping Associate: SEE COMMENT [facility] Comment: CMG, CT(ASCP) CT screening location: [place] [address] HPV nRNA E6/E7 Not Detected Not Detected [facility] Comment: Methodology: Community Health Navigator-Mediated Amplification This assay detects E6/E7 viral messenger RNA (mRNA) from 14 high-risk HPV types (16,18,31,33,35,39,45,51,52,56,58,59,66,68). The analytical performance characteristics of this assay have been determined by [facility]. The modifications have not been cleared or approved by the FDA. This assay has been validated pursuant to the CLIA regulations and is used for clinical purposes. For additional information, please refer to http://ElectroCore.Reclog/faq/PEQ204v6 (This link if provided for information/ educational purposes only.) Interpretation/Re sult: Negative for intraepithelial lesion or malignancy. [facility] LMP: NONE GIVEN [facility] Neisseria gonorrhoeae RNA, TMA, Urogenital NOT DETECTED NOT DETECTED [facility] Prev. BX: NONE [facility]IVEN [facility] Prev. PAP: NONE GIVEN [facility] SOURCE: Cervix [facility] Statement Of Adequacy: SEE COMMENT [facility] Comment: Satisfactory for evaluation. Endocervical/transformation zone component absent. Age and/or menstrual status not provided Trichomonas vaginalis, QL, TMA, PAP Vial NOT DETECTED NOT DETECTED [facility] Comment: The analytical performance characteristics of this assay have been determined by [facility]. The modifications have not been cleared or approved by the FDA. This assay has been validated pursuant to the CLIA regulations and is used for clinical purposes. For additional information, please refer to [email or web address].Reclog/ faq/Trichomonastma (This link is being provided for information/ educational purposes only.) 09/12/2021 8:57 AM EDT us Nini Perry CNM LAB PATHOLOGY ORDERABLES Final Result [facility] [address] * Colonoscopy (02/05/2018) Colonoscopy Normal Normal Narrative Karla Slaughter - 02/05/2018 Recommended 10 year follow up Historical Provider HEALTH MAINTENANCE Final Result from Last 3 Months or Most Recently Relevant to Health Maintenance Insurance [facility] < 65 Care Teams Program Director/Air Personality Relationship Specialty Start Date End Date Eliel Stoddard MD [address] [facility] ELIZA Chin [address] PCP - General Internal Medicine 06/17/18
--- OUTSIDE RECORDS SUMMARY | 2025-03-10 17:03 | XMS_ITS | Data Portability ---
Author Organization [place] [facility], Allergy Address [address] [place] [address] Care Team Providers Care Field Appraiser Name Role Phone HOME MELENDEZ Primary Care [...] effusion in the middle ear space. Reviewed pathophysiology of Eustachian tube dysfunction on diagram and [...] positional vertigo [email or web address] Not available 10/13/2024 09:38:53 11/25/2024 11/25/2024 Informed Consent for left Myringotomy with Tympanostomy Tube Placement I discussed the risks, benefits and alternatives to tympanostomy and tubes, as well as the procedure itself, in detail. The surgical risks, including, though not limited to ear infection, permanent perforation, loss of hearing, postoperative drainage and allergic reactions to medication or materials as well as the anesthetic risks were discussed. We discussed the risk of penitentiary perforation following tube extrusion, with possible need for formal tympanoplasty in the future. We also discussed that if the tube remains in place for longer than 3 years, an additional procedure may be required to remove the tube. We discussed the need to maintain water precautions following this procedure for 2 weeks, then water precautions typically lifted. After full discussion, the patient would like to proceed with procedure. A prescription for 3 days topical antibiotics is sent to pharmacy. Follow-up in the office in approximately 1 month after procedure for reevaluation of hearing and then at 6-month intervals until tubes are no longer present. [email or web address] Not available 11/23/2024 09:50:39 Plan of Treatment Reminders Order Date Submit Date Provider Last Modified By Organization Details Last Modified Time Details Appointments Hearing Test 2024 01:30P M Hearing Test Not available Not available Not available Establish ed 15 2024 02:15P M CARROLL MCCORD MD Not available Not available Not available Lab None recorded. Referral None recorded. Procedures None recorded. Surgeries None recorded. Imaging None recorded. Medication Orders ofloxacin 0.3 % ear drops 2024 025 [id number], [address] [place] [address], [phone], 11/25/2024 11:47:13 fluticaso ne propionat e 50 mcg/actua tion nasal spray,ketan pension 2024 025 [email or web address] [id number], [address], [place], [phone], 07/22/2024 10:46:49 Patient TargetsNo targets recorded. Patient [...] Name and Address Organization Details Recorded Time Snoring 36912294 Active 2013 Snoring; CMS Risk: low risk [facility] Treatment : new problem (to examiner) : additiona l workup planned C ondition: controlle d Note: Date Diagnosed : 4 4:13 PM (786.09) Not Available [facility] 4 02:51:56 Dysfuncti on of eustachia n tube 95747217 Active 2013 Eustachia n tube dysfuncti on; CMS Risk: low risk CMS Treatment : establish ed problem (to examiner) : stable or improved Condition : controlle d Note: Date Diagnosed : 4 3:42 PM (381.81) Not Available [facility] 4 02:51:53 Sensorine ural hearing loss of bilateral ears 076548709 Active 2013 SN[facility] Bilateral ly; Note: Date Diagnosed : 4 3:42 PM (389.18) Not Available [facility] 4 02:51:52 Disorder of right Eustachia n tube 94431692461 51665 Active 2015 Other specified disorders of Eustachia n tube, right ear; Note: Date Diagnosed : 05/17/2016 5:16 PM (H69.81) Not Available [facility] 4 02:51:59 Otalgia of right ear 8911008188 Active 2016 Otalgia, right ear; Note: Date Diagnosed : 01/09/2017 5:09 PM (H92.01) Not Available [facility] 4 02:51:54 Bilateral disorder of Eustachia n tubes 50277378035 19164 Active 2016 Other specified disorders of Eustachia n tube, bilateral ; Note: Date Diagnosed : 01/09/2017 5:09 PM (H69.83) Not Available [facility] 4 02:51:54 Chronic serous otitis media of right ear 833753960 Active 2016 Chronic serous otitis media, right ear; Note: Date Diagnosed : 03/14/2017 12:14 PM (H65.21) Not Available [facility] 4 02:51:58 Bilateral tinnitus 10051824486 02 Active 2016 Tinnitus, bilateral ; Note: Date Diagnosed : 03/14/2017 12:12 PM (H93.13) Not Available [facility] 4 02:51:52 Follow-up visit Active 2016 Medical surveilla nce following completed treatment ; Note: Date Diagnosed : 7 10:46 AM (Z09) Not Available [facility] 4 02:51:57 Sensorine ural hearing loss in right ear 73002541319 100 Active 2017 Sensorine ural hearing loss, unilatera l, right ear, with restricte d hearing on the contralat eral side; Note: Date Diagnosed : 02/13/2018 3:14 PM (H90.A21) Not Available [facility] 4 02:51:55 Left conductiv e hearing loss 83490577839 07 Active 2017 Conductiv e hearing loss, unilatera l, left ear with restricte d hearing on the contralat eral side; Note: Date Diagnosed : 02/13/2018 3:14 PM (H90.A12) Not Available [facility] 4 02:51:59 Otorrhea of right ear 12822890731 87949 Active 2017 Otorrhea, right ear; Note: Date Diagnosed : 8 9:44 AM (H92.11) Not Available [facility] 4 02:51:53 Acute serous otitis media of right ear 08904863507 39318 Active 2017 Acute serous otitis media, right ear; Note: Date Diagnosed : 8 9:44 AM (H65.01) Not Available [facility] 4 02:51:58 Otalgia of left ear 0886936187 Active 2018 Otalgia, left ear; Note: Date Diagnosed : 07/22/2018 10:28 AM (H92.02) Not Available [facility] 4 02:51:59 Conductiv e hearing loss 96257237 Active 2018 Conductiv e hearing loss, unilatera l, right ear, with unrestric prasanna hearing on the contralat eral side; Note: Date Diagnosed : 03/14/2017 11:55 AM (H90.11) ; Start Date : 7 Conduct obed hearing loss, unilatera l, left ear, with unrestric prasanna hearing on the contralat eral side; Note: Date Diagnosed : 07/22/2018 10:33 AM (H90.12) Not Available [facility] 4 02:51:53 Acute serous otitis media of left ear 02095856555 61655 Active 2018 Acute serous otitis media, left ear; Note: Date Diagnosed : 07/22/2018 10:29 AM (H65.02) Acute serous otitis media, left ear; Note: Date Diagnosed : 03/18/2018 11:16 AM (H65.02) ; Start Date : 8 Not Available [facility] 4 02:51:55 Headache 03223117 Active 2018 Headache, unspecifi ed; Note: Changed from R51 to R51.9 ( 1 10:24 AM) , Date Diagnosed : 9 10:03 AM (R51) Not Available [facility] 4 02:51:54 Migraine without aura, not refractor y 569333848 Active 2018 Migraine without aura, not intractab le, without status migrainos us; Note: Date Diagnosed : 9 10:03 AM (G43.009) Not Available [facility] 4 02:51:56 Dizziness and giddiness 846127418 Active 2019 Dizziness and giddiness ; Note: Date Diagnosed : 09/28/2019 11:17 AM (R42) Not Available [facility] 4 02:51:58 Conductiv e hearing loss of right ear 9651471902 Active 2019 Conductiv e hearing loss, unilatera l, right ear with restricte d hearing on the contralat eral side; Note: Date Diagnosed : 09/30/2019 11:22 AM (H90.A11) Not Available [facility] 4 02:51:57 Sensorine ural hearing loss in left ear 19253801565 109 Active 2019 Sensorine ural hearing loss, unilatera l, left ear, with restricte d hearing on the contralat eral side; Note: Date Diagnosed : 09/30/2019 11:22 AM (H90.A22) Not Available [facility] 4 02:51:57 Otorrhea of left ear 59042247640 10034 Active 2020 Otorrhea, left ear; Note: Date Diagnosed : 08/01/2020 1:32 PM (H92.12) Not Available [facility] 4 02:51:52 Mixed conductiv e and 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 08793780675 107 Active 2020 Mixed conductiv e and sensorine ural hearing loss, unilatera l, left ear with restricte d hearing on the contralat eral side; Note: Date Diagnosed : 02/28/2021 2:24 PM (H90.A32) Not Available [facility] 4 02:51:55 Bilateral tympanic membrane central perforati on 85484199155 87352 Active 2021 Central perforati on of tympanic membrane, bilateral ; Note: Date Diagnosed : 02/08/2022 5:24 PM (H72.03) Not Available [facility] 4 02:51:55 Mixed conductiv e and sensorine ural hearing loss, bilateral 612708288 Active 2021 Mixed conductiv e and sensorine ural hearing loss, bilateral ; Note: Date Diagnosed : 02/08/2022 5:07 PM (H90.6) Not Available [facility] 4 02:51:56 Benign paroxysma l positiona l vertigo 705798559 Active 2022 Benign paroxysma l vertigo, left ear; Note: Date Diagnosed : 3 3:25 PM (H81.12) Not Available [facility] 4 02:51:57 Perforati on of right tympanic membrane 66970553483 Active 2024 Gabi moore [facility] [place] 5 10:45:00 Disorder of left Eustachia n tube 96015789794 47083 Active 2024 CARROLL MCCORD MD [address] [place] [address],[address], [address] , [facility] 5 09:39:06 Problem Notes None recorded. Procedures Surgical History Date Name Laterality Status Provider Name and Address Organization Details Recorded Time 5 Myringotomy w/Placement of Tube left completed CARROLL MCCORD MD [address] [place] [address],[address], [address], [facility] 11/25/2024 11:46:45 5 Nasopharyngosco py_DP completed CARROLL MCCORD MD [address] [place] [address],[address], [address], [facility] 10/13/2024 09:36:46 5 Comp Audio with Tymps - 54697 & 33026 completed CLAYTON GABRIEL [address] [place] [address],[address], [address], [facility] 07/22/2024 10:25:50 Imaging Results None recorded. Procedure Notes None recorded. Medical Equipment None Reported. Allergies Allergen ID Allergen Name Allergen Category Reaction Reaction Severity Criticality Documentation Date Start Date Code Code System Note Provider Name and Address Organization Details Recorded Time 88138 amoxicill in medicatio n other Not available Not available 10/29/2023 723 RxNorm React ion: unkno wn, unspe cifie d;; Not Available [facility] 4 00:48:32 Medications Name Sig Start Date Stop Date Status Note LastModified by Organization Details LastModified Time cyclobenz aprine 10 mg tablet active Not Available Not Available No t Available estazolam 2 mg tablet 05/17 completed Medicati on ID: [id number] Dur ation Value: 30 Reason: () Brand Name: estazola m Send Method: E-Prescr ibed Sub s Allowed: subs OK Medic ation ericName : estazola m Not Available Not Available Not Available doxycycli ne hyclate 100 mg capsule 09/29 completed Medicati on ID: [id number] P joshua d By Name: Sherwin manjarrez MD Brand [...] t Available tizanidin e 2 mg tablet 11/25 completed Medicati on ID: [id number] B rand Name: tizanidi ne Send Method: E-Prescr ibed Sub s Allowed: subs OK Medic atBill ericName : tizanidi ne Not Available Not Available Not Available clindamyc in HCl 300 mg capsule TAKE 1 CAPSULE BY MOUTH EVERY 6 HOURS active Not Available Not Available No t Available azithromy israel 250 mg tablet active Not Available Not Available No t Available ofloxacin 0.3 % eye drops 3 drop 06/03 completed Medicati on ID: [id number] D uration Value: 7 Brand Name: ofloxaci [...] mg tablet 02/08 completed Medicati on ID: [id number] D uration Value: 30 Brand Name: sumatrandrew macedo succinat e Send Method: E-Prescr ibed Sub s Allowed: subs OK Medic ationGen ericName : sumatrip macedo succinat e Not Available Not Available Not Available topiramat e 25 mg tablet 02/08 completed Medicati on ID: [id number] D uration Value: 30 Brand Name: topirama te Send Method: E-Prescr ibed Sub s Allowed: subs OK Medic ationGen ericName : topirama te Not Available Not Available Not Available amlodipin e 5 mg tablet active Medicati on ID: [id number] B rand Name: amlodipi ne Send Method: E-Prescr ibed Sub s Allowed: subs OK Medic ationGen ericName : amlodipi ne Not Available Not Available Not Available sulfameth oxazole 800 mg-trimet hoprim 160 mg tablet TAKE 1 TABLET BY MOUTH TWICE DAILY FOR 3 DAYS active Not Available Not Available No t Available aspirin 81 mg tablet,de layed release 10/13 completed Medicati on ID: [id number] B rand Name: aspirin Send Method: E-Prescr [...] Not Available ofloxacin 0.3 % ear drops INSTILL 4 DROPS TO AFFECTED EAR TWICE DAILY FOR 3 DAYS active Not Available Not Available No t Available amitripty line 25 mg tablet 05/17 [...] TABLET BY MOUTH THREE TIMES DAILY NEEDED 11/25 completed Not Available Not Available Not Available gemfibroz il 600 mg tablet 05/17 [...] t Available lisinopri l 5 mg tablet 11/25 completed Medicati on ID: [id number] B rand Name: lisinopr il Send Method: E-Prescr ibed Sub s Allowed: subs OK Medic ationGen ericName : lisinopr il Not Available Not Available Not Available gabapenti n 100 mg capsule active Not Available Not Available Not Available lorazepam 1 mg tablet 11/25 completed Medicati on ID: [id number] B rand Name: lorazepa m Send Method: E-Prescr ibed Sub s Allowed: subs OK Medic ationGen ericName : lorazepa m Not Available Not Available Not Available ibuprofen 600 mg tablet 11/25 completed Medicati on ID: [id number] B rand Name: ibuprofe n Send Method: [...] EACH NOSTRIL EVERY DAY IN THE MORNING 2024 active Not Available Not Available Not Avai lable metformin ER 500 mg tablet,ex tended release 24 hr TAKE 2 TABLETS BY MOUTH TWICE DAILY WITH MEALS active Not Available Not Available No t Available doxycycli ne hyclate 100 mg tablet TAKE 1 TABLET BY MOUTH DAILY WITH FOOD active Not Available Not Available No t Available naproxen 500 mg tablet 11/25 completed Medicati on ID: [id number] B rand Name: naproxen Send Method: E-Prescr [...] % eye drops,ketan pension 5 as directed 11/25 completed Medicati on ID: [id number] D uration Value: 30 Prescri bed By [...] active Not Available Not Available Not Available chlorhexi dine gluconate 0.12 % mouthwash active Not Available Not Available No t Available cholecalc iferol (vitamin D3) 25 mcg (1,000 unit) tablet TAKE 1 TABLET BY MOUTH DAILY active Not Available Not Available No t Available FreeStyle Lite Meter kit USE DIRECTED TO TEST BLOOD GLUCOSE active Not Available Not Available No t Available diclofena c 1 % topical gel APPLY TOPICALL Y TO THE AFFECTED AREA THREE TIMES DAILY active Not Available Not Available No t Available Creon 12,000-38 ,000-60,0 00 unit capsule,d elayed release TAKE 2 CAPSULES BY MOUTH WITH MEALS AND 1 CAPSULE WITH SNACKS active Not Available Not Available No t Available Vitals Date Recorded Body height Body mass index (BMI) Body weight Provider Name and Address Organization Details Last Updated DateTime 07/22/2024 177.8 cm 30.1 kg/m2 94680.4 g Reshma Fry [place] - [facility] 07/22/2024 10:37:16 Date Recorded Body height Provider Name an d Address Organization Details Last Updated DateTime 10/13/2024 177.8 cm [facility] [place] [facility] 10/13/2024 09:16:13 Date Recorded Body height Provider Name an d Address Organization Details Last Updated DateTime 11/25/2024 177.8 cm [facility] [place] [facility] 11/25/2024 11:00:19 Social History None recorded. Functional Status None recorded. Mental Status None recorded. Family History Nothing Reported. Medical History Condition Response Allergies/Hayfever Y Heart Problems N Anxiety Y Tonsil Infections N Emphysema N Migraines Y Thyroid Problems N Depression Y COPD N Developmental Delay N Glaucoma N Nasal or Sinus Problems Y Anemia N Immune System Disorder N Anesthesia Complications N Heart Attack ([place]) N Other Skin Condition Y Diabetes Y Rhinitis Y Bleeding Disorder N Food Allergy Y Hearing Loss Y Arthritis Y Hyperlipidemia N Cancer N Stroke N Dementia N Nasal polyps N Asthma N Sleep Disorder Y High Cholesterol Y GERD/Reflux Y Liver Disease N Headaches Y Fibromyalgia N Hypertension Y Speech Delay N Kidney Disease N Gynecological HistoryNo gynecological history recorded. Obstetrics History GPAL:G 0 P 0 0 0 0 Past Encounters Encounter ID Performer Location Encounter Start Date Encounter Closed Date Diagnosis/Indication Diagnosis SNOMED-CT Code Diagnosis ICD10 Code Diagnosis IMO Codes Diagnosis Note [id number] GABI JUARES PA-C [facility] [address] [address] 07/22/2024 09:47:01 07/22/2024 10:50:07 Mixed conductive and sensorineural hearing loss, bilateral 628101214 H90.6 Audiologic al evaluation results: Right ear: Normal sloping to moderately severe mixed hearing loss with excellent word recognitio n. Left ear: Mild sloping to severe mixed hearing loss with excellent word recognitio n. Tympanomet ry: Right Ear:Type B with large volume Left Ear:Type B with large volume Acute sero us otitis media of left ear 5277340286 299541 H65.02 Bilateral disorder of Eustachian tubes 3806264542 202185 H69.83 Bilateral tinnitus 06161 39169 102 H93.13 Perforatio n of right tympanic membrane 6410294036 177280 H72.91 [id number] CARROLL MCCORD MD [facility] [address] [address] 10/13/2024 08:59:49 10/13/2024 09:38:03 Dizziness and giddiness 729673671 R42 Disorder o f left Eustachian tube 4741880971 052007 H69.92 [id number] CARROLL MCCORD MD [facility] [address] [address] 11/25/2024 10:52:28 11/25/2024 11:58:36 Disorder of left Eustachian tube 0720592985 713537 H69.92 Health Concerns Section Related Observation LastModified by Organization Detai ls LastModified Time None Recorded Concern Status LastModified by Organization Details LastModified Time None Recorded Advance Directives Directive None Recorded Payers Insurance Date Sequence Insurance Name Policy Number Policy Mondragon Covered Member ID Mondragon Member ID Guarantor Name 01/15/2025 1 [facility] - DOS ON OR AFTER 2022 - MEDICARE ADVANTAGE [place] (MEDICARE REPLACEMENT/AD VANTAGE - PPO) Alma Painter Jennifer [id number] Alma Painter Jennifer 01/15/2025 2 [facility] () Alma Painter Jennifer [id number] Alma A Jennifer Notes Date Note Type Note Provider Name and Address Organization Details Recorded Time 07/22/2024 text/html ROS as noted in the HPI 58 year old female presents for evaluation of the ears and [...] recently over the fall. CARROLL MCCORD MD [address] [place] [address], [phone], [facility] - [facility] 07/22/2024 17:35:06 10/13/2024 text/html ROS as noted in the HPI left side decreased hearingdescribes some imbalance when turningthe use of flonase daily with no improvementtobacco - 1/2ppd 05/02/17 EMMANUELLE, Geovany, Right myringotomy with tube PV 07/22/24 Gabi - right pinpoint TM perf, left serous effusion. rx flonaseAudio:Right ear: Normal sloping to moderately severe mixed hearing loss with excellent word recognition.Left ear: Mild sloping to severe mixed hearing loss with excellent word recognition. CARROLL MCCORD MD [address] [place] [address],[address], [address], [facility] 10/13/2024 09:39:43 11/25/2024 text/html ROS as noted in the HPI requests Left PET left side decreased hearingdescribes some imbalance when turningthe use of flonase daily with no improvementtobacco - 1/2ppd 05/02/17 [facility], [place], Right myringotomy with tube PV 07/22/24 Gabi - right pinpoint TM perf, left serous effusion. rx flonaseAudio:Right ear: Normal sloping to moderately severe mixed hearing loss with excellent word recognition.Left ear: Mild sloping to severe mixed hearing loss with excellent word recognition. PV 10/13/24 Carol nasopharynx exam benign CARROLL MCCORD MD [address] [place] [address],[place] [address], [place], [address], [facility] - [facility] 11/25/2024 11:47:23 OBGyn Episode No OBEpisode recorded.
--- OUTSIDE RECORDS SUMMARY | 2025-03-10 17:03 | XMS_ITS | Encounter Summary ---
Author Organization [employer] Address [address] [place] [address] [address] [place] [address] Care Team Providers Care Adding Machine Servicer Name Role Phone Eliel Stoddard MD Primary Care Provider [phone] Encounter Details Date Type Department Care Team (Late st Contact Info) Description 04/17/2023 Abstract [facility] [address] [place], [place] [phone] Karla Slaughter Social History Tobacco Use Types [...] on filedocumented in this encounter Care Teams Adding Machine Servicer Relationship Specialty Start Date End Date Eliel Stoddard MD [address] [place] [address] PCP - General Internal Medicine 06/17/18 documented as of this encounter
--- OUTSIDE RECORDS SUMMARY | 2025-03-10 17:03 | XMS_ITS | Encounter Summary ---
Author Organization [employer] Address [address] [place] [address] [address] [place] [address] Care Team Providers Care Civil Design Specialist Name Role Phone Eliel Stoddard MD Primary Care Provider [phone] Encounter Details Date Type Department Care Team ([facility] st Contact Info) Description 04/12/2023 Orders Only [facility]EDS [address] [place], [place] [phone] Eliel Stoddard MD [address] [place] [address] Primary insomnia Social History Tobacco Use Types [...] the past 12 months, has t he [employer] oil or water company threatened to shut [...] sleep documented in this encounter Care Teams Civil Design Specialist Relationship Specialty Start Date End Date Eliel Stoddard MD [address] [place] [address] PCP - General Internal Medicine 06/17/18 documented as of this encounter
== END 2025-03-10 17:07 | disposition home or self-care (01) ==
LOC: HO.HGI 14:20
PROVIDERS: PCP Internal Medicine; Visit Provider Internal Medicine
DX: K52.9 Noninfective gastroenteritis and colitis, unspecified (principal); R10.11 Right upper quadrant pain; G89.29 Other chronic pain; F17.200 Nicotine dependence, unspecified, uncomplicated
CPT/HCPCS: 99214

== ENCOUNTER → 2025-03-10 14:19 | Outpatient (BNVA) | payer OTHER, SELFPAY | PROVIDERS: PCP Internal Medicine; Visit Provider Internal Medicine | DX: K52.9 Noninfective gastroenteritis and colitis, unspecified (principal); R10.11 Right upper quadrant pain; G89.29 Other chronic pain; F17.210 Nicotine dependence, cigarettes, uncomplicated | CPT/HCPCS: 99212 ==

== ENCOUNTER 2025-04-01 07:19 | Day surgery (SDC) | payer OTHER, SELFPAY ==
--- OUTSIDE RECORDS SUMMARY | 2020-10-12 14:15 | XMS_ITS | Continuity of Care Document ---
Author Organization [facility] Address [address] [place] [address] Phone Care Team Providers Care Barrel Rib Matting Machine Operator Name Role Phone Luigi KERR, Letha Unavailable Unavailab le Procedures Procedure Date ADM SARSCOV2 100MCG/0.5ML2ND SARSCOV2 VAC 100MCG/0.5ML IM Advance Directives Directive Yes / No Effective Date File Name No Information Encounters Encounter Description Practice Location Reason(s) For Visit Diagnoses Date Provider [facility], [address] [place] [address], [facility], tel:[phone] [facility] Encounter for immunization Luigi Monae. [address] [place] [address], [address] [place] [address], [facility], . tel:[phone] Family History Family Member Type Diagnosis Age [...] Immunization Record Payers Payer name Insurance type Covered alliance party ID Authoriza tion(s) COVID19 HRSA Uninsured Fund CI [id number] Social History Type Description Quantity Date Captured Comments Sex Female Smoking Status No Information Chief Complaint And Reason For Visit No Information History Of Present Illness Encounter Date Complaint History Of Prese nt Illness No Information Instructions Date Instruction Additional Infor mation No Information Assessments Type Assessment Date No Information
--- OUTSIDE RECORDS SUMMARY | 2025-03-11 16:16 | XMS_ITS | Encounter Summary ---
Author Organization [employer] Address [address] [place] [address] 7 [place] [address] Care Team Providers Care Sexual Assault Social Worker Name Role Phone Eliel Stoddard MD Primary Care Provider [phone] Reason for Visit * Reason Onset Date Comments Med Refill 10/19/2022 Encounter Details Date Type Department Care Team ([facility] st Contact Info) Description 10/19/2022 Refill [facility] PEDS [address] [place], [place] [phone] Eliel Stoddard MD [address] [place] [address] Social History Tobacco Use Types Packs/Day Years [...] on filedocumented in this encounter Care Teams Sexual Assault Social Worker Relationship Specialty Start Date End Date Eliel Stoddard MD [address] [place] [address] PCP - General Internal Medicine 06/17/18 documented as of this encounter
--- OUTSIDE RECORDS SUMMARY | 2025-03-11 16:16 | XMS_ITS | Encounter Summary ---
Author Organization [employer] Address [address] [place] [address] [address] [place] [address] Care Team Providers Care Instrument Repairer Steam Plant Name Role Phone Eliel Stoddard MD Primary Care Provider [phone] Reason for Visit * Reason Comments Med Refill Encounter Details Date Type Department Care Team ([facility] Contact Info) Description 12/25/2023 Refill [facility] MED & PEDS [address] [place], [place] [phone] Eliel Stoddard MD [address] [place] [address] Social History Tobacco Use Types Packs/Day Years [...] documented as of this encounter Care Teams Instrument Repairer Steam Plant Relationship Specialty Start Date End Date Eliel Stoddard MD [address] [place] [address] PCP - General Internal Medicine 06/17/18 documented as of this encounter
--- OUTSIDE RECORDS SUMMARY | 2025-03-11 16:16 | XMS_ITS | Encounter Summary ---
Author Organization [email or web address] Address [address] [place] [address] 7t [place] [address] Care Team Providers Care Metal Sprayer Production Name Role Phone Eliel Stoddard MD Primary Care Provider [phone] Encounter Details Date Type Department Care Team ([facility] st Contact Info) Description 04/12/2023 Orders Only [facility] MED & PEDS [address] [place], [place] [phone] Eliel Stoddard MD [address] [place] [address] Primary insomnia Social History Tobacco Use Types [...] the past 12 months, has t he [employer], oil or water company threatened to shut [...] sleep documented in this encounter Care Teams Metal Sprayer Production Relationship Specialty Start Date End Date Eliel Stoddard MD [address] [place] [id number] PCP - General Internal Medicine 06/17/18 documented as of this encounter
--- OUTSIDE RECORDS SUMMARY | 2025-03-11 16:16 | XMS_ITS | Encounter Summary ---
Author Organization [employer] Address [address] [place] [address] 7t [place] [address] Care Team Providers Care Logistics Analytics Manager Name Role Phone Eliel Stoddard MD Primary Care Provider [phone] Encounter Details Date Type Department Care Team (Late st Contact Info) Description 04/17/2023 Abstract [facility] MEDICINE [address] [place], [place] [phone] Karla Slaughter Social History Tobacco Use Types [...] on filedocumented in this encounter Care Teams Logistics Analytics Manager Relationship Specialty Start Date End Date Eliel Stoddard MD [address] [place] [address] PCP - General Internal Medicine 06/17/18 documented as of this encounter
--- OUTSIDE RECORDS SUMMARY | 2025-03-11 16:16 | XMS_ITS | Encounter Summary ---
Author Organization [employer] Address [address] [place] [address] 7 [place] [address] Care Team Providers Care Order Processor Name Role Phone Eliel Stoddard MD Primary Care Provider [phone] Reason for Visit * Reason Comments Med Refill Encounter Details Date Type Department Care Team ([facility] Contact Info) Description 06/28/2023 Refill [facility] MED & PEDS [address] [place], [place] [phone] Eliel Stoddard MD [address] [place] [address] Social History Tobacco Use Types Packs/Day Years [...] on filedocumented in this encounter Care Teams Order Processor Relationship Specialty Start Date End Date Eliel Stoddard MD [address] [place] [address] PCP - General Internal Medicine 06/17/18 documented as of this encounter
--- OUTSIDE RECORDS SUMMARY | 2025-03-11 16:16 | XMS_ITS | Clinical Summary ---
Author Organization [employer] Address [address] [place] [address] 7t [place] [address] Care Team Providers Care Pipe Line Gauger Name Role Phone Eliel tSoddard MD Primary Care Provider [phone] Allergies Active Allergy Reactions Criticality Noted Date [...] hyperglycemia, without long-term current use of insulin ([facility]) 1 tab if FS< 70 mg/dl 50 [...] 2 diabetes mellitus without complication, unspecified whether longwall foreman insulin use ([facility]) USE ONE STRIP TO CHECK BLOOD SUGAR [...] complication, unspecified whether skilled nursing insulin use ([facility]) USE ONE STRIP TO CHECK BLOOD SUGAR TWICE DAILY 100 strip 11 08/07/19 25 Active gabapentin (Neurontin) 100 MG capsuleIndicati ons:Diabetic peripheral neuropathy associated with type 2 diabetes mellitus ([facility]) Take 2 capsules (200 mg) by mouth every 8 (eight) hours. 180 capsule 11 08/21/19 25 026 Active Blood Glucose Monitoring Suppl (3CLogic Lite) w/Device kitIndications: Type 2 diabetes mellitus with hypoglycemia without coma, without long-term current use of insulin ([facility]) Use to test blood sugar 1 times daily 1 kit 08/21/19 25 Active Acetaminophen Extra Strength 500 MG tablet TAKE 1 TABLET BY MOUTH EVERY 6 HOURS NEEDED FOR MILD PAIN 120 tablet 09/01/19 25 Active metFORMIN XR (Glucophage-XR) 500 MG 24 hr tabletIndicatio ns:Type 2 diabetes mellitus with hypoglycemia without coma, without long-term current use of insulin ([facility]) TAKE 2 TABLETS BY MOUTH TWICE DAILY [...] without long-term current use of insulin ([facility]) TAKE 1 TABLET BY MOUTH EVERY DAY [...] work 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, 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, may need further [...] Description 02/23/2025 9:00 AM EDT Office Visit [facility] MED & PEDS [address] [place] [address] Eliel Stoddard MD Type 2 diabetes mellitus with hypoglycemia without coma, without long-term current use of insulin (CMS/HCC) (Primary Dx); Primary hypertension; Claustrophobia; Hypercholesterolemia 02/23/2025 Travel 02/22/2025 Telephone [facility] PED[facility] [address] [place] [address] Eliel Stoddard MD Chart Prep 02/16/2025 Travel 02/04/2025 Orders Only [facility] External Provider, [facility] 12/21/2024 Orders Only [facility] [address] [place] [phone] Mahsa Huffman MD 12/18/2024 Refill [facility] [address] [place] [address] Mahsa Huffman MD Encounter for screening mammogram for malignant neoplasm of breast; Tingling in extremities 12/15/2024 Refill [facility] [address] [place] [address] Margarette hGosh MD Type 2 diabetes mellitus with hypoglycemia [...] without long-term current use of insulin ([facility]) POCT GLUCOSE Routine 02/23/2025 9:29 AM EDT Type 2 diabetes mellitus with hypoglycemia without coma, without long-term current use of insulin ([facility]) XR CERVICAL SPINE 4V Routine 02/04/2025 12:50 PM EDT BI MAMMOGRAM SCREENING TOMOSYNTHESIS BILATERAL Routine 12/21/2024 9:20 AM EDT ALBUMIN, RANDOM URINE W/CREATININE Routine 11/23/2024 9:20 AM EDT Type 2 diabetes mellitus with hypoglycemia without coma, without long-term current use of insulin ([facility]) LIPID PANEL, STANDARD Routine 12/02/2023 11:30 AM [...] AM EDT Narrative 02/23/2025 10:30 AM EDT [place] [address] Magnetic Resonance Report Signed Patient: Alma Rodriguez MR#: [id number] : 1965 Acct:[id number] Age/Sex: 59 / F ADM Date: 02/20/25 Loc: HO.MRI Attending Dr: Filippo FONG Ordering Physician: Filippo Fortune Date of Service: 02/20/25 Procedure(s): MR cervical spine wo con Accession Number(s): [id number] cc: Eliel Stoddard MD; Filippo Fortune Reason [...] 02/23/25 1029 DD/ 1029 TD/TT: 02/23/25 1029 Stenocaptioner: Procedure Note Donotuseinterpreter, Image - 02/23/2025 [place] [address] Magnetic Resonance Report Signed Patient: Alma Rodriguez AMR#: [id number] : 1965Acct:[id number] Age/Sex: 59 / FADM Date: 02/20/25 Loc: HO.MRI Attending Dr: Filippo FONG Ordering Physician: Filippo Fortune Date of Service: 02/20/25 Procedure(s): MR cervical spine wo con Accession Number(s): [id number] cc: Eliel Stoddard MD; Filippo Fortune Reason [...] 02/23/25 1029 DD/ 1029 TD/TT: 02/23/25 1029 Stenocaptioner: [facility] External Provider IMG MRI PROCEDURES Edited [...] Media Lot # [id number] Lot# Expiration Date 500 Comment:random Blood Capillary blood specimen / Unknown 02/23/2025 9:29 AM EDT Eliel Stoddard MD POINT OF CARE TEST ENTER/ED IT ORDERABLES Final Result * XR CERVICAL SPINE 4V (02/04/2025 12:50 PM EDT) Anatomical Region Laterality Modality Abdomen Radiographic Vickie ging 02/04/2025 12:5 0 PM EDT Narrative 02/04/2025 1:50 PM EDT [facility] [address] [place] [address] XRay Report Signed Patient: Alma Rodriguez MR#: [id number] : 1965 Acct:[id number] Age/Sex: 59 / F ADM Date: 02/04/25 Loc: MANA Attending Dr: Filippo FONG Ordering Physician: Filippo Fortune Date of Service: 02/04/25 Procedure(s): XR cervical spine 4V Accession Number(s): [id number] cc: Eliel Stoddard MD; Filippo Fortune EXAMINATION: [...] 02/04/25 1348 DD/ 1250 TD/TT: 02/04/25 1255 Stenocaptioner: Procedure Note Donotuseinterpreter, Image - 02/04/2025 [facility] [address] [place] [address] XRay Report Signed Patient: Alma Rodriguez AMR#: [id number] : 1965Acct:[id number] Age/Sex: 59 / FADM Date: 02/04/25 Loc: MANA Attending Dr: Filippo FONG Ordering Physician: Filippo Fortune Date of Service: 02/04/25 Procedure(s): XR cervical spine 4V Accession Number(s): [id number] cc: Eliel Stoddard MD; Filippo Fortune EXAMINATION: [...] 02/04/25 1348 DD/ 1250 TD/TT: 02/04/25 1255 Stenocaptioner: [facility] External Provider IMG XR PROCEDURES Final Result * BI Mammogram Screening Tomosynthesis Bilateral (12/21/2024 9:20 AM EDT) Anatomical Region Laterality Modality Breast Bilateral Mammography 12/21/2024 9:20 AM EDT Narrative 12/30/2024 9:14 PM EDT [facility] [address] [place] [address] Mammography Report Signed Patient: Alma Rodriguez MR#: [id number] : 1965 Acct:[id number] Age/Sex: 59 / F ADM Date: 12/21/24 Loc: JACKIEO Attending Dr: Mahsa Valenzuela MD Ordering Physician: Mahsa Huffman MD Results: 1Negative Date of Service: 12/21/24 Follow Up: 1 Year From Orig inal Mammogram Procedure(s): MM tomosynthesis screening BI Accession Number(s): [id number] cc: Mahsa Huffman MD; Eliel Stoddard MD [...] OV> 12/30/241 DD/ 0920 TD/TT: 12/21/24 0930 Stenocaptioner: Procedure Note Donotuseinterpreter, Image - 12/30/2024 [place] [facility] [address] [place] [id number] Mammography Report Signed Patient: Alma Rodriguez AMR#: [id number] : 1965Acct:[id number] Age/Sex: 59 / FADM Date: 12/21/24 Loc: HO.MAMMO Attending Dr: Mahsa Valenzuela MD Ordering Physician: Mahsa Huffman MDResults: 1Negative Date of Service: 12/21/24Follow Up: 1 Year From [facility] Mammogram Procedure(s): MM tomosynthesis screening BI Accession Number(s): [id number] cc: Mahsa Huffman MD; Eliel Stoddard MD [...] in OV> 12/30/242110 DD/ 9 TD/TT: 12/21/[address] Stenocaptioner: Mahsa Valenzuela MD IMG BI PROCEDURES Asim prasanna Result - Final * Albumin, Random Urine W/Creatinine (11/23/2024 9:20 AM EDT) Creatinine, Urine 200.15 mg/dL [facility] Microalbumin Urine 21.0 mg/L [facility] Microalbum Creatinine Ratio Ur 10.4 <30 ug/mg cr [facility] Comment:Albumin/Creatinine R atio Reference Ranges: Normal: < 30 ug/mg creatinine Microalbuminuria: 30 - 300 ug/mg creatinineClinical Albuminuria: > 300 ug/mg creatinine Urine (Urine, Random) 11/23/2024 9:20 AM EDT 11/23/2024 2:06 PM EDT us Eliel Stoddard MD LAB URINE ORDERABLES Final Result Performing Organization Address [facility] Co de Phone Number [facility] [address] [place] [phone] * (ABNORMAL) Lipid Panel, Standard (12/02/2023 11:30 AM EDT) Triglycerides 154(H) <150 mg/dL [facility] Comment:Desirable Triglyceri de: less than 150 mg/dLBorderline High Triglyceride 150-199 mg/dLHigh Triglyceride: 200-499 mg/dLVery High Triglyceride: greater than or equal to 5OO mg/dL Cholesterol 124 <200 mg/dL [facility] Comment:Desirable Cholestero l: less than 200 mg/dLBorderline High Cholesterol: 200-239 mg/dLHigh Cholesterol: greater than 239 mg/dL LDL Cholesterol Calculated 61 <100 mg/dL [facility] Comment:Desirable LDL: less than 100 mg/dLNear Optimal/Above Optimal LDL: 110- 129 mg/dLBorderline High LDL: 130-159 mg/dLHigh LDL: 160-189 mg/dLVery High LDL: greater than or equal to 190 mg/dL HDL Cholesterol 33(L) >40 mg/dL [facility] Comment:Desirable HDL: great er than 40 mg/dL Note: This HDL assay may give artificially low results in patients with liver disease. Blood Venous blood specimen / Unknown 12/02/2023 11:30 AM EDT 12/02/2023 1:26 PM EDT us Mahsa Valenzuela MD LAB BLOOD ORDERABLES Final Result Performing Organization Address [facility]/ZIP Co de Phone Number [facility] [address] [place] [phone] [phone] * HIV 1/2 ANTIGEN/ANTIBODY,FOURTH GENERATION W/RFL (12/21/2021 12:00 AM EDT) HIV-1/2 ANTIGEN AND ANTIBODIES, 4TH GENERATION W/ REFLEX NON-REACT ESAU NON-REACT ESAU [facility] Comment: HIV-1 antigen and HIV-1/HIV-2 [...] purpose. For additional information please refer to http://[employer]/faq/DMR701 (This link is being provided for informational/ educational purposes only.) The performance of this assay has not been clinically validated in patients less than 2 years old. 12/21/2021 Eliel Stoddard MD LAB BLOOD ORDERABLES Final Result [facility] [address] * THINPREP TIS PAP AND HPV mRNA E6/E7, CT/NG, TRICH (09/12/2021 8:57 AM EDT) Chlamydia trachomatis RNA, TMA, Urogenital NOT DETECTED NOT DETECTED [facility] Clinical Information: None given [facility] COMMENT SEE COMMENT [facility] Comment: The analytical performance characteristics of this assay, when used to test SurePath(TM) specimens have been determined by [employer]. The modifications have not been cleared or approved by the FDA. This assay has been validated pursuant to the CLIA regulations and is used for clinical purposes. For additional information, please refer to https://[employer]/faq/AHQ406 (This link is being provided for information/ [...] has been evaluated with computer assisted technology. [facility] Dental Equipment Mechanic: SEE COMMENT [facility] Comment: CMG, CT(ASCP) CT screening location: [place] [address] HPV nRNA E6/E7 Not Detected Not Detected [facility] Comment: Methodology: Manager Of Exhibitions And Collections-Mediated Amplification This assay detects E6/E7 viral messenger RNA (mRNA) from 14 high-risk HPV types (16,18,31,33,35,39,45,51,52,56,58,59,66,68). The analytical performance characteristics of this assay have been determined by [employer]. The modifications have not been cleared or approved by the FDA. This assay has been validated pursuant to the CLIA regulations and is used for clinical purposes. For additional information, please refer to http://[employer]/faq/FOP375d0 (This link if provided for information/ educational purposes only.) Interpretation/Re sult: Negative for intraepithelial lesion or malignancy. [facility] LMP: NONE GIVEN [facility] Neisseria gonorrhoeae RNA, TMA, Urogenital NOT DETECTED NOT DETECTED [facility] Prev. BX: NONE GIVEN [facility] Prev. PAP: NONE GIVEN [facility] SOURCE: Cervix [facility] Statement Of Adequacy: SEE COMMENT [facility] Comment: Satisfactory for evaluation. Endocervical/transformation zone component absent. Age and/or menstrual status not provided Trichomonas vaginalis, QL, TMA, PAP Vial NOT DETECTED NOT DETECTED [facility] Comment: The analytical performance characteristics of this assay have been determined by [employer]. The modifications have not been cleared or approved by the FDA. This assay has been validated pursuant to the CLIA regulations and is used for clinical purposes. For additional information, please refer to http://[employer]/ faq/Trichomonastma (This link is being provided for information/ educational purposes only.) 09/12/2021 8:57 AM EDT us Nini Perry CNM LAB PATHOLOGY ORDERABLES Final Result [facility] [address] * Colonoscopy (02/05/2018) Colonoscopy Normal Normal Narrative Karla Slaughter - 02/05/2018 Recommended 10 year follow up Historical Provider HEALTH MAINTENANCE Final Result from Last 3 Months or Most Recently Relevant to Health Maintenance Insurance [facility] < 65 Care Teams Pipe Line Gauger Relationship Specialty Start Date End Date Eliel Stoddard MD [address] [facility] [place] [address] PCP - General Internal Medicine 06/17/18
--- OUTSIDE RECORDS SUMMARY | 2025-03-11 16:16 | XMS_ITS | Encounter Summary ---
Author Organization [employer] Address [address] [place] [address] 7t [place] [address] Care Team Providers Care Sterile Technician Name Role Phone Eliel Stoddard MD Primary Care Provider [phone] Encounter Details Date Type Department Care Team (Late st Contact Info) Description 11/08/2023 Orders Only [facility] [address] [place], [place] [phone] Provider, MD Jahaira Social History Tobacco Use [...] on filedocumented in this encounter Care Teams Sterile Technician Relationship Specialty Start Date End Date Eliel Stoddard MD [address] [place] [phone] PCP - General Internal Medicine 06/17/18 documented as of this encounter
[2025-03-30 08:16] VITALS: BMI 29.4
--- NOTE | 2025-03-30 11:13 | HO.ANESPROP2 ---
Documented by User: Christina Akins NP 03/30/25 11:19 HPI - Anesthesia Eval Consult details Narrative: 59 yr old female for Upper Endoscopy and Colonoscopy Smokes cigarettes daily PMFSH Active Problems Active Problems: All Active Problems (Updated 09/02/24 @ 12:23 by Debby Keenan MD) Smoking addiction (Acute) Chronic diarrhea (Acute) Chronic RUQ pain (Acute) GERD (gastroesophageal reflux disease) (Acute) Varicose veins of both lower extremities (Acute) Chronic pain of both feet (Acute) Asthma (Acute) Neck pain (Acute) Spinal stenosis in cervical region (Acute) Spinal stenosis (Acute) Degeneration, intervertebral disc, cervical (Acute) HTN (hypertension) (Acute) Diabetes (Acute) Past Medical History Medical History Hepatitis C Spinal stenosis in cervical region Spinal stenosis Degeneration, intervertebral disc, cervical Leukocytosis History of kidney stones Hx of herpes zoster Hx of pancreatitis Hx of endometriosis Depression Generalized anxiety disorder Dysuria Hypercholesterolemia HTN (hypertension) Asthma Diabetes Family History Family History Mother Diabetes Depression Father Suicide Surgical History Surgical History H/O colonoscopy Hx of section H/O dilation and curettage Social History Social History Alcohol intake: never Patient Tobacco Use Status: Current everyday Tobacco user Are you DNR?: No Advance Directives: No Advance Directives Information Provided: Yes Meds Allergies Allergy/AdvReac Type Severity Reaction Status Date / Time ampicillin (AMPICILLIN) Allergy Unknown RASH Verified 03/10/25 14:35 Ampicillin Allergy Unknown rash Uncoded 03/10/25 14:35 Home Medications ?Medication ?Instructions ?Recorded ?Confirmed ?Last Taken ?Type metformin 500 mg tablet,extended 500 mg PO QPM 04/19/21 03/30/25 Unknown History release 24 hr simvastatin 20 mg tablet 20 mg PO BEDTIME 04/19/21 03/30/25 Unknown History acetaminophen 500 mg tablet 500 mg PO Q6H PRN mild pain 09/02/24 Unknown History betamethasone dipropionate 0.05 % topical 09/02/24 Unknown History topical ointment blood-glucose meter (FreeStyle #1 ea 09/02/24 Unknown History Lite Meter kit) cholecalciferol (vitamin D3) 25 25 mcg PO DAILY 09/02/24 03/30/25 Unknown History mcg (1,000 unit) tablet gabapentin 100 mg capsule mg PO 09/02/24 Unknown History lisinopril 10 mg tablet 10 mg PO DAILY 09/02/24 03/30/25 Unknown History pantoprazole 20 mg tablet,delayed 20 mg PO DAILY 09/02/24 04/01/25 04/01/25 History release vitamin B complex 1 cap PO DAILY 09/02/24 03/30/25 Unknown History aripiprazole 5 mg tablet 5 mg PO DAILY 03/10/25 03/30/25 Unknown History clonidine HCl 0.1 mg tablet 0.1 mg PO BEDTIME PRN anxiety 03/10/25 03/30/25 Unknown History fluticasone propionate 50 2 spray intranasal DAILY 03/10/25 03/30/25 Unknown History mcg/actuation nasal spray,suspension mirtazapine 7.5 mg tablet 7.5 mg PO BEDTIME insomnia 03/10/25 03/30/25 Unknown History Exam Height,Weight and Vital Signs: Height 5 ft 10 in Weight 92.986 kg Documented by User: Marilee Jenkins MD 04/01/25 08:01 [facility] Past Medical History Medical History Hepatitis C Spinal stenosis in cervical region Spinal stenosis Degeneration, intervertebral disc, cervical Leukocytosis History of kidney stones Hx of herpes zoster Hx of pancreatitis Hx of endometriosis Depression Generalized anxiety disorder Dysuria Hypercholesterolemia HTN (hypertension) Asthma Diabetes Family History Family History Mother Diabetes Depression Father Suicide Family history of problems with anesthesia: No Surgical History Surgical History H/O colonoscopy Hx of section H/O dilation and curettage History of Problems with Anesthesia: No Social History Social History Alcohol intake: never Patient Tobacco Use Status: Current everyday Tobacco user Are you DNR?: No Advance Directives: No Advance Directives Information Provided: Yes Meds Allergies Allergy/AdvReac Type Severity Reaction Status Date / Time ampicillin (AMPICILLIN) Allergy Unknown RASH Verified 03/10/25 14:35 Ampicillin Allergy Unknown rash Uncoded 03/10/25 14:35 Home Medications ?Medication ?Instructions ?Recorded ?Confirmed ?Last Taken ?Type metformin 500 mg tablet,extended 500 mg PO QPM 04/19/21 03/30/25 Unknown History release 24 hr simvastatin 20 mg tablet 20 mg PO BEDTIME 04/19/21 03/30/25 Unknown History acetaminophen 500 mg tablet 500 mg PO Q6H PRN mild pain 09/02/24 Unknown History betamethasone dipropionate 0.05 % topical 09/02/24 Unknown History topical ointment blood-glucose meter (FreeStyle #1 ea 09/02/24 Unknown History Lite Meter kit) cholecalciferol (vitamin D3) 25 25 mcg PO DAILY 09/02/24 03/30/25 Unknown History mcg (1,000 unit) tablet gabapentin 100 mg capsule mg PO 09/02/24 Unknown History lisinopril 10 mg tablet 10 mg PO DAILY 09/02/24 03/30/25 Unknown History pantoprazole 20 mg tablet,delayed 20 mg PO DAILY 09/02/24 04/01/25 04/01/25 History release vitamin B complex 1 cap PO DAILY 09/02/24 03/30/25 Unknown History aripiprazole 5 mg tablet 5 mg PO DAILY 03/10/25 03/30/25 Unknown History clonidine HCl 0.1 mg tablet 0.1 mg PO BEDTIME PRN anxiety 03/10/25 03/30/25 Unknown History fluticasone propionate 50 2 spray intranasal DAILY 03/10/25 03/30/25 Unknown History mcg/actuation nasal spray,suspension mirtazapine 7.5 mg tablet 7.5 mg PO BEDTIME insomnia 03/10/25 03/30/25 Unknown History Exam Airway Mallampati Class: III (2 caps on top, missing front top tooth) TM Dist: >3cm Neck ROM: Full Heart: rrr Lungs: cta Assessment and Plan Assessment Anesthesia Assessment: Anesthesia Plan Discussed Final Anesthetic Review Family History of Problems with Anesthesia: No History of Problems with Anesthesia: No NPO: Yes ASA Class: II Final Preanesthetic Review: No Changes in Pt Med Stat, Meds/Allgs Chart Reviewed, Consent Obtained/Reviewed and Anes Risks/Benef Reviewed Patient Risk: Intermediate Procedure Risk: Intermediate Anesthetic Plan Anesthetic Plan: MAC: Disposition: Standard PACU
[2025-04-01 07:34] VITALS: BP 125/48; PULSE 69; RESP 18; TEMP 36.1; O2SAT 96; BMI 29.4
[2025-04-01 07:42] LABS: Glucose, Whole Blood 126 mg/dL (60-115)
[2025-04-01] MEDS: Lactated Ringers 1,000 ML 100 ML IVCONT (07:43)
--- NOTE | 2025-04-01 08:02 | MHC.SHP ---
Pre-Procedural Eval Section A - 24 Hr Update-Section A only Date of Service: 04/01/25 The patient is an INPATIENT: No The patient has been examined within 24 hours of the surgical procedure. The History & Physical has been completed within 30 days and I have reviewed it.: Yes Section B - Complete if H&P > 30 days Chief Complaint: chronic diarrhea Allergies: Allergies Allergy/AdvReac Type Severity Reaction Status Date / Time ampicillin (AMPICILLIN) Allergy Unknown RASH Verified 03/10/25 14:35 Ampicillin Allergy Unknown rash Uncoded 03/10/25 14:35 Plan Diagnosis/Plan: Unchanged I have reviewed the history and physical and performed a pertinent physical examination on my patient. No changes have occurred unless specified. Time Spent With Patient Time: Total time managing care of this patient today ____ minutes.
--- NOTE | 2025-04-01 08:15 | P.OPN-COLO_ITS ---
Colonoscopy Operative Note Operative Note Date of Service: 04/01/25 Narrative: Procedure: Upper endoscopy and colonoscopy Indication: Abd pain, chronic diarrhea Endoscopist: Debby Keenan MD Anesthesia Provider: Breann Coy CRNA Anesthesia type: MAC Instrument: GIF-H190 and PCF-H190L EGD Procedure:?? The procedure, indications, preparation and potential complications were reviewed with the patient, who indicated understanding and gave written informed consent to proceed. The endoscope was introduced through the mouth, and advanced to the 2nd part of the duodenum. The mucosa was carefully examined on slow withdrawal of the endoscope. The patient tolerated the procedure well. There were no immediate complications.? EGD Findings:? * Esophagus:? Normal esophageal mucosa was noted. The Z-line was at 39 cm. * Stomach:? Erythema, erosions and scant heme noted in body and antrum. Retroflexion was performed in the cardia. Random cold forceps biopsies were taken from the stomach. * Duodenum:? Mild erythema and edema in the duodenal bulb. Cold forceps biopsies were taken from the duodenal bulb and 2nd portion of the duodenum to rule out celiac sprue. Colonoscopy Procedure:? The patient was then turned for the colonoscopy. A digital rectal exam was performed which was abnormal for ext hemorrhoids.? A distal attachment cap was affixed to the tip of the scope and the colonoscope was then inserted through the anus and advanced through the colon and advanced to the cecum at 75 cm and terminal ileum.? Appendiceal orifice and ileocecal valve were identified. Mucosa was carefully examined under high definition white light as the instrument was slowly withdrawn in a retrograde panoramic fashion. Retroflexion was performed in rectum. The procedure was not difficult. The quality of the prep was BBPS: 3+2+3 = adequate Withdrawal time 21 minutes Limitations: No limitations Findings: Mucosa: Normal colon and terminal ileum mucosa. Cold forceps biopsies were taken from the right and left side of the colon to rule out microscopic colitis. Protruding lesions: * 1 sessile polyp of size 2 mm in ascending colon. Cold forceps polypectomy was performed. The polyp was completely removed and retrieved. * One sessile polyp of size 6 mm in transverse colon. Cold snare polypectomy was performed. The polyp was completely removed and retrieved. * Medium internal hemorrhoids without stigmata of recent bleeding. Excavated lesions: * A few diverticula noted in the sigmoid colon. Impression: 1. Normal esophagus 2. Gastritis (biopsy) 3. Duodenitis (biopsy) 4. Normal colon and terminal ileum mucosa (biopsy) 5. Total 2 polyps removed 6. Diverticulosis 7. Internal and external hemorrhoids Recommendations:?? * Follow-up path results * Increase pantoprazole to twice a day * Avoid NSAIDs and smoking * H Pylori treatment if biopsies + * Repeat colonoscopy for CRC screening in 5-7 years contingent on results.
[2025-04-01 08:55] VITALS: BP 103/56; PULSE 71; RESP 16; TEMP 36.6; O2SAT 96
[2025-04-01 09:07] VITALS: BP 94/55; PULSE 68; RESP 16; O2SAT 97
[2025-04-01 09:10] VITALS: BP 102/54; PULSE 65; RESP 16; TEMP 36.8; O2SAT 97
== END 2025-04-01 09:43 | disposition home or self-care (01) ==
PROVIDERS: PCP Internal Medicine; Visit Provider Internal Medicine
PROC: (CPT 45385; principal; 2025-04-01 09:40)
DX: K52.9 Noninfective gastroenteritis and colitis, unspecified (principal); R10.11 Right upper quadrant pain; G89.29 Other chronic pain; R14.0 Abdominal distension (gaseous); D12.2 Benign neoplasm of ascending colon; D12.3 Benign neoplasm of transverse colon; K57.30 Diverticulosis of large intestine without perforation or abscess without bleeding; K64.8 Other hemorrhoids; K64.4 Residual hemorrhoidal skin tags; K29.50 Unspecified chronic gastritis without bleeding; K29.80 Duodenitis without bleeding; K76.0 Fatty (change of) liver, not elsewhere classified; I10 Essential (primary) hypertension; E78.00 Pure hypercholesterolemia, unspecified; E11.9 Type 2 diabetes mellitus without complications; J45.909 Unspecified asthma, uncomplicated; R30.0 Dysuria; M48.02 Spinal stenosis, cervical region; F19.11 Other psychoactive substance abuse, in remission; B19.20 Unspecified viral hepatitis C without hepatic coma; F32.9 Major depressive disorder, single episode, unspecified; Z87.442 Personal history of urinary calculi; Z79.51 Long term (current) use of inhaled steroids; Z79.84 Long term (current) use of oral hypoglycemic drugs; Z79.899 Other long term (current) drug therapy; F41.1 Generalized anxiety disorder; F17.210 Nicotine dependence, cigarettes, uncomplicated; Z88.1 Allergy status to other antibiotic agents
CPT/HCPCS: 45385; 45380; 43239; 82947; 88305; 88313; 88342; J2003; J2704

== ENCOUNTER → 2025-04-01 07:19 | Outpatient (BNV) | payer OTHER, SELFPAY | PROVIDERS: PCP Internal Medicine; Visit Provider Internal Medicine | DX: R10.9 Unspecified abdominal pain (principal); K29.70 Gastritis, unspecified, without bleeding; K29.80 Duodenitis without bleeding; K52.9 Noninfective gastroenteritis and colitis, unspecified; D12.2 Benign neoplasm of ascending colon; K57.30 Diverticulosis of large intestine without perforation or abscess without bleeding; K64.8 Other hemorrhoids; D12.3 Benign neoplasm of transverse colon | CPT/HCPCS: 43239; 45380; 45385 ==

== ENCOUNTER 2025-04-13 19:04 | Emergency (ER) | payer OTHER, SELFPAY ==
--- OUTSIDE RECORDS SUMMARY | 2020-10-12 14:15 | XMS_ITS | Continuity of Care Document ---
Author Organization [facility] Address [address] [place] [address] Phone Care Team Providers Care Barnworker Groom Name Role Phone Luigi KERR, Letha Unavailable Unavailab le Procedures Procedure Date ADM SARSCOV2 100MCG/0.5ML2ND SARSCOV2 VAC 100MCG/0.5ML IM Advance Directives Directive Yes / No Effective Date File Name No Information Encounters Encounter Description Practice Location Reason(s) For Visit Diagnoses Date Provider [facility], [address] [place] [address], [facility], tel:[phone] [facility] Encounter for immunization Luigi Monae. [address] [place] [address], [address] [place] [address], [facility], . tel:[phone] Family History Family Member Type Diagnosis [...] Record Payers Payer name Insurance type Covered republican ID Authoriza tion(s) COVID19 HRSA Uninsured Fund CI [id number] Social History Type Description Quantity Date Captured Comments Sex Female Smoking Status No Information Chief Complaint And Reason For Visit No Information History Of Present Illness Encounter Date Complaint History Of Prese nt Illness No Information Instructions Date Instruction Additional Infor mation No Information Assessments Type Assessment Date No Information
--- NOTE | ~2025-04-13 | XR_ITS ---
CLINICAL HISTORY: fall,PAIN 5 view, chest and left ribs Comparison: None provided Findings: Bones intact. No dislocations. The visualized lungs are normal. IMPRESSION: 1. No acute fractures. This document has been electronically signed by: Lzizy Sheehan MD on 04/13/2025 20:59:42
[2025-04-13 19:10] VITALS: BP 164/90; PULSE 72; O2SAT 100
[2025-04-13 19:13] VITALS: BMI 29.4
[2025-04-13 19:38] VITALS: BP 111/53; PULSE 71; RESP 18; TEMP 36.8; O2SAT 95
[2025-04-13 19:41] LABS: MANUAL DIFF FLAG NO
[2025-04-13 19:46] LABS: Appearance Urine Clear; Glucose Urine UA Negative (Negative); PH 6.0 (5.0-9.0); Specific Gravity - Urine <= 1.005 (1.005-1.025)
[2025-04-13 19:49] LABS: Hematocrit 43.3 % (37.0-47.0); Hemoglobin 14.5 g/dl (12.0-16.0); Imm Gran Abs Auto 0.07 X10*3/uL (0.00-0.03); Imm Gran Pct Auto 0.5 % (0.0-0.4); Lymphocytes Absolute Auto 4.4 X10*3/uL (1.2-4.9); Mean Corpuscular HGB Conc 33.5 g/dl (31.0-35.0); Mean Corpuscular Hemoglobin 29.1 pg (27.0-33.0); Mean Corpuscular Volume 86.9 fL (80.0-98.0); NRBC Abs Auto 0.000 X10*3/uL (0.0-0.012); NRBC Pct Auto 0.0 /100WBC (0.0-0.2); Platelet Count 356 X10*3/uL (160-400); Red Blood Count 4.98 X10*6/uL (4.20-5.50); White Blood Count 15.2 X10*3/uL (4.8-10.8)
--- NOTE | 2025-04-13 20:06 | PC.NURSE ---
pt given an ice pack for rib pain.
[2025-04-13 20:18] LABS: Alanine Aminotransferase 17 U/L (0-31); Albumin Level 4.7 g/dL (3.5-5.0); Alkaline Phosphatase 78 U/L (39-117); Anion Gap 13 (12-20); Aspartate Amino Transferase 17 U/L (5-31); Blood Urea Nitrogen 11 mg/dL (9-16); Calcium 9.4 mg/dL (8.4-10.2); Carbon Dioxide 26 mmol/L (22-29); Chloride 107 mmol/L (96-108); Creatinine Clr Calc Pharmacy 120.3; Estimated Glomerular Filt Rate > 60; Potassium 3.8 mmol/L (3.3-5.1); Sodium 142 mmol/L (135-145); Total Protein 7.9 g/dL (6.5-8.0)
--- OUTSIDE RECORDS SUMMARY | 2025-04-13 20:28 | XMS_ITS | Data Portability ---
Author Organization [place] - [facility], Allergy Address [address] [place] [address] Care Team Providers Care Binitrotoluene Operator Name Role Phone HOME MELENDEZ Primary Care [...] were discussed. We discussed the risk of prison perforation following tube extrusion, with possible need [...] 0.3 % ear drops 2024 025 [id number], [address] [place] [address], [phone], 11/25/2024 11:47:13 fluticaso ne propionat e 50 mcg/actua tion nasal spray,ketan pension 2024 025 [email or web address] [id number], [address] [place] [address], [id number], 07/22/2024 10:46:49 Patient TargetsNo targets recorded. Patient [...] and Address Organization Details Recorded Time Snoring 57360620 Active 2013 Snoring; CMS Risk: low risk [facility] Treatment : new problem (to examiner) : additiona l workup planned C ondition: controlle d Note: Date Diagnosed : 4 4:13 PM (786.09) Not Available [facility] 4 02:51:56 Dysfuncti on of eustachia n tube 35236566 Active 2013 Eustachia n tube dysfuncti on; CMS Risk: low risk CMS Treatment : establish ed problem (to examiner) : stable or improved Condition : controlle d Note: Date Diagnosed : 4 3:42 PM (381.81) Not Available [facility] 4 02:51:53 Sensorine ural hearing loss of bilateral ears 412975277 Active 2013 [facility] Bilateral ly; Note: Date Diagnosed : 4 3:42 PM (389.18) Not Available [facility] 4 02:51:52 Disorder of right Eustachia n tube 47612164366 43005 Active 2015 Other specified disorders of Eustachia n tube, right ear; Note: Date Diagnosed : 05/17/2016 5:16 PM (H69.81) Not Available [facility] 4 02:51:59 Otalgia of right ear 5301689099 Active 2016 Otalgia, right ear; Note: Date Diagnosed : 01/09/2017 5:09 PM (H92.01) Not Available [facility] 4 02:51:54 Bilateral disorder of Eustachia n tubes 58712869050 79639 Active 2016 Other specified disorders of Eustachia n tube, bilateral ; Note: Date Diagnosed : 01/09/2017 5:09 PM (H69.83) Not Available [facility] 4 02:51:54 Chronic serous otitis media of right ear 971886276 Active 2016 Chronic serous otitis media, right ear; Note: Date Diagnosed : 03/14/2017 12:14 PM (H65.21) Not Available [facility] 4 02:51:58 Bilateral tinnitus 12297912067 02 Active 2016 Tinnitus, bilateral ; Note: Date Diagnosed : 03/14/2017 12:12 PM (H93.13) Not Available [facility] 4 02:51:52 Follow-up visit Active 2016 Medical surveilla nce following completed treatment ; Note: Date Diagnosed : 7 10:46 AM (Z09) Not Available [facility] 4 02:51:57 Sensorine ural hearing loss in right ear 88501046025 100 Active 2017 Sensorine ural hearing loss, unilatera l, right ear, with restricte d hearing on the contralat eral side; Note: Date Diagnosed : 02/13/2018 3:14 PM (H90.A21) Not Available [facility] 4 02:51:55 Left conductiv e hearing loss 21796171752 07 Active 2017 Conductiv e hearing loss, unilatera l, left ear with restricte d hearing on the contralat eral side; Note: Date Diagnosed : 02/13/2018 3:14 PM (H90.A12) Not Available [facility] 4 02:51:59 Otorrhea of right ear 79049983484 96054 Active 2017 Otorrhea, right ear; Note: Date Diagnosed : 8 9:44 AM (H92.11) Not Available [facility] 4 02:51:53 Acute serous otitis media of right ear 88506928533 87429 Active 2017 Acute serous otitis media, right ear; Note: Date Diagnosed : 8 9:44 AM (H65.01) Not Available [facility] 4 02:51:58 Otalgia of left ear 6586440552 Active 2018 Otalgia, left ear; Note: Date Diagnosed : 07/22/2018 10:28 AM (H92.02) Not Available [facility] 4 02:51:59 Conductiv e hearing loss 30354840 Active 2018 Conductiv e hearing loss, unilatera l, right ear, with unrestric prasanna hearing on the contralat eral side; Note: Date Diagnosed : 03/14/2017 11:55 AM (H90.11) ; Start Date : 7 Conduct obed hearing loss, unilatera l, left ear, with unrestric prasanna hearing on the contralat eral side; Note: Date Diagnosed : 07/22/2018 10:33 AM (H90.12) Not Available [facility] 4 02:51:53 Acute serous otitis media of left ear 05013846122 89861 Active 2018 Acute serous otitis media, left ear; Note: Date Diagnosed : 07/22/2018 10:29 AM (H65.02) Acute serous otitis media, left ear; Note: Date Diagnosed : 03/18/2018 11:16 AM (H65.02) ; Start Date : 8 Not Available [facility] 4 02:51:55 Headache 60744553 Active 2018 Headache, unspecifi ed; Note: Changed from R51 to R51.9 ( 1 10:24 AM) , Date Diagnosed : 9 10:03 AM (R51) Not Available [facility] 4 02:51:54 Migraine without aura, not refractor y 701070492 Active 2018 Migraine without aura, not intractab le, without status migrainos us; Note: Date Diagnosed : 9 10:03 AM (G43.009) Not Available [facility] 4 02:51:56 Dizziness and giddiness 271295257 Active 2019 Dizziness and giddiness ; Note: Date Diagnosed : 09/28/2019 11:17 AM (R42) Not Available [facility] 4 02:51:58 Conductiv e hearing loss of right ear 9106932292 Active 2019 Conductiv e hearing loss, unilatera l, right ear with restricte d hearing on the contralat eral side; Note: Date Diagnosed : 09/30/2019 11:22 AM (H90.A11) Not Available [facility] 4 02:51:57 Sensorine ural hearing loss in left ear 61848364574 109 Active 2019 Sensorine ural hearing loss, unilatera l, left ear, with restricte d hearing on the contralat eral side; Note: Date Diagnosed : 09/30/2019 11:22 AM (H90.A22) Not Available [facility] 4 02:51:57 Otorrhea of left ear 29601232934 35340 Active 2020 Otorrhea, left ear; Note: Date Diagnosed : 08/01/2020 1:32 PM (H92.12) Not Available [facility] 4 02:51:52 Mixed conductiv e and 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 67060480753 107 Active 2020 Mixed conductiv e and sensorine ural hearing loss, unilatera l, left ear with restricte d hearing on the contralat eral side; Note: Date Diagnosed : 02/28/2021 2:24 PM (H90.A32) Not Available [facility] 4 02:51:55 Bilateral tympanic membrane central perforati on 71517481555 70141 Active 2021 Central perforati on of tympanic membrane, bilateral ; Note: Date Diagnosed : 02/08/2022 5:24 PM (H72.03) Not Available [facility] 4 02:51:55 Mixed conductiv e and sensorine ural hearing loss, bilateral 519761638 Active 2021 Mixed conductiv e and sensorine ural hearing loss, bilateral ; Note: Date Diagnosed : 02/08/2022 5:07 PM (H90.6) Not Available [facility] 4 02:51:56 Benign paroxysma l positiona l vertigo 533885724 Active 2022 Benign paroxysma l vertigo, left ear; Note: Date Diagnosed : 3 3:25 PM (H81.12) Not Available [facility] 4 02:51:57 Perforati on of right tympanic membrane 92508194645 57763 Active 2024 Gabi moore [place] - [facility] 5 10:45:00 Disorder of left Eustachia n tube 79838379378 97721 Active 2024 CARROLL MCCORD MD [address] [facility],[place] [address], [place], [address] , [facility] - [facility] 5 09:39:06 Problem Notes None recorded. Procedures Surgical History Date Name Laterality Status Provider Name and Address Organization Details Recorded Time 5 Myringotomy w/Placement of Tube left completed ACRROLL MCCORD MD [address] [place] [address],[address], [address] [place] [address], [facility] - [facility] 11/25/2024 11:46:45 5 Nasopharyngosco py_DP completed CARROLL MCCORD MD [address] [place] [address],[address], [address] [place] [address], [facility] 10/13/2024 09:36:46 5 Comp Audio with Tymps - 35906 & 79799 completed CLAYTON GABRIEL [address] [place] [address],[address], [address], [facility] 07/22/2024 10:25:50 Imaging Results None recorded. Procedure Notes None recorded. Medical Equipment None Reported. Allergies Allergen ID Allergen Name Allergen Category Reaction Reaction Severity Criticality Documentation Date Start Date Code Code System Note Provider Name and Address Organization Details Recorded Time 08158 amoxicill in medicatio n other Not available [...] m Not Available Not Available Not Available clonidine HCl 0.1 mg tablet TAKE 1 TO 2 TABLETS BY MOUTH EVERY NIGHT AT BEDTIME NEEDED FOR ANXIETY OR HOT FLASHES active Not Available Not Available No t Available doxycycli ne hyclate 100 mg capsule 09/29 completed Medicati on ID: [id number] Flash lewis d By Name: Sherwin manjarrez MD Brand [...] mg tablet 11/25 completed Medicati on ID: [id number] B rand Name: tizanidi ne Send Method: E-Prescr ibed Sub s Allowed: subs OK Medic ationGen ericName : tizanidi ne Not Available Not Available Not Available clindamyc in HCl 300 mg capsule TAKE 1 CAPSULE BY MOUTH EVERY 6 HOURS active Not Available Not Available No t Available loperamid e 2 mg capsule TAKE 1 CAPSULE BY MOUTH TWICE DAILY NEEDED FOR LOOSE STOOLS active Not Available Not Available No t Available azithromy israel 250 mg tablet active Not Available Not Available No t Available ofloxacin 0.3 % eye drops 3 drop 06/03 completed Medicati on ID: [id number] D uration Value: 7 Brand Name: ofloxaci [...] mg tablet 02/08 completed Medicati on ID: [id number] D uration Value: 30 Brand Name: sumatrip macedo succinat e Send Method: E-Prescr ibed Sub s Allowed: subs OK Medic ationGen ericName : sumatrip macedo succinat e Not Available Not Available Not Available topiramat e 25 mg tablet 02/08 completed Medicati on ID: [id number] D uration Value: 30 Brand Name: topirama te Send Method: E-Prescr ibed Sub s Allowed: subs OK Medic ationGen ericName : topirama te Not Available Not Available Not Available amlodipin e 5 mg tablet active Medicati on ID: [id number] B rand Name: amlodipi ne Send Method: E-Prescr ibed Sub s Allowed: subs OK Medic ationGen ericName : amlodipi ne Not Available Not Available Not Available sulfameth oxazole 800 mg-trimet hoprim 160 mg tablet TAKE 1 TABLET BY MOUTH TWICE DAILY FOR 3 DAYS active Not Available Not Available No t Available aspirin 81 mg tablet,de layed release 10/13 completed Medicati on ID: [id number] B rand Name: aspirin Send Method: E-Prescr [...] Value: 30 Reason: () Brand Name: amitript valeria Se nd Method: E-Prescr ibed Sub s [...] mg tablet 11/25 completed Medicati on ID: [id number] B rand Name: lisinopr il Send Method: E-Prescr ibed Sub s Allowed: subs OK Medic ationGen ericName : lisinopr il Not Available Not Available Not Available gabapenti n 100 mg capsule active Not Available Not Available Not Available lorazepam 1 mg tablet TAKE ONE TABLET 30 MINUTES BEFORE PROCEDUR E MAY TAKE addition al TABLET 30 MINUTES LATER IF no effect active Not Available Not Available No t Available ibuprofen 600 mg tablet 11/25 completed Medicati on ID: [id number] B rand Name: ibuprofe n Send Method: [...] mg tablet 11/25 completed Medicati on ID: [id number] B rand Name: naproxen Send Method: E-Prescr ibed Sub s Allowed: subs OK Medic ationGen ericName : naproxen Not Available Not Available Not Available vitamin B complex capsule TAKE 1 CAPSULE BY MOUTH DAILY active Not Available [...] as directed 11/25 completed Medicati on ID: [id number] D uration Value: 30 Prescri bed By Name: Sherwin manjarrez MD Brand Name: TobraDex Send Method: E-Prescr ibed Sub s Allowed: subs OK Speci al Instruct ion: Instill 5 drops in the affected ear BID for 30 days Med icationG enMariam me: TobraDex Not Available Not Available Not Available aripipraz ole 10 mg tablet TAKE 1 TABLET BY MOUTH DAILY active Not Available Not Available No t Available aripipraz ole 5 mg tablet TAKE [...] Not Available Not Available No t Available peg 3350-elec trolytes 236 gram-22.7 4 gram-6.74 gram-5.86 gram solution DRINK 240ML BY MOUTH EVERY 10 MINUTES UNTIL GONE BEGINNIN G THE DAY BEFORE PROCEDUR E active Not Available Not Available No t [...] Not Available Not Available No t Available Gemtesa 75 mg tablet TAKE 1 TABLET BY MOUTH DAILY active Not Available Not Available No t Available Vitals Date Recorded Body height Body mass index (BMI) Body weight Provider Name and Address Organization Details Last Updated DateTime 07/22/2024 177.8 cm 30.1 kg/m2 55003.4 g Reshma Fry [place] - [facility] 07/22/2024 10:37:16 Date Recorded Body height Provider Name an d Address Organization Details Last Updated DateTime 10/13/2024 177.8 cm EVA ROQUE [place] - [facility] 10/13/2024 09:16:13 Date Recorded Body height Provider Name an d Address Organization Details Last Updated DateTime 11/25/2024 177.8 cm EVA ROQUE [place] - [facility] 11/25/2024 11:00:19 Social History None recorded. Functional Status None recorded. Mental Status None recorded. Family History Nothing Reported. Medical History Condition Response Allergies/Hayfever Y Heart Problems N Anxiety Y Tonsil Infections N Emphysema N Migraines Y Thyroid Problems N Glaucoma N Developmental Delay N Depression Y COPD N Nasal or Sinus Problems Y Anemia N Immune System Disorder N Anesthesia Complications N Heart Attack ([place]) N Other Skin Condition Y Diabetes Y [...] ICD10 Code Diagnosis IMO Codes Diagnosis Note [id number] GABI JUARES PA-C [facility] [address] [address] 07/22/2024 09:47:01 07/22/2024 10:50:07 Mixed conductive and sensorineural hearing loss, bilateral 953537247 H90.6 Audiologic al evaluation results: Right ear: Normal sloping to moderately severe mixed hearing loss with excellent word recognitio n. Left ear: Mild sloping to severe mixed hearing loss with excellent word recognitio n. Tympanomet ry: Right Ear:Type B with large volume Left Ear:Type B with large volume Acute sero us otitis media of left ear 8655056423 898665 H65.02 Bilateral disorder of Eustachian tubes 4281464457 987749 H69.83 Bilateral tinnitus 18867 85829 102 H93.13 Perforatio n of right tympanic membrane 0494110561 742084 H72.91 [id number] CARROLL MCCORD MD [facility] [address] [address] 10/13/2024 08:59:49 10/13/2024 09:38:03 Dizziness and giddiness 612294460 R42 Disorder o f left Eustachian tube 0362719306 754053 H69.92 [id number] CARROLL MCCORD MD [facility] [address] [place] [address] 11/25/2024 10:52:28 11/25/2024 11:58:36 Disorder of left Eustachian tube 8649257472 834409 H69.92 Health Concerns Section Related Observation LastModified by Organization Detai ls LastModified Time None Recorded Concern Status LastModified by Organization Details LastModified Time None Recorded Advance Directives Directive None Recorded Payers Insurance Date Sequence Insurance Name Policy Number Policy Mondragon Covered Member ID Mondragon Member ID Guarantor Name 04/13/2025 1 [facility] - DOS ON OR AFTER 2022 - MEDICARE [place]ANTAGE [place] (MEDICARE REPLACEMENT/AD VANTAGE - PPO) Alma Rodriguez [id number] Alma Rodriguez 01/15/2025 2 [facility] () Alma Rodriguez [id number] Alma Rodriguez Notes Date Note Type Note [...] over the fall. CARROLL MCCORD MD [address] [address], [place], [address], [facility] - [facility] 07/22/2024 17:35:06 10/13/2024 text/html ROS as noted in the HPI left side decreased hearingdescribes some imbalance when turningthe use of flonase daily with no improvementtobacco - 1/2ppd 05/02/17 Geovany HANDLEY, Right myringotomy with tube PV 07/22/24 Gabi - right pinpoint TM perf, left serous effusion. rx flonaseAudio:Right ear: Normal sloping to moderately severe mixed hearing loss with excellent word recognition.Left ear: Mild sloping to severe mixed hearing loss with excellent word recognition. CARROLL MCCORD MD [address] [facility],[place] [address], [place], [address], [facility] - [facility] 10/13/2024 09:39:43 11/25/2024 text/html ROS as noted in the HPI requests Left PET left side decreased hearingdescribes some imbalance when turningthe use of flonase daily with no improvementtobacco - 1/2ppd 05/02/17 EMMANUELLE, [place]is[place], Right myringotomy with tube PV 07/22/24 Gabi - right pinpoint TM perf, left serous effusion. rx flonaseAudio:Right ear: Normal sloping to moderately severe mixed hearing loss with excellent word recognition.Left ear: Mild sloping to severe mixed hearing loss with excellent word recognition. PV 10/13/24 Carol nasopharynx exam benign CARROLL MCCORD MD [address] [facility] [address], [place], [address], [facility] - [facility] 11/25/2024 11:47:23 OBGyn Episode No OBEpisode recorded.
--- OUTSIDE RECORDS SUMMARY | 2025-04-13 20:28 | XMS_ITS | Encounter Summary ---
Author Organization [employer] Address [address] [place] [address] [address] [place] [address] Care Team Providers Care Reproduction Order Processor Name Role Phone Eliel Stoddard MD Primary Care Provider [phone] Reason for Visit * Reason Comments Med Refill Encounter Details Date Type Department Care Team ([facility] Contact Info) Description 12/25/2023 Refill [facility] [address] [place], [place] [phone] Eliel Stoddard MD [address] [place] [address] Social History Tobacco Use Types Packs/Day Years [...] documented as of this encounter Care Teams Reproduction Order Processor Relationship Specialty Start Date End Date Eliel Stoddard MD [address] [place] [address] PCP - General Internal Medicine 06/17/18 documented as of this encounter
--- OUTSIDE RECORDS SUMMARY | 2025-04-13 20:28 | XMS_ITS | Clinical Summary ---
Author Organization Patient Business [facility] Address [address] [place] [address] Care Team Providers Care Rehab Office Coordinator Name Role Phone Eliel Stoddard MD Primary Care Provider [phone] Surgical History Surgery Date Site/Laterality Comments OTHER SURGICAL HISTORY PROCEDURE: LA DILATION & CURETTAGE DX&/THER NONOBSTETRIC SECTION PROCEDURE: [...] herpes zoster H/O acute pancreatitis DX:H/O ac [place] pancreatitis Hypercholesterolemia DX:Hypercho lesterolemia Leukocytosis DX:Leukocytosis Spinal [...] Last Done Comments Breast Cancer Screening 1966 Colorectal Cancer Screening: Colonoscopy 1966 Diabetes: Annual GFR (Glomerular Filtration Rate) 1966 Diabetes: Annual Foot Exam 1976 Diabetes: Annual Retina Eye Exam 1976 Hepatitis A Vaccines (1 of 2 - Risk 2-dose series) 1985 Cervical Cancer Screening: Pap Smear 09/22/1987 RSV Immunization Adult Patients (1 - Risk 50-74 years 1-dose series) 2016 IPV Vaccines (2 of 3 - Adult catch-up series) 07/21/2019 06/23/2019 Hepatitis C Screening 05/20/2022 Social Influencers of Health Screening 05/20/2022 Depression Screening 06/17/2024 Influenza Vaccine (#1) 2025 4, 02/27/2023, 02/23/2022, Additional history exists Diabetes: Annual Urine Albumin-Creatinine Ratio (uACR) 03/30/2025 Hypertension/CHF/CAD Annual BMP Blood Test 03/30/2025 Diabetes: Blood Sugar Control Test (HGBA1C) 08/23/2025 02/23/2025 DTaP,Tdap,and Td Vaccines (2 - Td or Tdap) 03/01/2026 03/01/2016 Cholesterol Screening (Lipid Panel) 12/01/2028 12/02/2023 Meningococcal ACWY Vaccine Aged Out 05/26/2019 N o longer eligible based on patient's age to complete this topic MMR Vaccines Aged Out 01/28/2020, 05/26/2019 No lo nger eligible based on patient's [...] to complete this topic RSV Immunization Patients Under 20 months Aged Out No longer eligible based on patient's age to complete this topic Varicella Vaccines Aged Out No longer eligible based on patient's age to complete this topic Advance Directives Documents on File Type Date Recorded Patient Loan Specialist Expl anation Health Care Decision (hx) [...] (hx) 10/21/2018 AD LUI DIRECTIVE Care Teams Rehab Office Coordinator Relationship Specialty Start Date End Date Eliel Stoddard MD [address] [place] [address] PCP - General 01/04/13
--- OUTSIDE RECORDS SUMMARY | 2025-04-13 20:28 | XMS_ITS | Encounter Summary ---
Author Organization [employer] Address [address] [place] [address] 7t [place] [address] Care Team Providers Care Special Education Teachers Name Role Phone Eliel Stoddard MD Primary Care Provider [phone] Encounter Details Date Type Department Care Team (Late st Contact Info) Description 04/13/2025 Orders Only GENERIC EXTERNAL DATA DEPARTMENT Provider, Generic External Data Social History Tobacco Use Types Packs/Day Years [...] the past 12 months, has t he [employer], gas, oil or water [employer] threatened to shut off services in your [...] Procedure Name Priority Date/Time Associated Diagnosis Comments URINALYSIS, COMPLETE, WITH REFLEX TO CULTURE Routine 04/13/2025 7:35 PM EDT documented in this encounter Results * Urinalysis, Complete, with Reflex to Culture (04/13/2025 7:35 PM EDT) Color Urine Yellow [facility] Appearance Urine Clear [facility] PH 6.0 5.0 - 9.0 [facility] Glucose Urine UA Negative Negative mg/dL [facility] Urine Blood Negative Negative [facility] Specific [place] - Urine <=1.005 1.005 - 1.025 [facility] Urine Protein Negative Neg-Trace mg/dL [facility] Urine Ketones Negative Negative mg/dL [facility] Nitrite Urine Negative Negative [facility] Leukocyte Esterase Urine Negative Negative [facility] RBC Urine 0-2 0 - 2 /HPF [facility] Urine WBC 0-5 0 - 5 /HPF [facility] Urine Squamous Epithelial Cell 0-2 0 - 2 /HPF [facility] Urine Bacteria None Seen None Seen [facility] Hyaline Casts, Urine 0-2 0 - 2 /LPF [facility] 04/13/2025 7:35 PM EDT 04/13/2025 7:40 PM EDT Narrative [facility] - 04/13/2025 7:53 PM EDT [id number], Clean C[employer] us Generic External Data Provider LAB URINE ORDERAB LES Final Result [facility] [address] [place] [address] [phone] documented in this encounter Visit Diagnoses Not on filedocumented in this encounter Additional Health Concerns Assessment Noted Time PHQ-9 Depression Total Score: 8 02/24/20 25 9:16 AM EDT documented as of this encounter Care Teams Special Education Teachers Relationship Specialty Start Date End Date Eliel Stoddard MD [address] [place] [id number] PCP - General Internal Medicine 06/17/18 documented as of this encounter
--- OUTSIDE RECORDS SUMMARY | 2025-04-13 20:28 | XMS_ITS | Encounter Summary ---
Author Organization [employer] Address [address] [place] [address] 7t [place] [address] Care Team Providers Care Boat Laborer Name Role Phone Eliel Stoddard MD Primary Care Provider [phone] Encounter Details Date Type Department Care Team (Late st Contact Info) Description 04/17/2023 Abstract [facility] [address] [place], [place] [phone] Karla Slaughter Social History Tobacco Use Types [...] on filedocumented in this encounter Care Teams Boat Laborer Relationship Specialty Start Date End Date Eliel Stoddard MD [address] [place] [phone] PCP - General Internal Medicine 06/17/18 documented as of this encounter
--- OUTSIDE RECORDS SUMMARY | 2025-04-13 20:28 | XMS_ITS | Encounter Summary ---
Author Organization [employer] Address [address] [place] [address] 7 [place] [address] Care Team Providers Care Ethics Officer Name Role Phone Eliel Stoddard MD Primary Care Provider [phone] Reason for Visit * Reason Comments Med Refill Encounter Details Date Type Department Care Team ([facility] Contact Info) Description 06/28/2023 Refill [facility] [address] [place], [place] [phone] Eliel Stoddard MD [address] [place] [address] Social History Tobacco Use Types Packs/Day Years [...] on filedocumented in this encounter Care Teams Ethics Officer Relationship Specialty Start Date End Date Eliel Stoddard MD [address] [place] [id number] PCP - General Internal Medicine 06/17/18 documented as of this encounter
--- OUTSIDE RECORDS SUMMARY | 2025-04-13 20:28 | XMS_ITS | Data Portability ---
Author Organization [employer] Address [address] [place] [phone] Care Team Providers Care Auditing Coder Name Role Phone Unavailable Referring Provider HIM CCA OTHER Assessment Encounter Date Assessment Date Assessment LastModified by Organization Details LastModified Time 09/03/2022 09/03/2022 I have reviewed and agree with the assessment and plan as documented by the quality improvement consultant. I provided real time medical direction for this encounter and was immediately available to provide additional phone based assistance as needed. History as noted by quality improvement consultant. Pt with history of DM. She no [...] in the field was performed by my quality improvement consultant colleague, as noted above, I provided real-time [...] toradol, reglan, benadryl and IVF but otherwise group counselor on PCP follow up. Impression: migraine [...] new neurologic change, fever, or worsening headache. [email or web address] Not available 01/19/2024 19:27:55 Plan of Treatment Reminders Order Date Submit Date Provider Last Modified By Organization Details Last Modified Time Details Appointments None recorded. Lab culture, urine 2022 023 [place] [facility] (Centralized Electronic Ordering - All Locations), Patient Can Go To The Location Of Their Choice, [id number] 3 12:54:26 urinalysis, dipstick 2022 023 [email or web address] Main - [facility], [address] [place] [address], [phone] 3 16:56:33 Referral None recorded. Procedures None recorded. Surgeries None recorded. Imaging None recorded. Medication Orders metoclopram saturnino 5 mg/mL injection solution 2023 024 [facility]26, [address] [place] [address], [id number], 4 19:26:55 ketorolac 30 mg/mL injection solution 2023 024 [email or web address] [facility]07153, [address] [place] [address], [id number], 4 19:26:55 diphenhydra mine 50 mg/mL injection solution 2023 024 [email or web address] [facility] #35113, [address] [place] [address], [id number], 4 19:26:55 sodium chloride 0.9 % intravenous solution 2023 024 [email or web address] [facility] #78033, [address] [place] [address], [id number], 4 19:26:55 magnesium sulfate 2 gram/50 mL in 0.9 % sodium chloride IV piggyback 2023 024 [facility] #77889, [address] [place] [address], [id number], 4 19:26:55 tamsulosin 0.4 mg capsule 2022 023 [facility]41933, [address] [place] [address], [id number], 3 21:22:44 doxycycline hyclate 100 mg tablet 2022 023 [facility] #39225, [address] [place] [address], [id number], 3 12:49:47 doxycycline hyclate 100 mg tablet 2022 023 [id number] Not available 12:49:39 Patient TargetsNo targets recorded. Patient InstructionsNo instructions recorded. Reason for Referral None Reported. Results Created Date Observation Date Name Description Value Unit Range Abnormal Flag Note LastModifiedBy Organization Detail LastModifiedTime 09/04/19 23 09/03/2022 urina lysis , dipst ick Leukocytes negati ve Not Available Main - [facility] ed [address] [place] [address], [address] [place] [address] 09/03/2022 16:55:11 09/04/19 23 09/03/2022 urina lysis , dipst ick Nitrite negati ve Not Available [facility] - [facility] ed [address] [place] [address], [address] [place] [address] 09/03/2022 16:55:11 09/04/19 23 09/03/2022 urina lysis , dipst ick Blood negati ve Not Available [facility] ed [address] [place] [address], [address] [place] [address] 09/03/2022 16:55:11 09/04/19 23 09/03/2022 urina lysis , dipst ick Glucose negati ve Not Available Main - [facility] ed [address] [place] [address], [phone] 09/03/2022 16:55:11 12/23/19 23 12/22/2022 URINE CULTU [...] 3 99 % 99 % 18 /min 366276. 608 g 66 /min 97.5 [degF] 99 % 99 % 18 /min 97.5 [degF] 66 /min 315162. 608 g Not Available [employer] - production [...] Updated DateTime 3 80 /min 97.7 [degF] 760053. 976 g 97 % 97 % 145/81 mm[Hg] Not Available [facility] - production 3 12:45:38 Date Recorded Respiratory rate Heart rate Oxygen saturation Oxygen saturation in Arterial blood by Pulse oximetry Body temperature Body height Body weight Systolic And Diastolic Provider Name and Address Organization Details Last Updated DateTime 4 16 /min 69 /min 100 % 100 % 97.8 [degF] 175.26 cm 11613.9 52 g 119/70 mm[Hg] Not Available [facility] - production 4 11:59:12 Date Recorded Body temperature Oxygen saturation Oxygen saturation in Arterial blood by Pulse oximetry Heart rate Respiratory rate Systolic And Diastolic Provider Name and Address Organization Details Last Updated DateTime 3 97.8 [degF] 98 % 98 % 67 /min 16 /min 139/80 mm[Hg] Not Available [employer] 3 21:07:31 Date Recorded Body weight Oxygen saturation Oxygen saturation in Arterial blood by Pulse oximetry Body height Body temperature Respiratory rate Heart rate Systolic And Diastolic Provider Name and Address Organization Details Last Updated DateTime 4 40017.4 g 100 % 100 % 177.8 cm 98.8 [degF] 16 /min 76 /min 154/72 mm[Hg] Not Available [employer] 4 17:08:33 Social History None recorded. Functional Status None recorded. Mental Status None recorded. Family History Nothing Reported. Medical History No medical history recorded. Gynecological HistoryNo gynecological history recorded. Obstetrics History GPAL:G 0 P 0 0 0 0 Past Encounters Encounter ID Performer Location Encounter Start Date Encounter Closed Date Diagnosis/Indication Diagnosis SNOMED-CT Code Diagnosis ICD10 Code Diagnosis IMO Codes Diagnosis Note [id number] Halima Orta MD Main - [facility] [address] [place] [phone] 12/15/2021 12:34:04 02/14/2022 11:31:08 Acute pelvic pain 118256544 R10.2 several days of R>L pelvic pain [...] [id number] James Platt MD Main - [facility] [address] [place] [phone] 09/03/2022 16:51:04 09/05/2022 09:22:46 Increased frequency of urination 465189235 R35.0 [id number] Du Mcneil MD Main - [facility] [address] [place] [phone] 10/12/2022 12:45:32 10/15/2022 09:47:49 Boils of multiple sites 930410607 L02.92 57yo woman with history of multiple skin soft tissue infections presents with a focal skin infection of the stomach similar to prior episosdes. Previously this has responded to doxy. The lesion is draining on quality improvement consultant exam and my review of images.- Doxycyclin e [id number] Macey Corrales MD Main - [facility] [address] [place] [phone] 12/22/2022 20:58:54 12/24/2022 12:19:53 Flank pain 754535315 R10.9 Evaluation in the field was performed by my quality improvement consultant colleague, as noted above, I provided real-time [...] shortness of breath, cough, chest pain, fever. [id number] Tristin Segura MD Main - [facility] [address] [place] [phone] 11/13/2023 11:59:04 11/13/2023 15:12:52 Gastroparesis syndrome 060895509 K31.84 This 58-year-ol d female was recently diagnosed with gastropare sis but the medication ordered hasn't been effective. I suggested that she contact her PCP to make arrangemen ts for a GI referral. The patient agreed with this plan. [id number] Anthony Santiago MD Main - [facility] [address] [place] [phone] 01/19/2024 17:08:29 01/19/2024 22:27:44 Migraine 12004658 G43.909 no alarm features or neurologic change. [...] Mondragon Member ID Guarantor Name 12/22/2022 1 [facility] - DOS PRIOR TO 2022 - DUAL ELIGIBLE (MEDICARE REPLACEMENT/AD VANTAGE - HMO) Alma Diego [id number] Alma Diego 01/19/2024 1 [facility] - DOS ON OR AFTER 2022 - DUAL ELIGIBLE - SENIOR LIVING OPTIONS AND ONE CARE (MEDICARE REPLACEMENT/AD VANTAGE - HMO) Alma Diego [id number] Alma Diego Notes Date Note Type Note Provider Name and Address Organization Details Recorded Time 09/03/2022 text/html ROS as noted in the HPI This was a supervised home visit with quality improvement consultant Jet Grier. HPI: I v e been urinating a lot, I m a [...] ..................... ..................... ..................... ..................... ..................... ..................... ............... Cutter Operator Note From Jet Grier: Pt presents [...] unremarkable in all areas . Non febrile. [facility] contacted and pt advised to follow up with her PCP which she has APPT september 19 2022. Pt educated on signs that would indicate the ED ..................... ..................... ..................... ..................... ..................... ..................... ............... Disposition: Fulfilled James Platt MD [address] [place] [address],[address] [facility], [place], [phone], [employer] 09/03/2022 17:18:02 10/12/2022 text/html ROS as noted in the HPI HPI: ALLERGIC TO : AMPICILLIN HX: Chronic Hep C, Hidradenitis. DM, HTN Patient with reported boil on stomach. Now large painful and intact. No fever. ..................... ..................... ..................... ..................... ..................... ..................... ............... CRC Nursing Assessment: Comments: CRC RN DID NOT NEED FURTHER INFO Du Mcneil MD [address] [place] [address],[address] [facility], [place], [phone], [employer] 10/12/2022 12:49:54 12/22/2022 text/html HPI: I m [...] ..................... ..................... ..................... ..................... ..................... ..................... ............... Cutter Operator Note From Jorgito Schwartz: PER CCA: [...] ..................... ............... Disposition: Fulfilled Macey Corrales MD [address] [place] [address],[address], [place], [phone], [employer] 12/22/2022 21:50:36 11/13/2023 text/html ROS as noted in the HPI HPI: I v e been having abdominal pain. My [...] PCP appt last week. Tristin Segura MD [address] [place] [address],[address], [place], [phone] [employer] 11/13/2023 12:02:46 01/19/2024 text/html CRC Nurse Triage Notes (Delfin Villagran): Reason For Request: neck pain/headaches Chief Complaints: Headache, Pain PMH: Diabetes, Hypertension Allergies: Unknown Comments: Polymer Tester verified the member's name//address and phone number. [...] ..................... ..................... ..................... ..................... ..................... ..................... ............... Cutter Operator Note From Aguila Baez: Pt reports [...] ............... Disposition: Fulfilled Anthony Santiago MD [address] [facility],[address], [place], [address], [employer] 01/19/2024 19:28:08 OBGyn Episode No OBEpisode recorded.
--- OUTSIDE RECORDS SUMMARY | 2025-04-13 20:28 | XMS_ITS | Clinical Summary ---
Author Organization [employer] Address [address] [place] [address] [address] [place] [address] Care Team Providers Care Mask Layout Designer Name Role Phone Eliel Stoddard MD Primary Care Provider [phone] Allergies Active Allergy Reactions Criticality Noted Date [...] hyperglycemia, without long-term current use of insulin (HCC) 1 tab if FS< 70 mg/dl 50 [...] 2 diabetes mellitus without complication, unspecified whether long wall mining machine tender insulin use USE ONE STRIP TO CHECK BLOOD SUGAR [...] 24 Active nicotine (Nicoderm CQ) 14 MG/24HR patchIndications [...] times daily for 10 days. 30 tablet 01/06/20 25 Active Diclofenac Sodium (Voltaren) 1 % gel Use topical BID 100 g 3 06/22/19 25 Active OneTouch Ultra test stripIndications :Type 2 diabetes mellitus without complication, unspecified whether long wall mining machine tender insulin use USE ONE STRIP TO CHECK BLOOD SUGAR TWICE DAILY 100 strip 11 08/07/19 25 Active gabapentin (Neurontin) 100 MG capsuleIndicatio ns:Diabetic peripheral neuropathy associated with type 2 diabetes mellitus (HCC) Take 2 capsules (200 mg) by mouth every 8 (eight) hours. 180 capsule 11 08/21/19 25 026 Active Blood Glucose Monitoring Suppl (Swopboard Lite) w/Device kitIndications:T ype 2 diabetes mellitus with hypoglycemia without coma, without long-term current use of insulin ([facility]) Use to test blood sugar 1 times daily 1 kit 08/21/19 25 Active Acetaminophen Extra Strength 500 MG tablet TAKE 1 TABLET BY MOUTH EVERY 6 HOURS NEEDED FOR MILD PAIN 120 tablet 09/01/19 25 Active Diclofenac Sodium 1 % gelIndications:M uscle spasm To apply to the affected area 3 times a day 100 g 11/24/19 25 Active simvastatin (Zocor) 20 MG tabletIndication s:Type 2 diabetes mellitus with hypoglycemia without coma, without long-term current use of insulin ([facility]) TAKE 1 TABLET BY MOUTH EVERY DAY 90 tablet 1 12/16/19 25 Active B Complex Vitamins (Vitamin B Complex) capsuleIndicatio ns:Encounter for screening mammogram for malignant neoplasm of breast,Tingling in extremities TAKE ONE CAPSULE BY MOUTH DAILY 90 each 12/22/19 25 Active LORazepam (Ativan) 1 MG tabletIndication s:Claustrophobia 1 mg to take 30 minutes prior to the procedure. Make an additional 1 mg 30 minutes later if no effect. 10 tablet 02/24/20 25 Active lisinopril 10 MG tabletIndication s:Primary hypertension TAKE 1 TABLET BY MOUTH EVERY DAY 90 tablet 1 03/19/20 25 Active metFORMIN XR (Glucophage-XR) 500 MG 24 hr tabletIndication s:Type 2 diabetes mellitus with hypoglycemia without coma, without long-term current use of insulin ([facility]) TAKE 2 TABLETS BY MOUTH TWICE DAILY WITH MEALS 360 tablet 1 03/31/20 25 Active metFORMIN XR (Glucophage-XR) 500 MG 24 hr tabletIndication s:Type 2 diabetes mellitus with hypoglycemia without coma, without long-term current use of insulin ([facility]) TAKE 2 TABLETS BY MOUTH TWICE DAILY WITH MEALS 360 tablet 1 09/02/19 25 025 Discontinued lisinopril 10 MG tabletIndication s:Primary hypertension TAKE 1 TABLET BY MOUTH EVERY DAY 90 tablet 1 09/17/19 25 025 Discontinued Active Problems Problem Noted [...] work 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 Encounter for screening mamm ogram for malignant neoplasm of breast 12/02/2023 Chronic pain of both feet 12/02/2023 Encounter for preventive care 12/02/2023 Assessment & Plan (12/02/2023 3:20 PM EDT): See HPI Generalized abdominal pain 12/02/2023 Acute otitis media 12/02/2023 Chronic hepatitis C virus infection (CMS/HCC) Menopausal flushing 06/21/2022 Type 2 diabetes mellitus [...] Encounters Date Type Department Care Team Description 04/13/2025 Orders Only GENERIC EXTERNAL DATA DEPARTMENT Provider, Generic External Data 04/01/2025 Orders Only GENERIC EXTERNAL DATA DEPARTMENT Provider, Generic External Data 03/30/2025 Refill [facility] [address] [place] [address] Eliel Stoddard MD Type 2 diabetes mellitus with hypoglycemia without coma, without long-term current use of insulin ([facility]) 03/19/2025 Refill [facility] [address] [place] [address] Eliel Stoddard MD Primary hypertension 02/23/2025 9:00 AM EDT Office Visit [facility] [address] [place] [address] Eliel Stoddard MD Type 2 diabetes mellitus with hypoglycemia without coma, without long-term current use of insulin ([facility]) (Primary Dx); Primary hypertension; Claustrophobia; Hypercholesterolemia 02/23/2025 Travel 02/22/2025 Telephone [facility] [address] [place] [address] Eliel Stoddard MD Chart Prep 02/16/2025 Travel 02/04/2025 Orders Only [facility] External Provider, [facility] from Last 3 Months Immunizations Immunization Administration [...] 11/27/2024, 11/15, 11/27/2024, Additional history exists Colonoscopy 04/01/2030 02/05/2018 Colorectal Cancer Screening 04/01/2030 RSV Patients and Patients Aged 60 years [...] TO CULTURE Routine 04/13/2025 7:35 PM EDT HEMATOXYLIN AND EOSIN STAIN Routine 04/01/2025 8:20 AM EDT GLUCOSE, WHOLE BLOOD Routine 04/01/2025 7:39 AM EDT MR CERVICAL SPINE WO CONTRAST Routine 02/23/2025 10:29 AM EDT POCT GLYCATED HEMOGLOBIN, TOTAL Routine 02/23/2025 9:29 AM EDT Type 2 diabetes mellitus with hypoglycemia without coma, without long-term current use of insulin ([facility]) POCT GLUCOSE Routine 02/23/2025 9:29 AM EDT Type 2 diabetes mellitus with hypoglycemia without coma, without long-term current use of insulin (CMS/HCC) XR CERVICAL SPINE 4V Routine 02/04/2025 12:50 PM EDT BI MAMMOGRAM SCREENING TOMOSYNTHESIS BILATERAL Routine 12/21/2024 9:20 AM EDT ALBUMIN, RANDOM URINE W/CREATININE Routine 11/23/2024 9:20 AM EDT Type 2 diabetes mellitus with hypoglycemia without coma, without long-term current use of insulin (CMS/[facility]) LIPID PANEL, STANDARD Routine 12/02/2023 11:30 AM EDT Encounter for preventive care HIV 1/2 ANTIGEN/ANTIBODY, FOURTH GENERATION W/RFL Routine 12/21/2021 12:00 AM EDT THINPREP IMAGING PAP AND HPV MRNA E6/E7, WITH CT/NG, TRICHOMONAS Routine 09/12/2021 8:57 AM EDT HM COLONOSCOPY Routine 02/05/2018 from Last 3 Months or Most Recently Relevant to Health Maintenance Results * Urinalysis, Complete, with Reflex to Culture (04/13/2025 7:35 PM EDT) Color Urine Yellow [facility] Appearance Urine Clear [facility] PH 6.0 5.0 - 9.0 [facility] Glucose Urine UA Negative Negative mg/dL [facility] Urine Blood Negative Negative [facility] Specific [place] - Urine <=1.005 1.005 - 1.025 [facility] Urine Protein Negative Neg-Trace mg/dL [facility] Urine Ketones Negative Negative mg/dL [facility] Nitrite Urine Negative Negative [facility] Leukocyte Esterase Urine Negative Negative [facility] RBC Urine 0-2 0 - 2 /HPF [facility] Urine WBC 0-5 0 - 5 /HPF [facility] Urine Squamous Epithelial Cell 0-2 0 - 2 /HPF [facility] Urine Bacteria None Seen None Seen [facility] Hyaline Casts, Urine 0-2 0 - 2 /LPF [facility] 04/13/2025 7:35 PM EDT 04/13/2025 7:40 PM EDT Narrative [facility] - 04/13/2025 7:53 PM EDT [id number], Clean Catch us Generic External Data Provider LAB URINE ORDERAB LES Final Result [facility] [address] [place] [phone] * Hematoxylin and Eosin Stain (04/01/2025 8:20 AM EDT) 04/01/2025 8:20 AM EDT 04/01/2025 10:37 AM EDT [facility] - 04/06/2025 2:12 PM EDT ----- ------- Name: Alma Rodriguez Age/Sex: 59/F : 1965 Unit#: [id number] Attend Dr: Debby Keenan MD Re04/01/25 Status: [facility] [place] Location: [facility] Disch: ----- ------- SPEC : [id number] RECD: 04/01/25 STATUS: CHETANKandy JAZZ NUM: [id number] GUILLERMO: 04/01/[address] [facility] DR: Debby Keenan MD ENTERED: 04/01/253749 SP TYPE: Surgical OTHR DR: Eliel Stoddard MD ORDERED: HE Stain/18, Gross Micro L4/6, IHC, Special st. 2/2, H. pylori, AB/PAS/2 Diagnosis A. Duodenum, biopsy: Duodenal mucosa with mildly increased intraepithelial lymphocytes and preserved villous architecture. See comment. B. Stomach, random, biopsy: Antral-type and oxyntic mucosa with moderate chronic inactive inflammation; no Helicobacter organisms seen. C. Colon, right, biopsy: Colonic mucosa within normal limits. D. Colon, ascending, polypectomy: Tubular adenoma; negative for high-grade dysplasia or carcinoma. E. Colon, transverse, polypectomy: Tubular adenoma; negative for high-grade dysplasia or carcinoma. F. Colon, left, biopsy: Colonic mucosa within normal limits. COMMENT: The findings in the duodenum are non-specific. The differential diagnosis is broad and includes infection (e.g. viral or H. pylori), medication/drugs (e.g. NSAIDs), gluten sensitivity/celiac disease, bacterial overgrowth, tropical sprue, immunodeficiency syndromes (e.g. IgA deficiency, CVID), autoimmune enteropathy, Crohns and collagen vascular disease, among others. Please correlate with clinical and other laboratory findings. Clinical History Pre-Op Dx: Abdominal pain, chronic diarrhea Post-Op Dx: Gastritis, duodenitis, diverticulosis, polyps, hemorrhoids Microscopic Description A-F. Microscopic sections examined. No metaplastic changes are seen, supported by AB/PAS stains (A and B); no Helicobacter organisms are seen, supported by H. pylori immunostain (B). Material Received A. Duodenum B. Random gastric C. Right side of colon D. Ascending colon polyp E. Transverse colon polyp F. Left side of colon CONTINUED ON NEXT PAGE ----- ------- Name: Alma Rodriguez Age/Sex: 59/F : 1965 Unit#: [id number] Attend Dr: Debby Keenan MD Re04/01/25 [place] [facility] [place] [facility] Disch: ----- ------- SPEC : [id number] RECD: 04/01/25-1036 STATUS: SOPHIA SCHULZ NUM: [id number] GUILLERMO: 04/01/[address] [facility] DR: Debby Keenan MD ENTERED: 04/01/25 SP TYPE: Surgical OTHR DR: Eliel Stoddard MD ORDERED: HE Stain/18, Gross Micro L4/6, IHC, Special st. 2/2, H. pylori, AB/PAS/2 Gross Description Received in 6 parts. A. Received in formalin labeled duodenum are 4 fragments of pink-macedo soft tissue measuring 0.3-0.4 cm in greatest dimension which are wrapped in lens paper and entirely submitted for microscopic examination, 4 pieces in cassette A. B. Received in formalin labeled random gastric are 3 fragments of macedo-white soft tissue measuring 0.2-0.3 cm in greatest dimension which are wrapped in lens paper and entirely submitted for microscopic examination, 3 pieces in cassette B. C. Received in formalin labeled right side colon are 3 fragments of pink white soft tissue measuring 0.2-0.3 cm in greatest dimension which are wrapped in lens paper and entirely submitted for microscopic examination, 3 pieces in cassette C. D. Received in formalin labeled ascending colon polyp are 2 fragments of macedo-white soft tissue, each measuring 0.3 cm in greatest dimension, which are wrapped in lens paper and entirely submitted for microscopic examination, 2 pieces in cassette D. E. Received in formalin labeled transverse colon polyp is a fragment of pink-macedo soft tissue measuring 0.6 cm in greatest dimension which is wrapped in lens paper and entirely submitted for microscopic examination, 1 piece in cassette E. F. Received in formalin labeled left side colon is a minute fragment of translucent macedo- white soft tissue measuring 0.1 cm in greatest dimension which is wrapped in lens paper and entirely submitted for microscopic examination, 1 piece in cassette F. ([facility]) Special studies ordered and performed: Immunostain for H. pylori on B; AB/PAS stains on A and B IHC S/NG Disclaimer NOTE: Unless otherwise stated, all tissue is formalin-fixed and paraffin-embedded. Some or all of the immunohistochemical tests reported herein may have been developed and their performance characteristics determined by [facility]. They have not been cleared or approved by the U.S. Food and Drug Administration (FDA). However, the FDA has determined that such clearance or approval is not necessary. This laboratory is certified under the Clinical Laboratory Improvement Amendments of 1988 (CLIA) as qualified to perform high complexity clinical laboratory testing. CONTINUED ON NEXT PAGE ----- ------- Name: Alma Rodriguez Age/Sex: 59/F : 1965 Unit#: [id number] Attend Dr: Debby Keenan MD Re04/01/25 Status: [facility] Location: [facility] Disch: ----- ------- SPEC : [id number] RECD: 04/01/25 STATUS: SOPHIA SCHULZ NUM: [id number] GUILLERMO: 04/01/[address] [facility] DR: Debby Keenan MD ENTERED: 04/01/251105 SP TYPE: Surgical OTHR DR: Eliel Stoddard MD ORDERED: HE Stain/18, Gross Micro L4/6, IHC, Special st. 2/2, H. pylori, AB/PAS/2 Copies To: Eliel Stoddard MD [address] [phone] Debby Keenan MD [facility] [address] [place] [phone] [email or web address] ----- ------- Signed (signature on file) Davey Newberry MD 04/06/25 1412 ----- ------- END OF REPORT Generic External Data Provider LAB BLOOD ORDERAB LES Final Result Performing Organization Address [facility]/ZIP Co de Phone Number [facility] [address] [place] [phone] * (ABNORMAL) Glucose, Whole Blood (04/01/2025 7:39 AM EDT) Glucose, Whole Blood 126(H) 60 - 115 mg/dL [facility] Comment:METER #: [id number] 04/01/2025 7:39 AM EDT 04/01/2025 7:42 AM EDT Generic External Data Provider LAB BLOOD ORDERAB LES Final Result Performing Organization Address [facility] Co de Phone Number [facility] [address] [place] [address] [phone] * MR Cervical Spine w/o Contrast (02/23/2025 10:29 AM EDT) Anatomical Region Laterality Modality Spine, C-spine Magnetic Resonan ce 02/23/2025 10:2 9 AM EDT Narrative 02/23/2025 10:30 AM EDT [address] [address] Magnetic Resonance Report Signed Patient: Alma Rodriguez MR#: [id number] : 1965 Acct:[id number] Age/Sex: 59 / F ADM Date: 02/20/25 Loc: HO.MRI Attending Dr: Filippo FONG Ordering Physician: Filippo Fortune Date of Service: 02/20/25 Procedure(s): MR cervical spine wo con Accession Number(s): [id number] cc: Eliel Stoddard MD; Filippo Fortune Reason [...] 02/23/25 1029 DD/ 1029 TD/TT: 02/23/25 1029 Thermograph Operator: Procedure Note Donotuseinterpreter, Image - 02/23/[address] [address] Magnetic Resonance Report Signed Patient: Alma Rodriguez [facility]#: [id number] : 1965Acct:[id number] Age/Sex: 59 / FADM Date: 02/20/25 Loc: HO.MRI Attending Dr: Filippo FONG Ordering Physician: Filippo Fortune Date of Service: 02/20/25 Procedure(s): MR cervical spine wo con Accession Number(s): [id number] cc: Eliel Stoddard MD; Filippo Fortune Reason [...] 02/23/25 1029 DD/ 1029 TD/TT: 02/23/25 1029 Thermograph Operator: [facility] External Provider IMG MRI PROCEDURES Edited Result - Final * (ABNORMAL) POCT Hgb A1c (02/23/2025 9:29 AM EDT) Hemoglobin A1C 6.4(A) 4.0 - 5.7 % QC Media Lot # [id number] Lot# Expiration Date 798, Blood 02/23/2025 9:29 AM EDT Eliel Stoddard MD POINT OF CARE TEST ENTER/ED IT ORDERABLES Final Result * POCT Glucose (02/23/2025 9:29 AM EDT) Glucose Blood, POC 161 60 - 200 mg/dL QC Media Lot # [id number] Lot# Expiration Date ,260 Comment:random Blood Capillary blood specimen / Unknown 02/23/2025 9:29 AM EDT Eliel Stoddard MD POINT OF CARE TEST ENTER/ED IT ORDERABLES Final Result * XR CERVICAL SPINE 4V (02/04/2025 12:50 PM EDT) Anatomical Region Laterality Modality Abdomen Radiographic Vickie ging 02/04/2025 12:5 0 PM EDT Narrative 02/04/2025 1:50 PM EDT [facility] [address] [place] [address] [place] [address] XRay Report Signed Patient: Alma Rodriguez MR#: [id number] : 1965 Acct:[id number] Age/Sex: 59 / F ADM Date: 02/04/25 Loc: MANA Attending Dr: Filippo FONG Ordering Physician: Filippo Fortune Date of Service: 02/04/25 Procedure(s): XR cervical spine 4V Accession Number(s): [id number] cc: Eliel Stoddard MD; Filippo Fortune EXAMINATION: [...] 02/04/25 1348 DD/ 1250 TD/TT: 02/04/25 1255 Thermograph Operator: Procedure Note Donotuseinterpreter, Image - 02/04/2025 [facility] [address] [place] [address] [place] [address] XRay Report Signed Patient: Alma Rodriguez AMR#: [id number] : 1965Acct:[id number] Age/Sex: 59 / FADM Date: 02/04/25 Loc: HO.HOSX Attending Dr: Filippo FONG Ordering Physician: Filippo Fortune Date of Service: 02/04/25 Procedure(s): XR cervical spine 4V Accession Number(s): [id number] cc: Eliel Stoddard MD; Filippo Fortune EXAMINATION: [...] 02/04/25 1348 DD/ 1250 TD/TT: 02/04/25 1255 Thermograph Operator: [facility] External Provider IMG XR PROCEDURES Final Result * BI Mammogram Screening Tomosynthesis Bilateral (12/21/2024 9:20 AM EDT) Anatomical Region Laterality Modality Breast Bilateral Mammography 12/21/2024 9:20 AM EDT Narrative 12/30/2024 9:14 PM EDT [facility] [place], [place] [address] Mammography Report Signed Patient: Alma Rodriguez MR#: [id number] : 1965 Acct:[id number] Age/Sex: 59 / F ADM Date: 12/21/24 Loc: HO.MAMMO Attending Dr: Mahsa Valenzuela MD Ordering Physician: Mahsa Huffman MD Results: 1Negative Date of Service: 12/21/24 Follow Up: 1 Year From Orig inal Mammogram Procedure(s): MM tomosynthesis screening BI Accession Number(s): [id number] cc: Mahsa Huffman MD; Eliel Stoddard MD [...] in OV> 12/30/242110 DD/ 9 TD/TT: 12/21/24929 Thermograph Operator: Procedure Note Donotuseinterpreter, Image - 12/30/2024 [facility] [address] [place] [address] Mammography Report Signed Patient: Alma Rodriguez AMR#: [id number] : 1965Acct:[id number] Age/Sex: 59 / FADM Date: 12/21/24 Loc: HO.MAMMO Attending Dr: Mahsa Valenzuela MD Ordering Physician: Mahsa Huffman MDResults: 1Negative Date of Service: 12/21/24Follow Up: 1 Year From Orig inal Mammogram Procedure(s): MM tomosynthesis screening BI Accession Number(s): [id number] cc: Mahsa Huffman MD; Eliel Stoddard MD [...] in OV> 12/30/242110 DD/ 9 TD/TT: 12/21/24929 Thermograph Operator: us Mahsa Valenzuela MD IMG BI PROCEDURES Asim prasanna Result - Final * Albumin, Random Urine W/Creatinine (11/23/2024 9:20 AM EDT) Creatinine, Urine 200.15 mg/dL [facility] Microalbumin Urine 21.0 mg/L [facility] Microalbum Creatinine Ratio Ur 10.4 <30 ug/mg cr [facility] Comment:Albumin/Creatinine R atio Reference Ranges: Normal: < 30 ug/mg creatinine Microalbuminuria: 30 - 300 ug/mg creatinineClinical Albuminuria: > 300 ug/mg creatinine Urine (Urine, Random) 11/23/2024 9:20 AM EDT 11/23/2024 2:06 PM EDT us Eliel Stoddard MD LAB URINE ORDERABLES Final Result [facility] [address] [place] [phone] * (ABNORMAL) Lipid Panel, Standard (12/02/2023 11:30 AM EDT) Triglycerides 154(H) <150 mg/dL [facility] Comment:Desirable Triglyceri de: less than 150 mg/dLBorderline High Triglyceride 150-199 mg/dLHigh Triglyceride: 200-499 mg/dLVery High Triglyceride: greater than or equal to 5OO mg/dL Cholesterol 124 <200 mg/dL [facility] Comment:Desirable Cholestero l: less than 200 mg/dLBorderline High Cholesterol: 200-239 mg/dLHigh Cholesterol: greater than 239 mg/dL LDL Cholesterol Calculated 61 <100 mg/dL [facility] Comment:Desirable LDL: less than 100 mg/dLNear Optimal/Above Optimal LDL: 110- 129 mg/dLBorderline High LDL: 130-159 mg/dLHigh LDL: 160-189 mg/dLVery High LDL: greater than or equal to 190 mg/dL HDL Cholesterol 33(L) >40 mg/dL [facility] Comment:Desirable HDL: great er than 40 mg/dL Note: This HDL assay may give artificially low results in patients with liver disease. Blood Venous blood specimen / Unknown 12/02/2023 11:30 AM EDT 12/02/2023 1:26 PM EDT Mahsa Valenzuela MD LAB BLOOD ORDERABLES Final Result [facility] [address] [place] [phone] [phone] * HIV 1/2 ANTIGEN/ANTIBODY,FOURTH GENERATION W/RFL (12/21/2021 12:00 AM EDT) HIV-1/2 ANTIGEN AND ANTIBODIES, 4TH GENERATION W/ REFLEX NON-REACT ESAU NON-REACT ESAU [facility] Comment: HIV-1 antigen and HIV-1/HIV-2 [...] purpose. For additional information please refer to http://[employer]/faq/WQL921 (This link is being provided for informational/ educational purposes only.) The performance of this assay has not been clinically validated in patients less than 2 years old. 12/21/2021 us Eliel Stoddard MD LAB BLOOD ORDERABLES Final Result [facility] [address] [place] [address], * THINPREP TIS PAP AND HPV mRNA E6/E7, CT/NG, TRICH (09/12/2021 8:57 AM EDT) Chlamydia trachomatis RNA, TMA, Urogenital NOT DETECTED NOT DETECTED [facility] Clinical Information: None given [facility] COMMENT SEE COMMENT [facility] Comment: The analytical performance characteristics of this assay, when used to test SurePath(TM) specimens have been determined by [employer]. The modifications have not been cleared or approved by the FDA. This assay has been validated pursuant to the CLIA regulations and is used for clinical purposes. For additional information, please refer to https://[employer]/faq/GMM090 (This link is being provided for information/ [...] has been evaluated with computer assisted technology. [facility] Gasket Inspector: SEE COMMENT [facility] Comment: CMG, CT(ASCP) CT screening location: [address] [address] HPV nRNA E6/E7 Not Detected Not Detected [facility] Comment: Methodology: Foam Charger-Mediated Amplification This assay detects E6/E7 viral messenger RNA (mRNA) from 14 high-risk HPV types (16,18,31,33,35,39,45,51,52,56,58,59,66,68). The analytical performance characteristics of this assay have been determined by [employer]. The modifications have not been cleared or approved by the FDA. This assay has been validated pursuant to the CLIA regulations and is used for clinical purposes. For additional information, please refer to http://[employer]/faq/NVU006w4 (This link if provided for information/ educational [...] of this assay have been determined by [employer]. The modifications have not been cleared or approved by the FDA. This assay has been validated pursuant to the CLIA regulations and is used for clinical purposes. For additional information, please refer to http://[employer]/ faq/Trichomonastma (This link is being provided for information/ educational purposes only.) 09/12/2021 8:57 AM EDT Nini Perry CNM LAB PATHOLOGY ORDERABLES Final Result [facility] [address] [place] [phone], * Colonoscopy (02/05/2018) Colonoscopy Normal Normal Narrative Karla Slaughter - 02/05/2018 Recommended 10 year follow up us Historical Provider HEALTH MAINTENANCE Final Result from Last 3 Months or Most Recently Relevant to Health Maintenance Insurance [facility] < 65 [employer] [id number] Care Teams Mask Layout Designer Relationship Specialty Start Date End Date Eliel Stoddard MD [address] [place] [address] ELIZA Chin [id number] PCP - General Internal Medicine 06/17/18
--- OUTSIDE RECORDS SUMMARY | 2025-04-13 20:28 | XMS_ITS | Encounter Summary ---
Author Organization [employer] Address [address] [place] [address] 7t [place] [address] Care Team Providers Care Ore Roaster Name Role Phone Eliel Stoddard MD Primary Care Provider [phone] Encounter Details Date Type Department Care Team ([facility] st Contact Info) Description 04/12/2023 Orders Only [facility] [address] [place], [place] [phone] Eliel Stoddard MD [address] [place] [address] Primary insomnia Social History Tobacco Use Types [...] the past 12 months, has t he [employer], oil or water company threatened to shut [...] sleep documented in this encounter Care Teams Ore Roaster Relationship Specialty Start Date End Date Eliel Stoddard MD [address] [place] [id number] PCP - General Internal Medicine 06/17/18 documented as of this encounter
--- OUTSIDE RECORDS SUMMARY | 2025-04-13 20:28 | XMS_ITS | Encounter Summary ---
Author Organization [employer] Address [address] [place] [address] [address] [place] [address] Care Team Providers Care Slurry Control Tender Name Role Phone Eliel Stoddard MD Primary Care Provider [phone] Encounter Details Date Type Department Care Team (Late st Contact Info) Description 11/08/2023 Orders Only [facility] [address] [place], [place] [phone] Provider, MD Jahaira Social History Tobacco Use [...] on filedocumented in this encounter Care Teams Slurry Control Tender Relationship Specialty Start Date End Date Eliel Stoddard MD [address] [place] [id number] PCP - General Internal Medicine 06/17/18 documented as of this encounter
--- OUTSIDE RECORDS SUMMARY | 2025-04-13 20:28 | XMS_ITS | Encounter Summary ---
Author Organization [employer] Address [address] [place] [address] 7 [place] [address] Care Team Providers Care Broomcorn Grader Name Role Phone Eliel Stoddard MD Primary Care Provider [phone] Reason for Visit * Reason Onset Date Comments Med Refill 10/19/2022 Encounter Details Date Type Department Care Team ([facility] st Contact Info) Description 10/19/2022 Refill [facility] MED [facility] PEDS [address] [place], [place] [phone] Eliel Stoddard MD [address] [place] [address] Social History Tobacco Use Types Packs/Day Years [...] on filedocumented in this encounter Care Teams Broomcorn Grader Relationship Specialty Start Date End Date Eliel Stoddard MD [address] [place] [address] PCP - General Internal Medicine 06/17/18 documented as of this encounter
--- NOTE | 2025-04-13 21:19 | ED.ANXIETY ---
HPI - Anxiety General Chief Complaint: Anxiety Stated Complaint: Pain attack. out of medication that control attack Time Seen by Provider: 04/13/25 21:08 Source: patient and EMS Mode of arrival: EMS Limitations: no limitations History of Present Illness ED Provider: Dr. Cindy Zheng HPI narrative: Patient comes to the emergency room complaining of a panic attack. Patient states that earlier today she had a misunderstanding with her and that triggered the attack. At this time, patient states that she feels better. Patient states that she usually takes hydroxyzine PRN anxiety but she ran out of her medication this morning. Patient denies SI or HI. Also, patient states that when she was hyperventilating, she noticed that she had left-sided rib pain. Patient states it has been hurting for couple of days. Patient states that about 3 days ago she was cleaning and slipped and fell on her left side. Patient denies hitting her head or losing consciousness, patient denies being on blood thinners. Patient states that she has an appointment pending with her psychiatrist in a few weeks. Related Data Home Medications ?Medication ?Instructions ?Recorded ?Confirmed metformin 500 mg tablet,extended 500 mg PO QPM 04/19/21 03/30/25 release 24 hr simvastatin 20 mg tablet 20 mg PO BEDTIME 04/19/21 03/30/25 acetaminophen 500 mg tablet 500 mg PO Q6H PRN mild pain 09/02/24 betamethasone dipropionate 0.05 % topical 09/02/24 topical ointment blood-glucose meter (FreeStyle #1 ea 09/02/24 Lite Meter kit) cholecalciferol (vitamin D3) 25 25 mcg PO DAILY 09/02/24 03/30/25 mcg (1,000 unit) tablet gabapentin 100 mg capsule mg PO 09/02/24 lisinopril 10 mg tablet 10 mg PO DAILY 09/02/24 03/30/25 vitamin B complex 1 cap PO DAILY 09/02/24 03/30/25 aripiprazole 5 mg tablet 5 mg PO DAILY 03/10/25 03/30/25 clonidine HCl 0.1 mg tablet 0.1 mg PO BEDTIME PRN anxiety 03/10/25 03/30/25 fluticasone propionate 50 2 spray intranasal DAILY 03/10/25 03/30/25 mcg/actuation nasal spray,suspension mirtazapine 7.5 mg tablet 7.5 mg PO BEDTIME insomnia 03/10/25 03/30/25 Previous Rx's ?Medication ?Instructions ?Recorded loperamide 2 mg capsule (Imodium 2 mg PO BID PRN loose stool 90 03/10/25 A-D) days #180 caps pantoprazole 20 mg tablet,delayed 20 mg PO BID 90 days #0 tabs 04/01/25 release hydroxyzine HCl 25 mg tablet 25 mg PO TID PRN nausea and 04/13/25 vomiting #14 tabs Allergies Allergy/AdvReac Type Severity Reaction Status Date / Time ampicillin (AMPICILLIN) Allergy Unknown RASH Verified 04/13/25 19:13 Ampicillin Allergy Unknown rash Uncoded 04/13/25 19:13 Review of Systems Review of Systems: Constitutional : No Weight loss, No Fever, No Chills, No Night Sweats, No Fatigue, No Malaise ENT/Mouth : No Hearing loss, No Ear Pain, No Nasal Congestion, No Sinus Pain, No Hoarseness, No sore throat, No Rhinorrhea, No Swallowing Difficulty Eyes: No Eye Pain, No Swelling, No Redness, No Foreign Body, No Discharge, No Vision Changes Cardiovascular : No Chest Pain, No SOB, No Dyspnea on Exertion, No Orthopnea, No Edema, No Palpitations Respiratory : No Cough, No Sputum, No Wheezing, No Smoke Exposure, No Dyspnea Gastrointestinal : No Nausea, No Vomiting, No Diarrhea, No Constipation, No abdominal Pain, No Hematochezia, No Melena Genitourinary : no irregular bleeding, No Dysuria, No Urinary Frequency, No Hematuria, No Urinary Incontinence, No Urgency, No Flank Pain, No Urinary Flow Changes, No Hesitancy Musculoskeletal : Complaining of left-sided rib pain No joint pain, No Myalgias, No Joint Swelling Skin : No Skin Lesions, No rash Neuro : No Weakness, No Numbness, No Paresthesias, No Loss of Consciousness, No Dizziness, No Headache Psych : Complaining of anxiety and a panic attack which self-resolved. No Depression, No SI/HI/AH/VH, No Social Issues, Heme/Lymph: No Bruising, No Bleeding,No Lymphadenopathy Endocrine : No Polyuria, No Polydipsia, No Temperature Intolerance PMFSH Past Medical History Medical History Hepatitis C Spinal stenosis in cervical region Spinal stenosis Degeneration, intervertebral disc, cervical Leukocytosis History of kidney stones Hx of herpes zoster Hx of pancreatitis Hx of endometriosis Depression Generalized anxiety disorder Dysuria Hypercholesterolemia HTN (hypertension) Asthma Diabetes Surgical History H/O colonoscopy Hx of section H/O dilation and curettage Family History Family History Mother Diabetes Depression Father Suicide Social History Social History Alcohol intake: never Patient Tobacco Use Status: Current everyday Tobacco user Advance Directives: No Advance Directives Information Provided: No Physical Exam Exam: Exam: Appearance: Alert. Oriented X3. No acute distress. Eyes: Pupils equal, round and reactive to light. ENT: Pharynx normal. Neck: Normal inspection. Neck supple. No lymph nodes noted. No crepitus CVS: Normal heart rate and rhythm. Pulses normal. Normal S1 and S2 Respiratory: No respiratory distress. Breath sounds normal. No Wheezing. No rales Abdomen: Soft and nontender. No rigidity. No distention. Skin: Skin warm and dry. Normal skin color. Normal skin turgor. Extremities: No lower extremity edema. No Lacerations. No Rash Neuro: Oriented X 3. No motor deficit. No sensory deficit. Moving all extremities. No slurred speech. CN 2 through 12 grossly intact Psych: calm, cooperative, normal affect Vital Signs: Vital Signs: Last Vital Signs Temp 98.3 F 04/13/25 19:38 Pulse 71 04/13/25 19:38 Resp 18 04/13/25 19:38 BP 111/53 L 04/13/25 19:38 Pulse Ox 95 04/13/25 19:38 O2 Del Method Room Air 04/13/25 19:38 BMI result Body Mass Index 29.4 Medical Decision Making Medical Decision Making [facility] Narrative: My interpretation of labs: No significant abnormality patient's hematology, patient has chronic leukocytosis baseline, signs of infection. Normal chemistry, urinalysis negative for UTI. Chest x-ray negative for any rib fractures. Differential Diagnosis Differential Diagnoses: The differential diagnosis associated with the presentation includes (Anxiety, depression) Lab Data [facility] Lab Attestation statement: I reviewed the patient's lab results. 04/13/25 19:35 04/13/25 19:35 Labs: Lab Results 04/13/25 Range/Units 19:35 WBC 15.2 H (4.8-10.8) X10*3/uL RBC 4.98 (4.20-5.50) X10*6/uL Hgb 14.5 (12.0-16.0) g/dl Hct 43.3 (37.0-47.0) % MCV 86.9 (80.0-98.0) fL MCH 29.1 (27.0-33.0) pg MCHC 33.5 (31.0-35.0) g/dl RDW 12.5 (11.0-16.0) % Plt Count 356 (160-400) X10*3/uL MPV 10.3 (9.4-12.3) fL Immature Gran % (Auto) 0.5 H (0.0-0.4) % Neut % (Auto) 59.6 (45-73) % Lymph % (Auto) 29.1 (20-40) % [place] % (Auto) 9.1 (2-11) % Eos % (Auto) 1.2 (0-4) % Baso % (Auto) 0.5 (0-2) % Lymph # (Auto) 4.4 (1.2-4.9) X10*3/uL [place] # (Auto) 1.4 H (0.1-1.2) X10*3/uL Eos # (Auto) 0.2 (0.0-0.4) X10*3/uL Baso # (Auto) 0.1 (0.0-0.2) X10*3/uL Abs Immat Gran (auto) 0.07 H (0.00-0.03) X10*3/uL Absolute Neuts (auto) 9.1 H (2.0-8.3) x10*3/uL Absolute Nucleated RBC 0.000 (0.0-0.012) X10*3/uL Nucleated RBC % (auto) 0.0 (0.0-0.2) /100WBC Sodium 142 (135-145) mmol/L Potassium 3.8 (3.3-5.1) mmol/L Chloride 107 (96-108) mmol/L Carbon Dioxide 26 (22-29) mmol/L Anion Gap 13 (12-20) BUN 11 (9-16) mg/dL Creatinine 0.63 (0.5-1.4) mg/dL Estim Creat Clear Calc 120.3 Estimated GFR > 60 Random Glucose 127 H (60-115) mg/dL Calcium 9.4 (8.4-10.2) mg/dL Total Bilirubin 0.2 (0.0-1.0) mg/dL AST 17 (5-31) U/L ALT 17 (0-31) U/L Alkaline Phosphatase 78 (39-117) U/L Total Protein 7.9 (6.5-8.0) g/dL Albumin 4.7 (3.5-5.0) g/dL Urine Color Yellow Urine Appearance Clear Urine pH 6.0 (5.0-9.0) Ur Specific [place] <= 1.005 (1.005-1.025) Urine Protein Negative (Neg-Trace) mg/dL Urine Glucose (UA) Negative (Negative) mg/dL Urine Ketones Negative (Negative) mg/dL Urine Blood Negative (Negative) Urine Nitrite Negative (Negative) Ur Leukocyte Esterase Negative (Negative) Urine RBC 0-2 (0-2) /HPF Urine WBC 0-5 (0-5) /HPF Ur Squamous Epith Cells 0-2 (0-2) /HPF Urine Bacteria None Seen (None Seen) Hyaline Casts 0-2 (0-2) /LPF Discharge Plan Discharge Clinical Impression: Anxiety Patient Disposition: Home, Self-Care Instructions: Anxiety (ED) Additional Instructions: Please follow-up with your primary care physician tomorrow. If you have any worsening or new symptoms, please return to the emergency room or call 911 Prescriptions: New hydroxyzine HCl 25 mg tablet 25 mg PO TID PRN (Reason: nausea and vomiting) Qty: 14 0RF Rx Instructions: PRN anxiety No Action pantoprazole 20 mg tablet,delayed release (DR/EC) 20 mg PO BID 90 Days Qty: 0 0RF simvastatin 20 mg tablet 20 mg PO BEDTIME metformin 500 mg tablet extended release 24 hr 500 mg PO QPM (DME) blood-glucose meter [FreeStyle Lite Meter] Kit See Rx Instructions .ROUTE .MEDSUPPLY Qty: 1 Rx Instructions: As directed vitamin B complex Capsule 1 cap PO DAILY cholecalciferol (vitamin D3) 25 mcg (1,000 unit) tablet 25 mcg PO DAILY gabapentin 100 mg capsule PO acetaminophen 500 mg tablet 500 mg PO Q6H PRN (Reason: mild pain) lisinopril 10 mg tablet 10 mg PO DAILY betamethasone dipropionate 0.05 % ointment topical clonidine HCl 0.1 mg tablet 0.1 mg PO BEDTIME PRN (Reason: anxiety) fluticasone propionate 50 mcg/actuation spray,suspension 2 spray intranasal DAILY aripiprazole 5 mg tablet 5 mg PO DAILY mirtazapine 7.5 mg tablet 7.5 mg PO BEDTIME loperamide [Imodium A-D] 2 mg capsule 2 mg PO BID PRN (Reason: loose stool) 90 Days Qty: 180 0RF Print Language: Spanish
[2025-04-13 21:28] VITALS: BP 104/54; PULSE 64; TEMP 36.6; O2SAT 96
[2025-04-13 21:30] VITALS: BP 104/54; PULSE 64; RESP 16; TEMP 36.6; O2SAT 96
== END 2025-04-13 21:32 | disposition home or self-care (01) ==
PROVIDERS: Emergency Provider Emergency Medicine; PCP Internal Medicine
DX: F41.9 Anxiety disorder, unspecified (principal); I10 Essential (primary) hypertension; E11.9 Type 2 diabetes mellitus without complications; E78.00 Pure hypercholesterolemia, unspecified; J45.909 Unspecified asthma, uncomplicated; R07.89 Other chest pain; Z91.81 History of falling; F17.200 Nicotine dependence, unspecified, uncomplicated; Z71.6 Tobacco abuse counseling; Z79.899 Other long term (current) drug therapy; Z76.0 Encounter for issue of repeat prescription
CPT/HCPCS: 36415; 71101; 80053; 81001; 85025; 99283

== ENCOUNTER → 2025-04-13 20:05 | Outpatient (BNV) | payer OTHER, SELFPAY | PROVIDERS: PCP Internal Medicine; Visit Provider Student in an Organized Health Care Education/Training Program | DX: R07.81 Pleurodynia (principal); W18.30XA Fall on same level, unspecified, initial encounter | CPT/HCPCS: 71101 ==

== ENCOUNTER 2025-05-06 08:23 | Outpatient (AMB) | payer OTHER, SELFPAY ==
--- OUTSIDE RECORDS SUMMARY | 2020-10-12 13:15 | XMS_ITS | Continuity of Care Document ---
[facility] Address [address] [place] [address] Phone Care Team Providers Care Textiles Printer Name Role Phone Luigi KERR, Letha Unavailable Unavailab le Procedures Procedure Date ADM SARSCOV2 100MCG/0.5ML2ND SARSCOV2 VAC 100MCG/0.5ML IM Advance Directives Directive Yes / No Effective Date File Name No Information Encounters Encounter Description Practice Location Reason(s) For Visit Diagnoses Date Provider Encounter Disposition [facility], [address] [place] [address], [facility], tel:[phone] [facility] Encounter for immunization 1 Luigi Monae. [address] [place] [address], [id number], [address] [place] [address]. tel:[phone] Family History Family Member Type Diagnosis Age At Onset No Information Immunizations Vaccine Date Status Comments COVID-19 Moderna 100mcg/0.5ml Pres Free Vaccine administered Note: EUA form given to patient and discussed with RN since first time patient has been here. Pt has Covid Vaccination Record and rec'd 1st vaccine already at another location, documentation noted. 2nd vaccine given by Nicole Bartholomew RN ; Source: New Immunization Record Payers Payer name Insurance type Identifiers Authorization(s) Com ments COVID19 HRSA Uninsured Fund CI chela ID: [id number] Name: Coverage Status Eligibility Check on: UnknownRelationship to Subscriber: selfPayer Address: [facility] [address], [employer], [place], [place], [id number], [place]Payer Phone: Social History Type Description Quantity Date Captured Comments Sex Female Smoking Status No Information Current Gender Female (finding) Chief Complaint And Reason For Visit No Information History Of Present Illness Encounter Date Complaint History Of Prese nt Illness No Information Functional Status Date Description Comments No Information Instructions Date Instruction Additional Infor mation No Information Assessments Type Assessment Date No Information
--- OUTSIDE RECORDS SUMMARY | 2020-10-12 13:15 | XMS_ITS | Continuity of Care Document ---
[facility] Organization [facility] Address [address] [place] [address] Phone Care Team Providers Care Contract Administration Manager Name Role Phone Luigi KERR, Letha Unavailable Unavailab le Procedures Procedure Date ADM SARSCOV2 100MCG/0.5ML2ND SARSCOV2 VAC 100MCG/0.5ML IM Advance Directives Directive Yes / No Effective Date File Name No Information Encounters Encounter Description Practice Location Reason(s) For Visit Diagnoses Date Provider Encounter Disposition [facility], [address] [place] [address], [facility]note 2], tel:[phone] [facility] Encounter for immunization 1 Luigi Monae. [address] [place] [address], [id number], [address] [place] [address]. tel:[phone] Family History Family Member Type Diagnosis Age [...] COVID19 HRSA Uninsured Fund CI chela ID: [id number] Name: Coverage Status Eligibility Check on: UnknownRelationship to Subscriber: selfPayer Address: [facility] [address], [employer], [place], [place], [id number], [place]Payer Phone: Social History Type Description Quantity [...]
--- NOTE | 2025-05-06 08:27 | AM.OFFVISNUR ---
Intake Visit Reasons: H PYLORI Intake Note: Patient presents for collection of?H Pylori?breath test. Patient has been fasting for 1 hour (nothing to eat, drink, no chewing gum or smoking) has not taken any antacid medication for at least 2 weeks and has no allergies to artificial sweeteners.? Glass Worker Required: No Accompanied by: Self / Same As Patient Allergies ampicillin (AMPICILLIN) Allergy (Unknown, Verified 05/06/25 08:27) RASH Ampicillin Allergy (Unknown, Uncoded 04/13/25 19:13) rash Nursing Note Patient presents for collection of?H Pylori?breath test. Patient has been fasting for 1 hour (nothing to eat, drink, no chewing gum or smoking) has not taken any antacid medication for at least 2 weeks and has no allergies to artificial sweeteners.? Assessment & Plan Assessment & Plan (1) GERD (gastroesophageal reflux disease): Code(s): K21.9 - Gastro-esophageal reflux disease without esophagitis Category: Medical (2) Chronic diarrhea: Code(s): K52.9 - Noninfective gastroenteritis and colitis, unspecified Category: Medical Plan Patient presents for collection of?H Pylori?breath test. Patient has been fasting for 1 hour (nothing to eat, drink, no chewing gum or smoking) has not taken any antacid medication for at least 2 weeks and has no allergies to artificial sweeteners.???This test checks for an overgrowth of bacteria in your stomach. We all have bacteria but some may have more than others. It is treatable. if the test comes back negative there is nothing else to do. If the test result is positive we will treat you with 2 antibiotics and a medication to decrease the acid in your stomach (PPI) for 2 weeks. Two weeks after you have completed the treatment we will retest you to make sure the overgrowth has resolved. Patient Instructions: Process for specimen collection and reason for testing was explained to the patient. Specimen collection. Patient instructed to take a deep breath and then exhale into the blue bag, filling it up as much as possible. Patient instructed to drink a mixture of water and the artificial sweetener with a straw. A 15 minute wait period was observed. Patient instructed to take a deep breath and then exhale into the pink bag, filling it up as much as possible.?? Coding Level of Care Code Established Pt Est Pt Level 1 (60222) Patient Type Established Diagnoses GERD (gastroesophageal reflux disease) K21.9 Chronic diarrhea K52.9
--- OUTSIDE RECORDS SUMMARY | 2025-05-06 09:01 | XMS_ITS | Encounter Summary ---
Author Organization [employer] Address [address] [place] [address] [address] [place] [address] Care Team Providers Care Activity Assistant Name Role Phone Eliel Stoddard MD Primary Care Provider [phone] Encounter Details Date Type Department Care Team (Late st Contact Info) Description 04/17/2023 Abstract [facility] [address] [place], [place] [phone] Karla Slaughter Social History Tobacco Use Types [...] on filedocumented in this encounter Care Teams Activity Assistant Relationship Specialty Start Date End Date Eliel Stoddard MD [address] [place] [id number] PCP - General Internal Medicine 06/17/18 documented as of this encounter
--- OUTSIDE RECORDS SUMMARY | 2025-05-06 09:01 | XMS_ITS | Encounter Summary ---
Author Organization [employer] Address [address] [place] [address] [address] [place] [address] Care Team Providers Care Pizza Hut Assistant Name Role Phone Eliel Stoddard MD Primary Care Provider [phone] Encounter Details Date Type Department Care Team (Late st Contact Info) Description 11/08/2023 Orders Only [facility] [address] [place], [place] [phone] Provider, MD Jahaira Social History Tobacco Use [...] on filedocumented in this encounter Care Teams Pizza [employer] Assistant Relationship Specialty Start Date End Date Eliel Stoddard MD [address] [place] [id number] PCP - General Internal Medicine 06/17/18 documented as of this encounter
--- OUTSIDE RECORDS SUMMARY | 2025-05-06 09:01 | XMS_ITS | Data Portability ---
Author Organization [employer], [facility] Address [address] [place] [address] Care Team Providers Care Cutter Plastics Rolls Name Role Phone Unavailable Referring Provider HIM CCA OTHER Assessment Encounter Date Assessment Date Assessment LastModified by Organization Details LastModified Time 09/03/2022 09/03/2022 I have reviewed and agree with the assessment and plan as documented by the filling technician. I provided real time medical direction for this encounter and was immediately available to provide additional phone based assistance as needed. History as noted by filling technician. Pt with history of DM. She no [...] in the field was performed by my filling technician colleague, as noted above, I provided real-time [...] toradol, reglan, benadryl and IVF but otherwise assistant corporation counsel on PCP follow up. Impression: migraine Plan: [...] new neurologic change, fever, or worsening headache. [email or web address] Not available 01/19/2024 19:27:55 Plan of Treatment Reminders Order Date Submit Date Provider Last Modified By Organization Details Last Modified Time Details Appointments None recorded. Lab culture, urine 2022 023 [place] [facility] (Centralized Electronic Ordering - All Locations), Patient Can Go To The Location Of Their Choice, [id number] 3 12:54:26 urinalysis, dipstick 2022 023 [facility] - [facility], [address] [place] [address], [id number] 3 16:56:33 Referral None recorded. Procedures None recorded. Surgeries None recorded. Imaging None recorded. Medication Orders metoclopram saturnino 5 mg/mL injection solution 2023 024 [email or web address]463, [address] [place] [address], [id number], 4 19:26:55 ketorolac 30 mg/mL injection solution 2023 024 [email or web address] [facility] #41108, [address] [place] [address], [id number], 4 19:26:55 diphenhydra mine 50 mg/mL injection solution 2023 024 [email or web address] [facility] #01324, [address] [place] [address], [id number], 4 19:26:55 sodium chloride 0.9 % intravenous solution 2023 024 [email or web address] [facility] #58154, [address] [place] [address], [id number], 4 19:26:55 magnesium sulfate 2 gram/50 mL in 0.9 % sodium chloride IV piggyback 2023 024 [email or web address] [facility] #76220, [address] [place] [address], [id number], 4 19:26:55 tamsulosin 0.4 mg capsule 2022 023 [facility] #43856, [address] [place] [address], [id number], 3 21:22:44 doxycycline hyclate 100 mg tablet 2022 023 [facility] #31937, [address] [place] [address], [id number], 3 12:49:47 doxycycline hyclate 100 mg tablet 2022 023 [email or web address] Not available 12:49:39 Patient TargetsNo targets recorded. Patient InstructionsNo instructions recorded. Reason for Referral None Reported. Results Created Date Observation Date Name Description Value Unit Range Abnormal Flag Note LastModifiedBy Organization Detail LastModifiedTime 09/04/19 23 09/03/2022 urina lysis , dipst ick Leukocytes negati ve Not Available Main - [facility] ed [address] [place] [address], [address] [place] [address] 09/03/2022 16:55:11 09/04/19 23 09/03/2022 urina lysis , dipst ick Nitrite negati ve Not Available [facility] - [facility] ed [address] [place] [address], [address] [place] [address] 09/03/2022 16:55:11 09/04/19 23 09/03/2022 urina lysis , dipst ick Blood negati ve Not Available [facility] - [facility] ed [address] [place] [address], [address] [place] [address] 09/03/2022 16:55:11 09/04/19 23 09/03/2022 urina lysis , dipst ick Glucose negati ve Not Available Main - [facility] ed [address] [place] [address], [phone] 09/03/2022 16:55:11 12/23/19 23 12/22/2022 URINE CULTU [...] Avai lable Vitals Date Recorded Oxygen saturation Respiratory rate Body weight Heart rate Body temperature Oxygen saturation Respiratory rate Body temperature Heart rate Body weight Systolic And Diastolic Systolic And Diastolic Provider Name and Address Organization Details Last Updated DateTime 3 99 % 18 /min 737840. 608 g 66 /min 97.5 [degF] 99 % 18 /min 97.5 [degF] 66 /min 584805. 608 g 110/54 mm[Hg] 110/54 mm[Hg] Not Available [facility] 3 17:07:05 Date Recorded Heart rate Body temperature Body weight Oxygen saturation Systolic And Diastolic Provider Name and Address Organization Details Last Updated DateTime 3 80 /min 97.7 [degF] 549113. 976 g 97 % 145/81 mm[Hg] Not Available [facility] 3 12:45:38 Date Recorded Respiratory rate Heart rate Oxygen saturation Body temperature Body height Body weight Systolic And Diastolic Provider Name and Address Organization Details Last Updated DateTime 4 16 /min 69 /min 100 % 97.8 [degF] 175.26 cm 70134.9 52 g 119/70 mm[Hg] Not Available [facility] 4 11:59:12 Date Recorded Body temperature Oxygen saturation Heart rate Respiratory rate Systolic And Diastolic Provider Name and Address Organization Details Last Updated DateTime 3 97.8 [degF] 98 % 67 /min 16 /min 139/80 mm[Hg] Not Available [facility] 3 21:07:31 Date Recorded Body weight Oxygen saturation Body height Body temperature Respiratory rate Heart rate Systolic And Diastolic Provider Name and Address Organization Details Last Updated DateTime 4 80446.4 g 100 % 177.8 cm 98.8 [degF] 16 /min 76 /min 154/72 mm[Hg] Not Available [facility] 4 17:08:33 Social History None recorded. Functional [...] 2458 Halima Orta MD Main - [facility] [address] [place] [phone] 12/15/2021 12:34:04 02/14/2022 11:31:08 Acute pelvic pain 037839508 R10.2 several days of R>L pelvic pain [...] 8680 James Platt MD Main - [facility] [address] [place] [phone] 09/03/2022 16:51:04 09/05/2022 09:22:46 Increased frequency of urination 293108373 R35.0 9885 Du Mcneil MD Main - [facility] [address] [place] [phone] 10/12/2022 12:45:32 10/15/2022 09:47:49 Boils of multiple sites 643453920 L02.92 57yo woman with history of multiple skin soft tissue infections presents with a focal skin infection of the stomach similar to prior episosdes. Previously this has responded to doxy. The lesion is draining on filling technician exam and my review of images.- Doxycyclin e 80152 Macey Corrales MD Main - [facility] [address] [place] [phone] 12/22/2022 20:58:54 12/24/2022 12:19:53 Flank pain 812566378 R10.9 Evaluation in the field was performed by my filling technician colleague, as noted above, I provided real-time [...] shortness of breath, cough, chest pain, fever. [id number] Tristin Segura MD Main - [facility] [address] [place] [phone] 11/13/2023 11:59:04 11/13/2023 15:12:52 Gastroparesis syndrome 443065880 K31.84 This 58-year-ol d female was recently diagnosed with gastropare sis but the medication ordered hasn't been effective. I suggested that she contact her PCP to make arrangemen ts for a GI referral. The patient agreed with this plan. [id number] Anthony Santiago MD Main - [facility] [address] [place] [phone] 01/19/2024 17:08:29 01/19/2024 22:27:44 Migraine 41841897 G43.909 no alarm features or neurologic change. [...] Mondragon Member ID Guarantor Name 12/22/[address] [facility] - DOS PRIOR TO 2022 - DUAL ELIGIBLE (MEDICARE REPLACEMENT/AD VANTAGE - HMO) Alma Diego [id number] Alma Diego 01/19/[address] [facility] - DOS ON OR AFTER 2022 - DUAL ELIGIBLE - LONGTERM OPTIONS AND ONE CARE (MEDICARE REPLACEMENT/AD VANTAGE - HMO) Alma Diego [id number] Alma Diego Notes Date Note Type Note Provider Name and Address Organization Details Recorded Time 09/03/2022 text/html ROS as noted in the HPI This was a supervised home visit with filling technician Jet Grier. HPI: I v e been [...] ..................... ..................... ..................... ..................... ..................... ..................... ............... Pocket Grinder Operator Note From Jet Grier: Pt presents [...] ............... Disposition: Fulfilled James Platt MD [address] [facility],[address], [place], [phone], [employer] 09/03/2022 17:18:02 10/12/2022 text/html ROS as noted in the HPI HPI: ALLERGIC TO : AMPICILLIN HX: Chronic Hep C, Hidradenitis. DM, HTN Patient with reported boil on stomach. Now large painful and intact. No fever. ..................... ..................... ..................... ..................... ..................... ..................... ............... CRC Nursing Assessment: Comments: CRC RN DID NOT NEED FURTHER INFO Du Mcneil MD [address] [facility],[address], [place], [address], [employer] 10/12/2022 12:49:54 12/22/2022 text/html HPI: I m [...] ..................... ..................... ..................... ..................... ..................... ..................... ............... Pocket Grinder Operator Note From Jorgito Schwartz: PER CCA: [...] ..................... ............... Disposition: Fulfilled Macey Corrales MD [address] [place] [address],[address], [place], [address], [employer] 12/22/2022 21:50:36 11/13/2023 text/html ROS as noted [...] PCP appt last week. Tristin Segura MD [address] [place] [address],[address], [place], [address], [employer] 11/13/2023 12:02:46 01/19/2024 text/html CRC Nurse Triage Notes (Delfin Villagran): Reason For Request: neck pain/headaches Chief Complaints: Headache, Pain PMH: Diabetes, Hypertension Allergies: Unknown Comments: Resourcing Advisor verified the member's name//address and phone number. [...] ..................... ..................... ..................... ..................... ..................... ..................... ............... Pocket Grinder Operator Note From Aguila Baez: Pt reports [...] ............... Disposition: Fulfilled Anthony Santiago MD [address] [facility],[address], [place], [phone], [employer] 01/19/2024 19:28:08 OBGyn Episode No OBEpisode recorded.
--- OUTSIDE RECORDS SUMMARY | 2025-05-06 09:01 | XMS_ITS | Encounter Summary ---
Author Organization [employer] Address [address] [place] [address] [address] [place] [address] Care Team Providers Care Kettleman Name Role Phone Eliel Stoddard MD Primary Care Provider [phone] Reason for Visit * Reason Onset Date Comments Med Refill 10/19/2022 Encounter Details Date Type Department Care Team ([facility] st Contact Info) Description 10/19/[address] [facility] [address] [place], [place] [phone] Eliel Stoddard MD [address] [place] [address] Social History Tobacco Use Types Packs/Day Years [...] on filedocumented in this encounter Care Teams Kettleman Relationship Specialty Start Date End Date Eliel Stoddard MD [address] [place] [address] PCP - General Internal Medicine 06/17/18 documented as of this encounter
--- OUTSIDE RECORDS SUMMARY | 2025-05-06 09:01 | XMS_ITS | Encounter Summary ---
Author Organization [employer] Address [address] [place] [address] [address] [place] [address] Care Team Providers Care Auditing Coder Name Role Phone Eliel Stoddard MD Primary Care Provider [phone] Encounter Details Date Type Department Care Team ([facility] st Contact Info) Description 04/12/2023 Orders Only [facility] [address] [place], [place] [phone] Eliel Stoddard MD [address] [place] [address] Primary insomnia Social History Tobacco Use Types [...] the past 12 months, has t he [employer], oil or water company threatened to shut [...] sleep documented in this encounter Care Teams Auditing Coder Relationship Specialty Start Date End Date Eliel Stoddard MD [address] [place] [address] PCP - General Internal Medicine 06/17/18 documented as of this encounter
--- OUTSIDE RECORDS SUMMARY | 2025-05-06 09:01 | XMS_ITS | Data Portability ---
Author Organization [place] - [facility], Allergy Address [address] [place] [address] Care Team Providers Care Special Deputy Sheriff Name Role Phone OHME MELENDEZ Primary Care Provider [phone] Assessment Encounter Date Assessment Date Assessment LastModified [...] were discussed. We discussed the risk of nursing home perforation following tube extrusion, with possible need [...] longer present. [email or web address] Not available 11/23/2024 09:50:39 04/16/2025 04/16/2025 The left ear tube is in a good position and patent. The tube is expected to last approximately nine to eighteen months before falling out naturally. The patient will return in approximately six months for a tube check, which will not require a repeat hearing test. The follow-up visit will be conducted by a physician contract assistant and will be brief. The expectation is that the middle ear and ventilation will heal adequately after the tube falls out. [email or web address] Not available 04/16/2025 14:22:57 Plan of Treatment Reminders Order Date Submit Date Provider Last Modified By Organization Details Last Modified Time Details Appointments FOLLOW UP 15 2025 03:45P AJIT MONDRAGON Not available Not available Not available Lab None recorded. Referral None recorded. Procedures None recorded. Surgeries None recorded. Imaging None recorded. Medication Orders ofloxacin 0.3 % ear drops 2024 025 [id number], [address], [place], [phone], 04/16/2025 13:57:19 fluticaso ne propionat e 50 mcg/actua tion nasal spray,ketan pension 2024 025 [id number], [address], [place], [phone], 07/22/2024 10:46:49 Patient TargetsNo targets recorded. Patient Instructions Encounter Date Encounter Id Patient Instructions Last Modified By Organization Details Last Modified Time 04/16/2025 [id number] - Return in approximately six months for a tube check. [email or web address] Not available 04/16/2025 14:22:57 Please note: Par ts of this encounter note have been generated by AI based on audio conversation. Patient consent was required prior to utilizing this technology. Content review was required prior to finalizing the note. [email or web address] Not available 04/16/2025 14:22:57 Reason for Referral None Reported. Results Created Date Observation Date Name Description Value Unit Range Abnormal Flag Note LastModifiedBy Organization Detail LastModifiedTime 07/22/19 25 audio gram No observ ation record ed. BARCODE Not Available 2024 14:05:39 04/16/20 25 audio gram No observ ation record ed. BARCODE Not Available 2024 14:43:54 Result Notes None recorded. Problems Name Problem SNOMED Code Status Onset Date Resolution Date Notes Provider Name and Address Organization Details Recorded Time Snoring 35273226 Active 2013 Snoring; CMS Risk: low risk [facility] Treatment : new problem (to examiner) : additiona l workup planned C ondition: controlle d Note: Date Diagnosed : 4 4:13 PM (786.09) Not Available [facility] 4 02:51:56 Dysfuncti on of eustachia n tube 09153719 Active 2013 Eustachia n tube dysfuncti on; CMS Risk: low risk [facility] Treatment : establish ed problem (to examiner) : stable or improved Condition : controlle d Note: Date Diagnosed : 4 3:42 PM (381.81) Not Available [facility] 4 02:51:53 Sensorine ural hearing loss of bilateral ears 084336944 Active 2013 [facility] Bilateral ly; Note: Date Diagnosed : 4 3:42 PM (389.18) Not Available [facility] 4 02:51:52 Disorder of right Eustachia n tube 80465590964 49538 Active 2015 Other specified disorders of Eustachia n tube, right ear; Note: Date Diagnosed : 05/17/2016 5:16 PM (H69.81) Not Available [facility] 4 02:51:59 Otalgia of right ear 2274026352 Active 2016 Otalgia, right ear; Note: Date Diagnosed : 01/09/2017 5:09 PM (H92.01) Not Available [facility] 4 02:51:54 Bilateral disorder of Eustachia n tubes 68473454351 43537 Active 2016 Other specified disorders of Eustachia n tube, bilateral ; Note: Date Diagnosed : 01/09/2017 5:09 PM (H69.83) Not Available [facility] 4 02:51:54 Chronic serous otitis media of right ear 977071560 Active 2016 Chronic serous otitis media, right ear; Note: Date Diagnosed : 03/14/2017 12:14 PM (H65.21) Not Available [facility] 4 02:51:58 Bilateral tinnitus 12677976054 02 Active 2016 Tinnitus, bilateral ; Note: Date Diagnosed : 03/14/2017 12:12 PM (H93.13) Not Available [facility] 4 02:51:52 Follow-up visit Active 2016 Medical surveilla nce following completed treatment ; Note: Date Diagnosed : 7 10:46 AM (Z09) Not Available [facility] 4 02:51:57 Sensorine ural hearing loss in right ear 94375895128 100 Active 2017 Sensorine ural hearing loss, unilatera l, right ear, with restricte d hearing on the contralat eral side; Note: Date Diagnosed : 02/13/2018 3:14 PM (H90.A21) Not Available [facility] 4 02:51:55 Left conductiv e hearing loss 90449913051 07 Active 2017 Conductiv e hearing loss, unilatera l, left ear with restricte d hearing on the contralat eral side; Note: Date Diagnosed : 02/13/2018 3:14 PM (H90.A12) Not Available [facility] 4 02:51:59 Otorrhea of right ear 08808109392 60852 Active 2017 Otorrhea, right ear; Note: Date Diagnosed : 8 9:44 AM (H92.11) Not Available [facility] 4 02:51:53 Acute serous otitis media of right ear 74173305553 49964 Active 2017 Acute serous otitis media, right ear; Note: Date Diagnosed : 8 9:44 AM (H65.01) Not Available [facility] 4 02:51:58 Otalgia of left ear 1324108604 Active 2018 Otalgia, left ear; Note: Date Diagnosed : 07/22/2018 10:28 AM (H92.02) Not Available [facility] 4 02:51:59 Conductiv e hearing loss 34362910 Active 2018 Conductiv e hearing loss, unilatera l, right ear, with unrestric prasanna hearing on the contralat eral side; Note: Date Diagnosed : 03/14/2017 11:55 AM (H90.11) ; Start Date : 7 Conduct obed hearing loss, unilatera l, left ear, with unrestric prasanna hearing on the contralat eral side; Note: Date Diagnosed : 07/22/2018 10:33 AM (H90.12) Not Available [facility] 4 02:51:53 Acute serous otitis media of left ear 76579103796 42015 Active 2018 Acute serous otitis media, left ear; Note: Date Diagnosed : 07/22/2018 10:29 AM (H65.02) Acute serous otitis media, left ear; Note: Date Diagnosed : 03/18/2018 11:16 AM (H65.02) ; Start Date : 8 Not Available [facility] 4 02:51:55 Headache 53617087 Active 2018 Headache, unspecifi ed; Note: Changed from R51 to R51.9 ( 1 10:24 AM) , Date Diagnosed : 9 10:03 AM (R51) Not Available [facility] 4 02:51:54 Migraine without aura, not refractor y 688587580 Active 2018 Migraine without aura, not intractab le, without status migrainos us; Note: Date Diagnosed : 9 10:03 AM (G43.009) Not Available [facility] 4 02:51:56 Dizziness and giddiness 261144918 Active 2019 Dizziness and giddiness ; Note: Date Diagnosed : 09/28/2019 11:17 AM (R42) Not Available [facility] 4 02:51:58 Conductiv e hearing loss of right ear 2276054178 Active 2019 Conductiv e hearing loss, unilatera l, right ear with restricte d hearing on the contralat eral side; Note: Date Diagnosed : 09/30/2019 11:22 AM (H90.A11) Not Available [facility] 4 02:51:57 Sensorine ural hearing loss in left ear 63468469874 109 Active 2019 Sensorine ural hearing loss, unilatera l, left ear, with restricte d hearing on the contralat eral side; Note: Date Diagnosed : 09/30/2019 11:22 AM (H90.A22) Not Available [facility] 4 02:51:57 Otorrhea of left ear 67763539917 69557 Active 2020 Otorrhea, left ear; Note: Date Diagnosed : 08/01/2020 1:32 PM (H92.12) Not Available [facility] 4 02:51:52 Mixed conductiv e and 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 19045495178 107 Active 2020 Mixed conductiv e and sensorine ural hearing loss, unilatera l, left ear with restricte d hearing on the contralat eral side; Note: Date Diagnosed : 02/28/2021 2:24 PM (H90.A32) Not Available [facility] 4 02:51:55 Bilateral tympanic membrane central perforati on 16329294064 75516 Active 2021 Central perforati on of tympanic membrane, bilateral ; Note: Date Diagnosed : 02/08/2022 5:24 PM (H72.03) Not Available [facility] 4 02:51:55 Mixed conductiv e and sensorine ural hearing loss, bilateral 441916159 Active 2021 Mixed conductiv e and sensorine ural hearing loss, bilateral ; Note: Date Diagnosed : 02/08/2022 5:07 PM (H90.6) Not Available [facility] 4 02:51:56 Benign paroxysma l positiona l vertigo 104649340 Active 2022 Benign paroxysma l vertigo, left ear; Note: Date Diagnosed : 3 3:25 PM (H81.12) Not Available [facility] 4 02:51:57 Perforati on of right tympanic membrane 47994222839 07334 Active 2024 Everette moore [place] - [facility] 5 10:45:00 Disorder of left Eustachia n tube 08821084859 15166 Active 2024 CARROLL MCCORD MD [address] [place] [address],[place] [address], [facility] [place], [address] , [place] - [facility] 5 09:39:06 Sensorine ural hearing loss of bilateral ears 266351882 Active 2024 CHIDI HAHN AUD [address] [facility],[place] [address], [facility], [address] , [facility] - [facility] 5 13:50:43 Problem Notes None recorded. Procedures Surgical History Date Name Laterality Status Provider Name and Address Organization Details Recorded Time 5 Air & SRT/SAT Audio with Tymps - 88236, 19363 & 89610 completed CHIDI HAHN AUD [address] [facility],[place] [address], [place], [address], [facility] - [facility] 04/16/2025 13:50:32 5 Myringotomy w/Placement of Tube left completed CARROLL MCCORD MD [address] [facility],[address], [address], [facility] 11/25/2024 11:46:45 5 Nasopharyngosco py_DP completed CARROLL MCOCRD MD [address] [place] [address],[address], [address], [facility] - [facility] 10/13/2024 09:36:46 5 Comp Audio with Tymps - 70858 & 81465 completed CLAYTON GABRIEL [address] [facility],[address], [address], [facility] 07/22/2024 10:25:50 Imaging Results None recorded. Procedure Notes None recorded. Medical Equipment None Reported. Allergies Allergen ID Allergen Name Allergen Category Reaction Reaction Severity Criticality Documentation Date Start Date Code Code System Note Provider Name and Address Organization Details Recorded Time 48592 amoxicill in medicatio n other Not available Not available 10/29/2023 723 RxNorm React ion: unkno wn, unspe cifie d;; Not Available [facility] 4 00:48:32 Medications Name Sig [...] mg capsule 09/29 completed Medicati on ID: [id number] Flash rosen By Name: Sheriwn manjarrez MD Brand Name: doxycycl ine hyclate [...] mg tablet 11/25 completed Medicati on ID: [id number] B rand Name: tizanidi ne Send Method: [...] 3 drop 06/03 completed Medicati on ID: [id number] D uration Value: 7 Brand Name: ofloxaci [...] mg tablet 02/08 completed Medicati on ID: [id number] D uration Value: 30 Brand Name: sumatrip macedo succinat e Send Method: E-Prescr ibed Sub s Allowed: subs OK Medic ationGen ericName : sumatrip macedo succinat e Not Available Not Available Not Available topiramat e 25 mg tablet 02/08 completed Medicati on ID: [id number] D uration Value: 30 Brand Name: topirama te Send Method: E-Prescr ibed Sub s Allowed: subs OK Medic ationGen ericName : topirama te Not Available Not Available Not Available amlodipin e 5 mg tablet active Medicati on ID: 524658 B rand Name: amlodipi ne Send Method: E-Prescr ibed Sub s Allowed: subs OK [facility] : amlodipi ne Not Available Not Available Not Available sulfameth oxazole 800 mg-trimet hoprim 160 mg tablet TAKE 1 TABLET BY MOUTH TWICE DAILY FOR 3 DAYS active Not Available Not Available No t Available aspirin 81 mg tablet,de layed release 10/13 completed Medicati on ID: [id number] B rand Name: aspirin Send Method: E-Prescr ibed Sub s Allowed: subs OK [facility] : aspirin Not Available Not Available [...] AFFECTED EAR TWICE DAILY FOR 3 DAYS 04/16 completed Not Available Not Available Not Available amitripty [...] ation Value: 30 Reason: () Brand Name: amanda zil Send Method: E-Prescr ibed Sub s [...] mg tablet 11/25 completed Medicati on ID: [id number] B rand Name: lisinopr il Send Method: [...] mg tablet 11/25 completed Medicati on ID: [id number] B rand Name: ibuprofe n Send Method: [...] mg tablet 11/25 completed Medicati on ID: [id number] B rand Name: naproxen Send Method: E-Prescr ibed Sub s Allowed: subs OK Medic ationGen ericName : naproxen Not Available Not Available Not Available vitamin B complex capsule TAKE 1 CAPSULE BY MOUTH DAILY active Not Available Not Available No t Available simethico ne 80 mg chewable tablet CHEW AND SWALLOW 1 TABLET BY MOUTH EVERY 6 HOURS NEEDED FOR FLATULEN CE 04/16 completed Not Available Not Available Not Available hydroxyzi ne pamoate 25 mg capsule TAKE 1 CAPSULE BY MOUTH THREE TIMES DAILY NEEDED FOR ANXIETY active Not Available Not Available No t Available TobraDex 0.3 %-0.1 % eye drops,ketan pension 5 as directed 11/25 completed Medicati on ID: [id number] D uration Value: 30 Prescri bed By [...] ntoin monohydra te/macroc rystals 100 mg capsule 04/16 completed Not Available Not Available Not Available chlorhexi [...] BEGINNIN G THE DAY BEFORE PROCEDUR E 04/16 completed Not Available Not Available Not Available FreeStyle Lite Meter kit USE DIRECTED [...] Updated DateTime 07/22/2024 177.8 cm 30.1 kg/m2 87520.4 g Reshma Fry [place] - [facility] 07/22/2024 10:37:16 Date Recorded Body height Provider Name an d Address Organization Details Last Updated DateTime 10/13/2024 177.8 cm [facility] [place] - [facility] 10/13/2024 09:16:13 Date Recorded Body height Provider Name an d Address Organization Details Last Updated DateTime 11/25/2024 177.8 cm [facility] [place] - [facility] 11/25/2024 11:00:19 Date Recorded Body height Provider Name an d Address Organization Details Last Updated DateTime 04/16/2025 177.8 cm [facility] [place] - [facility] 04/16/2025 13:56:24 Social History None recorded. Functional Status None recorded. Mental Status None recorded. Family History Nothing Reported. Medical History Condition Response Tonsil Infections N Emphysema N Glaucoma N Depression Y COPD N Nasal or Sinus Problems Y Anesthesia Complications N Arthritis Y Hearing Loss Y Cancer N Stroke N High Cholesterol Y Liver Disease N Headaches Y Fibromyalgia N Speech Delay N Kidney Disease N Allergies/Hayfever Y Heart Problems N Anxiety Y Migraines Y Thyroid Problems N Developmental Delay N Anemia N Immune System Disorder N Heart Attack ([place]) N Other Skin Condition Y Diabetes Y Rhinitis Y Bleeding Disorder N Food Allergy Y Hyperlipidemia N Dementia N Nasal polyps N Asthma N Sleep Disorder Y GERD/Reflux Y Hypertension Y Gynecological HistoryNo gynecological history recorded. Obstetrics History GPAL:G 0 P 0 0 0 0 Past Encounters Encounter ID Performer Location Encounter Start Date Encounter Closed Date Diagnosis/Indication Diagnosis SNOMED-CT Code Diagnosis ICD10 Code Diagnosis IMO Codes Diagnosis Note [id number] EVERETTE JUARES PA-C [facility] [address] [address] 07/22/2024 09:47:01 07/22/2024 10:50:07 Mixed conductive and sensorineural hearing loss, bilateral 516535528 H90.6 Audiologic al evaluation results: Right ear: Normal sloping to moderately severe mixed hearing loss with excellent word recognitio n. Left ear: Mild sloping to severe mixed hearing loss with excellent word recognitio n. Tympanomet ry: Right Ear:Type B with large volume Left Ear:Type B with large volume Acute sero us otitis media of left ear 8416295959 413425 H65.02 Bilateral disorder of Eustachian tubes 3921312694 884517 H69.83 Bilateral tinnitus 90990 82498 102 H93.13 Perforatio n of right tympanic membrane 6050582670 418718 H72.91 [id number] CARROLL MCCORD MD [facility] [address] [address] 10/13/2024 08:59:49 10/13/2024 09:38:03 Dizziness and giddiness 867921680 R42 Disorder o f left Eustachian tube 7629846374 607642 H69.92 [id number] CARROLL MCCORD MD [facility] [address] [address] 11/25/2024 10:52:28 11/25/2024 11:58:36 Disorder of left Eustachian tube 5059402913 313901 H69.92 [id number] CARROLL MCCORD MD [facility] [address] [address] 04/16/2025 13:30:40 04/16/2025 14:31:12 Sensorineural hearing loss of bilateral ears 962157846 H90.3 [id number] Left Ear:Normal hearing sloping to a moderate HF SNHL.Paten t tube. Health Concerns Section Related Observation LastModified by Organization Detai ls LastModified Time None Recorded Concern Status LastModified by Organization Details LastModified Time None Recorded Advance Directives Directive None Recorded Payers Insurance Date Sequence Insurance Name Policy Number Policy Mondragon Covered Member ID Mondragon Member ID Guarantor Name 04/13/2025 1 [facility] - DOS ON OR AFTER 2022 - MEDICARE [place]VANTAGE [place] (MEDICARE REPLACEMENT/AD VANTAGE - PPO) Alma Rodriguez [id number] Alma Rodriguez 04/15/2025 2 [facility] () Alma Rodriguez [id number] Alma Rodriguez Notes Date Note Type Note [...] recently over the fall. CARROLL MCCORD MD [address] [place] [address], [phone], [facility] - [facility] 07/22/2024 17:35:06 10/13/2024 text/html ROS as noted in the HPI left side decreased hearingdescribes some imbalance when turningthe use of flonase daily with no improvementtobacco - 1/2ppd 05/02/17 Geovany HANDLEY, Right myringotomy with tube PV 11/08 Everette - right pinpoint TM perf, left serous effusion. rx flonaseAudio:Right ear: Normal sloping to moderately severe mixed hearing loss with excellent word recognition.Left ear: Mild sloping to severe mixed hearing loss with excellent word recognition. CARROLL MCCORD MD [address] [facility], [place], [address], [facility] 10/13/2024 09:39:43 11/25/2024 text/html ROS as noted in the HPI requests Left PET left side decreased hearingdescribes some imbalance when turningthe use of flonase daily with no improvementtobacco - pd 05/02/17 Geovany HANDLEY, Right myringotomy with tube PV /11/08 Everette - right pinpoint TM perf, left serous effusion. rx flonaseAudio:Right ear: Normal sloping to moderately severe mixed hearing loss with excellent word recognition.Left ear: Mild sloping to severe mixed hearing loss with excellent word recognition. PV 10/13/24 [place] nasopharynx exam benign CARROLL MCCORD MD [address] [facility], [place], [address], [facility] 11/25/2024 11:47:23 04/16/2025 text/html ROS as noted in the HPI Left PET check tobacco - pd 05/02/17 Geovany HANDLEY, Right myringotomy with tube PV /11/08 Everette - right pinpoint TM perf, left serous effusion. rx flonase Audio: Right ear: Normal sloping to moderately severe mixed hearing loss with excellent word recognition. Left ear: Mild sloping to severe mixed hearing loss with excellent word recognition. PV 10/13/24 [place] nasopharynx exam benign 11/25/24 [place], Left PET Alma Rodriguez is a 59-year-old female who presents for left ear evaluation. A left ear tube was placed in November, and hearing levels have improved compared to a hearing test conducted in July. The patient has a history of prior ear tubes, including bilateral placement in the past. The current tube is noted to be temporary, with an expected duration of nine to eighteen months before falling out naturally. CARROLL MCCORD MD [address] [place] [address], [phone], [facility] - [facility] 04/16/2025 14:24:22 OBGyn Episode No OBEpisode recorded.
--- OUTSIDE RECORDS SUMMARY | 2025-05-06 09:02 | XMS_ITS | Encounter Summary ---
Author Organization [employer] Address [address] [place] [address] [address] [place] [address] Care Team Providers Care Tyre Retreader Name Role Phone Eliel Stoddard MD Primary Care Provider [phone] Reason for Visit * Reason Comments Med Refill Encounter Details Date Type Department Care Team ([facility] Contact Info) Description 06/28/2023 Refill [facility] [address] [place], [place] [phone] Eliel Stoddard MD [address] [place] [address] Social History Tobacco Use Types Packs/Day Years [...] on filedocumented in this encounter Care Teams Tyre Retreader Relationship Specialty Start Date End Date Eliel Stoddard MD [address] [place] [id number] PCP - General Internal Medicine 06/17/18 documented as of this encounter
--- OUTSIDE RECORDS SUMMARY | 2025-05-06 09:02 | XMS_ITS | Continuity of Care Document ---
Author Organization [place] - [facility], [facility] Address [address] [place] [phone] Care Team Providers Care Project Program Manager Name Role Phone HOME MELENDEZ Primary Care Provider Assessment Encounter Date Assessment Date Assessment LastModified by Organization Details LastModified Time 04/16/2025 04/16/2025 The left ear tube is in a good position and patent. The tube is expected to last approximately nine to eighteen months before falling out naturally. The patient will return in approximately six months for a tube check, which will not require a repeat hearing test. The follow-up visit will be conducted by a physician marketing assistant retail division and will be brief. The expectation is that the middle ear and ventilation will heal adequately after the tube falls out. [email or web address] Not available 04/16/2025 14:22:57 Plan of Treatment Reminders Order Date Submit Date Provider Last Modified By Organization Details Last Modified Time Details Appointments FOLLOW UP 15 2025 03:45P AJIT MONDRAGON Not available Not available Not available Lab None recorded . Referral None recorded . Procedures None recorded . Surgeries None recorded . Imaging None recorded . Medication Orders None recorded . Patient TargetsNo targets recorded. Patient Instructions Encounter Date Encounter Id Patient Instructions Last Modified By Organization Details Last Modified Time 04/16/2025 [id number] - Return in approximately six months for [...] Abnormal Flag Note LastModifiedBy Organization Detail LastModifiedTime 04/16/20 25 audio gram No observ ation record ed. BARCODE Not Available 2024 14:43:54 Result Notes None recorded. Problems Name Problem SNOMED Code Status Onset Date Resolution Date Notes Provider Name and Address Organization Details Recorded Time Snoring 57448713 Active 2013 Snoring; CMS Risk: low risk [facility] Treatment : new problem (to examiner) : additiona l workup planned C ondition: controlle d Note: Date Diagnosed : 4 4:13 PM (786.09) Not Available [facility] 4 02:51:56 Dysfuncti on of eustachia n tube 50482113 Active 2013 Eustachia n tube dysfuncti on; CMS Risk: low risk [facility] Treatment : establish ed problem (to examiner) : stable or improved Condition : controlle d Note: Date Diagnosed : 4 3:42 PM (381.81) Not Available [facility] 4 02:51:53 Sensorine ural hearing loss of bilateral ears 849708393 Active 2013 SNHL Bilateral ly; Note: Date Diagnosed : 4 3:42 PM (389.18) Not Available [facility] 4 02:51:52 Disorder of right Eustachia n tube 31338378689 97003 Active 2015 Other specified disorders of Eustachia n tube, right ear; Note: Date Diagnosed : 05/17/2016 5:16 PM (H69.81) Not Available [facility] 4 02:51:59 Otalgia of right ear 6583936407 Active 2016 Otalgia, right ear; Note: Date Diagnosed : 01/09/2017 5:09 PM (H92.01) Not Available [facility] 4 02:51:54 Bilateral disorder of Eustachia n tubes 97648186337 52132 Active 2016 Other specified disorders of Eustachia n tube, bilateral ; Note: Date Diagnosed : 01/09/2017 5:09 PM (H69.83) Not Available [facility] 4 02:51:54 Chronic serous otitis media of right ear 005389528 Active 2016 Chronic serous otitis media, right ear; Note: Date Diagnosed : 03/14/2017 12:14 PM (H65.21) Not Available [facility] 4 02:51:58 Bilateral tinnitus 28767470985 02 Active 2016 Tinnitus, bilateral ; Note: Date Diagnosed : 03/14/2017 12:12 PM (H93.13) Not Available [facility] 4 02:51:52 Follow-up visit Active 2016 Medical surveilla nce following completed treatment ; Note: Date Diagnosed : 7 10:46 AM (Z09) Not Available [facility] 4 02:51:57 Sensorine ural hearing loss in right ear 09943415001 100 Active 2017 Sensorine ural hearing loss, unilatera l, right ear, with restricte d hearing on the contralat eral side; Note: Date Diagnosed : 02/13/2018 3:14 PM (H90.A21) Not Available [facility] 4 02:51:55 Left conductiv e hearing loss 53817566121 07 Active 2017 Conductiv e hearing loss, unilatera l, left ear with restricte d hearing on the contralat eral side; Note: Date Diagnosed : 02/13/2018 3:14 PM (H90.A12) Not Available [facility] 4 02:51:59 Otorrhea of right ear 81852156058 20458 Active 2017 Otorrhea, right ear; Note: Date Diagnosed : 8 9:44 AM (H92.11) Not Available [facility] 4 02:51:53 Acute serous otitis media of right ear 15515888943 07393 Active 2017 Acute serous otitis media, right ear; Note: Date Diagnosed : 8 9:44 AM (H65.01) Not Available [facility] 4 02:51:58 Otalgia of left ear 2982329722 Active 2018 Otalgia, left ear; Note: Date Diagnosed : 07/22/2018 10:28 AM (H92.02) Not Available [facility] 4 02:51:59 Conductiv e hearing loss 40494481 Active 2018 Conductiv e hearing loss, unilatera l, right ear, with unrestric prasanna hearing on the contralat eral side; Note: Date Diagnosed : 03/14/2017 11:55 AM (H90.11) ; Start Date : 7 Conduct obed hearing loss, unilatera l, left ear, with unrestric prasanna hearing on the contralat eral side; Note: Date Diagnosed : 07/22/2018 10:33 AM (H90.12) Not Available [facility] 4 02:51:53 Acute serous otitis media of left ear 59461099280 87480 Active 2018 Acute serous otitis media, left ear; Note: Date Diagnosed : 07/22/2018 10:29 AM (H65.02) Acute serous otitis media, left ear; Note: Date Diagnosed : 03/18/2018 11:16 AM (H65.02) ; Start Date : 8 Not Available [facility] 4 02:51:55 Headache 30304614 Active 2018 Headache, unspecifi ed; Note: Changed from R51 to R51.9 ( 1 10:24 AM) , Date Diagnosed : 9 10:03 AM (R51) Not Available [facility] 4 02:51:54 Migraine without aura, not refractor y 600745097 Active 2018 Migraine without aura, not intractab le, without status migrainos us; Note: Date Diagnosed : 9 10:03 AM (G43.009) Not Available [facility] 4 02:51:56 Dizziness and giddiness 771602370 Active 2019 Dizziness and giddiness ; Note: Date Diagnosed : 09/28/2019 11:17 AM (R42) Not Available [facility] 4 02:51:58 Conductiv e hearing loss of right ear 1915321020 Active 2019 Conductiv e hearing loss, unilatera l, right ear with restricte d hearing on the contralat eral side; Note: Date Diagnosed : 09/30/2019 11:22 AM (H90.A11) Not Available [facility] 4 02:51:57 Sensorine ural hearing loss in left ear 85188822912 109 Active 2019 Sensorine ural hearing loss, unilatera l, left ear, with restricte d hearing on the contralat eral side; Note: Date Diagnosed : 09/30/2019 11:22 AM (H90.A22) Not Available [facility] 4 02:51:57 Otorrhea of left ear 57773368793 40973 Active 2020 Otorrhea, left ear; Note: Date Diagnosed : 08/01/2020 1:32 PM (H92.12) Not Available [facility] 4 02:51:52 Mixed conductiv e and 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 00405594358 107 Active 2020 Mixed conductiv e and sensorine ural hearing loss, unilatera l, left ear with restricte d hearing on the contralat eral side; Note: Date Diagnosed : 02/28/2021 2:24 PM (H90.A32) Not Available [facility] 4 02:51:55 Bilateral tympanic membrane central perforati on 89813918245 30363 Active 2021 Central perforati on of tympanic membrane, bilateral ; Note: Date Diagnosed : 02/08/2022 5:24 PM (H72.03) Not Available [facility] 4 02:51:55 Mixed conductiv e and sensorine ural hearing loss, bilateral 296927984 Active 2021 Mixed conductiv e and sensorine ural hearing loss, bilateral ; Note: Date Diagnosed : 02/08/2022 5:07 PM (H90.6) Not Available [facility] 4 02:51:56 Benign paroxysma l positiona l vertigo 626305869 Active 2022 Benign paroxysma l vertigo, left ear; Note: Date Diagnosed : 3 3:25 PM (H81.12) Not Available [facility] 4 02:51:57 Perforati on of right tympanic membrane 28942109465 44373 Active 2024 Gabi moore, [place] - [facility] 10:45:00 Disorder of left Eustachia n tube 79807251937 65054 Active 2024 CARROLL MCCORD MD [address] [facility],[place] [address], [place], [phone] , [place] - [facility] 09:39:06 Sensorine ural hearing loss of bilateral ears 301630965 Active 2024 CHIDI HAHN AUD [address] [facility],[place] [address], [facility] [phone] , [facility] - [facility] 13:50:43 Problem Notes None recorded. Procedures Surgical History Date Name Laterality Status Provider Name and Address Organization Details Recorded Time 5 Air & SRT/SAT Audio with Tymps - 25781, 88482 & 09076 completed CLAYTON KIM [address] [place] [address],[address], [phone], [facility] - [facility] 04/16/2025 13:50:32 Myringotomy w/Placement of Tube left completed CARROLL MCCORD MD [address] [place] [address],[address], [phone], [facility] - [facility] 11/25/2024 11:46:45 Nasopharyngosco py_DP completed CARROLL MCCORD MD [address] [place] [address],[address], [phone], [facility] - [facility] 10/13/2024 09:36:46 Comp Audio with Tymps - 29871 & 93913 completed CLAYTON GABRIEL [address] [facility],[address], [phone], [facility] - [facility] 07/22/2024 10:25:50 Imaging Results None recorded. Procedure Notes None recorded. Medical Equipment None Reported. Allergies Allergen ID Allergen Name Allergen Category Reaction Reaction Severity Criticality Documentation Date Start Date Code Code System Note Provider Name and Address Organization Details Recorded Time 45394 amoxicill in medicatio n other Not available Not available 10/29/2023 723 RxNorm React ion: unkno wn, unspe dinahe d;; Not Available [facility] 4 00:48:32 Medications Name Sig Start Date [...] mg capsule 09/29 completed Medicati on ID: [id number] Flash rosen By Name: Sherwin manjarrez MD Brand Name: [...] mg tablet 11/25 completed Medicati on ID: [id number] B rand Name: tizanidi ne Send Method: [...] 3 drop 06/03 completed Medicati on ID: 132685 D uration Value: 7 Brand Name: ofloxaci [...] mg tablet 02/08 completed Medicati on ID: [id number] D uration Value: 30 Brand Name: sumatrip macedo succinat e Send Method: E-Prescr ibed Sub s Allowed: subs OK Medic ationGen ericName : sumatrip macedo succinat e Not Available Not Available Not Available topiramat e 25 mg tablet 02/08 completed Medicati on ID: [id number] D uration Value: 30 Brand Name: topirama te Send Method: E-Prescr ibed Sub s Allowed: subs OK Medic ationGen ericName : topirama te Not Available Not Available Not Available amlodipin e 5 mg tablet active Medicati on ID: 237716 B rand Name: amlodipi ne Send Method: E-Prescr ibed Sub s Allowed: subs OK Medic ationGen ericName : amlodipi ne Not Available Not Available Not Available sulfameth oxazole 800 mg-trimet hoprim 160 mg tablet TAKE 1 TABLET BY MOUTH TWICE DAILY FOR 3 DAYS active Not Available Not Available No t Available aspirin 81 mg tablet,de layed release 10/13 completed Medicati on ID: 348914 B rand Name: aspirin Send Method: E-Prescr [...] mg tablet 11/25 completed Medicati on ID: 903132 B rand Name: lisinopr il Send Method: [...] mg tablet 11/25 completed Medicati on ID: [id number] B rand Name: ibuprofe n Send Method: [...] mg tablet 11/25 completed Medicati on ID: [id number] B rand Name: naproxen Send Method: E-Prescr [...] as directed 11/25 completed Medicati on ID: [id number] D uration Value: 30 Prescri bed By [...] Details Last Updated DateTime 04/16/2025 177.8 cm EVA JUDE [place] - [facility] 04/16/2025 13:56:24 Social History None recorded. Functional [...] Disorder N Anesthesia Complications N Heart Attack ([place]) N Other Skin Condition Y Diabetes Y [...] ICD10 Code Diagnosis IMO Codes Diagnosis Note [id number] CARROLL MCCORD MD [facility] [address] [phone] 04/16/2025 13:30:40 04/16/2025 14:31:12 Sensorineural hearing loss of bilateral ears [id number] H90.3 12435385 Left Ear:Normal hearing sloping to a moderate HF SNHL.Paten t tube. Health Concerns Section Related Observation LastModified by Organization Detai ls LastModified Time None Recorded Concern Status LastModified by Organization Details LastModified Time None Recorded Payers Encounter Date Sequence Insurance Name Policy Number Policy Mondragon Covered Member ID Mondragon Member ID Guarantor Name 04/16/[address] [facility] - DOS ON OR AFTER 2022 - MEDICARE ADVANTAGE [place] (MEDICARE REPLACEMENT/AD VANTAGE - PPO) Alma Rodriguez [id number] Alma Rodriguez 04/16/2025 2 [facility] () Alma Rodriguez [id number] Alma Rodriguez Notes Date Note Type Note Provider Name and Address Organization Details Recorded Time 04/16/2025 text/html ROS as noted in the HPI Left PET check tobacco - /2ppd 05/02/17 [facility], [place], Right myringotomy with tube [...] before falling out naturally. CARROLL MCCORD MD [address] [place] [address], [phone], [facility] - [facility] 04/16/2025 14:24:22 OBGyn Episode No OBEpisode recorded.
--- OUTSIDE RECORDS SUMMARY | 2025-05-06 09:02 | XMS_ITS | Encounter Summary ---
Author Organization [employer] Address [address] [facility] [address] [place] [address] Care Team Providers Care Sheet Ironworker Name Role Phone Eliel Stoddard MD Primary Care Provider [phone] Encounter Details Date Type Department Care Team ([facility] st Contact Info) Description 04/20/2025 Telephone [facility] [address] [place] [address] Eliel Stoddard MD [address] [place], [place] [phone] Social History Tobacco Use Types Packs/Day Years [...] encounter Miscellaneous Notes * Telephone Encounter - Lissette Jacobsen - 04/20/2025 2:04 PM EST Tc from pt requesting to r/s appointment 04/20 ER follow up s/p anxiety [facility] 04/13/25 PHQ, Gad7, Flu transportation was [address] Jay documented in this encounter Plan of Treatment Not on file documented as of this encounter Visit Diagnoses Not on filedocumented in this encounter Additional Health Concerns Assessment Noted Time PHQ-9 Depression Total Score: 8 02/24/20 25 9:16 AM EDT documented as of this encounter Care Teams Sheet Ironworker Relationship Specialty Start Date End Date Eliel Stoddard MD [address] [place] [phone] PCP - General Internal Medicine 06/17/18 documented as of this encounter
--- OUTSIDE RECORDS SUMMARY | 2025-05-06 09:02 | XMS_ITS | Clinical Summary ---
Author Organization [employer] Address [address] [place] [address] [address] [place] [address] Care Team Providers Care Dry Cleaner Helper Name Role Phone Eliel Stoddard MD Primary Care Provider [phone] Allergies Active Allergy Reactions Criticality Noted Date [...] 2 diabetes mellitus without complication, unspecified whether shelter insulin use USE ONE STRIP TO CHECK BLOOD SUGAR TWICE DAILY 100 strip 11 4 Active venlafaxine (Effexor) 37.5 MG tabletIndications :Menopausal symptoms Take 1 tablet (37.5 mg) by mouth 2 times daily. 60 tablet 2 4 Active pantoprazole (Protonix) 20 MG EC [...] 2 diabetes mellitus without complication, unspecified whether ferry terminal agent insulin use USE ONE STRIP TO CHECK BLOOD SUGAR TWICE DAILY 100 strip 11 5 Active gabapentin (Neurontin) 100 MG capsuleIndication s:Diabetic peripheral neuropathy associated with type 2 diabetes mellitus (HCC) Take 2 capsules (200 mg) by mouth every 8 (eight) hours. 180 capsule 11 5 08/21/19 26 Active Blood Glucose Monitoring Suppl (Brightergy [place] Lite) w/Device kitIndications:Ty pe 2 diabetes mellitus with hypoglycemia without coma, without long-term current use of insulin ([facility]) Use to test blood sugar 1 times daily 1 kit 5 Active Acetaminophen Extra Strength 500 MG tablet TAKE 1 TABLET BY MOUTH EVERY 6 HOURS NEEDED FOR MILD PAIN 120 tablet 5 Active Diclofenac Sodium 1 % gelIndications:Mu scle spasm To apply to the affected area 3 times a day 100 g 5 Active simvastatin (Zocor) 20 MG tabletIndications :Type 2 diabetes mellitus with hypoglycemia without coma, without long-term current use of insulin ([facility]) TAKE 1 TABLET BY MOUTH EVERY DAY 90 tablet 1 5 Active B Complex Vitamins (Vitamin B Complex) capsuleIndication s:Encounter for screening mammogram for malignant neoplasm of breast,Tingling in extremities TAKE ONE CAPSULE BY MOUTH DAILY 90 each 5 Active LORazepam (Ativan) 1 MG tabletIndications :Claustrophobia 1 mg to take 30 minutes prior to the procedure. Make an additional 1 mg 30 minutes later if no effect. 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, may need further evaluation [...] Encounters Date Type Department Care Team Description 04/20/2025 Telephone [facility] [address] [place] [address] Eliel Stoddard MD 04/15/2025 Travel 04/14/2025 Telephone [facility] [address] [place] [address] Eliel Stoddard MD ER Follow-up 04/13/2025 Orders Only GENERIC EXTERNAL DATA DEPARTMENT Provider, Generic External Data 04/01/2025 Orders Only GENERIC EXTERNAL DATA DEPARTMENT Provider, Generic External Data 03/30/2025 Refill [facility] [address] [place] [address] Eliel Stoddard MD Type 2 diabetes mellitus with hypoglycemia without coma, without long-term current use of insulin ([facility]) 03/19/2025 Refill [facility] [address] [place] [address] Eliel Stoddard MD Primary hypertension 02/23/2025 9:00 AM EDT Office Visit [facility] [address] [place] [address] Eliel Stoddard MD Type 2 diabetes mellitus with hypoglycemia without coma, without long-term current use of insulin ([facility]) (Primary Dx); Primary hypertension; Claustrophobia; Hypercholesterolemia 02/23/2025 Travel 02/22/2025 Telephone [facility] [address] [place] [address] Eliel Stoddard MD Chart Prep 02/16/2025 Travel 02/04/2025 Orders Only [facility] External Provider, [facility] from Last 3 Months Immunizations Immunization Administration [...] of 2 - Risk 2-dose series) 1985 RSV Patients and Patients Aged 60 years or older (1 - Risk 50-74 years 1-dose series) 2016 IPV Vaccines (2 of 3 - Adult catch-up series) 07/21/2019 06/23/2019 Pap Smear 09/12/2024 09/12/2021 Lipid Panel 12/01/2024 12/02/2023, 03/23/2021 COVID-19 Vaccine ( season) 2025 04/01/2024, 05/03/2022, 05/04/2021, Additional history exists Influenza Vaccine (#1) 2025 , 02/27/2023, 02/23/2022, [...] 09/12/2026 09/12/2021, 08/12/2018 Eye Exam 11/27/2026 11/27/2024, 0608/2024, 11/27/2024, Additional history exists Colonoscopy 04/01/2030 02/05/2018 Colorectal Cancer Screening 04/01/2030 Meningococcal Vaccine Aged Out 05/26/2019 No reji clement eligible based on patient's age to complete this topic Zoster Vaccines Completed 01/28/2020, 05/26/2019 Hepatitis B Vaccines Completed 07/10/2021, 01/28/2020, 05/26/2019 HIV Screening Completed 12/21/2021 Pneumococcal Vaccine: 50+ Years Completed 12/02/2023, 07/19/2017 HIB Vaccines Aged Out No longer eligi [...] Name Priority Date/Time Associated Diagnosis Comments XR RIBS 3 VIEWS LEFT W CHEST Routine 04/13/2025 8:59 PM EDT URINALYSIS, COMPLETE, WITH REFLEX TO CULTURE Routine [...] use of insulin (CMS/HCC) POCT GLUCOSE Routine 02/23/2025 9:29 AM EDT [...] without long-term current use of insulin (CMS/HCC) LIPID PANEL, STANDARD Routine 12/02/2023 11:30 AM EDT Encounter for preventive care HIV 1/2 ANTIGEN/ANTIBODY, FOURTH GENERATION W/RFL Routine 12/21/2021 12:00 AM EDT THINPREP IMAGING PAP AND HPV MRNA E6/E7, WITH CT/NG, TRICHOMONAS Routine 09/12/2021 8:57 AM EDT HM COLONOSCOPY Routine 02/05/2018 from Last 3 Months or Most Recently Relevant to Health Maintenance Results * XR Ribs 3 Views Left w/ Chest (04/13/2025 8:59 PM EDT) Anatomical Region Laterality Modality Radiographic Vickie ging 04/13/2025 8:59 PM EDT Narrative 04/13/2025 9:01 PM EDT [address] [address] XRay Report Signed Patient: Alma Rodriguez MR#: [id number] : 1965 Acct:[id number] Age/Sex: 59 / F ADM Date: 04/13/25 Loc: .ED Attending Dr: Ordering Physician: Generic ED Physician Date of Service: 04/13/25 Procedure(s): XR ribs LT min 3V w CXR1V Accession Number(s): [id number] cc: Eliel Stoddard MD; Generic ED Physician Reason for Exam: fall,PAIN CLINICAL HISTORY: fall,PAIN 5 view, chest and left ribs Comparison: None provided Findings: Bones intact. No dislocations. The visualized lungs are normal. IMPRESSION: 1. No acute fractures. This document has been electronically signed by: Lizzy Sheehan MD on 04/13/2025 20:59:42 Dictated By: Lizzy Sheehan MD Signed By: <Electronically signed by Lizzy Sheehan MD in OV> 04/13/252099 DD/ 58 TD/TT: 04/13/252058 Parliamentary Librarian: Procedure Note Donotuseinterpreter, Image - 04/13/[address] [address] XRay Report Signed Patient: Alma Rodriguez [facility]#: [id number] : 1965Acct:[id number] Age/Sex: 59 / FADM Date: 04/13/25 Loc: HO.ED Attending Dr: Ordering Physician: Generic ED Physician Date of Service: 04/13/25 Procedure(s): XR ribs LT min 3V w CXR1V Accession Number(s): [id number] cc: Eliel Stoddard MD; Generic ED Physician Reason for Exam: fall,PAIN CLINICAL HISTORY: fall,PAIN 5 view, chest and left ribs Comparison: None provided Findings: Bones intact. No dislocations. The visualized lungs are normal. IMPRESSION: 1. No acute fractures. This document has been electronically signed by: Lizzy Sheehan MD on 04/13/2025 20:59:42 Dictated By: Lizzy Sheehan MD Signed By: <Electronically signed by Lizzy Sheehan MD in OV> 04/13/252099 DD/ 58 TD/TT: 04/13/252058 Parliamentary Librarian: [facility] External Provider IMG XR PROCEDURES Final Result * Urinalysis, Complete, with Reflex to Culture (04/13/2025 7:35 PM EDT) Color Urine Yellow [facility] Appearance Urine Clear [facility] PH 6.0 5.0 - 9.0 [facility] Glucose Urine UA Negative Negative mg/dL [facility] Urine Blood Negative Negative [facility] Specific Procious - Urine <=1.005 1.005 - 1.025 [facility] Urine Protein Negative Neg-Trace mg/dL [facility] Urine Ketones Negative Negative mg/dL [facility] Nitrite Urine Negative Negative [facility] Leukocyte Esterase Urine Negative Negative [facility] RBC Urine 0-2 0 - 2 /HPF [facility] Urine WBC 0-5 0 - 5 /HPF [facility] Urine Squamous Epithelial Cell 0-2 0 - 2 /HPF [facility] Urine Bacteria None Seen None Seen [facility] Hyaline Casts, Urine 0-2 0 - 2 /LPF [facility] 04/13/2025 7:35 PM EDT 04/13/2025 7:40 PM EDT [facility] - 04/13/2025 7:53 PM EDT [id number], Clean Catch us Generic External Data Provider LAB URINE ORDERAB LES Final Result Performing Organization Address City/State/[facility] Co de Phone Number [facility] [address] [place] [phone] * Hematoxylin and Eosin Stain (04/01/2025 8:20 AM EDT) 04/01/2025 8:20 AM EDT 04/01/2025 10:37 AM EDT [facility] - 04/06/2025 2:12 PM EDT ----- ------- Name: JenniferAlma A Age/Sex: 59/F : 1965 Unit#: [id number] Attend Dr: Debby Keenan MD Re04/01/25 Status: [facility] Location: [facility] Disch: ----- ------- SPEC : [id number] RECD: 04/01/25-1036 STATUS: SOPHIA SCHULZ NUM: [id number] GUILLERMO: 04/01/[address] [facility] [address]: Debby Keenan MD ENTERED: 04/01/25 SP TYPE: Surgical OTHR DR: Eliel Stoddard MD ORDERED: HE Stain/18, Gross Micro L4/6, IHC, Special st. 2/, H. pylori, AB/PAS/2 Diagnosis A. Duodenum, biopsy: [...] Alma Rodriguez Age/Sex: 59/F : 1965 Unit#: [id number] Attend Dr: Debby Keenan MD Re04/01/25 Status: [facility] Location: [facility] Disch: ----- ------- SPEC : [id number] RECD: 04/01/25-1036 STATUS: SOPHIA SCHULZ NUM: [id number] GUILLERMO: 04/01/[address] [facility] [address]: Debby Keenan MD ENTERED: 04/01/251105 [...] microscopic examination, 1 piece in cassette F. ([facility]) Special studies ordered and performed: Immunostain for H. pylori on B; AB/PAS stains on A and B IHC S/NG Disclaimer NOTE: Unless otherwise stated, all tissue is formalin-fixed and paraffin-embedded. Some or all of the immunohistochemical tests reported herein may have been developed and their performance characteristics determined by [facility]. They have not been cleared or [...] Alma Rodriguez Age/Sex: 59/F : 1965 Unit#: [id number] Attend Dr: Debby Keenan MD Re04/01/25 Status: [facility] Location: [facility] Disch: ----- ------- SPEC : [id number] RECD: 04/01/25-1036 STATUS: SOPHIA SCHULZ NUM: [id number] GUILLERMO: 04/01/[address] [facility] [address]: Debby Keenan MD ENTERED: 04/01/25 SP TYPE: Surgical OTHR DR: Eliel Stoddard MD ORDERED: HE Stain/18, Gross Micro L4/6, IHC, Special st. 2/, H. pylori, AB/PAS/2 Copies To: Eliel Stoddard MD [address] [phone] Debby Keenan MD [facility] [address] [place] [phone] [email or web address] ------- Signed (signature on file) Davey Newberry MD 04/06/25 1412 ----- ------- END OF REPORT us Generic External Data Provider LAB BLOOD ORDERAB LES Final Result [facility] [address] [place] [address] [phone] * (ABNORMAL) Glucose, Whole Blood (04/01/2025 7:39 AM EDT) Glucose, Whole Blood 126(H) 60 - 115 mg/dL [facility] Comment:METER #: [id number] 04/01/2025 7:39 AM EDT 04/01/2025 7:42 AM EDT us Generic External Data Provider LAB BLOOD ORDERAB LES Final Result [facility] [address] [place] [phone] * MR Cervical Spine w/o Contrast (02/23/2025 10:29 AM EDT) Anatomical Region Laterality Modality Spine, C-spine Magnetic Resonan ce 02/23/2025 10:2 9 AM EDT Narrative 02/23/2025 10:30 AM EDT [address] [address] Magnetic Resonance Report Signed Patient: Alma Rodriguez MR#: [id number] : 1965 Acct:[id number] Age/Sex: 59 / F ADM Date: 02/20/25 Loc: HO.MRI Attending Dr: Filippo FONG Ordering Physician: Filippo Fortune Date of Service: 02/20/25 Procedure(s): MR cervical spine wo con Accession Number(s): [id number] cc: Eliel Stoddard MD; Filippo Fortune Reason [...] 02/23/25 1029 DD/ 1029 TD/TT: 02/23/25 1029 Parliamentary Librarian: Procedure Note Donotuseinterpreter, Image - 02/23/2025 [place] [address] Magnetic Resonance Report Signed Patient: Alma Rodriguez [facility]#: [id number] : 1965Acct:[id number] Age/Sex: 59 / FADM Date: 02/20/25 Loc: HO.MRI Attending Dr: Filippo FONG Ordering Physician: Filippo Fortune Date of Service: 02/20/25 Procedure(s): MR cervical spine wo con Accession Number(s): [id number] cc: Eliel Stoddard MD; Filippo Fortune Reason [...] 02/23/25 1029 DD/ 1029 TD/TT: 02/23/25 1029 Parliamentary Librarian: [facility] External Provider IMG MRI PROCEDURES Edited Result - Final * (ABNORMAL) POCT Hgb A1c (02/23/2025 9:29 AM EDT) Hemoglobin A1C 6.4(A) 4.0 - 5.7 % QC Media Lot # [id number] Lot# Expiration Date [id number] Blood 02/23/2025 9:29 AM EDT Eliel Stoddard MD POINT OF CARE TEST ENTER/ED IT ORDERABLES Final Result * POCT Glucose (02/23/2025 9:29 AM EDT) Glucose Blood, POC 161 60 - 200 mg/dL QC Media Lot # [id number] Lot# Expiration Date 835,420 Comment:random Blood Capillary blood specimen / Unknown 02/23/2025 9:29 AM EDT Eliel Stoddard MD POINT OF CARE TEST ENTER/ED IT ORDERABLES Final Result * XR CERVICAL SPINE 4V (02/04/2025 12:50 PM EDT) Anatomical Region Laterality Modality Abdomen Radiographic Vickie ging 02/04/2025 12:5 0 PM EDT Narrative 02/04/2025 1:50 PM EDT [facility] [address] [place] [address] XRay Report Signed Patient: Alma Rodriguez MR#: [id number] : 1965 Acct:[id number] Age/Sex: 59 / F ADM Date: 02/04/25 Loc: HO.HOSX Attending Dr: Filippo FONG Ordering Physician: Filippo Fortune Date of Service: 02/04/25 Procedure(s): XR cervical spine 4V Accession Number(s): [id number] cc: Eliel Stoddard MD; Filippo Fortune EXAMINATION: [...] 02/04/25 1348 DD/ 1250 TD/TT: 02/04/25 1255 Parliamentary Librarian: Procedure Note Donotuseinterpreter, Image - 02/04/[address] [facility] [place] [address] XRay Report Signed Patient: Alma Rodriguez AM[facility]#: [id number] : 1965Acct:[id number] Age/Sex: 59 / FADM Date: 02/04/25 Loc: HO.HOSX Attending Dr: Filippo FONG Ordering Physician: Filippo Fortune Date of Service: 02/04/25 Procedure(s): XR cervical spine 4V Accession Number(s): [id number] cc: Eliel Stoddard MD; Filippo Fortune EXAMINATION: [...] 02/04/25 1348 DD/ 1250 TD/TT: 02/04/25 1255 Parliamentary Librarian: [facility] External Provider IMG XR PROCEDURES Final Result * BI Mammogram Screening Tomosynthesis Bilateral (12/21/2024 9:20 AM EDT) Anatomical Region Laterality Modality Breast Bilateral Mammography 12/21/2024 9:20 AM EDT Narrative 12/30/2024 9:14 PM EDT [address] [place] [address] Mammography Report Signed Patient: Alma Rodriguez MR#: [id number] : 1965 Acct:[id number] Age/Sex: 59 / F ADM Date: 12/21/24 Loc: HO.MAMMO Attending Dr: Mahsa Valenzuela MD Ordering Physician: Mahsa Huffman MD Results: 1Negative Date of Service: 12/21/24 Follow Up: 1 Year From Orig ina Mammogram Procedure(s): MM tomosynthesis screening BI Accession Number(s): [id number] cc: Mahsa Huffman MD; Eliel Stoddard MD [...] in OV> 12/30/242110 DD/ 9 TD/TT: 12/21/24929 Parliamentary Librarian: Procedure Note Donotuseinterpreter, Image - 12/30/[address] [place] [address] Mammography Report Signed Patient: Alma Rodriguez [facility]#: [id number] : 1965Acct:[id number] Age/Sex: 59 / FADM Date: 12/21/24 Loc: HO.MAMMO Attending Dr: Mahsa Valenzuela MD Ordering Physician: Mahsa Huffman MDResults: 1Negative Date of Service: 12/21/24Follow Up: 1 Year From Orig inal Mammogram Procedure(s): MM tomosynthesis screening BI Accession Number(s): [id number] cc: Mahsa Huffman MD; Eliel Stoddard MD [...] in OV> 12/30/242110 DD/ 9 TD/TT: 12/21/24929 Parliamentary Librarian: us Mahsa Valenzuela MD IMG BI PROCEDURES Asim prasanna Result - Final * Albumin, Random Urine W/Creatinine (11/23/2024 9:20 AM EDT) Creatinine, Urine 200.15 mg/dL [facility] Microalbumin Urine 21.0 mg/L H [facility] Microalbum Creatinine Ratio Ur 10.4 <30 ug/mg cr [facility] Comment:Albumin/Creatinine R atio Reference Ranges: Normal: < 30 ug/mg creatinine Microalbuminuria: 30 - 300 ug/mg creatinineClinical Albuminuria: > 300 ug/mg creatinine Urine (Urine, Random) 11/23/2024 9:20 AM EDT 11/23/2024 2:06 PM EDT us Eliel Stoddard MD LAB URINE ORDERABLES Final Result [facility] [address] [place] [phone] * (ABNORMAL) Lipid Panel, Standard (12/02/2023 11:30 AM EDT) Triglycerides 154(H) <150 mg/dL [facility] Comment:Desirable Triglyceri de: less than 150 mg/dLBorderline High Triglyceride 150-199 mg/dLHigh Triglyceride: 200-499 mg/dLVery High Triglyceride: greater than or equal to 5OO mg/dL Cholesterol 124 <200 mg/dL [facility] Comment:Desirable Cholestero l: less than 200 mg/dLBorderline High Cholesterol: 200-239 mg/dLHigh Cholesterol: greater than 239 mg/dL LDL Cholesterol Calculated 61 <100 mg/dL [facility] Comment:Desirable LDL: less than 100 mg/dLNear Optimal/Above Optimal LDL: 110- 129 mg/dLBorderline High LDL: 130-159 mg/dLHigh LDL: 160-189 mg/dLVery High LDL: greater than or equal to 190 mg/dL HDL Cholesterol 33(L) >40 mg/dL [facility] Comment:Desirable HDL: great er than 40 mg/dL Note: This HDL assay may give artificially low results in patients with liver disease. Blood Venous blood specimen / Unknown 12/02/2023 11:30 AM EDT 12/02/2023 1:26 PM EDT us Mahsa Valenzuela MD LAB BLOOD ORDERABLES Final Result [facility] [address] [place] [address] [phone] * HIV 1/2 ANTIGEN/ANTIBODY,FOURTH GENERATION W/RFL (12/21/2021 12:00 AM EDT) HIV-1/2 ANTIGEN AND ANTIBODIES, 4TH GENERATION W/ REFLEX NON-REACT ESAU NON-REACT ESAU [facility] Comment: HIV-1 antigen and [...] purpose. For additional information please refer to http://education.Sensoraide/faq/GLJ286 (This link is being provided for informational/ educational purposes only.) The performance of this assay has not been clinically validated in patients less than 2 years old. 12/21/2021 us Eliel Stoddard MD LAB BLOOD ORDERABLES Final Result Performing Organization Address City/[facility]/ZIP Co de Phone Number [facility] [address] * THINPREP TIS PAP AND HPV mRNA E6/E7, CT/NG, TRICH (09/12/2021 8:57 AM EDT) Chlamydia trachomatis RNA, TMA, Urogenital NOT DETECTED NOT DETECTED [facility] Clinical Information: None given [facility] COMMENT SEE COMMENT [facility] Comment: The analytical performance characteristics of this assay, when used to test SurePath(TM) specimens have been determined by [employer]. The modifications have not been cleared or approved by the FDA. This assay has been validated pursuant to the CLIA regulations and is used for clinical purposes. For additional information, please refer to https://education.3BaysOver.IAMINTOIT/faq/KUB483 (This link is being provided for information/ [...] has been evaluated with computer assisted technology. [facility] Rand Cementer: SEE COMMENT [facility] Comment: CMG, CT(ASCP) CT screening location: [place] [address] HPV nRNA E6/E7 Not Detected Not Detected [facility] Comment: Methodology: Cooker Sulfite-Mediated Amplification This assay detects E6/E7 viral messenger RNA (mRNA) from 14 high-risk HPV types (16,18,31,33,35,39,45,51,52,56,58,59,66,68). The analytical performance characteristics of this assay have been determined by [employer]. The modifications have not been cleared or approved by the FDA. This assay has been validated pursuant to the CLIA regulations and is used for clinical purposes. For additional information, please refer to http://[employer].Sensoraide/faq/QBL596c8 (This link if provided for information/ educational purposes only.) Interpretation/Re sult: Negative for intraepithelial lesion or malignancy. [facility] LMP: NONE GIVEN [facility] Neisseria gonorrhoeae RNA, TMA, Urogenital NOT DETECTED NOT DETECTED [facility] Prev. BX: NONE [facility]IV[facility] Prev. PAP: NONE [facility]IV[facility] SOURCE: Cervix [facility] Statement Of Adequacy: SEE COMMENT [facility] Comment: Satisfactory for evaluation. Endocervical/transformation zone component absent. Age and/or menstrual status not provided Trichomonas vaginalis, QL, TMA, PAP Vial NOT DETECTED NOT DETECTED [facility] Comment: The analytical performance characteristics of this assay have been determined by [employer]. The modifications have not been cleared or approved by the FDA. This assay has been validated pursuant to the CLIA regulations and is used for clinical purposes. For additional information, please refer to http://education.3BaysOver.IAMINTOIT/ faq/Trichomonastma (This link is being provided for information/ educational purposes only.) 09/12/2021 8:57 AM EDT Nini Perry CNM LAB PATHOLOGY ORDERABLES Final Result [facility] [address] * Colonoscopy (02/05/2018) Colonoscopy Normal Normal Narrative Karla Slaughter - 02/05/2018 Recommended 10 year follow up Historical Provider MD HEALTH MAINTENANCE Final Result from Last 3 Months or Most Recently Relevant to Health Maintenance Insurance [facility] < 65 [employer] [phone] Care Teams Dry Cleaner Helper Relationship Specialty Start Date End Date Eliel Stoddard MD [address] [place] [address] ELIZA Chin [address] PCP - General Internal Medicine 06/17/18
--- OUTSIDE RECORDS SUMMARY | 2025-05-06 09:02 | XMS_ITS | Encounter Summary ---
Author Organization [employer] Address [address] [place] [address] 7 [place] [address] Care Team Providers Care Escalator Operator Name Role Phone Eliel Stoddard MD Primary Care Provider [phone] Reason for Visit * Reason Comments Med Refill Encounter Details Date Type Department Care Team ([facility] Contact Info) Description 12/25/2023 Refill [facility] [address] [place], [place] [phone] Eliel Stoddard MD [address] [place] [address] Social History Tobacco Use Types Packs/Day Years [...] documented as of this encounter Care Teams Escalator Operator Relationship Specialty Start Date End Date Eliel Stoddard MD [address] [place] [phone] PCP - General Internal Medicine 06/17/18 documented as of this encounter
== END 2025-05-06 08:42 | disposition home or self-care (01) ==
LOC: HO.HGI 08:24
PROVIDERS: PCP Internal Medicine; Visit Provider Internal Medicine
DX: K21.9 Gastro-esophageal reflux disease without esophagitis (principal); K52.9 Noninfective gastroenteritis and colitis, unspecified

== ENCOUNTER 2025-05-06 08:23 | Outpatient (REF) | payer OTHER, SELFPAY | END 2025-05-06 08:24 | disposition home or self-care (01) | LOC: HO.LAB 08:23 | PROVIDERS: PCP Internal Medicine; Visit Provider Internal Medicine | DX: K21.9 Gastro-esophageal reflux disease without esophagitis (principal); R10.11 Right upper quadrant pain; G89.29 Other chronic pain; K52.9 Noninfective gastroenteritis and colitis, unspecified | CPT/HCPCS: 83013; 99211 ==

== ENCOUNTER 2025-05-10 14:35 | Outpatient (AMB) | payer OTHER, SELFPAY ==
--- OUTSIDE RECORDS SUMMARY | 2020-10-12 13:15 | XMS_ITS | Continuity of Care Document ---
Author Organization [facility] Address [address] [place] [address] Phone Care Team Providers Care Router Machine Operator Name Role Phone Luigi KERR, Letha Unavailable Unavailab le Procedures Procedure Date ADM SARSCOV2 100MCG/0.5ML2ND SARSCOV2 VAC 100MCG/0.5ML IM Advance Directives Directive Yes / No Effective Date File Name No Information Encounters Encounter Description Practice Location Reason(s) For Visit Diagnoses Date Provider Encounter Disposition [facility], [address] [place] [address], [facility], tel:[phone] [facility] Encounter for immunization 1 Luigi Monae. [address] [place] [address], [id number], [address] [place] [address]. tel:[phone] Family History Family Member Type Diagnosis Age [...] COVID19 HRSA Uninsured Fund CI chela ID: [id number] Name: Coverage Status Eligibility Check on: UnknownRelationship to Subscriber: selfPayer Address: [facility] [address], [employer], [place], [place], [id number], [place]Payer Phone: Social History Type Description Quantity [...]
--- NOTE | 2025-05-10 15:07 | MHC.OFFVIS ---
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 Nausea, but no vomiting. With this has been having diarrhea almost 3-4 BMs per day. Watery stools without blood. Pain is intermittent. Comes and goes. Used to be severe initially when the pt was referred last year but since starting pantprazole now more of a dull soreness. Mainly in RUQ. Reports remote hx of pancreatitis episode - shes unsure what the cause was. 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 Reports last colo was 5-7 years ago and was given a 10 year recall. No fam hx of liver disease, colon ca, stomach ca. Smokes 0.5 PPD. No etOH. Prev IVDU, clean since 2002. US Abd 09/2024: The liver is enlarged with increased echogenicity measuring 21.4 cm in length. There is no intrahepatic bile duct dilatation. The common duct is for mm in diameter. The gallbladder is normal. There is no sonographic Phipps sign. The main portal vein is antegrade. CT abd/pel with contrast LUNG BASES: There is minimal dependent atelectasis. In the lateral base of the left lower lobe there is a 5 mm solid pulmonary nodule that previously measured 6 mm. LIVER, GALLBLADDER, AND BILIARY TREE: The liver is normal in size, shape, and attenuation. No focal hepatic lesion or biliary ductal dilatation is present. The gallbladder is unremarkable with no evidence of radiopaque gallstones, gallbladder wall thickening, or obvious pericholecystic inflammatory changes. Laboratory Tests 01/25/24 09/02/24 09/04/24 17:07 13:09 01:13 WBC 14.8 H Hgb 13.1 Hct 38.5 Plt Count 319 Immature Gran % (Auto) 0.5 H Creatinine Total Protein 8.3 H Stool Fat, Qual Normal Stool Calprotectin 77 Stool Pancreat Elastase 125 L Tiss Transglutamin IgA <1.0 11/13/24 08:50 WBC Hgb Hct Plt Count Immature Gran % (Auto) Creatinine 0.60 Total Protein Stool Fat, Qual Stool Calprotectin Stool Pancreat Elastase Tiss Transglutamin IgA 03/10/25: Results reviewed. Was given a trial of creon, which she said helped from BM frequency 5 to 3 per day. No blood in stool. Cont to smoke 10-12 cigarettes a day. No alcohol. 04/01/25: 1. Normal esophagus 2. Gastritis (biopsy) 3. Duodenitis (biopsy) 4. Normal colon and terminal ileum mucosa (biopsy) 5. Total 2 polyps removed 6. Diverticulosis 7. Internal and external hemorrhoids 05/10/25: here for follow up after egd/colo. Path reviewed, IELs noted - HP, Celiac, CVID w.up negative. Leeper bx normal. x2 adenomas, pt aware re repeat colo in 7 years. Reports persistent bloating and pain in epigastrium - did not resume PPI after H Pylori test. Discussed that due to gastritis and duodenitis recommend BID dosing x 8 weeks and can then decrease to once daily. She also ran out of creon 2 months ago and missed refill. Has hx of pancreatitis in past + tobacco use. Pancreas with normal appearance on CT abd/pel. [facility] Medical History Hepatitis C Spinal stenosis in cervical region Spinal stenosis Degeneration, intervertebral disc, cervical Leukocytosis History of kidney stones Hx of herpes zoster Hx of pancreatitis Hx of endometriosis Depression Generalized anxiety disorder Dysuria Hypercholesterolemia HTN (hypertension) Asthma Diabetes Surgical History H/O colonoscopy Hx of section H/O dilation and curettage Family History Mother Diabetes Depression Father Suicide Social History Alcohol intake: never Patient Tobacco Use Status: Current everyday Tobacco user Review of Systems Const All systems reviewed & are unremarkable except as noted in HPI and below Physical Exam Exam Exam: No apparent distress Nonicteric Abdomen soft, nondistended Alert and oriented x3, normal gait Vital Signs: Last Vital Signs Pulse 70 05/10/25 15:08 BP 120/74 05/10/25 15:08 BMI result Body Mass Index 29.7 Assessment & Plan Assessment & Plan (1) GERD (gastroesophageal reflux disease): Code(s): K21.9 - Gastro-esophageal reflux disease without esophagitis Category: Medical (2) Chronic diarrhea: Code(s): K52.9 - Noninfective gastroenteritis and colitis, unspecified Category: Medical (3) Gastritis/duodenitis: Code(s): K29.90 - Gastroduodenitis, unspecified, without bleeding Category: Medical (4) Pancreatic insufficiency: Code(s): K86.89 - Other specified diseases of pancreas Plan 1. Gastritis/duodenitis Resume PPI. Plan: - pantprazole 20 BID x 8 weeks and then once daily -avoid smoking 2. Chronic diarrhea Again dx of panc insufficiency is +/- given normal fecal fat however pt reports good response to creon. Plan: - Creon refilled - would favor repeat panc imaging with MRI in a year from CT - i.e 11/2025. Follow up 6 months Medications: New pantoprazole 20 mg PO BID 180 tabs 0RF 90 days rtizqq-qzpnxluy-xijskzm (pork) 6,000-19,000 -30,000 unit (Creon) Take 3 capsules with meals, and 2 capsules with snacks 3 caps PO TID 180 caps 3RF Coding Level of Care Code Complex visit Add On G2211 Diagnoses GERD (gastroesophageal reflux disease) K21.9 Chronic diarrhea K52.9 Gastritis/duodenitis K29.90 Pancreatic insufficiency K86.89
[2025-05-10 15:08] VITALS: BP 120/74; PULSE 70; BMI 29.7
--- OUTSIDE RECORDS SUMMARY | 2025-05-10 19:28 | XMS_ITS | Data Portability ---
Author Organization [place] - [facility], Allergy Address [address] [place] [address] Care Team Providers Care Chairman & Chief Executive Officer Name Role Phone HOME MELENDEZ Primary Care [...] were discussed. We discussed the risk of chcf perforation following tube extrusion, with possible need [...] visit will be conducted by a physician payroll administrative assistant and will be brief. The expectation [...] ofloxacin 0.3 % ear drops 2024 025 [id number], [address], [place], [phone], 04/16/2025 13:57:19 fluticaso ne propionat e 50 mcg/actua tion nasal spray,ketan pension 2024 025 [email or web address] [id number], [address], [place], [phone], 07/22/2024 10:46:49 Patient TargetsNo targets recorded. Patient Instructions Encounter Date Encounter Id Patient Instructions Last Modified By Organization Details Last Modified Time 04/16/2025 [id number] - Return in approximately six months for [...] and Address Organization Details Recorded Time Snoring [id number] Active 2013 Snoring; CMS Risk: low risk [facility] Treatment : new problem (to examiner) : additiona l workup planned C ondition: controlle d Note: Date Diagnosed : 4 4:13 PM (786.09) Not Available [facility] 4 02:51:56 Dysfuncti on of eustachia n tube 01192400 Active 2013 Eustachia n tube dysfuncti on; CMS Risk: low risk [facility] Treatment : establish ed problem (to examiner) : stable or improved Condition : controlle d Note: Date Diagnosed : 4 3:42 PM (381.81) Not Available [facility] 4 02:51:53 Sensorine ural hearing loss of bilateral ears 901878545 Active 2013 SN[facility] Bilateral ly; Note: Date Diagnosed : 4 3:42 PM (389.18) Not Available [facility] 4 02:51:52 Disorder of right Eustachia n tube 48663283436 63521 Active 2015 Other specified disorders of Eustachia n tube, right ear; Note: Date Diagnosed : 05/17/2016 5:16 PM (H69.81) Not Available [facility] 4 02:51:59 Otalgia of right ear 9861804525 Active 2016 Otalgia, right ear; Note: Date Diagnosed : 01/09/2017 5:09 PM (H92.01) Not Available [facility] 4 02:51:54 Bilateral disorder of Eustachia n tubes 43429645752 75757 Active 2016 Other specified disorders of Eustachia n tube, bilateral ; Note: Date Diagnosed : 01/09/2017 5:09 PM (H69.83) Not Available [facility] 4 02:51:54 Chronic serous otitis media of right ear 249870294 Active 2016 Chronic serous otitis media, right ear; Note: Date Diagnosed : 03/14/2017 12:14 PM (H65.21) Not Available [facility] 4 02:51:58 Bilateral tinnitus 97915249568 02 Active 2016 Tinnitus, bilateral ; Note: Date Diagnosed : 03/14/2017 12:12 PM (H93.13) Not Available [facility] 4 02:51:52 Follow-up visit Active 2016 Medical surveilla nce following completed treatment ; Note: Date Diagnosed : 7 10:46 AM (Z09) Not Available [facility] 4 02:51:57 Sensorine ural hearing loss in right ear 82510329775 100 Active 2017 Sensorine ural hearing loss, unilatera l, right ear, with restricte d hearing on the contralat eral side; Note: Date Diagnosed : 02/13/2018 3:14 PM (H90.A21) Not Available [facility] 4 02:51:55 Left conductiv e hearing loss 36504709695 07 Active 2017 Conductiv e hearing loss, unilatera l, left ear with restricte d hearing on the contralat eral side; Note: Date Diagnosed : 02/13/2018 3:14 PM (H90.A12) Not Available [facility] 4 02:51:59 Otorrhea of right ear 09819513730 09719 Active 2017 Otorrhea, right ear; Note: Date Diagnosed : 8 9:44 AM (H92.11) Not Available [facility] 4 02:51:53 Acute serous otitis media of right ear 52258458437 74423 Active 2017 Acute serous otitis media, right ear; Note: Date Diagnosed : 8 9:44 AM (H65.01) Not Available [facility] 4 02:51:58 Otalgia of left ear 3805274064 Active 2018 Otalgia, left ear; Note: Date Diagnosed : 07/22/2018 10:28 AM (H92.02) Not Available [facility] 4 02:51:59 Conductiv e hearing loss 51923728 Active 2018 Conductiv e hearing loss, unilatera l, right ear, with unrestric prasanna hearing on the contralat eral side; Note: Date Diagnosed : 03/14/2017 11:55 AM (H90.11) ; Start Date : 7 Conduct obed hearing loss, unilatera l, left ear, with unrestric prasanna hearing on the contralat eral side; Note: Date Diagnosed : 07/22/2018 10:33 AM (H90.12) Not Available [facility] 4 02:51:53 Acute serous otitis media of left ear 39157858489 58754 Active 2018 Acute serous otitis media, left ear; Note: Date Diagnosed : 07/22/2018 10:29 AM (H65.02) Acute serous otitis media, left ear; Note: Date Diagnosed : 03/18/2018 11:16 AM (H65.02) ; Start Date : 8 Not Available [facility] 4 02:51:55 Headache 56812259 Active 2018 Headache, unspecifi ed; Note: Changed from R51 to R51.9 ( 1 10:24 AM) , Date Diagnosed : 9 10:03 AM (R51) Not Available [facility] 4 02:51:54 Migraine without aura, not refractor y 436074503 Active 2018 Migraine without aura, not intractab le, without status migrainos us; Note: Date Diagnosed : 9 10:03 AM (G43.009) Not Available [facility] 4 02:51:56 Dizziness and giddiness 439868109 Active 2019 Dizziness and giddiness ; Note: Date Diagnosed : 09/28/2019 11:17 AM (R42) Not Available [facility] 4 02:51:58 Conductiv e hearing loss of right ear 3907038533 Active 2019 Conductiv e hearing loss, unilatera l, right ear with restricte d hearing on the contralat eral side; Note: Date Diagnosed : 09/30/2019 11:22 AM (H90.A11) Not Available [facility] 4 02:51:57 Sensorine ural hearing loss in left ear 40499965052 109 Active 2019 Sensorine ural hearing loss, unilatera l, left ear, with restricte d hearing on the contralat eral side; Note: Date Diagnosed : 09/30/2019 11:22 AM (H90.A22) Not Available [facility] 4 02:51:57 Otorrhea of left ear 08845195403 43761 Active 2020 Otorrhea, left ear; Note: Date Diagnosed : 08/01/2020 1:32 PM (H92.12) Not Available [facility] 4 02:51:52 Mixed conductiv e and 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 53357173595 107 Active 2020 Mixed conductiv e and sensorine ural hearing loss, unilatera l, left ear with restricte d hearing on the contralat eral side; Note: Date Diagnosed : 02/28/2021 2:24 PM (H90.A32) Not Available [facility] 4 02:51:55 Bilateral tympanic membrane central perforati on 93740972901 56770 Active 2021 Central perforati on of tympanic membrane, bilateral ; Note: Date Diagnosed : 02/08/2022 5:24 PM (H72.03) Not Available [facility] 4 02:51:55 Mixed conductiv e and sensorine ural hearing loss, bilateral 232661775 Active 2021 Mixed conductiv e and sensorine ural hearing loss, bilateral ; Note: Date Diagnosed : 02/08/2022 5:07 PM (H90.6) Not Available [facility] 4 02:51:56 Benign paroxysma l positiona l vertigo 018360926 Active 2022 Benign paroxysma l vertigo, left ear; Note: Date Diagnosed : 3 3:25 PM (H81.12) Not Available [facility] 4 02:51:57 Perforati on of right tympanic membrane 89587163441 79306 Active 2024 Everette moore [place] - [facility] 5 10:45:00 Disorder of left Eustachia n tube 17078325654 59392 Active 2024 CARROLL MCCORD MD [address] [place] [address],[place] [address], [facility] [place], [address] , [place] - [facility] 5 09:39:06 Sensorine ural hearing loss of bilateral ears 968340970 Active 2024 CHIDI HAHN AUD [address] [facility],[place] [address], [place], [address] , [facility] - [facility] 5 13:50:43 Problem Notes None recorded. Procedures Surgical History Date Name Laterality Status Provider Name and Address Organization Details Recorded Time 5 Air & SRT/SAT Audio with Tymps - 34265, 85156 & 81920 completed CHIDI HAHN AUD [address] [facility],[place] [address], [place], [address], [facility] - [facility] 04/16/2025 13:50:32 5 Myringotomy w/Placement of Tube left completed CARROLL MCCORD MD [address] [facility],[address], [address], [facility] 11/25/2024 11:46:45 5 Nasopharyngosco py_DP completed CARROLL MCCORD MD [address] [place] [address],[address], [address], [facility] - [facility] 10/13/2024 09:36:46 5 Comp Audio with Tymps - 73520 & 47965 completed CLAYTON GABRIEL [address] [facility],[address], [address], [facility] 07/22/2024 10:25:50 Imaging Results None recorded. Procedure Notes None recorded. Medical Equipment None Reported. Allergies Allergen ID Allergen Name Allergen Category Reaction Reaction Severity Criticality Documentation Date Start Date Code Code System Note Provider Name and Address Organization Details Recorded Time 71520 amoxicill in medicatio n other Not available Not available 10/29/2023 723 RxNorm React ion: unkno wn, unspe cifie d;; Not Available [facility] 4 00:48:32 Medications Name Sig Start Date [...] mg capsule 09/29 completed Medicati on ID: [id number] Flash rosen By Name: Sherwin manjarrez MD [...] mg tablet 11/25 completed Medicati on ID: [id number] B rand Name: tizanidi ne Send Method: [...] 3 drop 06/03 completed Medicati on ID: [id number] D uration Value: 7 Brand Name: ofloxaci [...] mg tablet 02/08 completed Medicati on ID: [id number] D uration Value: 30 Brand Name: sumatrip macedo succinat e Send Method: E-Prescr ibed Sub s Allowed: subs OK Medic ationGen ericName : sumatrip macedo succinat e Not Available Not Available Not Available topiramat e 25 mg tablet 02/08 completed Medicati on ID: [id number] D uration Value: 30 Brand Name: topirama te Send Method: E-Prescr ibed Sub s Allowed: subs OK Medic ationGen ericName : topirama te Not Available Not Available Not Available amlodipin e 5 mg tablet active Medicati on ID: [id number] B rand Name: amlodipi ne Send Method: E-Prescr ibed Sub s Allowed: subs OK [facility] : amlodipi ne Not Available Not Available Not Available sulfameth oxazole 800 mg-trimet hoprim 160 mg tablet TAKE 1 TABLET BY MOUTH TWICE DAILY FOR 3 DAYS active Not Available Not Available No t Available aspirin 81 mg tablet,de layed release 10/13 completed Medicati on ID: [id number] B rand Name: aspirin Send Method: E-Prescr ibed Sub s Allowed: subs OK [facility] er[facility] : aspirin Not Available Not Available [...] mg tablet 11/25 completed Medicati on ID: [id number] B rand Name: lisinopr il Send Method: [...] mg tablet 11/25 completed Medicati on ID: [id number] B rand Name: ibuprofe n Send Method: [...] mg tablet 11/25 completed Medicati on ID: [id number] B rand Name: naproxen Send Method: E-Prescr [...] as directed 11/25 completed Medicati on ID: [id number] D uration Value: 30 Prescri bed By [...] Updated DateTime 07/22/2024 177.8 cm 30.1 kg/m2 16367.4 g Reshma Fry [place] - [facility] 07/22/2024 10:37:16 Date Recorded Body height Provider Name an d Address Organization Details Last Updated DateTime 10/13/2024 177.8 cm [facility] [place] - [facility] 10/13/2024 09:16:13 Date Recorded Body height Provider Name an d Address Organization Details Last Updated DateTime 11/25/2024 177.8 cm [facility] [place] - [facility] 11/25/2024 11:00:19 Date Recorded Body height Provider Name an d Address Organization Details Last Updated DateTime 04/16/2025 177.8 cm [facility] [place] - [facility] 04/16/2025 13:56:24 Social History None recorded. [...] Disorder N Anesthesia Complications N Heart Attack ([place]) N Other Skin Condition Y Diabetes Y Rhinitis Y Bleeding Disorder N Food Allergy Y Arthritis Y Hearing Loss Y Hyperlipidemia N Cancer N Stroke N Dementia N Nasal polyps N Asthma N Sleep Disorder Y GERD/Reflux Y High Cholesterol Y Liver Disease N Headaches Y Fibromyalgia N Hypertension Y Speech Delay N Kidney Disease N Gynecological HistoryNo gynecological history recorded. Obstetrics History GPAL:G 0 P 0 0 0 0 Past Encounters Encounter ID Performer Location Encounter Start Date Encounter Closed Date Diagnosis/Indication Diagnosis SNOMED-CT Code Diagnosis ICD10 Code Diagnosis IMO Codes Diagnosis Note [id number] EVERETTE JUARES PA-C [facility] [address] [address] 07/22/2024 09:47:01 07/22/2024 10:50:07 Mixed conductive and sensorineural hearing loss, bilateral 267912566 H90.6 Audiologic al evaluation results: Right ear: Normal sloping to moderately severe mixed hearing loss with excellent word recognitio n. Left ear: Mild sloping to severe mixed hearing loss with excellent word recognitio n. Tympanomet ry: Right Ear:Type B with large volume Left Ear:Type B with large volume Acute sero us otitis media of left ear 1917901877 214236 H65.02 Bilateral disorder of Eustachian tubes 6656148479 443484 H69.83 Bilateral tinnitus 71807 46137 102 H93.13 Perforatio n of right tympanic membrane 9612156081 442124 H72.91 [id number] CARROLL MCCORD MD [facility] [address] [address] 10/13/2024 08:59:49 10/13/2024 09:38:03 Dizziness and giddiness 544709626 R42 Disorder o f left Eustachian tube 1596527264 792703 H69.92 [id number] CARROLL MCCORD MD [facility] [address] [address] 11/25/2024 10:52:28 11/25/2024 11:58:36 Disorder of left Eustachian tube 9471139079 533646 H69.92 [id number] CARROLL MCCORD MD [facility] [address] [address] 04/16/2025 13:30:40 04/16/2025 14:31:12 Sensorineural hearing loss of bilateral ears 093054070 H90.3 [id number] Left Ear:Normal hearing sloping to a moderate HF SNHL.Paten t tube. Health Concerns Section Related Observation LastModified by Organization Detai ls LastModified Time None Recorded Concern Status LastModified by Organization Details LastModified Time None Recorded Advance Directives Directive None Recorded Payers Insurance Date Sequence Insurance Name Policy Number Policy Mondragon Covered Member ID Mondragon Member ID Guarantor Name 04/13/2025 1 [facility] - DOS ON OR AFTER 2022 - MEDICARE ADVANTAGE [place] (MEDICARE REPLACEMENT/AD VANTAGE - PPO) Alma Rodriguez [id number] Alma Rodriguez 04/15/2025 2 [facility] () Alma Rodriguez [id number] Alma Rodriguez Notes Date Note Type Note [...] recently over the fall. CARROLL MCCORD MD [address] [place] [address], [address], [facility] - [facility] 07/22/2024 17:35:06 10/13/2024 text/html ROS as [...] excellent word recognition. CARROLL MCCORD MD [address] [facility], [place], [address], [facility] 10/13/2024 09:39:43 11/25/2024 text/html ROS as [...] nasopharynx exam benign CARROLL MCCORD MD [address] [facility], [place], [address], [facility] 11/25/2024 11:47:23 04/16/2025 text/html ROS as noted [...] before falling out naturally. CARROLL MCCORD MD [address] [place] [address], [phone], [facility] - [facility] 04/16/2025 14:24:22 OBGyn Episode No OBEpisode recorded.
--- OUTSIDE RECORDS SUMMARY | 2025-05-10 19:28 | XMS_ITS | Encounter Summary ---
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 [address] [place] [address] Eliel Stoddard MD [address] [place] [address] documented as of this encounter Visit Diagnoses Diagnosis Primary insomnia Persistent disorder of initiating or maintaining sleep documented in this encounter Care Teams Panelboard Tank Pumper Relationship Specialty Start Date End Date Eliel Stoddard MD [address] [place] [address] PCP - General Internal Medicine 06/17/18 documented as of this encounter
--- OUTSIDE RECORDS SUMMARY | 2025-05-10 19:28 | XMS_ITS | Encounter Summary ---
Author Organization [employer] Address [address] [place] [address] [address] [place] [address] Care Team Providers Care Workers Compensation Administrator Name Role Phone Eliel Stoddard MD Primary Care Provider [phone] Encounter Details Date Type Department Care Team (Late st Contact Info) Description 11/08/2023 Orders Only [facility] [address] [place], [place] [phone] Provider, MD Jahaira Social History Tobacco Use [...] Upcoming Encounters Date Type Department Care Team ([facility] st Contact Info) Description 06/16/2025 9:45 AM EST Office Visit [facility] [address] [place] [address] Eliel Stoddard MD [address] [place] [address] documented as of this encounter Procedures Procedure [...] on filedocumented in this encounter Care Teams Workers Compensation Administrator Relationship Specialty Start Date End Date Eliel Stoddard MD [address] [place] [address] PCP - General Internal Medicine 06/17/18 documented as of this encounter
--- OUTSIDE RECORDS SUMMARY | 2025-05-10 19:28 | XMS_ITS | Data Portability ---
Author Organization [employer], [facility] Address [address] [place] [address] Care Team Providers Care Senior Cost Analyst Name Role Phone Unavailable Referring Provider [phone] HIM CCA OTHER Assessment Encounter Date Assessment Date Assessment LastModified by Organization Details LastModified Time 09/03/2022 09/03/2022 I have reviewed and agree with the assessment and plan as documented by the biological scientist. I provided real time medical direction for this encounter and was immediately available to provide additional phone based assistance as needed. History as noted by biological scientist. Pt with history of DM. She no [...] in the field was performed by my biological scientist colleague, as noted above, I provided real-time [...] toradol, reglan, benadryl and IVF but otherwise licensed mental health counselor on PCP follow up. Impression: migraine [...] new neurologic change, fever, or worsening headache. [email or web address] Not available 01/19/2024 19:27:55 Plan of Treatment Reminders Order Date Submit Date Provider Last Modified By Organization Details Last Modified Time Details Appointments None recorded. Lab culture, urine 2022 023 [place] [facility] (Centralized Electronic Ordering - All Locations), Patient Can Go To The Location Of Their Choice, [id number] 3 12:54:26 urinalysis, dipstick 2022 023 [email or web address] Main - [facility], [address] [place] [address], [id number] 3 16:56:33 Referral None recorded. Procedures None recorded. Surgeries None recorded. Imaging None recorded. Medication Orders metoclopram saturnino 5 mg/mL injection solution 2023 024 [email or web address] [facility]73, [address] [place] [address], [id number], 4 19:26:55 ketorolac 30 mg/mL injection solution 2023 024 [email or web address] [facility] #94227, [address] [place] [address], [id number], 4 19:26:55 diphenhydra mine 50 mg/mL injection solution 2023 024 [email or web address] [facility] #67754, [address] [place] [address], [id number], 4 19:26:55 sodium chloride 0.9 % intravenous solution 2023 024 [email or web address] [facility] #85103, [address] [place] [address], [id number], 4 19:26:55 magnesium sulfate 2 gram/50 mL in 0.9 % sodium chloride IV piggyback 2023 024 [email or web address] [facility] #52067, [address] [place] [address], [id number], 4 19:26:55 tamsulosin 0.4 mg capsule 2022 023 [facility] #67800, [address] [place] [address], [id number], 3 21:22:44 doxycycline hyclate 100 mg tablet 2022 023 [facility] #12222, [address] [place] [address], [id number], 3 12:49:47 doxycycline hyclate 100 mg tablet 2022 023 [id number] Not available 12:49:39 Patient TargetsNo targets recorded. Patient InstructionsNo instructions recorded. Reason for Referral None Reported. Results Created Date Observation Date Name Description Value Unit Range Abnormal Flag Note LastModifiedBy Organization Detail LastModifiedTime 09/04/19 23 09/03/2022 urina lysis , dipst ick Leukocytes negati ve Not Available Main - [facility] ed [address] [place] [address], [address] [place] [address] 09/03/2022 16:55:11 09/04/19 23 09/03/2022 urina lysis , dipst ick Nitrite negati ve Not Available [facility] ed [address] [place] [address], [address] [place] [address] 09/03/2022 16:55:11 09/04/19 23 09/03/2022 urina lysis , dipst ick Blood negati ve Not Available [facility] ed [address] [place] [address], [address] [place] [address] 09/03/2022 16:55:11 09/04/19 23 09/03/2022 urina lysis , dipst ick Glucose negati ve Not Available Main - [facility] ed [address] [place] [address], [id number] 09/03/2022 16:55:11 12/23/19 23 12/22/2022 URINE CULTU [...] Updated DateTime 3 99 % 18 /min 455504. 608 g 66 /min 97.5 [degF] 99 % 18 /min 97.5 [degF] 66 /min 552691. 608 g 110/54 mm[Hg] 110/54 mm[Hg] Not Available [facility] - production 3 17:07:05 Date Recorded Heart rate Body temperature Body weight Oxygen saturation Systolic And Diastolic Provider Name and Address Organization Details Last Updated DateTime 3 80 /min 97.7 [degF] 313714. 976 g 97 % 145/81 mm[Hg] Not Available [facility] - production 3 12:45:38 Date Recorded Respiratory rate Heart rate Oxygen saturation Body temperature Body height Body weight Systolic And Diastolic Provider Name and Address Organization Details Last Updated DateTime 4 16 /min 69 /min 100 % 97.8 [degF] 175.26 cm 47398.9 52 g 119/70 mm[Hg] Not Available [facility] - production 4 11:59:12 Date Recorded Body temperature Oxygen saturation Heart rate Respiratory rate Systolic And Diastolic Provider Name and Address Organization Details Last Updated DateTime 3 97.8 [degF] 98 % 67 /min 16 /min 139/80 mm[Hg] Not Available [facility] - production 3 21:07:31 Date Recorded Body weight Oxygen saturation Body height Body temperature Respiratory rate Heart rate Systolic And Diastolic Provider Name and Address Organization Details Last Updated DateTime 4 29899.4 g 100 % 177.8 cm 98.8 [degF] 16 /min 76 /min 154/72 mm[Hg] Not Available [facility] - production 4 17:08:33 Social History None [...] 2458 Halima Orta MD Main - [facility] [address] [place] [phone] 12/15/2021 12:34:04 02/14/2022 11:31:08 Acute pelvic pain 116080385 R10.2 several days of R>L pelvic pain [...] 8680 James Platt MD Main - [facility] [address] [place] [phone] 09/03/2022 16:51:04 09/05/2022 09:22:46 Increased frequency of urination 717185519 R35.0 9885 Du Mcneil MD Main - [facility] [address] [place] [phone] 10/12/2022 12:45:32 10/15/2022 09:47:49 Boils of multiple sites 476647723 L02.92 57yo woman with history of multiple skin soft tissue infections presents with a focal skin infection of the stomach similar to prior episosdes. Previously this has responded to doxy. The lesion is draining on biological scientist exam and my review of images.- Doxycyclin e 20339 Macey Corrales MD Main - [facility] [address] [place] [phone] 12/22/2022 20:58:54 12/24/2022 12:19:53 Flank pain 731081069 R10.9 Evaluation in the field was performed by my biological scientist colleague, as noted above, I provided real-time [...] shortness of breath, cough, chest pain, fever. 33725 Tristin Segura MD Main - [facility] [address] [place] [phone] 11/13/2023 11:59:04 11/13/2023 15:12:52 Gastroparesis syndrome 788734519 K31.84 This 58-year-ol d female was recently diagnosed with gastropare sis but the medication ordered hasn't been effective. I suggested that she contact her PCP to make arrangemen ts for a GI referral. The patient agreed with this plan. 95072 Anthony Santiago MD Main - [facility] [address] [place] [phone] 01/19/2024 17:08:29 01/19/2024 22:27:44 Migraine 02497178 G43.909 no alarm features or neurologic change. [...] Mondragon Member ID Guarantor Name 12/22/2022 1 [facility] - DOS PRIOR TO 2022 - DUAL ELIGIBLE (MEDICARE REPLACEMENT/AD VANTAGE - HMO) Alma Diego [id number] Alma Diego 01/19/2024 1 [facility] - DOS ON OR AFTER 2022 - DUAL ELIGIBLE - HALF-WAY OPTIONS AND ONE CARE (MEDICARE REPLACEMENT/AD VANTAGE - HMO) Alma Diego [id number] Alma Diego Notes Date Note Type Note Provider Name and Address Organization Details Recorded Time 09/03/2022 text/html ROS as noted in the HPI This was a supervised home visit with biological scientist Jet Grier. HPI: I v e been [...] ..................... ..................... ..................... ..................... ..................... ..................... ............... Housing Management Officer Note From Jet Grier: Pt presents A@Ox4 [...] ............... Disposition: Fulfilled James Platt MD [address] [facility],[address], [place], [address], [employer] 09/03/2022 17:18:02 10/12/2022 text/html ROS as noted in the HPI HPI: ALLERGIC TO : AMPICILLIN HX: Chronic Hep C, Hidradenitis. DM, HTN Patient with reported boil on stomach. Now large painful and intact. No fever. ..................... ..................... ..................... ..................... ..................... ..................... ............... CRC Nursing Assessment: Comments: CRC RN DID NOT NEED FURTHER INFO Du Mcneil MD [address] [facility],[address], [place], [address], [facility] 10/12/2022 12:49:54 12/22/2022 text/html HPI: I m [...] ..................... ..................... ..................... ..................... ..................... ..................... ............... Housing Management Officer Note From Jorgito Schwartz: PER CCA: Member [...] ..................... ............... Disposition: Fulfilled Macey Corrales MD [address] [place] [address],[address], [place], [phone], [employer] 12/22/2022 21:50:36 11/13/2023 text/html ROS as noted [...] PCP appt last week. Tristin Segura MD [address] [place] [address],[address], [place], [address], [employer] 11/13/2023 12:02:46 01/19/2024 text/html CRC Nurse Triage Notes (Delfin Villagran): Reason For Request: neck pain/headaches Chief Complaints: Headache, Pain PMH: Diabetes, Hypertension Allergies: Unknown Comments: Diesel Trailer Mechanic verified the member's name//address and phone number. [...] ..................... ..................... ..................... ..................... ..................... ..................... ............... Housing Management Officer Note From Aguila Baez: Pt reports hx [...] ............... Disposition: Fulfilled Anthony Santiago MD [address] [facility],[address], [place], [address], [employer] 01/19/2024 19:28:08 OBGyn Episode No OBEpisode recorded.
--- OUTSIDE RECORDS SUMMARY | 2025-05-10 19:28 | XMS_ITS | Encounter Summary ---
Author Organization [employer] Address [address] [place] [address] [address] [place] [address] Care Team Providers Care Admitting Manager Name Role Phone Eliel Stoddard MD Primary Care Provider [phone] Reason for Visit * Reason Onset Date Comments Med Refill 10/19/2022 Encounter Details Date Type Department Care Team ([facility] st Contact Info) Description 10/19/2022 Refill [facility] CHC MED & PEDS [address] [place], [place] [phone] Eliel Stoddard MD [address] [place] [address] Social History Tobacco Use Types Packs/Day Years [...] Description 06/16/2025 9:45 AM EST Office Visit [facility] ED MED & PEDS [address] [place] [address] Eliel Stoddard MD [address] [place] [address] documented as of this encounter Visit Diagnoses Not on filedocumented in this encounter Care Teams Admitting Manager Relationship Specialty Start Date End Date Eliel Stoddard MD [address] [place] [address] PCP - General Internal Medicine 06/17/18 documented as of this encounter
--- OUTSIDE RECORDS SUMMARY | 2025-05-10 19:29 | XMS_ITS | Encounter Summary ---
Author Organization [employer] Address [address] [place] [address] [address] [place] [address] Care Team Providers Care Rent Collector Name Role Phone Eliel Stoddard MD Primary Care Provider [phone] Encounter Details Date Type Department Care Team (Late st Contact Info) Description 04/17/2023 Abstract [facility] [address] [place], [place] [phone] Karla Slaughter Social History Tobacco Use Types [...] Description 06/16/2025 9:45 AM EST Office Visit [facility] MED & PEDS [address] [place] [address] Eliel Stoddard MD [address] [place] [address] documented as of this encounter Procedures Procedure Name Priority Date/Time Associated Diagnosis Comments COLONOSCOPY Routine 02/05/2018 documented in this encounter Results * Hm Colonoscopy (02/05/2018) Colonoscopy Normal Normal Narrative Karla Slaughter - 02/05/2018 Recommended 10 year follow up Historical Provider HEALTH MAINTENANCE Final Result documented in this encounter Visit Diagnoses Not on filedocumented in this encounter Care Teams Rent Collector Relationship Specialty Start Date End Date Eliel Stoddard MD [address] [place] [address] PCP - General Internal Medicine 06/17/18 documented as of this encounter
--- OUTSIDE RECORDS SUMMARY | 2025-05-10 19:29 | XMS_ITS | Encounter Summary ---
Author Organization [employer] Address [address] [place] [address] 7 [place] [address] Care Team Providers Care Antique Clock Repairer Name Role Phone Eliel Stoddard MD Primary Care Provider [phone] Reason for Visit * Reason Comments Med Refill Encounter Details Date Type Department Care Team ([facility] Contact Info) Description 06/28/2023 Refill [facility] CHC MED & PEDS [address] [place], [place] [phone] Eliel Stoddard MD [address] [place] [address] Social History Tobacco Use Types Packs/Day Years Used Date Smoking Tobacco: Every Day Cigarettes Passive Smoke Exposure: Never Smokeless Tobacco: Never Alcohol Use Standard Drinks/Week Comments Never 0 (1 standard drink = 0.6 oz pur e alcohol) Housing Stability Answer Date Recorded What is your housing situation today? I have xena amrtin 04/01/[address] you li [...] Description 06/16/2025 9:45 AM EST Office Visit [facility] MED & PEDS [address] [place] [address] Eliel Stoddard MD [address] [place] [address] documented as of this encounter Visit Diagnoses Not on filedocumented in this encounter Care Teams Antique Clock Repairer Relationship Specialty Start Date End Date Eliel Stoddard MD [address] [place] [address] PCP - General Internal Medicine 06/17/18 documented as of this encounter
--- OUTSIDE RECORDS SUMMARY | 2025-05-10 19:29 | XMS_ITS | Encounter Summary ---
Author Organization [employer] Address [address] [place] [address] 7 [place] [address] Care Team Providers Care Form Raiser Name Role Phone Eliel Stoddard MD Primary Care Provider [phone] Reason for Visit * Reason Comments Med Refill Encounter Details Date Type Department Care Team ([facility] Contact Info) Description 12/25/2023 Refill [facility] CHC MED & PEDS [address] [place], [place] [phone] Eliel Stoddard MD [address] [place] [address] Social History Tobacco Use Types Packs/Day Years [...] Upcoming Encounters Date Type Department Care Team ([facility] st Contact Info) Description 06/16/2025 9:45 AM EST Office Visit [facility] MED & PEDS [address] [place] [address] Eliel Stoddard MD [address] [place] [address] documented as of this encounter Visit Diagnoses Not on filedocumented in this encounter Additional Health Concerns Assessment Noted Time PHQ-9 Depression Total Score: 9 12/02/19 24 10:48 AM EDT documented as of this encounter Care Teams Form Raiser Relationship Specialty Start Date End Date Eliel Stoddard MD [address] [place] [address] PCP - General Internal Medicine 06/17/18 documented as of this encounter
--- OUTSIDE RECORDS SUMMARY | 2025-05-10 19:29 | XMS_ITS | Continuity of Care Document ---
Author Organization [place] - [facility], [facility] Address [address] [place] [phone] Care Team Providers Care Compensation And Benefits Manager Name Role Phone HOME MELENDEZ Primary [...] visit will be conducted by a physician assistant women's rowing coach and will be brief. The expectation is [...] By Organization Details Last Modified Time 04/16/2025 01627 - Return in approximately six months for [...] and Address Organization Details Recorded Time Snoring 89261332 Active 2013 Snoring; CMS Risk: low risk [facility] Treatment : new problem (to examiner) : additiona l workup planned C ondition: controlle d Note: Date Diagnosed : 4 4:13 PM (786.09) Not Available [facility] 4 02:51:56 Dysfuncti on of eustachia n tube 08303086 Active 2013 Eustachia n tube dysfuncti on; CMS Risk: low risk [facility] Treatment : establish ed problem (to examiner) : stable or improved Condition : controlle d Note: Date Diagnosed : 4 3:42 PM (381.81) Not Available [facility] 4 02:51:53 Sensorine ural hearing loss of bilateral ears 679666323 Active 2013 SNHL Bilateral ly; Note: Date Diagnosed : 4 3:42 PM (389.18) Not Available [facility] 4 02:51:52 Disorder of right Eustachia n tube 05118272300 84294 Active 2015 Other specified disorders of Eustachia n tube, right ear; Note: Date Diagnosed : 05/17/2016 5:16 PM (H69.81) Not Available [facility] 4 02:51:59 Otalgia of right ear 9374722044 Active 2016 Otalgia, right ear; Note: Date Diagnosed : 01/09/2017 5:09 PM (H92.01) Not Available [facility] 4 02:51:54 Bilateral disorder of Eustachia n tubes 15276029395 63580 Active 2016 Other specified disorders of Eustachia n tube, bilateral ; Note: Date Diagnosed : 01/09/2017 5:09 PM (H69.83) Not Available [facility] 4 02:51:54 Chronic serous otitis media of right ear 873130108 Active 2016 Chronic serous otitis media, right ear; Note: Date Diagnosed : 03/14/2017 12:14 PM (H65.21) Not Available [facility] 4 02:51:58 Bilateral tinnitus 48278410199 02 Active 2016 Tinnitus, bilateral ; Note: Date Diagnosed : 03/14/2017 12:12 PM (H93.13) Not Available [facility] 4 02:51:52 Follow-up visit Active 2016 Medical surveilla nce following completed treatment ; Note: Date Diagnosed : 7 10:46 AM (Z09) Not Available [facility] 4 02:51:57 Sensorine ural hearing loss in right ear 28974501545 100 Active 2017 Sensorine ural hearing loss, unilatera l, right ear, with restricte d hearing on the contralat eral side; Note: Date Diagnosed : 02/13/2018 3:14 PM (H90.A21) Not Available [facility] 4 02:51:55 Left conductiv e hearing loss 63983847899 07 Active 2017 Conductiv e hearing loss, unilatera l, left ear with restricte d hearing on the contralat eral side; Note: Date Diagnosed : 02/13/2018 3:14 PM (H90.A12) Not Available [facility] 4 02:51:59 Otorrhea of right ear 06363636143 33047 Active 2017 Otorrhea, right ear; Note: Date Diagnosed : 8 9:44 AM (H92.11) Not Available [facility] 4 02:51:53 Acute serous otitis media of right ear 03602905101 86290 Active 2017 Acute serous otitis media, right ear; Note: Date Diagnosed : 8 9:44 AM (H65.01) Not Available [facility] 4 02:51:58 Otalgia of left ear 7274408795 Active 2018 Otalgia, left ear; Note: Date Diagnosed : 07/22/2018 10:28 AM (H92.02) Not Available [facility] 4 02:51:59 Conductiv e hearing loss 33667067 Active 2018 Conductiv e hearing loss, unilatera l, right ear, with unrestric prasanna hearing on the contralat eral side; Note: Date Diagnosed : 03/14/2017 11:55 AM (H90.11) ; Start Date : 7 Conduct obed hearing loss, unilatera l, left ear, with unrestric prasanna hearing on the contralat eral side; Note: Date Diagnosed : 07/22/2018 10:33 AM (H90.12) Not Available [facility] 4 02:51:53 Acute serous otitis media of left ear 80300048230 05909 Active 2018 Acute serous otitis media, left ear; Note: Date Diagnosed : 07/22/2018 10:29 AM (H65.02) Acute serous otitis media, left ear; Note: Date Diagnosed : 03/18/2018 11:16 AM (H65.02) ; Start Date : 8 Not Available [facility] 4 02:51:55 Headache 20620069 Active 2018 Headache, unspecifi ed; Note: Changed from R51 to R51.9 ( 1 10:24 AM) , Date Diagnosed : 9 10:03 AM (R51) Not Available [facility] 4 02:51:54 Migraine without aura, not refractor y 402774569 Active 2018 Migraine without aura, not intractab le, without status migrainos us; Note: Date Diagnosed : 9 10:03 AM (G43.009) Not Available [facility] 4 02:51:56 Dizziness and giddiness 420481128 Active 2019 Dizziness and giddiness ; Note: Date Diagnosed : 09/28/2019 11:17 AM (R42) Not Available [facility] 4 02:51:58 Conductiv e hearing loss of right ear 2611692459 Active 2019 Conductiv e hearing loss, unilatera l, right ear with restricte d hearing on the contralat eral side; Note: Date Diagnosed : 09/30/2019 11:22 AM (H90.A11) Not Available [facility] 4 02:51:57 Sensorine ural hearing loss in left ear 42383487946 109 Active 2019 Sensorine ural hearing loss, unilatera l, left ear, with restricte d hearing on the contralat eral side; Note: Date Diagnosed : 09/30/2019 11:22 AM (H90.A22) Not Available [facility] 4 02:51:57 Otorrhea of left ear 42158606185 59735 Active 2020 Otorrhea, left ear; Note: Date Diagnosed : 08/01/2020 1:32 PM (H92.12) Not Available [facility] 4 02:51:52 Mixed conductiv e and 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 88410020330 107 Active 2020 Mixed conductiv e and sensorine ural hearing loss, unilatera l, left ear with restricte d hearing on the contralat eral side; Note: Date Diagnosed : 02/28/2021 2:24 PM (H90.A32) Not Available [facility] 4 02:51:55 Bilateral tympanic membrane central perforati on 96017480392 39877 Active 2021 Central perforati on of tympanic membrane, bilateral ; Note: Date Diagnosed : 02/08/2022 5:24 PM (H72.03) Not Available [facility] 4 02:51:55 Mixed conductiv e and sensorine ural hearing loss, bilateral 944311816 Active 2021 Mixed conductiv e and sensorine ural hearing loss, bilateral ; Note: Date Diagnosed : 02/08/2022 5:07 PM (H90.6) Not Available [facility] 4 02:51:56 Benign paroxysma l positiona l vertigo 243611362 Active 2022 Benign paroxysma l vertigo, left ear; Note: Date Diagnosed : 3 3:25 PM (H81.12) Not Available [facility] 4 02:51:57 Perforati on of right tympanic membrane 75763908993 81471 Active 2024 Gabi moore, [place] - [facility] [place] 10:45:00 Disorder of left Eustachia n tube 86895042616 51392 Active 2024 CARROLL MCCORD MD [address] [facility],[place] [address], [place], [address] , [place] - [facility] [place] 09:39:06 Sensorine ural hearing loss of bilateral ears 598091064 Active 2024 CHIDI HAHN AUD [address] [facility],[place] [address], [place], [phone] , [facility] - [facility] [place] 13:50:43 Problem Notes None recorded. Procedures Surgical History Date Name Laterality Status Provider Name and Address Organization Details Recorded Time 5 Air & SRT/SAT Audio with Tymps - 82690, 65324 & 25256 completed CLAYTON KIM [address] [place] [address],[address], [phone], [facility] - [facility] [place] 04/16/2025 13:50:32 Myringotomy w/Placement of Tube left completed CARROLL MCCORD MD [address] [place] [address],[address], [phone], [facility] - [facility] [place] 11/25/2024 11:46:45 Nasopharyngosco py_DP completed CARROLL MCCORD MD [address] [place] [address],[address], [address], [facility] - [facility] [place] 10/13/2024 09:36:46 Comp Audio with Tymps - 32744 & 42134 completed CLAYTON GABRIEL [address] [facility],[address], [address], [facility] - [facility] 07/22/2024 10:25:50 Imaging Results None recorded. Procedure Notes None recorded. Medical Equipment None Reported. Allergies Allergen ID Allergen Name Allergen Category Reaction Reaction Severity Criticality Documentation Date Start Date Code Code System Note Provider Name and Address Organization Details Recorded Time 25553 amoxicill in medicatio n other Not available [...] mg capsule 09/29 completed Medicati on ID: [id number] Flash rosen By Name: Sherwin manjarrez MD [...] mg tablet 11/25 completed Medicati on ID: [id number] B rand Name: tizanidi ne Send Method: [...] 3 drop 06/03 completed Medicati on ID: [id number] D uration Value: 7 Brand Name: ofloxaci [...] mg tablet 02/08 completed Medicati on ID: [id number] D uration Value: 30 Brand Name: sumatrip macedo succinat e Send Method: E-Prescr ibed Sub s Allowed: subs OK Medic ationGen ericName : sumatrip macedo succinat e Not Available Not Available Not Available topiramat e 25 mg tablet 02/08 completed Medicati on ID: [id number] D uration Value: 30 Brand Name: topirama te Send Method: E-Prescr ibed Sub s Allowed: subs OK Medic ationGen ericName : topirama te Not Available Not Available Not Available amlodipin e 5 mg tablet active Medicati on ID: [id number] B rand Name: amlodipi ne Send Method: E-Prescr ibed Sub s Allowed: subs OK Medic ationGen ericName : amlodipi ne Not Available Not Available Not Available sulfameth oxazole 800 mg-trimet hoprim 160 mg tablet TAKE 1 TABLET BY MOUTH TWICE DAILY FOR 3 DAYS active Not Available Not Available No t Available aspirin 81 mg tablet,de layed release 10/13 completed Medicati on ID: [id number] B rand Name: aspirin Send Method: E-Prescr [...] mg tablet 11/25 completed Medicati on ID: [id number] B rand Name: lisinopr il Send Method: [...] mg tablet 11/25 completed Medicati on ID: [id number] B rand Name: ibuprofe n Send Method: [...] mg tablet 11/25 completed Medicati on ID: [id number] B rand Name: naproxen Send Method: E-Prescr [...] as directed 11/25 completed Medicati on ID: [id number] D uration Value: 30 Prescri bed By [...] [place] [facility] 04/16/2025 13:56:24 Social History None recorded. [...] Disorder N Anesthesia Complications N Heart Attack (MD) N Other Skin Condition Y Diabetes Y [...] ICD10 Code Diagnosis IMO Codes Diagnosis Note [id number] CARROLL MCCORD MD [facility] [address] [address] 04/16/2025 13:30:40 04/16/2025 14:31:12 Sensorineural hearing loss of bilateral ears [id number] H90.3 [id number] Left Ear:Normal hearing sloping to a moderate HF SNHL.Paten t tube. Health Concerns Section Related Observation LastModified by Organization Detai ls LastModified Time None Recorded Concern Status LastModified by Organization Details LastModified Time None Recorded Payers Encounter Date Sequence Insurance Name Policy Number Policy Mondragon Covered Member ID Mondragon Member ID Guarantor Name 04/16/2025 1 [facility] - DOS ON OR AFTER 2022 - MEDICARE [place]VANTAGE [place] ([place]ARE [place]PLACEMENT/AD VANTAGE - PPO) Alma Rodriguez [id number] Alma Rodriguez 04/16/2025 2 [facility] () Alma Rodriguez [id number] Alma Rodriguez Notes Date Note Type Note [...] to eighteen months before falling out naturally. ACRROLL MCCORD MD [address] [place] [address], [phone], [facility] - [facility] 04/16/2025 14:24:22 OBGyn Episode No OBEpisode recorded.
--- OUTSIDE RECORDS SUMMARY | 2025-05-10 19:29 | XMS_ITS | Clinical Summary ---
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, may need further [...] Encounters Date Type Department Care Team Description 05/06/2025 Orders Only GENERIC EXTERNAL DATA DEPARTMENT Provider, Generic External Data 04/20/2025 Telephone [facility] MEDIC[facility] [address] [place] [address] Eliel Stoddard MD 04/15/2025 Travel 04/14/2025 Telephone [facility] [address] [place] [address] Eliel Stoddard MD ER Follow-up 04/13/2025 Orders Only GENERIC EXTERNAL DATA DEPARTMENT Provider, Generic External Data 04/01/2025 Orders Only GENERIC EXTERNAL DATA DEPARTMENT Provider, Generic External Data 03/30/2025 Refill [facility] [address] [place] [address] Eliel Stoddard MD Type 2 diabetes mellitus with hypoglycemia without coma, without long-term current use of insulin ([facility]) 03/19/2025 Refill [facility] [address] [place] [address] Eliel Stoddard MD Primary hypertension 02/23/2025 9:00 AM EDT Office Visit [facility] [address] [place] [address] Eliel Stoddard MD Type 2 diabetes mellitus with hypoglycemia without coma, without long-term current use of insulin ([facility]) (Primary Dx); Primary hypertension; Claustrophobia; Hypercholesterolemia 02/23/2025 Travel 02/22/2025 Telephone [facility] [address] [place] [address] Eliel Stoddard MD Chart Prep 02/16/2025 Travel from Last 3 Months Immunizations Immunization [...] 02/23/2025 9:11 AM EDT Plan of Treatment Upcoming Encounters Date Type Department Care Team (Late st Contact Info) Description 06/16/2025 9:45 AM EST Office Visit [facility] MED & PEDS [address] [place] [address] Eliel Stoddard MD [address] [place] [address] Health Maintenance Due Date Last Done Comments [...] Procedure Name Priority Date/Time Associated Diagnosis Comments HELICOBACTER PYLORI, UREA BREATH TEST Routine 05/06/2025 8:55 AM EST XR RIBS 3 VIEWS LEFT W CHEST [...] coma, without long-term current use of insulin ([facility]) POCT GLUCOSE Routine 02/23/2025 9:29 AM EDT Type 2 diabetes mellitus with hypoglycemia without coma, without long-term current use of insulin ([facility]) BI MAMMOGRAM SCREENING TOMOSYNTHESIS BILATERAL Routine 12/21/2024 9:20 AM EDT ALBUMIN, RANDOM URINE W/CREATININE Routine 11/23/2024 9:20 AM EDT Type 2 diabetes mellitus with hypoglycemia without coma, without long-term current use of insulin ([facility]) LIPID PANEL, STANDARD Routine 12/02/2023 11:30 AM EDT Encounter for preventive care HIV 1/2 ANTIGEN/ANTIBODY, FOURTH GENERATION W/RFL Routine 12/21/2021 12:00 AM EDT THINPREP IMAGING PAP AND HPV MRNA E6/E7, WITH CT/NG, TRICHOMONAS Routine 09/12/2021 8:57 AM EDT HM COLONOSCOPY Routine 02/05/2018 from Last 3 Months or Most Recently Relevant to Health Maintenance Results * Helicobacter pylori, Urea Breath Test (05/06/2025 8:55 AM EST) H. pylori Breath Test Negative Negative [facility] Comment:Antimicrobials, prot on pump inhibitors and bismuthpreparations are known to suppress H. pylori. Ingestingthese medications within two weeks prior to performing thebreath test may produce negative test results. A positiveresult is still clinically valid. 05/06/2025 8:55 AM EST 05/06/2025 4:15 PM EST us Generic External Data Provider LAB BODY FLUIDS A ND STOOLS ORDERABLES Final Result [facility] [address] [place] [phone] * XR Ribs 3 Views Left w/ Chest (04/13/2025 8:59 PM EDT) Anatomical Region Laterality Modality Radiographic Vickie ging 04/13/2025 8:59 PM EDT Narrative 04/13/2025 9:01 PM EDT [address] [address] XRay Report Signed Patient: Alma Rodriguez MR#: [id number] : 1965 Acct:[id number] Age/Sex: 59 / F ADM Date: 04/13/25 Loc: HO.ED Attending Dr: Ordering Physician: Generic ED Physician Date of Service: 04/13/25 Procedure(s): XR ribs LT min 3V w CXR1V Accession Number(s): [id number] cc: Eliel Stoddard MD; Generic ED Physician [...] in OV> 04/13/252099 DD/ 58 TD/TT: 04/13/252058 Toll Line Mechanic: Procedure Note Donotuseinterpreter, Image - 04/13/2025 [place] [address] XRay Report Signed Patient: Alma Rodriguez AMR#: [id number] : 1965Acct:[id number] Age/Sex: 59 / FADM Date: 04/13/25 Loc: HO.ED Attending Dr: Ordering Physician: Generic ED Physician Date of Service: 04/13/25 Procedure(s): XR ribs LT min 3V w CXR1V Accession Number(s): [id number] cc: Eliel Stoddard MD; Generic ED Physician [...] in OV> 04/13/252099 DD/ 58 TD/TT: 04/13/252058 Toll Line Mechanic: [facility] External Provider IMG XR PROCEDURES Final Result * Urinalysis, Complete, with Reflex to Culture (04/13/2025 7:35 PM EDT) Color Urine Yellow [facility] Appearance Urine Clear [facility] PH 6.0 5.0 - 9.0 [facility] Glucose Urine UA Negative Negative mg/dL [facility] Urine Blood Negative Negative [facility] Specific [place] - Urine <=1.005 1.005 - 1.025 [facility] Urine Protein Negative Neg-Trace mg/dL [facility] Urine Ketones Negative Negative mg/dL [facility] Nitrite Urine Negative Negative [facility] Leukocyte Esterase Urine Negative Negative [facility] RBC Urine 0-2 0 - 2 /HPF [facility] Urine WBC 0-5 0 - 5 /HPF [facility] Urine Squamous Epithelial Cell 0-2 0 - 2 /HPF [facility] Urine Bacteria None Seen None Seen [facility] Hyaline Casts, Urine 0-2 0 - 2 /LPF [facility] 04/13/2025 7:35 PM EDT 04/13/2025 7:40 PM EDT [facility] - 04/13/2025 7:53 PM EDT [id number], Clean Catch Generic External Data Provider LAB URINE ORDERAB LES Final Result [facility] [address] [place] [phone] * Hematoxylin and Eosin Stain (04/01/2025 8:20 AM EDT) 04/01/2025 8:20 AM EDT 04/01/2025 10:37 AM EDT Narrative [facility] - 04/06/2025 2:12 PM EDT ----- ------- Name: Alma Rodriguez Age/Sex: 59/F : 1965 Unit#: [id number] Attend Dr: Debby Keenan MD Re04/01/25 Status: [facility] Location: [facility] Disch: ----- ------- SPEC : [id number] RECD: 04/01/25 STATUS: CHETANKandy JAZZ NUM: [id number] GUILLERMO: 04/01/[address] [facility] [address]: Debby Keenan MD ENTERED: 04/01/25-1105 SP TYPE: Surgical OTHR DR: Eliel Stoddard [...] Alma Rodriguez Age/Sex: 59/F : 1965 Unit#: [id number] Attend Dr: Debby Keenan MD Re04/01/25 Status: [facility] Location: [facility] Disch: ----- ------- SPEC : [id number] RECD: 04/01/25 STATUS: SOPHIA SCHULZ NUM: [id number] GUILLERMO: 04/01/[address] [facility] [address]: Debby Keenan MD ENTERED: 04/01/251105 TYPE: Surgical OTHR DR: Eliel Stoddard MD ORDERED: HE Stain/18, Gross Micro L4/6, IHC, Special st. 2/, H. pylori, AB/PAS/2 Gross Description Received in [...] microscopic examination, 1 piece in cassette F. ([facility]) Special studies ordered and performed: Immunostain for H. pylori on B; AB/PAS stains on A and B IHC S/NG Disclaimer NOTE: Unless otherwise stated, all tissue is formalin-fixed and paraffin-embedded. Some or all of the immunohistochemical tests reported herein may have been developed and their performance characteristics determined by [facility]. They have not been cleared [...] Alma Rodriguez Age/Sex: 59/F : 1965 Unit#: [id number] Attend Dr: Debby Keenan MD Re04/01/25 Status: [facility] Location: [facility] Disch: ----- ------- SPEC : [id number] RECD: 04/01/25 STATUS: SOPHIA JAZZ NUM: [id number] GUILLERMO: 04/01/[address] [facility] [address]: Debby Keenan MD ENTERED: 04/01/257 SP TYPE: Surgical OTHR DR: Eliel Stoddard MD ORDERED: HE Stain/18, Gross Micro L4/6, IHC, Special st. 2/2, H. pylori, AB/PAS/2 Copies To: Eliel Stoddard MD [address] [address] Debby Keenan MD [facility] [address] [place] [address] [email or web address] ----- ------- Signed (signature on file) Davey Newberry MD 04/06/25 1412 ----- ------- END OF REPORT Generic External Data Provider LAB BLOOD ORDERAB LES Final Result Performing Organization Address City/[facility]/ZIP Co de Phone Number [facility] [address] [place] [address] [phone] * (ABNORMAL) Glucose, Whole Blood (04/01/2025 7:39 AM EDT) [facility] Glucose, Whole Blood 126(H) 60 - 115 mg/dL [facility] Comment:METER #: [id number] 04/01/2025 7:39 AM EDT 04/01/2025 7:42 AM EDT Generic External Data Provider LAB BLOOD ORDERAB LES Final Result Performing Organization Address [facility] Co de Phone Number [facility] [address] [place] [address] [phone] * MR Cervical Spine w/o Contrast (02/23/2025 10:29 AM EDT) Anatomical Region Laterality Modality Spine, C-spine Magnetic Resonan ce 02/23/2025 10:2 9 AM EDT Narrative 02/23/2025 10:30 AM EDT [address] [address] Magnetic Resonance Report Signed Patient: Alma Rodriguez MR#: [id number] : 1965 Acct:[id number] Age/Sex: 59 / F ADM Date: 02/20/25 Loc: HO.MRI Attending Dr: Filippo FONG Ordering Physician: Filippo Fortune Date of Service: 02/20/25 Procedure(s): MR cervical spine wo con Accession Number(s): [id number] cc: Eliel Stoddard MD; Filippo Fortune Reason [...] 02/23/25 1029 DD/ 1029 TD/TT: 02/23/25 1029 Toll Line Mechanic: Procedure Note Donotuseinterpreter, Image - 02/23/[address] [address] Magnetic Resonance Report Signed Patient: Alma Rodriguez [facility]#: [id number] : 1965Acct:[id number] Age/Sex: 59 / FADM Date: 02/20/25 Loc: HO.MRI Attending Dr: Filippo FONG Ordering Physician: Filippo Fortune Date of Service: 02/20/25 Procedure(s): MR cervical spine wo con Accession Number(s): [id number] cc: Eliel Stoddard MD; Filippo Fortune Reason [...] 02/23/25 1029 DD/ 1029 TD/TT: 02/23/25 1029 Toll Line Mechanic: [facility] External Provider IMG MRI PROCEDURES Edited [...] Media Lot # [id number] Lot# Expiration Date Comment:random Blood Capillary blood specimen / Unknown 02/23/2025 9:29 AM EDT Eliel Stoddard MD POINT OF CARE TEST ENTER/ED IT ORDERABLES Final Result * BI Mammogram Screening Tomosynthesis Bilateral (12/21/2024 9:20 AM EDT) Anatomical Region Laterality Modality Breast Bilateral Mammography 12/21/2024 9:20 AM EDT Narrative 12/30/2024 9:14 PM EDT [facility] [address] [place] [address] Mammography Report Signed Patient: Alma Rodriguez MR#: [id number] : 1965 Acct:[id number] Age/Sex: 59 / F ADM Date: 12/21/24 Loc: HO.MAMMO Attending Dr: Mahsa Valenzuela MD Ordering Physician: Mahsa Huffman MD Results: 1Negative Date of Service: 12/21/24 Follow Up: 1 Year From Orig inal Mammogram Procedure(s): MM tomosynthesis screening BI Accession Number(s): [id number] cc: Mahsa Huffman MD; Eliel Stoddard MD [...] DO in OV> 12/30/242110 DD/ 9 TD/TT: 12/21/2430 Toll Line Mechanic: Procedure Note Donotuseinterpreter, Image - 12/30/2024 [facility] [address] [place] [address] Mammography Report Signed Patient: Alma Rodriguez AMR#: [id number] : 1965Acct:[id number] Age/Sex: 59 / FADM Date: 12/21/24 Loc: HO.MAMMO Attending Dr: Mahsa Valenzuela MD Ordering Physician: Mahsa Huffman MDResults: 1Negative Date of Service: 12/21/24Follow Up: 1 Year From Orig inal Mammogram Procedure(s): MM tomosynthesis screening BI Accession Number(s): [id number] cc: Mahsa Huffman MD; Eliel Stoddard MD [...] in OV> 12/30/242110 DD/ 9 TD/TT: 12/21/24929 Toll Line Mechanic: us Mahsa Valenzuela MD IMG BI PROCEDURES Asim prasanna Result - Final * Albumin, Random Urine W/Creatinine (11/23/2024 9:20 AM EDT) Creatinine, Urine 200.15 mg/dL [facility] Microalbumin Urine 21.0 mg/L [facility] Microalbum Creatinine Ratio Ur 10.4 <30 ug/mg cr [facility] Comment:Albumin/Creatinine R atio Reference Ranges: Normal: < 30 ug/mg creatinine Microalbuminuria: 30 - 300 ug/mg creatinineClinical Albuminuria: > 300 ug/mg creatinine Urine (Urine, Random) 11/23/2024 9:20 AM EDT 11/23/2024 2:06 PM EDT us Eliel Stoddard MD LAB URINE ORDERABLES Final Result [facility] [address] [place] [phone] * (ABNORMAL) Lipid Panel, Standard (12/02/2023 11:30 AM EDT) Triglycerides 154(H) <150 mg/dL [facility] Comment:Desirable Triglyceri de: less than 150 mg/dLBorderline High Triglyceride 150-199 mg/dLHigh Triglyceride: 200-499 mg/dLVery High Triglyceride: greater than or equal to 5OO mg/dL Cholesterol 124 <200 mg/dL [facility] Comment:Desirable Cholestero l: less than 200 mg/dLBorderline High Cholesterol: 200-239 mg/dLHigh Cholesterol: greater than 239 mg/dL LDL Cholesterol Calculated 61 <100 mg/dL [facility] Comment:Desirable LDL: less than 100 mg/dLNear Optimal/Above Optimal LDL: 110- 129 mg/dLBorderline High LDL: 130-159 mg/dLHigh LDL: 160-189 mg/dLVery High LDL: greater than or equal to 190 mg/dL HDL Cholesterol 33(L) >40 mg/dL [facility] Comment:Desirable HDL: great er than 40 mg/dL Note: This HDL assay may give artificially low results in patients with liver disease. Blood Venous blood specimen / Unknown 12/02/2023 11:30 AM EDT 12/02/2023 1:26 PM EDT us Mahsa Valenzuela MD LAB BLOOD ORDERABLES Final Result [facility] [address] [place] [address] [phone] * HIV 1/2 ANTIGEN/ANTIBODY,FOURTH GENERATION W/RFL (12/21/2021 12:00 AM EDT) Pathologist [facility] HIV-1/2 ANTIGEN AND ANTIBODIES, 4TH GENERATION W/ [...] purpose. For additional information please refer to http://twago - teamwork across global offices.VacationFutures/faq/JQZ781 (This link is being provided for informational/ educational purposes only.) The performance of this assay has not been clinically validated in patients less than 2 years old. 12/21/2021 Eliel Stoddard MD LAB BLOOD ORDERABLES Final Result [facility] [address] * THINPREP TIS PAP AND HPV mRNA E6/E7, CT/NG, TRICH (09/12/2021 8:57 AM EDT) Chlamydia trachomatis RNA, TMA, Urogenital NOT DETECTED NOT DETECTED [facility] Clinical Information: None given [facility] COMMENT SEE COMMENT [facility] Comment: The analytical performance characteristics of this assay, when used to test SurePath(TM) specimens have been determined by [facility]. The modifications have not been cleared or approved by the FDA. This assay has been validated pursuant to the CLIA regulations and is used for clinical purposes. For additional information, please refer to https://twago - teamwork across global offices.[employer]ation[employer]ures/faq/VEW416 (This link is being provided for information/ [...] has been evaluated with computer assisted technology. WorkCast Segment Producer: SEE COMMENT [facility] Comment: CMG, CT(ASCP) CT screening location: [address] [address] HPV nRNA E6/E7 Not Detected Not Detected [facility] Comment: Methodology: Mint Wafer Depositor-Mediated Amplification This assay detects E6/E7 viral messenger RNA (mRNA) from 14 high-risk HPV types (16,18,31,33,35,39,45,51,52,56,58,59,66,68). The analytical performance characteristics of this assay have been determined by [facility]. The modifications have not been cleared or approved by the FDA. This assay has been validated pursuant to the CLIA regulations and is used for clinical purposes. For additional information, please refer to http://twago - teamwork across global offices.[employer]ures/faq/OIO919i1 (This link if provided for information/ educational [...] of this assay have been determined by [facility]. The modifications have not been cleared or approved by the FDA. This assay has been validated pursuant to the CLIA regulations and is used for clinical purposes. For additional information, please refer to http://education.VacationFutures/ faq/Trichomonastma (This link is being provided for information/ educational purposes only.) 09/12/2021 8:57 AM EDT Nini Perry CNM LAB PATHOLOGY ORDERABLES Final Result [facility] [address] [place] [address], * Colonoscopy (02/05/2018) Colonoscopy Normal Normal Narrative Karla Slaughter - 02/05/2018 Recommended 10 year follow up us Historical Provider HEALTH MAINTENANCE Final Result from Last 3 Months or Most Recently Relevant to Health Maintenance Insurance [facility] < 65 Care Teams Tonal Regulator Relationship Specialty Start Date End Date Eliel Stoddard MD [address] [place] [address] ELIZA Chin [address] PCP - General Internal Medicine 06/17/18
--- OUTSIDE RECORDS SUMMARY | 2025-05-10 19:29 | XMS_ITS | Encounter Summary ---
Author Organization [employer] Address [address] [place] [address] 7t [place] [address] Care Team Providers Care Roller Coaster Engineer Name Role Phone Eliel Stoddard MD Primary Care Provider [phone] Encounter Details Date Type Department Care Team (Late st Contact Info) Description 05/06/2025 Orders Only GENERIC EXTERNAL DATA [...] the past 12 months, has t he [facility], gas, oil or water [employer] threatened to shut off services in your [...] Upcoming Encounters Date Type Department Care Team ([facility] st Contact Info) Description 06/16/2025 9:45 AM EST Office Visit [facility] [address] [place] [address] Eliel Stoddard MD [address] [place] [address] documented as of this encounter Procedures Procedure Name Priority Date/Time Associated Diagnosis Comments HELICOBACTER PYLORI, UREA BREATH TEST Routine 05/06/2025 8:55 AM EST documented in this encounter Results * Helicobacter pylori, Urea Breath Test (05/06/2025 8:55 AM EST) H. pylori Breath Test Negative Negative [facility] Comment:Antimicrobials, prot on pump inhibitors and bismuthpreparations are known to suppress H. pylori. Ingestingthese medications within two weeks prior to performing thebreath test may produce negative test results. A positiveresult is still clinically valid. 05/06/2025 8:55 AM EST 05/06/2025 4:15 PM EST us Generic External Data Provider LAB BODY FLUIDS A ND STOOLS ORDERABLES Final Result [facility] [address] [place] [address] [phone] documented in this encounter Visit Diagnoses Not on filedocumented in this encounter Additional Health Concerns Assessment Noted Time PHQ-9 Depression Total Score: 8 02/24/20 25 9:16 AM EDT documented as of this encounter Care Teams Roller Coaster Engineer Relationship Specialty Start Date End Date Eliel Stoddard MD [address] [place] [phone] PCP - General Internal Medicine 06/17/18 documented as of this encounter
--- OUTSIDE RECORDS SUMMARY | 2025-05-10 19:29 | XMS_ITS | Encounter Summary ---
Author Organization [employer] Address [address] [facility] [address] [place] [address] Care Team Providers Care Informatica Name Role Phone Eliel Stoddard MD Primary Care Provider [phone] Encounter Details Date Type Department Care Team ([facility] st Contact Info) Description 04/20/2025 Telephone [facility] MED[facility] [address] [place] [address] Eliel Stoddard MD [address] [place], [place] [phone] Social History Tobacco Use Types Packs/Day Years [...] appointment 04/20 ER follow up s/p anxiety [facility] 04/13/25 PHQ, Gad7, Flu transportation was [address] Jay documented in this encounter Plan of Treatment Upcoming Encounters Date Type Department Care Team (Late st Contact Info) Description 06/16/2025 9:45 AM EST Office Visit [facility] [address] [place] [address] Eliel Stoddard MD [address] [place] [address] documented as of this encounter Visit Diagnoses Not on filedocumented in this encounter Additional Health Concerns Assessment Noted Time PHQ-9 Depression Total Score: 8 02/24/20 25 9:16 AM EDT documented as of this encounter Care Teams Informatica Relationship Specialty Start Date End Date Eliel Stoddard MD [address] [place] [address] PCP - General Internal Medicine 06/17/18 documented as of this encounter
--- OUTSIDE RECORDS SUMMARY | 2025-05-10 19:29 | XMS_ITS | Clinical Summary ---
Author Organization Patient Business [facility] Address [address] [place] [address] Care Team Providers Care Latex Caster Name Role Phone Eliel Stoddard MD Primary Care Provider [phone] Surgical History Surgery Date Site/Laterality Comments OTHER SURGICAL HISTORY PROCEDURE: AL DILATION & CURETTAGE DX&/THER NONOBSTETRIC SECTION PROCEDURE: [...] herpes zoster H/O acute pancreatitis DX:H/O ac [place] pancreatitis Hypercholesterolemia DX:Hypercho lesterolemia Leukocytosis DX:Leukocytosis Spinal [...] 05/20/2022 Depression Screening 06/17/2024 COVID-19 Vaccine ( season) 2025 04/01/2024, 05/03/2022, 05/04/2021, Additional history exists Influenza Vaccine (#1) 2025 , 02/27/2023, 02/23/2022, Additional history exists Diabetes: Annual [...] Documents on File Type Date Recorded 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
== END 2025-05-10 15:48 | disposition home or self-care (01) ==
LOC: HO.HGI 14:35
PROVIDERS: PCP Internal Medicine; Visit Provider Internal Medicine
DX: K21.9 Gastro-esophageal reflux disease without esophagitis (principal); K52.9 Noninfective gastroenteritis and colitis, unspecified; K29.90 Gastroduodenitis, unspecified, without bleeding; K86.89 Other specified diseases of pancreas
CPT/HCPCS: 99214; G2211

== ENCOUNTER → 2025-05-10 14:35 | Outpatient (BNVA) | payer OTHER, SELFPAY | PROVIDERS: PCP Internal Medicine; Visit Provider Internal Medicine | DX: K21.9 Gastro-esophageal reflux disease without esophagitis (principal); K52.9 Noninfective gastroenteritis and colitis, unspecified; K29.90 Gastroduodenitis, unspecified, without bleeding; K86.89 Other specified diseases of pancreas | CPT/HCPCS: 99212 ==